=== PATIENT | male | born 1995 | race Hispanic/Latino ===

== ENCOUNTER 2019-10-26 22:47 | Emergency (ER) | payer SELFPAY ==
[2019-10-27 01:52] LABS: Barbiturates NEGATIVE (NEGATIVE); Benzodiazepines NEGATIVE (NEGATIVE); Cocaine NEGATIVE (NEGATIVE); METHAMPHETAM NEGATIVE (NEGATIVE); Methadone NEGATIVE (NEGATIVE); Opiates NEGATIVE (NEGATIVE); Phencyclidine NEGATIVE (NEGATIVE); THC Cannibis NEGATIVE (NEGATIVE)
--- NOTE | 2019-10-27 02:39 | EDPHYS ---
Physician Documentation [facility] Name: Eliseo Odonnell Age: 24 yrs Sex: Male : 1995 Arrival Date: 10/26/2019 Time: 22:58 Bed 25 Private MD: ED Physician John Arguelles HPI: 10/26 01:01 This 24 yrs old Male presents to ER via Ambulatory with complaints of SHAKEY. mh7 01:01 The patient presents to the emergency department with anxiety, over unknown mh7 circumstances. Onset: The symptoms/episode began/occurred 1 day(s) ago. Past psychiatric history: Prior diagnosis: Anxiety, Psychiatric medications include: none, Primary psychiatric physician: the patient does not have a primary psychiatric physician, the patient has not had a prior suicide gesture, the patient does not have a previous inpatient psychiatric history, the patient's last psychiatric treatment was 2 year(s) ago. Associated signs and symptoms: Pertinent positives; anxiety, tremor, Pertinent negatives: abdominal pain, chest pain, chills, delusions, depression, fever, hallucinations, headache, homicidal ideation, nausea, night sweats, palpitations, paranoia, shortness of breath, substance abuse, suicide ideation, vomiting. Severity of symptoms: At their worst the symptoms were moderate today, in the emergency department the symptoms have improved markedly. The patient has experienced similar episodes in the past, multiple times. Patient states that he was diagnosed with anxiety a few years ago but has not taken medication that he was prescribed. States that he started feeling shaky yesterday similar to past episodes. Denies any fever, cough, chest pain, SOB, nausea, vomiting, dizziness, or recent travel.. Historical: - Allergies: 10/25 23:39 No Known Allergies; ls4 - PMHx: 23:39 Anxiety; Asthma; ls4 - PSHx: 23:39 None; ls4 - Immunization history:: Adult Immunizations up to date, Flu vaccine is not up to date. It has been more than one year since last vaccine. - Social history:: Smoking status: Patient denies any tobacco usage or history of. Patient/guardian denies using alcohol, street drugs, IV drugs, caffeine, over the counter diet medications, tobacco products. ROS: 10/26 01:01 Constitutional: Negative for fever, chills, and weight loss, Eyes: Negative for injury, mh7 pain, redness, and discharge, ENT: Negative for injury, pain, and discharge, Neck: Negative for injury, pain, and swelling, Cardiovascular: Negative for chest pain, palpitations, and edema, Respiratory: Negative for shortness of breath, cough, wheezing, and pleuritic chest pain, Abdomen/GI: Negative for abdominal pain, nausea, vomiting, diarrhea, and constipation, Back: Negative for injury and pain, : Negative for injury, bleeding, discharge, and swelling, MS/Extremity: Negative for injury and deformity, Skin: Negative for injury, rash, and discoloration, Neuro: Negative for headache, weakness, numbness, tingling, and seizure, Allergy/Immunology: Negative for hives, rash, and allergies, Endocrine: Negative for neck swelling, polydipsia, polyuria, polyphagia, and marked weight changes, Hematologic/Lymphatic: Negative for swollen nodes, abnormal bleeding, and unusual bruising. Psych: Negative for depression, drug dependence, alcohol dependence, auditory hallucinations, visual hallucinations, homicidal ideation, insomnia, suicide gesture, suicidal ideation. Exam: 01:01 Constitutional: This is a well developed, well nourished patient who is awake, alert, mh7 and in no acute distress. Head/Face: Normocephalic, atraumatic. Eyes: Pupils equal round and reactive to light, extra-ocular motions intact. Lids and lashes normal. Conjunctiva and sclera are non-icteric and not injected. Cornea within normal limits. Periorbital areas with no swelling, redness, or edema. ENT: Nares patent. No nasal discharge, no septal abnormalities noted. Tympanic membranes are normal and external auditory canals are clear. Oropharynx with no redness, swelling, or masses, exudates, or evidence of obstruction, uvula midline. Mucous membranes moist. Neck: Trachea midline, no thyromegaly or masses palpated, and no cervical lymphadenopathy. Supple, full range of motion without nuchal rigidity, or vertebral point tenderness. No Meningismus. Chest/axilla: Normal chest wall appearance and motion. Nontender with no deformity. No lesions are appreciated. Cardiovascular: Regular rate and rhythm with a normal S1 and S2. No gallops, murmurs, or rubs. Normal PMI, no JVD. No pulse deficits. Respiratory: Lungs have equal breath sounds bilaterally, clear to auscultation and percussion. No rales, rhonchi or wheezes noted. No increased work of breathing, no retractions or nasal flaring. Abdomen/GI: Soft, non-tender, with normal bowel sounds. No distension or tympany. No guarding or rebound. No evidence of tenderness throughout. Back: No spinal tenderness. No costovertebral tenderness. Full range of motion. Skin: Warm, dry with normal turgor. Normal color with no rashes, no lesions, and no evidence of cellulitis. MS/ Extremity: Pulses equal, no cyanosis. Neurovascular intact. Full, normal range of motion. Neuro: Awake and alert, GCS 15, oriented to person, place, time, and situation. Cranial nerves II-XII grossly intact. Motor strength 5/5 in all extremities. Sensory grossly intact. Cerebellar exam normal. Normal gait. 01:01 Psych: Behavior/mood is anxious, Affect is calm, Oriented to person, place, time, Patient has no thoughts/intents to harm self or others. Judgement / Insight is normal. Memory is normal. Delusions/hallucinations are not present. Vital Signs: 10/25 23:35 BP 160 / 112; Pulse 77; Resp 16; Temp 98.6(O); Pulse Ox 99% on R/A; Weight 104.33 kg; ls4 Height 5 ft. 10 in. (177.80 cm); Pain 0/10; 10/26 02:20 BP 134 / 61; Pulse 68; Resp 18; Temp 98.2(TE); Pulse Ox 98% ; ea 10/25 23:35 Body Mass Index 33.00 (104.33 kg, 177.80 cm) ls4 MDM: 00:39 Patient medically screened. [facility] 02:36 Differential diagnosis: drug withdrawal. anxiety. Data reviewed: vital signs, nurses [facility] notes. 02:36 Data reviewed: lab test result(s), finger stick glucose, urine drug screen. Counseling: [facility] I had a detailed discussion with the patient and/or guardian regarding: the historical points, exam findings, and any diagnostic results supporting the discharge/admit diagnosis, lab results, the need for outpatient follow up, to return to the emergency department if symptoms worsen or persist or if there are any questions or concerns that arise at home. 10/26 00:39 Order name: UDS; Complete Time: 02:36 [facility] 10/26 01:19 Order name: Glucose, Ancillary Testing; Complete Time: 02:36 [facility] 10/26 00:39 Order name: Accucheck Blood Glucose; Complete Time: 01:28 [facility] 10/26 00:39 Order name: Urine Dipstick-Ancillary (obtain specimen); Complete Time: 01:28 [facility] 10/26 01:19 Order name: Urine Dipstick--Ancillary (enter results) mw2 Administered Medications: No medications were administered Disposition: 10/27/19 02:38 Discharged to Home. Impression: Anxiety disorder, unspecified. - Condition is Stable. - Discharge Instructions: Panic Attacks, Keav-pc-Moms. - Prescriptions for Hydroxyzine HCl 50 mg Oral Tablet - take 1 tablet by ORAL route every 8 hours As needed; 20 tablet. - Medication Reconciliation Form, Thank You Letter, Antibiotic Education, Prescription Opioid Use form. - Follow up: Private Physician; When: 1 - 2 days; Reason: Worsening of condition, Recheck today's complaints, Re-evaluation by your physician. Follow up: Joel Pennington MD; When: 1 - 2 days; Reason: Worsening of condition, Recheck today's complaints. - Problem is an acute exacerbation. - Symptoms have improved. Signatures: Dispatcher [employer] Marilynn Yeh RN RN ea Stewart, Lisa, RN RN ls4 John Arguelles MD MD mh7 Corrections: (The following items were deleted from the chart) 02:44 02:38 10/27/2019 02:38 Discharged to Home. Impression: Anxiety disorder, unspecified. ea Condition is Stable. Forms are Medication Reconciliation Form, Thank You Letter, Antibiotic Education, Prescription Opioid Use. Follow up: Private Physician; When: 1 - 2 days; Reason: Worsening of condition, Recheck today's complaints, Re-evaluation by your physician. Follow up: Joel Pennington; When: 1 - 2 days; Reason: Worsening of condition, Recheck today's complaints. Problem is an acute exacerbation. Symptoms have improved. 7
--- NOTE | 2019-10-27 02:39 | ER ---
Nurse's Notes [facility] Name: Eliseo Odonnell Age: 24 yrs Sex: Male : 1995 Arrival Date: 10/26/2019 Time: 22:58 Bed 25 Private MD: Diagnosis: Anxiety disorder, unspecified Presentation: 10/25 23:35 Chief complaint: Patient states: FLAVIO BEEN SHAKY ALL DAY. HANDS NUMB AND FEEL LIKE IM ls4 PANICKING. I FEEL BETTER NOW. I WAS ON ANXIETY MEDICINE BEFORE I WENT TO RETIREMENT BUT HAVENT HAD IT SINCE. I THINK ITS JUST ANXIETY. Coronavirus screen: Proceed with normal triage. Patient denies a cough. Patient denies shortness of breath or difficulty breathing. Patient denies measured and/or subjective temperature greater than 100.4F prior to today's visit. Patient denies travel on a cruise ship or to a country the [facility] currently lists as an affected area. Patient denies contact with known and/or suspected case of COVID-19. Ebola Screen: No symptoms or risks identified at this time. Initial Sepsis Screen: Does the patient meet any 2 criteria? No. Patient's initial sepsis screen is negative. Does the patient have a suspected source of infection? No. Patient's initial sepsis screen is negative. Risk Assessment: Do you want to hurt yourself or someone else? Patient reports no desire to harm self or others. Onset of symptoms is unknown. Care prior to arrival: None. Activity prior to arrival: None. 23:35 Method Of Arrival: Ambulatory ls4 23:35 Acuity: SHARRON 4 ls4 Triage Assessment: 23:39 General: Appears in no apparent distress. comfortable, obese, Behavior is calm, ls4 cooperative. Pain: Denies pain. Neuro: No deficits noted. Cardiovascular: No deficits noted. Respiratory: Airway is patent Respiratory effort is even, unlabored, Respiratory pattern is regular, Breath sounds are clear bilaterally. the patient reports symptoms have resolved. GI: No deficits noted. No signs and/or symptoms were reported involving the gastrointestinal system. : No deficits noted. No signs and/or symptoms were reported regarding the genitourinary system. Derm: Skin is intact, Skin is dry, Skin is normal, Skin temperature is warm. Musculoskeletal: No deficits noted. No signs and/or symptoms reported regarding the musculoskeletal system. Historical: - Allergies: 23:39 No Known Allergies; ls4 - PMHx: 23:39 Anxiety; Asthma; ls4 - PSHx: 23:39 None; ls4 - Immunization history:: Adult Immunizations up to date, Flu vaccine is not up to date. It has been more than one year since last vaccine. - Social history:: Smoking status: Patient denies any tobacco usage or history of. Patient/guardian denies using alcohol, street drugs, IV drugs, caffeine, over the counter diet medications, tobacco products. Screenin:41 Abuse screen: Denies threats or abuse. Denies injuries from another. Nutritional ls4 screening: No deficits noted. Tuberculosis screening: No symptoms or risk factors identified. Fall Risk None identified. Assessment: 10/26 00:26 Reassessment: Patient appears in no apparent distress at this time. Patient and/or ls4 family updated on plan of care and expected duration. Pain level reassessed. Patient is alert, oriented x 3, equal unlabored respirations, skin warm/dry/pink. 01:28 Reassessment: Patient appears in no apparent distress at this time. Patient and/or ls4 family updated on plan of care and expected duration. Pain level reassessed. Patient is alert, oriented x 3, equal unlabored respirations, skin warm/dry/pink. 02:20 General: Appears in no apparent distress. Behavior is calm, cooperative, appropriate ea for age. General: Reports he is feeling much better states "I think it was an anxiety attack" . Pain: Denies pain. Respiratory: Airway is patent Respiratory effort is even, unlabored, Respiratory pattern is regular, symmetrical. Derm: Skin is pink, warm \\T\\ dry. 02:43 Reassessment: Patient and/or family updated on plan of care and expected duration. Pain ea level reassessed. Patient is alert, oriented x 3, equal unlabored respirations, skin warm/dry/pink. Discharge instruction given to patient, verbalized the understanding of instruction. Pt left ED ambulatory tolerating well. Vital Signs: 10/25 23:35 BP 160 / 112; Pulse 77; Resp 16; Temp 98.6(O); Pulse Ox 99% on R/A; Weight 104.33 kg; ls4 Height 5 ft. 10 in. (177.80 cm); Pain 0/10; 10/26 02:20 BP 134 / 61; Pulse 68; Resp 18; Temp 98.2(TE); Pulse Ox 98% ; ea 10/25 23:35 Body Mass Index 33.00 (104.33 kg, 177.80 cm) ls4 ED Course: 10/25 22:58 Patient arrived in ED. ag3 23:24 Marilu Steven, RN is Primary Nurse. ls4 23:39 Triage completed. ls4 23:41 No apparent distress. ls4 23:41 Arm band placed on. ls4 23:41 Patient has correct armband on for positive identification. Bed in low position. Call 4 light in reach. Side rails up X 1. Pulse ox on. NIBP on. Verbal reassurance given. 23:41 No provider procedures requiring assistance completed. 4 10/26 00:18 John Arguelles MD is Attending Physician. 7 00:26 No apparent distress. Resting quietly. ls4 01:28 Diet: Patient given snack. Patient given water. Tolerated well. ls4 02:38 Joel Pennington MD is Referral Physician. [facility] 02:44 Patient did not have IV access during this emergency room visit. ea Administered Medications: No medications were administered Outcome: 02:38 Discharge ordered by . [facility] 02:44 Discharged to home ambulatory. ea 02:44 Condition: stable 02:44 Discharge instructions given to patient, Instructed on discharge instructions, follow up and referral plans. medication usage, Demonstrated understanding of instructions, follow-up care, medications, Prescriptions given X 1. 02:44 Patient left the ED. ea Signatures: Marilynn Sanchez RN Belinda Samaniego ea 3 Marilu Steven, JOCELYN RN [facility] John Arguelles MD MD [facility]
[2019-10-27 02:52] VITALS: BP 134/61; TEMP 98.2; O2SAT 98
[2019-10-27 03:04] LABS: Urine Blood NEGATIVE (NEG); Urine Glucose NEGATIVE (NEG); Urine Protein NEGATIVE (NEG); Urine Specific Gravity <1.005 (1.005-1.030)
== END 2019-10-27 02:44 | disposition home or self-care (01) ==
LOC: ER 22:47
DX: F41.9 Anxiety disorder, unspecified (principal)
CPT/HCPCS: 80307; 81003; 82947; 99283

== ENCOUNTER 2019-11-21 02:42 | Emergency (ER) | payer SELFPAY ==
[2019-11-21] MEDS ORDERED: ALBUTEROL 2.5 MG/3 ML NEB SOL ONE (03:43)
[2019-11-21] MEDS ORDERED: IPRATROPIUM BROM 0.5MG/2.5ML ONE (03:43)
--- NOTE | 2019-11-21 05:15 | EDPHYS ---
Physician Documentation [facility] Name: Eliseo Odonnell Age: 24 yrs Sex: Male : 1995 Arrival Date: 11/21/2019 Time: 02:47 Bed 4 Private MD: ED Physician Jeremiah Barlow HPI: 11/20 03:30 This 24 yrs old Male presents to ER via Ambulatory with complaints of pkl Breathing Difficulty. 03:30 The patient has shortness of breath at rest. Onset: The symptoms/episode began/occurred pkl just prior to arrival. Associated signs and symptoms: The patient has no apparent associated signs or symptoms. Historical: - Allergies: 03:04 No Known Allergies; wh - Home Meds: 03:04 None [Active]; wh - PMHx: 03:04 Anxiety; Asthma; - PSHx: 03:04 None; wh - Immunization history:: Adult Immunizations up to date. - Social history:: Smoking status: Patient/guardian denies using. ROS: 03:30 Eyes: Negative for injury, pain, redness, and discharge, ENT: Negative for injury, pkl pain, and discharge, Neck: Negative for injury, pain, and swelling, Cardiovascular: Negative for chest pain, palpitations, and edema. 03:30 Respiratory: Positive for shortness of breath. 03:31 Abdomen/GI: Negative for abdominal pain, nausea, vomiting, and diarrhea. pkl 03:31 Back: Negative for acute changes. 03:31 : Negative for urinary symptoms. 03:31 MS/extremity: Negative for acute changes. 03:31 Skin: Negative for rash. 03:31 Neuro: Negative for altered mental status, loss of consciousness. Exam: 03:31 Head/Face: Normocephalic, atraumatic. Eyes: Pupils equal round and reactive to light, pkl extra-ocular motions intact. Lids and lashes normal. Conjunctiva and sclera are non-icteric and not injected. Cornea within normal limits. Periorbital areas with no swelling, redness, or edema. ENT: Nares patent. No nasal discharge, no septal abnormalities noted. Tympanic membranes are normal and external auditory canals are clear. Oropharynx with no redness, swelling, or masses, exudates, or evidence of obstruction, uvula midline. Mucous membranes moist. Neck: Trachea midline, no thyromegaly or masses palpated, and no cervical lymphadenopathy. Supple, full range of motion without nuchal rigidity, or vertebral point tenderness. No Meningismus. Chest/axilla: Normal chest wall appearance and motion. Nontender with no deformity. No lesions are appreciated. Cardiovascular: Regular rate and rhythm with a normal S1 and S2. No gallops, murmurs, or rubs. Normal PMI, no JVD. No pulse deficits. 03:31 Respiratory: the patient does not display signs of respiratory distress, Respirations: normal, Breath sounds: bronchial sounds, that are mild, are scattered, rhonchi, that are mild, are scattered. 03:31 Abdomen/GI: Bowel sounds: normal, Palpation: abdomen is soft and non-tender, in all quadrants. 03:31 Back: Exam negative for acute changes. 03:31 : Exam negative for acute changes. 03:31 Musculoskeletal/extremity: Exam is negative for acute changes. 03:31 Skin: Exam negative for rash. 03:31 Neuro: Orientation: is normal, Mentation: is normal, Cranial nerves: grossly normal, Motor: is normal. Vital Signs: 03:02 BP 129 / 67; Pulse 67; Resp 18; Temp 98.2; Pulse Ox 100% ; Weight 122.47 kg; Height 5 wh ft. 10 in. (177.80 cm); 04:00 BP 109 / 64; Pulse 57; Resp 18; Pulse Ox 100% on R/A; wh 05:00 BP 122 / 64; Pulse 68; Resp 16; Pulse Ox 100% on R/A; wh 03:02 Body Mass Index 38.74 (122.47 kg, 177.80 cm) MDM: 02:51 Patient medically screened. pkl 05:11 Data reviewed: vital signs, nurses notes, lab test result(s), radiologic studies, plain pkl films. ED course: Patient feeling better. Discussed lab. and X' rays results with patient. Advised to follow up with PCP next week. Patient understood instructions. 11/20 03:31 Order name: D-Dimer; Complete Time: 05:10 pkl 11/20 03:28 Order name: XRAY CXR (1 view) pkl Administered Medications: 03:39 Drug: Albuterol - atroVENT (3:1) (2.5 mg - 0.5 mg) 3 ml Route: Nebulizer; 05:10 Follow up: Response: No adverse reaction Disposition: 11/21/19 05:14 Discharged to Home. Impression: Asthma. - Condition is Stable. - Prescriptions for Albuterol Sulfate 90 mcg/actuation - inhale 1-2 puff by INHALATION route every 4-6 hours; 1 Inhaler. - Medication Reconciliation Form, Thank You Letter, Antibiotic Education, Prescription Opioid Use form. - Follow up: Private Physician; When: 2 - 3 days; Reason: Re-evaluation by your physician. - Problem is new. - Symptoms have improved. Signatures: Dispatcher [employer] EDMS Jeremiah Barlow MD MD pkl [place], Winsy Corrections: (The following items were deleted from the chart) 05:21 05:14 11/21/2019 05:14 Discharged to Home. Impression: Asthma. Condition is Stable. Forms are Medication Reconciliation Form, Thank You Letter, Antibiotic Education, Prescription Opioid Use. Follow up: Private Physician; When: 2 - 3 days; Reason: Re-evaluation by your physician. Problem is new. Symptoms have improved. pkl
--- NOTE | 2019-11-21 05:15 | ER ---
Nurse's Notes [facility] Name: Eliseo Odonnell Age: 24 yrs Sex: Male : 1995 Arrival Date: 11/21/2019 Time: 02:47 Bed 4 Private MD: Diagnosis: Asthma Presentation: 11/20 03:02 Chief complaint: Patient states: feels like he couldn't catch his breath but denies wh shortness of breath. Pt states he it felt like he had trouble breathing. Coronavirus screen: Patient denies a cough. Patient denies shortness of breath or difficulty breathing. Patient denies measured and/or subjective temperature greater than 100.4F prior to today's visit. Patient denies travel on a cruise ship or to a country the [facility] currently lists as an affected area. Patient denies contact with known and/or suspected case of COVID-19. Proceed with normal triage. Ebola Screen: Patient negative for fever greater than or equal to 101.5 degrees Fahrenheit, and additional compatible Ebola Virus Disease symptoms Patient denies exposure to infectious person. Initial Sepsis Screen: Does the patient meet any 2 criteria? No. Patient's initial sepsis screen is negative. Does the patient have a suspected source of infection? No. Patient's initial sepsis screen is negative. Risk Assessment: Do you want to hurt yourself or someone else? Patient reports no desire to harm self or others. Onset of symptoms was November 21, 2019. 03:02 Method Of Arrival: Ambulatory 03:02 Acuity: SHARRON 4 Triage Assessment: 03:06 Respiratory: Reports shortness of breath Onset: The symptoms/episode began/occurred suddenly, the patient reports symptoms have resolved. Historical: - Allergies: 03:04 No Known Allergies; - Home Meds: 03:04 None [Active]; - PMHx: 03:04 Anxiety; Asthma; - PSHx: 03:04 None; - Immunization history:: Adult Immunizations up to date. - Social history:: Smoking status: Patient/guardian denies using. Screenin:04 Abuse screen: Denies threats or abuse. Denies injuries from another. Nutritional screening: No deficits noted. Tuberculosis screening: No symptoms or risk factors identified. Fall Risk None identified. Assessment: 03:05 General: Appears in no apparent distress. Behavior is calm, cooperative, appropriate wh for age. Pain: Denies pain. Neuro: Level of Consciousness is awake, alert, obeys commands, Oriented to person, place, time, situation, Appropriate for age. Cardiovascular: Heart tones S1 S2 Rhythm is regular. Respiratory: Airway is patent Respiratory effort is even, unlabored, Respiratory pattern is regular, symmetrical, Breath sounds are clear bilaterally. GI: Abdomen is flat, non-distended. : No signs and/or symptoms were reported regarding the genitourinary system. EENT: No signs and/or symptoms were reported regarding the EENT system. Derm: Skin is intact, is healthy with good turgor, Skin is pink, warm \T\ dry. normal. Musculoskeletal: Circulation, motion, and sensation intact. 04:10 Reassessment: Patient appears in no apparent distress at this time. No changes from previously documented assessment. Patient and/or family updated on plan of care and expected duration. Pain level reassessed. Patient is alert, oriented x 3, equal unlabored respirations, skin warm/dry/pink. 05:19 Reassessment: Patient appears in no apparent distress at this time. No changes from previously documented assessment. Patient and/or family updated on plan of care and expected duration. Pain level reassessed. Patient is alert, oriented x 3, equal unlabored respirations, skin warm/dry/pink. Reassessment: Patient states feeling better. Patient states symptoms have improved. Vital Signs: 03:02 BP 129 / 67; Pulse 67; Resp 18; Temp 98.2; Pulse Ox 100% ; Weight 122.47 kg; Height 5 wh ft. 10 in. (177.80 cm); 04:00 BP 109 / 64; Pulse 57; Resp 18; Pulse Ox 100% on R/A; wh 05:00 BP 122 / 64; Pulse 68; Resp 16; Pulse Ox 100% on R/A; 03:02 Body Mass Index 38.74 (122.47 kg, 177.80 cm) ED Course: 02:47 Patient arrived in ED. ag3 02:49 Babak Story is Primary Nurse. wh 02:51 Jeremiah Barlow MD is Attending Physician. pkl 03:04 Triage completed. 03:06 Arm band placed on right wrist. 03:06 Patient has correct armband on for positive identification. Bed in low position. Call light in reach. Side rails up X 1. Pulse ox on. NIBP on. 03:59 D-Dimer Sent. ds4 04:36 XRAY CXR (1 view) In Process Unspecified. EDMS 05:20 No provider procedures requiring assistance completed. Patient did not have IV access during this emergency room visit. Administered Medications: 03:39 Drug: Albuterol - atroVENT (3:1) (2.5 mg - 0.5 mg) 3 ml Route: Nebulizer; 05:10 Follow up: Response: No adverse reaction Outcome: 05:14 Discharge ordered by . mitul 05:20 Discharged to home ambulatory. 05:20 Condition: stable 05:20 Discharge instructions given to patient, Instructed on discharge instructions, follow up and referral plans. medication usage, POC Demonstrated understanding of instructions, follow-up care, medications, POC Prescriptions given X 1. 05:21 Patient left the ED. Signatures: Dispatcher [employer] EDIA Jeremiah Barlow MD MD pkl Rodrigo Iverson ds4 Babak Story Alice ag3
[2019-11-21 05:26] VITALS: TEMP 98.2; O2SAT 100
[2019-11-21 05:27] VITALS: BP 109/64
--- NOTE | 2019-11-21 09:59 | RAD REPORT ---
EXAM DESCRIPTION: [place] Single View11/21/2019 4:36 am CLINICAL HISTORY: sob COMPARISON: none FINDINGS: The lungs appear clear of acute infiltrate. The heart is normal size IMPRESSION: No acute abnormalities displayed
== END 2019-11-21 05:21 | disposition home or self-care (01) ==
LOC: ER 02:42
DX: J45.909 Unspecified asthma, uncomplicated (principal)
CPT/HCPCS: 36415; 71045; 85379; 99284

== ENCOUNTER 2020-03-11 07:25 | Emergency (ER) | payer SELFPAY ==
[2020-03-11] MEDS ORDERED: KETOROLAC 30 MG/ML INJ ONE (07:53)
[2020-03-11 08:05] LABS: Absolute Lymphocytes (CBC) 2.2 K/uL (0.7-4.9); Basophils % 1.3 % (0-1.3); Hematocrit 43.8 % (39.6-49.0); Lymphocytes % 22.1 % (15.3-44.8); MPV 8.5 fL (7.6-11.3); RBC Red Blood Cell Count 5.08 M/uL (4.33-5.43)
[2020-03-11 08:18] LABS: ALT/SGPT 78 U/L (12-78); AST/SGOT 35 U/L (15-37); Albumin 4.2 g/dL (3.4-5.0); Alkaline Phosphatase 78 U/L (45-117); BUN Blood Urea Nitrogen 17 mg/dL (7-18); Bicarbonate 32 mmol/L (21-32); Bilirubin Direct 0.1 mg/dL (0-0.2); Bilirubin Total 0.7 mg/dL (0.2-1.0); Glucose Level 108 mg/dL (74-106); Lipase 92 U/L (73-393); Potassium 4.6 mmol/L (3.5-5.1); Protein, Total 8.5 g/dL (6.4-8.2); Sodium Level 140 mmol/L (136-145)
--- NOTE | 2020-03-11 08:45 | RAD REPORT ---
EXAM DESCRIPTION: CTAbdomen Pelvis W Contrast - 03/11/2020 8:13 am CLINICAL HISTORY: Abdominal pain. LLQ;Abd pain COMPARISON: No comparisons TECHNIQUE: Biphasic CT imaging of the abdomen and pelvis was performed with 100 ml non-ionic IV cont rast. All CT scans are performed using dose optimization technique as appropriate and may include automated exposure control or mA/KV adjustment according to patient size. FINDINGS: The lung bases are clear.Small hiatal hernia with small lymph nodes present surrounding th e distal esophagus. The liver, spleen, pancreas, adrenal glands and kidneys are within normal limits. No bowel obstruction, free air, free fluid or abscess. No significant hernia evident. The appendix is not identified as a discrete structure, however, no secondary findings of appendicitis are identifie d. No evidence of significant lymphadenopathy. No suspicious bony findings. IMPRESSION: No acute intra-abdominal or pelvic finding.
--- NOTE | 2020-03-11 08:58 | ER ---
Nurse's Notes [facility] Name: Eliseo Odonnell Age: 24 yrs Sex: Male : 1995 Arrival Date: 03/11/2020 Time: 07:27 Bed 19 Private MD: Diagnosis: Abdominal and pelvic pain;Abdominal wall pain - LLQ Presentation: 03/11 07:35 Risk Assessment: Do you want to hurt yourself or someone else? Patient reports no sv desire to harm self or others. 07:35 Method Of Arrival: Ambulatory sv 07:36 Chief complaint: Patient states: "lump" to L side of abd that reportedly began months ss ago, but is concerned because it just started hurting today. Coronavirus screen: Client denies travel out of the [place] in the last 14 days. Ebola Screen: Patient denies exposure to infectious person. Patient denies travel to an Ebola-affected area in the 21 days before illness onset. Initial Sepsis Screen: Does the patient meet any 2 criteria? No. Patient's initial sepsis screen is negative. Does the patient have a suspected source of infection? No. Patient's initial sepsis screen is negative. Onset of symptoms is unknown. 07:36 Acuity: SHARRON 3 ss Historical: - Allergies: 07:36 No Known Allergies; sv - PMHx: 07:36 Anxiety; Asthma; sv - PSHx: 07:36 None; sv - Immunization history:: Adult Immunizations up to date. - Social history:: Smoking status: Patient denies any tobacco usage or history of. Screenin:35 Abuse screen: Denies threats or abuse. Denies injuries from another. Nutritional sv screening: No deficits noted. Tuberculosis screening: No symptoms or risk factors identified. Fall Risk None identified. Assessment: 07:40 General: Appears in no apparent distress. comfortable, well developed, Behavior is sv calm, cooperative, appropriate for age. Pain: Complains of pain in left lower quadrant Pain currently is 8 out of 10 on a pain scale. Pain began for a long time Is intermittent. Neuro: Level of Consciousness is awake, alert, obeys commands, Oriented to person, place, time, situation, Moves all extremities. Full function Gait is steady, Speech is normal. Respiratory: Respiratory effort is even, unlabored, Respiratory pattern is regular, symmetrical. GI: Abdomen is non-distended, Abdomen is tender to palpation in left lower quadrant. Derm: Skin is pink, warm \\T\\ dry. Musculoskeletal: Range of motion: intact in all extremities. 08:11 Reassessment: Pt currently in CT. sv 08:24 Reassessment: Patient appears in no apparent distress at this time. Patient and/or sv family updated on plan of care and expected duration. Pain level reassessed. Patient is alert, oriented x 3, equal unlabored respirations, skin warm/dry/pink. 09:07 Reassessment: Patient appears in no apparent distress at this time. No changes from sv previously documented assessment. Patient and/or family updated on plan of care and expected duration. Pain level reassessed. Patient is alert, oriented x 3, equal unlabored respirations, skin warm/dry/pink. Vital Signs: 07:36 BP 119 / 75; Pulse 66; Resp 16; Temp 98.5(TE); Pulse Ox 98% on R/A; Weight 122.47 kg; ss Height 5 ft. 10 in. (177.80 cm); Pain 8/10; 08:25 BP 113 / 71; Pulse 65; Resp 16; Pulse Ox 99% ; sv 07:36 Body Mass Index 38.74 (122.47 kg, 177.80 cm) ED Course: 07:27 Patient arrived in ED. mr 07:34 Silvio Morales MD is Attending Physician. kdr 07:34 Sandra Mena, JOCELYN is Primary Nurse. sv 07:35 Arm band placed on Patient placed in an exam room, on a stretcher. sv 07:35 Patient has correct armband on for positive identification. Bed in low position. Call sv light in reach. Pulse ox on. NIBP on. Door closed. Head of bed elevated. 07:37 Triage completed. ss 07:38 ED physician to see patient. sv 07:40 Inserted saline lock: 20 gauge in right antecubital area, using aseptic technique. sv Blood collected. Flushed right antecubital with 5 ml normal saline. 07:[address] Scan. sv 08:13 CT Abd/Pelvis - IV Contrast Only In Process Unspecified. EDMS 08:24 Awaiting radiology results. Awaiting re-evaluation by ER provider. sv 09:07 No provider procedures requiring assistance completed. IV discontinued, intact, sv bleeding controlled, No redness/swelling at site. Pressure dressing applied. Administered Medications: 07:50 Drug: TORadol - Ketorolac 15 mg Route: IVP; Site: right antecubital; sv 08:30 Follow up: Response: No adverse reaction; No change in condition sv 09:07 Drug: traMADol 50 mg {Note: rass0.} Route: PO; sv 09:07 Follow up: Response: No adverse reaction; Medication administered at discharge. sv Outcome: 08:58 Discharge ordered by . kdr :07 Discharged to home ambulatory. sv 09:07 Condition: stable 09:07 Discharge instructions given to patient, Instructed on discharge instructions, follow up and referral plans. medication usage, Demonstrated understanding of instructions, follow-up care, medications, Prescriptions given X 1. 09:08 Patient left the ED. sv Signatures: Dispatcher [employer] EDSandra Bermudez, RN RN sv Silvio Morales MD MD kdr Rivera, Mary mr Smirch, Shelby, RN RN ss
--- NOTE | 2020-03-11 08:58 | EDPHYS ---
Physician Documentation [facility] Name: Eliseo Odonnell Age: 24 yrs Sex: Male : 1995 Arrival Date: 03/11/2020 Time: 07:27 Bed 19 Private MD: ED Physician Silvio Morales HPI: 03/11 07:41 This 24 yrs old Male presents to ER via Ambulatory with complaints of kdr Abdominal Pain. 07:41 The patient presents with abdominal pain in the left lower quadrant. Onset: The kdr symptoms/episode began/occurred at an unknown time, Has had intermittent pain in the same area for some months or more. Became worse when he awoke this morning in the LLQ. The symptoms do not radiate. Associated signs and symptoms: none. The symptoms are described as constant, stabbing, vague. Modifying factors: The symptoms are alleviated by nothing, the symptoms are aggravated by touching the area. Severity of pain: At its worst the pain was mild moderate just prior to arrival, in the emergency department the pain is unchanged. The patient has not experienced similar symptoms in the past. The patient has not recently seen a physician. Historical: - Allergies: 07:36 No Known Allergies; sv - PMHx: 07:36 Anxiety; Asthma; sv - PSHx: 07:36 None; sv - Immunization history:: Adult Immunizations up to date. - Social history:: Smoking status: Patient denies any tobacco usage or history of. ROS: 07:41 Constitutional: Negative for fever, chills, and weight loss, Eyes: Negative for injury, kdr pain, redness, and discharge, Neck: Negative for injury, pain, and swelling, Cardiovascular: Negative for chest pain, palpitations, and edema, Respiratory: Negative for shortness of breath, cough, wheezing, and pleuritic chest pain, Back: Negative for injury and pain, : Negative for injury, bleeding, discharge, and swelling, MS/Extremity: Negative for injury and deformity, Skin: Negative for injury, rash, and discoloration, Neuro: Negative for headache, weakness, numbness, tingling, and seizure activity. Psych: Negative for depression, anxiety, suicide ideation, homicidal ideation, and hallucinations, Allergy/Immunology: Negative for hives, rash, and allergies, Endocrine: Negative for neck swelling, polydipsia, polyuria, polyphagia, and marked weight changes, Hematologic/Lymphatic: Negative for swollen nodes, abnormal bleeding, and unusual bruising. 07:41 Abdomen/GI: Positive for abdominal pain, Negative for nausea, vomiting, and diarrhea, abdominal cramps, abdominal distension, anorexia, black/tarry stool, rectal pain, rectal bleeding. Exam: 07:41 Constitutional: This is a well developed, well nourished patient who is awake, alert, kdr and in no acute distress. Head/Face: Normocephalic, atraumatic. Eyes: Pupils equal round and reactive to light, extra-ocular motions intact. Lids and lashes normal. Conjunctiva and sclera are non-icteric and not injected. Cornea within normal limits. Periorbital areas with no swelling, redness, or edema. ENT: Nares patent. No nasal discharge, no septal abnormalities noted. Tympanic membranes are normal and external auditory canals are clear. Oropharynx with no redness, swelling, or masses, exudates, or evidence of obstruction, uvula midline. Mucous membranes moist. Neck: Trachea midline, no thyromegaly or masses palpated, and no cervical lymphadenopathy. Supple, full range of motion without nuchal rigidity, or vertebral point tenderness. No Meningismus. Chest/axilla: Normal chest wall appearance and motion. Nontender with no deformity. No lesions are appreciated. Cardiovascular: Regular rate and rhythm with a normal S1 and S2. No gallops, murmurs, or rubs. Normal PMI, no JVD. No pulse deficits. Respiratory: Lungs have equal breath sounds bilaterally, clear to auscultation and percussion. No rales, rhonchi or wheezes noted. No increased work of breathing, no retractions or nasal flaring. Back: No spinal tenderness. No costovertebral tenderness. Full range of motion. Skin: Warm, dry with normal turgor. Normal color with no rashes, no lesions, and no evidence of cellulitis. MS/ Extremity: Pulses equal, no cyanosis. Neurovascular intact. Full, normal range of motion. Neuro: Awake and alert, GCS 15, oriented to person, place, time, and situation. Cranial nerves II-XII grossly intact. Motor strength 5/5 in all extremities. Sensory grossly intact. Cerebellar exam normal. Normal gait. Psych: Awake, alert, with orientation to person, place and time. Behavior, mood, and affect are within normal limits. 07:41 Abdomen/GI: Inspection: obese Bowel sounds: active, Palpation: soft, mild abdominal tenderness, in the left lower quadrant. Vital Signs: 07:36 BP 119 / 75; Pulse 66; Resp 16; Temp 98.5(TE); Pulse Ox 98% on R/A; Weight 122.47 kg; ss Height 5 ft. 10 in. (177.80 cm); Pain 8/10; 08:25 BP 113 / 71; Pulse 65; Resp 16; Pulse Ox 99% ; sv 07:36 Body Mass Index 38.74 (122.47 kg, 177.80 cm) ss MDM: 07:41 Data reviewed: vital signs, nurses notes, lab test result(s), radiologic studies. kdr Counseling: I had a detailed discussion with the patient and/or guardian regarding: the historical points, exam findings, and any diagnostic results supporting the discharge/admit diagnosis, lab results, radiology results, the need for outpatient follow up. 08:58 Patient medically screened. kdr 09:03 ED course: The patient had mild improvement with the interventions given and was happy kdr with the care provided and the plan for discharge and follow-up. 11 07:40 Order name: Basic Metabolic Panel; Complete Time: 08:36 kdr 03/11 07:40 Order name: CBC with Diff; Complete Time: 08:36 kdr 03/11 07:40 Order name: Hepatic Function; Complete Time: 08:36 kdr 03/11 07:40 Order name: Lipase; Complete Time: 08:36 kdr 03/11 07:41 Order name: CT Abd/Pelvis - IV Contrast Only; Complete Time: 08:54 kdr 03/11 08:44 Order name: Urine Dipstick--Ancillary (enter results) eb 03/11 07:40 Order name: IV Saline Lock; Complete Time: 07:50 kdr 03/11 07:40 Order name: Labs collected and sent; Complete Time: 07:50 kdr 03/11 07:41 Order name: Urine Dipstick-Ancillary (obtain specimen); Complete Time: 08:43 kdr Administered Medications: 07:50 Drug: TORadol - Ketorolac 15 mg Route: IVP; Site: right antecubital; sv 08:30 Follow up: Response: No adverse reaction; No change in condition sv 09:07 Drug: traMADol 50 mg {Note: rass0.} Route: PO; sv 09:07 Follow up: Response: No adverse reaction; Medication administered at discharge. sv Disposition: 03/11/20 08:58 Discharged to Home. Impression: Abdominal and pelvic pain, Abdominal wall pain - LLQ. - Condition is Stable. - Discharge Instructions: Abdominal Pain, Adult, [id number]. - Prescriptions for Ibuprofen 800 mg Oral Tablet - take 1 tablet by ORAL route every 12 hours As needed take with food; 20 tablet. - Medication Reconciliation Form, Thank You Letter form. - Follow up: Private Physician; When: 2 - 3 days; Reason: If symptoms return, Further diagnostic work-up, Recheck today's complaints, Continuance of care, Re-evaluation by your physician. - Problem is an acute exacerbation. - Symptoms have improved. Signatures: Dispatcher [employer] EDSandra Bermudez RN RN Silvio Morales MD MD [facility] Emily Miller RN RN ss Corrections: (The following items were deleted from the chart) 09:08 08:58 03/11/2020 08:58 Discharged to Home. Impression: Abdominal and pelvic pain; sv Abdominal wall pain - LLQ. Condition is Stable. Forms are Medication Reconciliation Form, Thank You Letter, Antibiotic Education, Prescription Opioid Use. Follow up: Private Physician; When: 2 - 3 days; Reason: If symptoms return, Further diagnostic work-up, Recheck today's complaints, Continuance of care, Re-evaluation by your physician. Problem is an acute exacerbation. Symptoms have improved. kdr
[2020-03-11] MEDS ORDERED: TRAMADOL HCL 50 MG TAB ONE (09:16)
[2020-03-11 10:08] VITALS: TEMP 98.5
[2020-03-11 10:11] VITALS: BP 113/71; O2SAT 99
[2020-03-11 10:25] LABS: Urine Blood NEGATIVE (NEG); Urine Glucose NEGATIVE (NEG); Urine Protein NEGATIVE (NEG); Urine Specific Gravity 1.015 (1.005-1.030)
== END 2020-03-11 09:08 | disposition home or self-care (01) ==
LOC: ER 07:25
DX: R10.32 Left lower quadrant pain (principal)
CPT/HCPCS: 36415; 74177; 80048; 80076; 81003; 82565; 83690; 85025; 96374; 99284; Q9967

== ENCOUNTER 2020-03-26 19:52 | Emergency (ER) | payer SELFPAY ==
[2020-03-26 21:50] LABS: Urine Blood NEGATIVE (NEG); Urine Glucose NEGATIVE (NEG); Urine Protein NEGATIVE (NEG)
[2020-03-26] MEDS ORDERED: NA CHLORIDE 0.9% 1,000 ML ONE (21:50)
[2020-03-26 21:52] LABS: Absolute Lymphocytes (CBC) 2.9 K/uL (0.7-4.9); Hematocrit 41.3 % (39.6-49.0); Lymphocytes % 27.9 % (15.3-44.8); MPV 8.3 fL (7.6-11.3); RBC Red Blood Cell Count 4.78 M/uL (4.33-5.43)
[2020-03-26 22:08] LABS: ALT/SGPT 72 U/L (12-78); AST/SGOT 33 U/L (15-37); Albumin 4.4 g/dL (3.4-5.0); Alkaline Phosphatase 80 U/L (45-117); BUN Blood Urea Nitrogen 14 mg/dL (7-18); Bicarbonate 31 mmol/L (21-32); Bilirubin Direct 0.1 mg/dL (0-0.2); Bilirubin Total 0.5 mg/dL (0.2-1.0); Glucose Level 86 mg/dL (74-106); Lipase 92 U/L (73-393); Potassium 3.9 mmol/L (3.5-5.1); Protein, Total 8.7 g/dL (6.4-8.2); Sodium Level 139 mmol/L (136-145)
--- NOTE | 2020-03-26 23:13 | EDPHYS ---
Physician Documentation [facility] Name: Eliseo Odonnell Age: 24 yrs Sex: Male : 1995 Arrival Date: 03/26/2020 Time: 19:56 Bed 23 Private MD: ED Physician John Arguelles HPI: 03/26 21:36 This 24 yrs old Male presents to ER via Ambulatory with complaints of pm1 Abdominal Pain. 21:36 The patient presents with abdominal pain in the left lower quadrant. pm1 21:36 Onset: The symptoms/episode began/occurred yesterday. The symptoms do not radiate. pm1 Associated signs and symptoms: Pertinent positives: nausea and vomiting, Pertinent negatives: chest pain, diarrhea, dysuria, fever, shortness of breath. The symptoms are described as crampy. Modifying factors: The symptoms are alleviated by hydrocodone. the symptoms are aggravated by nothing. Severity of pain: in the emergency department the pain has resolved is a 0 / 10 from hydrocodone he took a few hours prior to arrival. The patient has been recently seen by a physician: In the ER here about two weeks ago and then followed up with his PCP and surgeon for the same complaints. Historical: - Allergies: 20:27 No Known Allergies; ll1 - PMHx: 20:27 Anxiety; Asthma; ll1 - PSHx: 20:27 None; ll1 - Immunization history:: Flu vaccine is not up to date. - Social history:: Smoking status: Patient denies any tobacco usage or history of. ROS: 21:36 Constitutional: Negative for fever, chills, and weight loss, Cardiovascular: Negative pm1 for chest pain, palpitations, and edema, Respiratory: Negative for shortness of breath, cough, wheezing, and pleuritic chest pain. 21:36 Back: Negative for injury and pain, : Negative for injury, bleeding, discharge, and swelling, MS/Extremity: Negative for injury and deformity, Skin: Negative for injury, rash, and discoloration, Neuro: Negative for headache, weakness, numbness, tingling, and seizure. 21:36 Abdomen/GI: Positive for abdominal pain, nausea and vomiting, of the left upper quadrant, Negative for diarrhea. Exam: 21:36 Constitutional: This is a well developed, well nourished patient who is awake, alert, pm1 and in no acute distress. Head/Face: Normocephalic, atraumatic. 21:36 Back: No spinal tenderness. No costovertebral tenderness. Full range of motion. Skin: Warm, dry with normal turgor. Normal color with no rashes, no lesions, and no evidence of cellulitis. MS/ Extremity: Pulses equal, no cyanosis. Neurovascular intact. Full, normal range of motion. 21:36 Cardiovascular: Exam negative for acute changes, Rate: normal, Rhythm: regular, Pulses: no pulse deficits are appreciated. 21:36 Respiratory: Exam negative for acute changes, respiratory distress, shortness of breath. 21:36 Abdomen/GI: Inspection: obese Bowel sounds: normal, Palpation: abdomen is soft and non-tender, in all quadrants. 21:36 Neuro: Exam negative for acute changes, Orientation: is normal, Mentation: is normal, Motor: is normal, moves all fours. Vital Signs: 20:24 BP 147 / 96; Pulse 67; Resp 18; Temp 98.3; Pulse Ox 100% ; Weight 123.83 kg; Pain 5/10; ll1 23:04 BP 106 / 73; Pulse 60; Resp 18; Temp 97.3; Pulse Ox 98% ; dm5 MDM: 21:05 Patient medically screened. pm1 21:17 Data reviewed: vital signs. Data interpreted: Pulse oximetry: on room air is 100 %. pm1 Interpretation: normal. 21:17 ED course: Patient reports pain is 0/10 at the moment because he took 1/2 of a 7.5 pm1 hydrocodone that he bought of the street. NSAIDs weren't working so he felt that he needed something stronger. 23:07 Counseling: I had a detailed discussion with the patient and/or guardian regarding: the pm1 historical points, exam findings, and any diagnostic results supporting the discharge/admit diagnosis, lab results, radiology results, the need for outpatient follow up, to return to the emergency department if symptoms worsen or persist or if there are any questions or concerns that arise at home. 03/26 21:12 Order name: Basic Metabolic Panel; Complete Time: 22:10 pm1 03/26 21:12 Order name: CBC with Diff; Complete Time: 22:10 pm1 03/26 21:12 Order name: Hepatic Function; Complete Time: 22:10 pm1 03/26 21:12 Order name: Lipase; Complete Time: 22:10 pm1 03/26 21:12 Order name: CT Abd/Pelvis - IV Contrast Only pm1 03/26 21:39 Order name: Urine Dipstick--Ancillary (enter results); Complete Time: 21:57 mw2 03/26 21:12 Order name: IV Saline Lock; Complete Time: 21:42 pm1 03/26 21:12 Order name: Labs collected and sent; Complete Time: 21:42 pm1 03/26 21:12 Order name: Urine Dipstick-Ancillary (obtain specimen); Complete Time: 21:42 pm1 Administered Medications: 21:42 Drug: NS 0.9% 1000 ml Route: IV; Rate: 1000 ml; Site: right antecubital; dm5 22:40 Follow up: Response: No adverse reaction; Rate change ml; IV Status: Completed dm5 infusion; IV Intake: 1000ml Disposition: 03/27 06:04 Co-signature as Attending Physician, John Arguelles MD. mh7 Disposition: 03/26/20 23:13 Discharged to Home. Impression: Unspecified abdominal pain. - Condition is Stable. - Discharge Instructions: Abdominal Pain, Adult. - Prescriptions for Tramadol 50 mg Oral Tablet - take 1 tablet by ORAL route every 8 hours as needed; 12 tablet. - Medication Reconciliation Form, Thank You Letter, Antibiotic Education, Prescription Opioid Use form. - Follow up: Emergency Department; When: As needed; Reason: Worsening of condition. Follow up: Private Physician; When: 2 - 3 days; Reason: Recheck today's complaints, Continuance of care, Re-evaluation by your physician. - Problem is new. - Symptoms have improved. Signatures: Dispatcher [facility] Letty Knowles RN RN dm5 Zhen Glass NP [employer]PUTING SOFTWARE ENGINEER pm1 Shola Diaz RN RN ll1 John Arguelles MD MD mh7 Corrections: (The following items were deleted from the chart) 03/26 23:33 23:13 03/26/2020 23:13 Discharged to Home. Impression: Unspecified abdominal pain. dm5 Condition is Stable. Forms are Medication Reconciliation Form, Thank You Letter, Antibiotic Education, Prescription Opioid Use. Follow up: Emergency Department; When: As needed; Reason: Worsening of condition. Follow up: Private Physician; When: 2 - 3 days; Reason: Recheck today's complaints, Continuance of care, Re-evaluation by your physician. Problem is new. Symptoms have improved. pm1
--- NOTE | 2020-03-26 23:13 | ER ---
Nurse's Notes [facility] Name: Eliseo Odonnell Age: 24 yrs Sex: Male : 1995 Arrival Date: 03/26/2020 Time: 19:56 Bed 23 Private MD: Diagnosis: Unspecified abdominal pain Presentation: 03/26 20:24 Chief complaint: Patient states: LUQ/L flank pain since last night. Reports bloating to ll1 abdomen area. Nausea yesterday. Was seen two weeks ago, CT was negative. Saw a hernia specialist after seeing his PCP last Saturday. Coronavirus screen: Client denies travel out of the [place] in the last 14 days. At this time, the client does not indicate any symptoms associated with coronavirus-19. Ebola Screen: Patient denies travel to an Ebola-affected area in the 21 days before illness onset. Initial Sepsis Screen: Does the patient meet any 2 criteria? No. Patient's initial sepsis screen is negative. Does the patient have a suspected source of infection? Yes: Acute abdominal pain. Risk Assessment: Do you want to hurt yourself or someone else? Patient reports no desire to harm self or others. Onset of symptoms was March 25, 2020. 20:24 Method Of Arrival: Ambulatory ll1 20:24 Acuity: SHARRON 3 ll1 Triage Assessment: 21:30 General: Appears in no apparent distress. uncomfortable, Behavior is calm, cooperative. dm5 Pain: Complains of pain in abdomen Pain currently is 5 out of 10 on a pain scale. Neuro: Level of Consciousness is awake, alert, obeys commands, Oriented to person, place, time, situation. Respiratory: Airway is patent Respiratory effort is even, unlabored, Respiratory pattern is regular, symmetrical. GI: Abdomen is. Derm: Skin is pink, warm \T\ dry. Historical: - Allergies: 20:27 No Known Allergies; ll1 - PMHx: 20:27 Anxiety; Asthma; ll1 - PSHx: 20:27 None; ll1 - Immunization history:: Flu vaccine is not up to date. - Social history:: Smoking status: Patient denies any tobacco usage or history of. Screenin:30 Abuse screen: Denies threats or abuse. Denies injuries from another. Nutritional dm5 screening: No deficits noted. Tuberculosis screening: No symptoms or risk factors identified. Fall Risk None identified. Assessment: 21:30 General: Appears in no apparent distress. Behavior is calm, cooperative, asked a lot of dm5 questions about the process, what I was doing and what it was going to show us. He had questions about his urine test and what it would show us.. Pain: Complains of pain in abdomen Pain currently is 5 out of 10 on a pain scale. Neuro: Level of Consciousness is awake, alert, obeys commands, Oriented to person, place, time. Respiratory: Airway is patent Respiratory effort is even, unlabored, relaxed. Derm: Skin is pink, warm \T\ dry. 23:07 Reassessment: Patient appears in no apparent distress at this time. No changes from dm5 previously documented assessment. Patient and/or family updated on plan of care and expected duration. Pain level reassessed. Patient is alert, oriented x 3, equal unlabored respirations, skin warm/dry/pink. Awaiting CT results. 23:33 GI: dm5 Vital Signs: 20:24 BP 147 / 96; Pulse 67; Resp 18; Temp 98.3; Pulse Ox 100% ; Weight 123.83 kg; Pain 5/10; ll1 23:04 BP 106 / 73; Pulse 60; Resp 18; Temp 97.3; Pulse Ox 98% ; dm5 ED Course: 19:56 Patient arrived in ED. ag3 20:26 Triage completed. ll1 20:26 Arm band placed on. ll1 21:05 Zhen Glass NP is PHCP. pm1 21:05 John Arguelles MD is Attending Physician. pm1 21:22 Letty Perez, RN is Primary Nurse. dm5 21:30 Patient has correct armband on for positive identification. Placed in gown. dm5 21:30 Initial lab(s) drawn, by nd, sent to lab. Inserted saline lock: 20 gauge in right dm5 antecubital area, using aseptic technique. Blood collected. 22:17 CT Abd/Pelvis - IV Contrast Only In Process Unspecified. EDMS 23:33 No provider procedures requiring assistance completed. IV discontinued, intact, dm5 bleeding controlled, No redness/swelling at site. Pressure dressing applied. Administered Medications: 21:42 Drug: NS 0.9% 1000 ml Route: IV; Rate: 1000 ml; Site: right antecubital; dm5 22:40 Follow up: Response: No adverse reaction; Rate change ml; IV Status: Completed dm5 infusion; IV Intake: 1000ml Intake: 22:40 IV: 1000ml; Total: 1000ml. dm5 Outcome: 23:13 Discharge ordered by . pm1 23:33 Discharged to home ambulatory. dm5 23:33 Condition: good 23:33 Discharge instructions given to patient, Instructed on discharge instructions, follow up and referral plans. medication usage, Demonstrated understanding of instructions, follow-up care, medications, Prescriptions given X 1. 23:33 Patient left the ED. dm5 Signatures: Dispatcher [employer] Letty Knowles RN RN dm5 Zhen Glass, JOHAN MID TEACHER pm1 Belinda Farrell 3 Shola Diaz, RN RN ll1
[2020-03-27 06:26] VITALS: BP 106/73; TEMP 97.3; O2SAT 98
--- NOTE | 2020-03-27 14:05 | RAD REPORT ---
EXAM DESCRIPTION: CT Abdomen and Pelvis With Intravenous Contrast CLINICAL HISTORY: The patient is 24 years old and is Male; ABD PAIN TECHNIQUE: Axial computed tomography images of the abdomen and pelvis with intravenous contrast. S agittal and coronal reformatted images were created and reviewed. This CT exam was performed using one or more of the following dose reduction techniques: automated exposure control, adjustment of t he mA and/or kV according to patient size, and/or use of iterative reconstruction technique. COMPARISON: CT of the abdomen and pelvis March 11, 2020 FINDINGS: LUNG BASES: Unremarkable. No mass. No consolidation. MEDIASTINUM: Small hiatal hernia is present. ABDOMEN: LIVER: Unremarkable. No mass. GALLBLADDER AND BILE DUCTS: No calcified stones. No ductal dilation. PANCREAS: No ductal dilation. No mass. SPLEEN: Unremarkable. ADRENALS: Unremarkable. No mass. KIDNEYS AND URETERS: Unremarkable. The kidneys enhance symmetrically. No obstructing renal or ure teral calculus is seen. No hydronephrosis or hydroureter. No perinephric fluid or stranding. STOMACH AND BOWEL: The stomach is minimally fluid filled. The small bowel is relatively normal in caliber. Stool is present throughout colon. There is no mucosal thickening or evidence of bowel obst ruction. PELVIS: APPENDIX: The appendix is normal in caliber without surrounding inflammation. BLADDER: The bladder is moderately distended. REPRODUCTIVE: Unremarkable as visualized. ABDOMEN and PELVIS: INTRAPERITONEAL SPACE: Unremarkable. No free air. No significant fluid collection. 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 The vertebral body heights and alignment are maintained. SOFT TISSUES: The soft tissues are normal. VASCULATURE: Unremarkable. No abdominal aortic aneurysm. LYMPH NODES: Unremarkable. No enlarged lymph nodes. IMPRESSION: No acute findings on this contrasted CT of the abdomen and pelvis to explain the patient 's symptoms. Electronically signed by: Va Laughlin MD 03/26/2020 10:42 PM [employer] Due to temporary technical issues with the PACS/Fluency reporting system, reports are being signed by the in house radiologists without review as a courtesy to insure prompt reporting. The interpreting radiologist is fully responsible for the content of the report.
== END 2020-03-26 23:33 | disposition home or self-care (01) ==
LOC: ER 19:52
DX: R10.32 Left lower quadrant pain (principal)
CPT/HCPCS: 36415; 74177; 80048; 80076; 81003; 83690; 85025; 96360; 99284; J7030; Q9967

== ENCOUNTER 2020-06-15 17:12 | Emergency (ER) | payer SELFPAY ==
[2020-06-15] MEDS ORDERED: DIPHENHYDRAMINE 50 MG/ML VIAL ONE (18:43)
[2020-06-15] MEDS ORDERED: METOCLOPRAMIDE 10 MG/2mL INJ ONE (18:43)
[2020-06-15] MEDS ORDERED: NA CHLORIDE 0.9% 50 ML ONE (18:44)
[2020-06-15] MEDS ORDERED: KETOROLAC 30 MG/ML INJ ONE (18:44)
[2020-06-15] MEDS ORDERED: MECLIZINE HCL 12.5 MG TAB ONE (18:44)
[2020-06-15] MEDS ORDERED: NA CHLORIDE 0.9% 1,000 ML ONE (18:44)
--- NOTE | 2020-06-15 19:07 | RAD REPORT ---
EXAM DESCRIPTION: CT - Head Brain Wo Cont - 06/15/2020 6:36 pm CLINICAL HISTORY: Headache COMPARISON: None. TECHNIQUE: Computed axial tomography of the head was obtained. IV contrast was not requested. All CT scans are performed using dose optimization technique as appropriate and may include automated exposure control or mA/KV adjustment according to patient size. FINDINGS: An intracranial bleed is not seen . The ventricles are normal in caliber. No extra-axial fluid collection is noted. Fluid within the sinuses/ mastoids is not seen. IMPRESSION: No acute intracranial abnormality is seen. If patient's symptoms persist MRI of the bra in would be recommended.
--- NOTE | 2020-06-15 19:18 | ER ---
[facility] Name: Eliseo Odonnell Age: 25 yrs Sex: Male : 1995 Arrival Date: 06/15/2020 Time: 17:14 Bed 20 Private MD: Diagnosis: Headache;Dizziness and giddiness Presentation: 06/15 17:44 Chief complaint: Patient states: frontal, top of head pain x 4 days. 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 Coronavirus screen: Client denies travel out of the [place] in the last 14 days. At this time, the client does not indicate any symptoms associated with coronavirus-19. Ebola Screen: No symptoms or risks identified at this time. Risk Assessment: Do you want to hurt yourself or someone else? Patient reports no desire to harm self or others. Onset of symptoms was June 11, 2020. 17:44 Method Of Arrival: Ambulatory sv 17:44 Acuity: SHARRON 4 sv 17:44 Initial Sepsis Screen: Does the patient meet any 2 criteria? No. Patient's initial sv sepsis screen is negative. Does the patient have a suspected source of infection? No. Patient's initial sepsis screen is negative. Triage Assessment: 17:47 Headache History: The patient has had previous headaches and this one is similar to sv previous episodes. General: Appears in no apparent distress. comfortable, Behavior is calm, cooperative, appropriate for age. Neuro: Level of Consciousness is awake, alert, obeys commands, Oriented to person, place, time, situation, Gait is steady. Respiratory: Respiratory effort is even, unlabored. 19:40 Pain: Also complains of no other associated symptoms. zb Historical: - Allergies: 17:44 No Known Allergies; sv - PMHx: 17:44 Anxiety; Asthma; sv - PSHx: 17:44 None; sv - Immunization history:: Adult Immunizations up to date. - Social history:: Smoking status: unknown. Screenin:34 Abuse screen: Denies threats or abuse. Denies injuries from another. Nutritional zb screening: No deficits noted. Tuberculosis screening: No symptoms or risk factors identified. Fall Risk None identified. Assessment: 18:33 General: Appears in no apparent distress. comfortable, Behavior is calm, cooperative, zb appropriate for age. Pain: Complains of pain in headache Pain currently is 3 out of 10 on a pain scale. Quality of pain is described as aching, Pain began today. Neuro: Level of Consciousness is awake, alert, obeys commands, Oriented to person, place, time, situation. Cardiovascular: Capillary refill < 3 seconds Patient's skin is warm and dry. Respiratory: Airway is patent Respiratory effort is even, unlabored, Respiratory pattern is regular, symmetrical. GI: Abdomen is flat, non-distended, Bowel sounds present X 4 quads. : No signs and/or symptoms were reported regarding the genitourinary system. EENT: No signs and/or symptoms were reported regarding the EENT system. Derm: Skin is intact, is healthy with good turgor, Skin is dry, Skin is normal, Skin temperature is warm. Musculoskeletal: Circulation, motion, and sensation intact. Capillary refill < 3 seconds, Range of motion: intact in all extremities. Vital Signs: 17:44 BP 136 / 83; Pulse 78; Resp 16; Temp 97.5; Pulse Ox 99% ; Weight 127.01 kg; Height 5 sv ft. 10 in. (177.80 cm); Pain 3/10; 19:39 BP 114 / 70; Pulse 83; Resp 18; Pulse Ox 97% on R/A; zb 17:44 Body Mass Index 40.18 (127.01 kg, 177.80 cm) sv ED Course: 17:14 Patient arrived in ED. as 17:44 Triage completed. sv 17:46 Arm band placed on. sv 18:00 Ambrocio Degroot PA is PHCP. cp 18:00 Silvio Morales MD is Attending Physician. cp 18:00 Inserted saline lock: 20 gauge in right antecubital area, using aseptic technique. zb 18:24 Edwige Sharif, JOCELYN is Primary Nurse. zb 18:34 Patient has correct armband on for positive identification. Pulse ox on. NIBP on. Door zb closed. Noise minimized. Warm blanket given. 18:36 CT Head Brain wo Cont In Process Unspecified. EDMS 19:17 Blair Gary MD is Referral Physician. cp 19:40 No provider procedures requiring assistance completed. IV discontinued, intact, zb bleeding controlled, No redness/swelling at site. Pressure dressing applied. Administered Medications: 18:33 Drug: Meclizine 25 mg Route: PO; zb 19:30 Follow up: Response: No adverse reaction; Marked relief of symptoms zb 18:56 Drug: TORadol - Ketorolac 15 mg Route: IVP; Site: right antecubital; zb 19:30 Follow up: Response: No adverse reaction zb 18:56 Drug: Reglan 10 mg Route: IVP; Site: right antecubital; zb 19:30 Follow up: Response: No adverse reaction zb 18:56 Drug: Benadryl 25 mg Route: IVP; Site: right antecubital; zb 19:30 Follow up: Response: No adverse reaction; Marked relief of symptoms zb 18:56 Drug: NS 0.9% 1000 ml Route: IV; Rate: 1 bolus; Site: right antecubital; zb 19:40 Follow up: Response: No adverse reaction; IV Status: Completed infusion; IV Intake: zb 1000ml Intake: 19:40 IV: 1000ml; Total: 1000ml. zb Outcome: 19:17 Discharge ordered by MD. cp 19:40 Discharged to home ambulatory. zb 19:40 Condition: stable 19:40 Discharge instructions given to patient, Instructed on discharge instructions, follow up and referral plans. medication usage, Demonstrated understanding of instructions, follow-up care, medications, Prescriptions given X 2. 19:41 Patient left the ED. zb Signatures: Dispatcher [employer] EDSandra Bermudez RN Magalys Joseph Corey, PA PA cp Brown, Zipporah, RN RN zb Corrections: (The following items were deleted from the chart) 17:46 17:44 Chief complaint: Patient states: frontal, top of head pain x 4 days. sv sv 17:47 17:44 Pulse 78bpm; Resp 16bpm; Pulse Ox 99%; Temp 97.5F; 127.01 kg; Height 5 ft. 10 sv in.; BMI: 40.1; Pain 3/10; sv 23:22 23:20 Response: No adverse reaction zb zb
--- NOTE | 2020-06-15 19:18 | EDPHYS ---
Physician Documentation [facility] Name: Eliseo Odonnell Age: 25 yrs Sex: Male : 1995 Arrival Date: 06/15/2020 Time: 17:14 Bed 20 Private MD: ED Physician Silvio Morales HPI: 06/15 18:20 This 25 yrs old Male presents to ER via Ambulatory with complaints of cp Headache, Dizziness. 18:20 The patient complains of pain to the top of head and forehead. cp 18:20 The patient describes the headache as aching, constant. Onset: The symptoms/episode cp began/occurred 4 day(s) ago. Associated signs and symptoms: Pertinent positives: dizziness, Pertinent negatives: fever, neck stiffness, paresthesias, Photophobia sinus congestion, sinus tenderness, vomiting, weakness. Severity of symptoms: in the emergency department the pain has improved, mildly, after taking hydrocodone, a " 4" out of "10". Headache History: Other Patient reports having headaches 3-4 times per week over past several years. Patient concerned that this headache has persisted. Historical: - Allergies: 17:44 No Known Allergies; sv - PMHx: 17:44 Anxiety; Asthma; sv - PSHx: 17:44 None; sv - Immunization history:: Adult Immunizations up to date. - Social history:: Smoking status: unknown. ROS: 18:30 Constitutional: Negative for body aches, chills, fever, poor PO intake. cp 18:30 Eyes: Negative for injury, pain, redness, and discharge. cp 18:30 ENT: Negative for ear pain, sinus congestion, sinus pain, difficulty swallowing, difficulty handling secretions. 18:30 Neck: Negative for pain with movement, pain at rest, stiffness, tenderness. 18:30 Cardiovascular: Negative for chest pain, edema, palpitations. 18:30 Respiratory: Negative for cough, shortness of breath, wheezing. 18:30 Abdomen/GI: Negative for abdominal pain, nausea, vomiting, and diarrhea, constipation. 18:30 Back: Negative for pain at rest, pain with movement. 18:30 : Negative for urinary symptoms. 18:30 Neuro: Positive for dizziness, headache, Negative for altered mental status, numbness, weakness. 18:30 All other systems are negative. Exam: 18:33 Constitutional: The patient appears in no acute distress, alert, awake, cp non-diaphoretic, non-toxic, well developed, well nourished, obese. 18:33 Head/Face: Normocephalic, atraumatic. cp 18:33 Eyes: Periorbital structures: appear normal, Pupils: equal, round, and reactive to light and accomodation, Extraocular movements: intact throughout, Conjunctiva: normal, no exudate, no injection, Sclera: no appreciated abnormality, Lids and lashes: appear normal, bilaterally. 18:33 ENT: External ear(s): are unremarkable, Ear canal(s): are normal, clear, TM's: dullness, bilaterally, Nose: is normal, Mouth: Lips: moist, Oral mucosa: pink and intact, moist, Posterior pharynx: is normal, airway is patent, no erythema, no exudate. 18:33 Neck: ROM/movement: is normal, is supple, without pain, no range of motions limitations. 18:33 Chest/axilla: Inspection: normal, Palpation: is normal, no crepitus, no tenderness. 18:33 Cardiovascular: Rate: normal, Rhythm: regular. 18:33 Respiratory: the patient does not display signs of respiratory distress, Respirations: normal, no use of accessory muscles, no retractions, labored breathing, is not present, Breath sounds: are clear throughout, no decreased breath sounds, no stridor, no wheezing. 18:33 Abdomen/GI: Inspection: abdomen appears normal, Bowel sounds: active, all quadrants, Palpation: abdomen is soft and non-tender, in all quadrants. 18:33 Skin: no rash present. 18:33 Neuro: Orientation: to person, place \\T\\ time. Mentation: is normal, Cerebellar function: is grossly normal, Motor: moves all fours, strength is normal, Sensation: is normal. Vital Signs: 17:44 BP 136 / 83; Pulse 78; Resp 16; Temp 97.5; Pulse Ox 99% ; Weight 127.01 kg; Height 5 sv ft. 10 in. (177.80 cm); Pain 3/10; 19:39 BP 114 / 70; Pulse 83; Resp 18; Pulse Ox 97% on R/A; zb 17:44 Body Mass Index 40.18 (127.01 kg, 177.80 cm) sv MDM: 18:07 Patient medically screened. cp 18:35 Differential diagnosis: cluster headache, intracerebral hemorrhage, meningitis, cp meningoencephalitis, migraine, neoplasm, tension headache. 19:16 Data reviewed: vital signs, nurses notes, radiologic studies, CT scan. ED course: VSS. cp Patient reports headache resolved. Will discharge to home for continued monitoring. 19:17 Counseling: I had a detailed discussion with the patient and/or guardian regarding: the cp historical points, exam findings, and any diagnostic results supporting the discharge/admit diagnosis, lab results, radiology results, to return to the emergency department if symptoms worsen or persist or if there are any questions or concerns that arise at home. 19:17 Response to treatment: the patient's symptoms have markedly improved after treatment, cp and as a result, I will discharge patient. 06/15 18:15 Order name: CT Head Brain wo Cont; Complete Time: 19:14 cp 06/15 19:14 Interpretation: Report reviewed. 06/15 18:15 Order name: IV; Complete Time: 18:58 cp Administered Medications: 18:33 Drug: Meclizine 25 mg Route: PO; zb 19:30 Follow up: Response: No adverse reaction; Marked relief of symptoms zb 18:56 Drug: TORadol - Ketorolac 15 mg Route: IVP; Site: right antecubital; zb 19:30 Follow up: Response: No adverse reaction zb 18:56 Drug: Reglan 10 mg Route: IVP; Site: right antecubital; zb 19:30 Follow up: Response: No adverse reaction zb 18:56 Drug: Benadryl 25 mg Route: IVP; Site: right antecubital; zb 19:30 Follow up: Response: No adverse reaction; Marked relief of symptoms zb 18:56 Drug: NS 0.9% 1000 ml Route: IV; Rate: 1 bolus; Site: right antecubital; zb 19:40 Follow up: Response: No adverse reaction; IV Status: Completed infusion; IV Intake: zb 1000ml Disposition: 06/16 16:55 Co-signature as Attending Physician, Silvio Morales MD I agree with the assessment and kdr plan of care. Disposition: 06/15/20 19:17 Discharged to Home. Impression: Headache, Dizziness and giddiness. - Condition is Stable. - Discharge Instructions: Dizziness, General Headache Without Cause. - Prescriptions for Ibuprofen 800 mg Oral Tablet - take 1 tablet by ORAL route every 8 hours As needed take with food; 30 tablet. Meclizine 25 mg Oral Tablet - take 1 tablet by ORAL route every 8 hours As needed; 30 tablet. - Medication Reconciliation Form, Thank You Letter, Antibiotic Education, Prescription Opioid Use form. - Follow up: Blair Gary MD; When: 2 - 3 days; Reason: Recheck today's complaints. - Problem is new. - Symptoms have improved. Signatures: Dispatcher [employer] EDMS Sandra Mena RN RN sv Silvio Morales MD MD kdr Ambrocio Degroot PA PA Edwige Hogan RN RN zb Corrections: (The following items were deleted from the chart) 06/15 19:18 19:17 06/15/2020 19:17 Discharged to Home. Impression: Headache. Condition is Stable. cp Forms are Medication Reconciliation Form, Thank You Letter, Antibiotic Education, Prescription Opioid Use. Follow up: Blair Gary; When: 2 - 3 days; Reason: Recheck today's complaints. Problem is new. Symptoms have improved. cp 19:41 19:18 06/15/2020 19:17 Discharged to Home. Impression: Headache; Dizziness and zb giddiness. Condition is Stable. Discharge Instructions: General Headache Without Cause, Dizziness. Prescriptions for Ibuprofen 800 mg Oral Tablet - take 1 tablet by ORAL route every 8 hours As needed take with food; 30 tablet, Meclizine 25 mg Oral Tablet - take 1 tablet by ORAL route every 8 hours As needed; 30 tablet. and Forms are Medication Reconciliation Form, Thank You Letter, Antibiotic Education, Prescription Opioid Use. Follow up: Blair Gary; When: 2 - 3 days; Reason: Recheck today's complaints. Problem is new. Symptoms have improved. cp
[2020-06-15 19:55] VITALS: TEMP 97.5
[2020-06-15 19:57] VITALS: BP 114/70; O2SAT 97
== END 2020-06-15 19:41 | disposition home or self-care (01) ==
LOC: ER 17:12
DX: R51.9 Headache, unspecified (principal); R42 Dizziness and giddiness; F41.9 Anxiety disorder, unspecified; J45.909 Unspecified asthma, uncomplicated
CPT/HCPCS: 70450; 96361; 96374; 96375; 99284; J1200; J2765; J7030

== ENCOUNTER 2022-03-18 19:33 | Emergency (ER) | payer SELFPAY ==
--- OUTSIDE RECORDS SUMMARY | 2022-03-18 19:36 | XMS REPORT | Continuity of Care Document ---
:1995 Author Organization [facility] t Address [address] [place] [address] Care Team Providers Name Role Phone PCP, PATIENT DOES NOT HAVE A Primary Care Physician Unavaila Katelyn Gregory DO Attending Clinician KATELYN GAMBOA Attending Clinician Unavailable AURY AVILES Attending Clinician Unavailable Problems This patient has no known problems. Allergies, Adverse Reactions, Alerts Allergy Allergy Status Severity Reaction(s) Onset Inactive Treating Comm ents Source Name Type Date Date Clinician NO KNOWN Drug Active Univers ALLERGIE Class ity [facility] Social History Social Habit Start Date Stop Date Quantity Comments Source Sex Assigned At [birth year] [facility] 00:00:00 00:00:00 [facility] Smoking Status Start Date Stop Date Source Unknown if ever smoked [facility] Medications This patient has no known medications. Vital Signs Vital Name Observation Time Observation Value Comments Source Systolic blood 2021-10-30 18:29:00 152 mm[Hg] Univer sity [facility] Diastolic blood 2021-10-30 18:29:00 92 mm[Hg] Unive [facility] Heart rate 2021-10-30 18:29:00 102 /min [facility] Body temperature 2021-10-30 18:29:00 38.06 [facility] Respiratory rate 2021-10-30 18:29:00 18 /min [facility] Body weight 2021-10-30 18:29:00 113.399 kg Universi ty of [facility] Oxygen saturation in 2021-10-30 18:29:00 99 /min University Arterial blood by [facility] Pulse oximetry Branch Procedures Procedure Date / Time Performed Performing Clinician [facility] e NOTICE OF PRIVACY 2021-10-30 18:55:34 Doctor Unassigned, No Univ [facility] PRACTICES Name [facility] URINALYSIS 2021-10-30 18:32:00 Katelyn Gamboa [facility] COVID-19 (ID NOW RAPID 2021-10-30 18:32:00 [facility] CONSENT/REFUSAL FOR 2021-10-30 18:25:30 [facility] TREATMENT Encounters Start End Encounter Admission Attending Care Care Encounter Source Date/Time Date/Time Type Type Clinicians Facility Department ID 2021-10-30 2021-10-30 Emergency EVELYN Gamboa [id number] Univers 13:29:00 14:24:00 Katelyn TORRES [id number] [facility] [id number] [facility] [id number] [facility] 084 Branch 2021-10-30 2021-10-30 Emergency X EVELYN GAMBOA ERT [id number] Univers 13:29:00 14:24:00 KATELYN [facility] 2020-06-28 2020-06-28 Emergency E YARY AVILES [facility] [id number] 11:27:00 16:16:00 AURY Results This patient has no known results.
[2022-03-18] MEDS ORDERED: NA CHLORIDE 0.9% 1,000 ML ONE (20:26)
[2022-03-18] MEDS ORDERED: FAMOTIDINE 20 MG/2 ML VIAL IV ONE (20:26)
[2022-03-18] MEDS ORDERED: ONDANSETRON 4 MG/2 ML VIAL ONE (20:26)
[2022-03-18 20:38] LABS: Urine Blood Negative (Negative); Urine Glucose Negative (Negative); Urine Protein 1+ (Negative); Urine Specific Gravity >=1.030 (1.005-1.030); Urine pH 5.5 (5.0-7.0)
[2022-03-18 20:39] LABS: Absolute Lymphocytes (CBC) 1.3 K/uL (0.7-4.9); Hematocrit 47.4 % (39.6-49.0); Lymphocytes % 7.2 % (15.3-44.8); MCV 85.7 fL (80-100); RBC Red Blood Cell Count 5.53 M/uL (4.33-5.43)
[2022-03-18 21:37] LABS: Albumin 4.4 g/dL (3.4-5.0); Bilirubin Total 0.7 mg/dL (0.2-1.0); Potassium 3.7 mmol/L (3.5-5.1); Protein, Total 8.6 g/dL (6.4-8.2)
--- NOTE | 2022-03-18 22:36 | RAD REPORT ---
EXAM DESCRIPTION: CTAbdomen Pelvis W Contrast - 03/18/2022 10:17 pm CLINICAL HISTORY: abd pain COMPARISON: Abdomen Pelvis W Contrast dated 03/26/2020; Abdomen Pelvis W Contrast dated 0 TECHNIQUE: CT of the abdomen and pelvis was performed. All CT scans are performed using dose optimization technique as appropriate and may include automated exposure control or mA/KV adjustment according to patient size. FINDINGS: Lower chest: Small hiatal hernia. Mild circumferential thickening of distal esophagus. Liver: No acute abnormality or suspicious lesions. Biliary: No biliary ductal dilatation. Stomach: No significant focal abnormality. Duodenum: No significant focal abnormality. Pancreas: No significant abnormality. Spleen: No significant abnormality. Adrenal: No suspicious lesions. Kidney/ureter: No hydronephrosis. No renal calculi. Retroperitoneum: No retroperitoneal adenopathy. Vascular: No aneurysm. Bowel: Nonspecific fluid-filled small bowel and colon.. Peritoneum: Prominent ileocolic mesenteric lymph nodes have enlarged since 03/26/2020. Normal appendi x. Bladder: Grossly unremarkable. Reproductive: No adnexal masses. Bones: No acute fracture. Other: n/a IMPRESSION: Nonspecific fluid-filled small bowel and colon may represent a gastroenteritis. Of note, interval enlargement of multiple ileocolic mesenteric lymph nodes that are presumably reactive to an infectious or inflammatory process. Normal appendix.
--- NOTE | 2022-03-18 22:52 | EDPHYS ---
Physician Documentation [facility] Name: Eliseo Odonnell Age: 26 yrs Sex: Male : 1995 Arrival Date: 03/18/2022 Time: 19:34 Bed 7 Private MD: ED Physician Ambrocio Brandon HPI: 03/18 19:58 This 26 yrs old Male presents to ER via Ambulatory with complaints of kb Abdominal Pain, Nausea/Vomiting/Diarrhea. 19:58 The patient presents with abdominal pain in the epigastric area. Onset: The kb symptoms/episode began/occurred this morning. The symptoms do not radiate. Associated signs and symptoms: Pertinent positives: nausea, vomiting, and diarrhea, Pertinent negatives: fever. The symptoms are described as constant. Modifying factors: The symptoms are alleviated by nothing, the symptoms are aggravated by nothing. Severity of pain: At its worst the pain was moderate in the emergency department the pain is unchanged. The patient has not experienced similar symptoms in the past. The patient has not recently seen a physician. 19:58 pt reports n/v/d and upper abd pain that started this morning. States son has diarrhea kb as well. Historical: - Allergies: 19:41 No Known Allergies; kb3 - Home Meds: 19:41 Unable to obtain [Active]; kb3 - PMHx: 19:41 Anxiety; Asthma; kb3 - PSHx: 19:41 None; kb3 - Immunization history:: Adult Immunizations up to date, Client reports having NOT received the Covid vaccine. Last tetanus immunization: unknown. - Social history:: Smoking status: Patient denies any tobacco usage or history of. ROS: 19:58 Constitutional: Negative for fever, chills, and weight loss. kb 19:58 Abdomen/GI: Positive for abdominal pain, nausea, vomiting, and diarrhea. 19:58 All other systems are negative. Exam: 19:58 Constitutional: This is a well developed, well nourished patient who is awake, alert, kb and in no acute distress. Head/Face: Normocephalic, atraumatic. ENT: Moist Mucous membranes Cardiovascular: Regular rate and rhythm with a normal S1 and S2. No gallops, murmurs, or rubs. No pulse deficits. Respiratory: Respirations even and unlabored. No increased work of breathing. Talking in full sentences Abdomen/GI: Soft, non-tender. No distention Skin: Warm, dry with normal turgor. Normal color. MS/ Extremity: Pulses equal, no cyanosis. Neurovascular intact. Full, normal range of motion. Neuro: Awake and alert, GCS 15, oriented to person, place, time, and situation. Moves all extremities. Normal gait. Psych: Awake, alert, with orientation to person, place and time. Behavior, mood, and affect are within normal limits. Vital Signs: 19:37 BP 147 / 88; Pulse 86; Resp 20; Temp 98.2; Pulse Ox 100% ; Weight 113.4 kg; Height 5 kb3 ft. 10 in. (177.80 cm); Pain 8/10; 20:30 BP 123 / 51; Pulse 82; Resp 20; Pulse Ox 100% ; vc1 21:16 BP 116 / 70; Pulse 86; Resp 18; Pulse Ox 100% ; vc1 22:30 BP 126 / 81; Pulse 77; Resp 18; Pulse Ox 97% ; pf1 19:37 Body Mass Index 35.87 (113.40 kg, 177.80 cm) kb3 MDM: 19:36 Patient medically screened. kb 19:58 Data reviewed: vital signs, nurses notes. Data interpreted: Pulse oximetry: on room air kb is 100 %. Interpretation: normal. 22:51 Counseling: I had a detailed discussion with the patient and/or guardian regarding: the kb historical points, exam findings, and any diagnostic results supporting the discharge/admit diagnosis, lab results, radiology results, the need for outpatient follow up, a family practitioner, to return to the emergency department if symptoms worsen or persist or if there are any questions or concerns that arise at home. 03/18 19:40 Order name: CBC with Diff; Complete Time: 20:51 kb 03/18 19:40 Order name: CMP; Complete Time: 21:38 kb 03/18 19:40 Order name: Lipase; Complete Time: 21:38 kb 03/18 20:38 Order name: Urine Dipstick-Ancillary; Complete Time: 20:51 EDMS 03/18 20:53 Order name: CT Abd/Pelvis - IV Contrast Only; Complete Time: 22:38 kb 03/18 19:40 Order name: IV Saline Lock; Complete Time: 20:38 kb 03/18 19:40 Order name: Labs collected and sent; Complete Time: 20:38 kb 03/18 22:38 Order name: PO challenge; Complete Time: 22:53 kb Administered Medications: 20:35 Drug: NS 0.9% 1000 ml Route: IV; Rate: 1 bolus; Site: right antecubital; pf1 22:21 Follow up: IV Status: Completed infusion; IV Intake: 1000ml pf1 20:35 Drug: Pepcid (famotidine) 20 mg Route: IVP; Site: right antecubital; pf1 22:23 Follow up: Response: No adverse reaction; Pain is decreased pf1 20:35 Drug: Zofran (Ondansetron) 4 mg Route: IVP; Site: right antecubital; pf1 22:23 Follow up: Response: No adverse reaction; Nausea is decreased pf1 Disposition Summary: 03/18/22 22:51 Discharge Ordered Location: Home kb Condition: Stable kb Diagnosis - Noninfective gastroenteritis and colitis, unspecified kb Followup: kb - With: Emergency Department - When: As needed - Reason: Worsening of condition Followup: kb - With: Private Physician - When: 2 - 3 days - Reason: Recheck today's complaints, Continuance of care, Re-evaluation by your physician Discharge Instructions: - Discharge Summary Sheet kb - Food Choices to Help Relieve Diarrhea, Adult kb - Viral Gastroenteritis, Adult kb Forms: - Medication Reconciliation Form kb - Thank You Letter kb - Antibiotic Education kb - Prescription Opioid Use kb Prescriptions: - Zofran 4 mg Oral Tablet - take 1 tablet by ORAL route every 6 hours As needed; 20 tablet; Refills: 0, kb Product Selection Permitted - dicyclomine 20 mg Oral Tablet - take 1 tablet by ORAL route 4 times per day As needed; 20 tablet; Refills: 0, kb Product Selection Permitted Addendum: 03/22/2022 09:33 Co-signature as Attending Physician, Ambrocio Brandon MD I agree with the assessment and c padilla plan of care. Signatures: Dispatcher [employer] Bettina Seals FNP-C LAI-Ambrocio Sigala MD MD cha Bradberry, Kelly, RN RN kb3 Kimberly eric RN RN pf1
--- NOTE | 2022-03-18 22:52 | ER ---
Nurse's Notes [facility] Name: Eliseo Odonnell Age: 26 yrs Sex: Male : 1995 Arrival Date: 03/18/2022 Time: 19:34 Bed 7 Private MD: Diagnosis: Noninfective gastroenteritis and colitis, unspecified Presentation: 03/18 19:37 Chief complaint: Patient states: Pt reports epigastric pain, vomiting and diarrhea kb3 since this morning. Denies fever. Coronavirus screen: Vaccine status: Patient reports being unvaccinated. Client denies travel out of the [place] in the last 14 days. Ebola Screen: Patient negative for fever greater than or equal to 101.5 degrees Fahrenheit, and additional compatible Ebola Virus Disease symptoms Patient denies exposure to infectious person. Patient denies travel to an Ebola-affected area in the 21 days before illness onset. Initial Sepsis Screen: Does the patient meet any 2 criteria? No. Patient's initial sepsis screen is negative. Does the patient have a suspected source of infection? No. Patient's initial sepsis screen is negative. Risk Assessment: Do you want to hurt yourself or someone else? Patient reports no desire to harm self or others. Onset of symptoms was March 18, 2022 at 08:00. 19:37 Method Of Arrival: Ambulatory kb3 19:37 Acuity: SHARRON 3 kb3 Triage Assessment: 19:41 General: Appears in no apparent distress. uncomfortable, Behavior is calm, cooperative. kb3 Pain: Complains of pain in epigastric area Pain does not radiate. Pain currently is 7 out of 10 on a pain scale. Quality of pain is described as crampy. GI: Reports diarrhea, epigastric pain, nausea, vomiting. Historical: - Allergies: 19:41 No Known Allergies; kb3 - Home Meds: 19:41 Unable to obtain [Active]; kb3 - PMHx: 19:41 Anxiety; Asthma; kb3 - PSHx: 19:41 None; kb3 - Immunization history:: Adult Immunizations up to date, Client reports having NOT received the Covid vaccine. Last tetanus immunization: unknown. - Social history:: Smoking status: Patient denies any tobacco usage or history of. Screenin:41 Abuse screen: Denies threats or abuse. Nutritional screening: No deficits noted. pf1 19:41 Tuberculosis screening: No symptoms or risk factors identified. Fall Risk None pf1 identified. Assessment: 21:16 Reassessment: No changes from previously documented assessment. Patient and/or family vc1 updated on plan of care and expected duration. Pain level reassessed. Patient is alert, oriented x 3, equal unlabored respirations, skin warm/dry/pink. Vital Signs: 19:37 BP 147 / 88; Pulse 86; Resp 20; Temp 98.2; Pulse Ox 100% ; Weight 113.4 kg; Height 5 kb3 ft. 10 in. (177.80 cm); Pain 8/10; 20:30 BP 123 / 51; Pulse 82; Resp 20; Pulse Ox 100% ; vc1 21:16 BP 116 / 70; Pulse 86; Resp 18; Pulse Ox 100% ; vc1 22:30 BP 126 / 81; Pulse 77; Resp 18; Pulse Ox 97% ; pf1 19:37 Body Mass Index 35.87 (113.40 kg, 177.80 cm) kb3 ED Course: 19:34 Patient arrived in ED. as 19:35 Bettina Martinez FNP-C is PHCP. kb 19:35 Ambrocio Brandon MD is Attending Physician. kb 19:41 Triage completed. kb3 19:41 Arm band placed on left wrist. kb3 20:00 Patient has correct armband on for positive identification. Bed in low position. Call vc1 light in reach. 20:37 Kimberly eric, RN is Primary Nurse. pf1 20:39 CBC with Diff Sent. pf1 20:39 CMP Sent. pf1 20:39 Lipase Sent. pf1 20:43 Inserted saline lock: 20 gauge in right antecubital area, using aseptic technique. oe Blood collected. 22:18 CT Abd/Pelvis - IV Contrast Only In Process Unspecified. EDMS 23:02 No provider procedures requiring assistance completed. IV discontinued, intact, vc1 bleeding controlled, No redness/swelling at site. Pressure dressing applied. Administered Medications: 20:35 Drug: NS 0.9% 1000 ml Route: IV; Rate: 1 bolus; Site: right antecubital; pf1 22:21 Follow up: IV Status: Completed infusion; IV Intake: 1000ml pf1 20:35 Drug: Pepcid (famotidine) 20 mg Route: IVP; Site: right antecubital; pf1 22:23 Follow up: Response: No adverse reaction; Pain is decreased pf1 20:35 Drug: Zofran (Ondansetron) 4 mg Route: IVP; Site: right antecubital; pf1 22:23 Follow up: Response: No adverse reaction; Nausea is decreased pf1 Medication: 23:04 VIS not applicable for this client. vc1 Intake: 22:21 IV: 1000ml; Total: 1000ml. pf1 Outcome: 22:51 Discharge ordered by MD. leal 23:02 Discharged to home ambulatory. vc1 23:02 Condition: improved 23:03 Discharge instructions given to patient, Instructed on discharge instructions, follow vc1 up and referral plans. medication usage, Demonstrated understanding of instructions, follow-up care, medications, Prescriptions given X 2. 23:04 Patient left the ED. vc1 Signatures: Dispatcher [employer] EDMS Bettina Martinez, SHEET METAL SMITH-C SHEET METAL SMITH-Magalys Ivey Orlando oe Calcote, Vanessa RN RN vc1 Any Stevenson RN RN kb3 Kimberly eric RN RN pf1
[2022-03-18 23:13] VITALS: TEMP 98.2
[2022-03-18 23:30] VITALS: BP 126/81; O2SAT 97
== END 2022-03-18 23:04 | disposition home or self-care (01) ==
LOC: ER 19:33
DX: K52.9 Noninfective gastroenteritis and colitis, unspecified (principal)
CPT/HCPCS: 36415; 74177; 80053; 81003; 83690; 85025; 96361; 96374; 96375; 99284; J2405; J7030; Q9967

== ENCOUNTER 2022-09-03 13:46 | Emergency (ER) | payer SELFPAY ==
--- OUTSIDE RECORDS SUMMARY | 2022-09-03 13:49 | XMS REPORT | Continuity of Care Document ---
:1995 Author Organization [facility] t Address [address] [place] [address] Care Team Providers Name Role Phone PCP, PATIENT DOES NOT HAVE A Primary Care Physician UnavailKatelyn Solano DO Attending Clinician KATELYN GAMBOA Attending Clinician Unavailable AURY AVILES Attending Clinician Unavailable Problems This patient has no known problems. Allergies, Adverse Reactions, Alerts Allergy Allergy Status Severity Reaction(s) Onset Inactive Treating Comm ents Source Name Type Date Date Clinician NO KNOWN Drug Active Univers ALLERGIE Class ity of [facility] Social History Social Habit Start Date Stop Date Quantity Comments Source Sex Assigned At [birth year] [facility] 00:00:00 00:00:00 [facility] Smoking Status Start Date Stop Date Source Unknown if ever smoked [facility] Medications This patient has no known medications. Vital Signs Vital Name Observation Time Observation Value Comments Source Systolic blood 2021-10-30 18:29:00 152 mm[Hg] Univer sity pressure [facility] Diastolic blood 2021-10-30 18:29:00 92 mm[Hg] Unive rsity [facility] Heart rate 2021-10-30 18:29:00 102 /min [facility] Body temperature 2021-10-30 18:29:00 38.06 [facility]ul[facility] 2021-10-30 18:29:00 18 /min [facility] Body weight 2021-10-30 18:29:[address] [facility] Oxygen saturation in 2021-10-30 18:29:00 99 /min [facility] Arterial blood by [facility] Pulse oximetry Branch Procedures Procedure Date / Time Performed Performing Clinician [facility] e NOTICE OF PRIVACY 2021-10-30 18:55:34 Doctor Unassigned, No [facility] PRACTICES Name Medical Branch URINALYSIS 2021-10-30 18:32:[address] [facility] COVID-19 (ID NOW RAPID 2021-10-30 18:32:00 Katelyn Gamboa Un [facility] TESTING) [facility] CONSENT/REFUSAL FOR 2021-10-30 18:25:30 Doctor Unassigned, No [facility] Name [facility] TREATMENT Encounters Start End Encounter Admission Attending Care Care Encounter Source Date/Time Date/Time Type Type Clinicians Facility Department ID 2021-10-30 2021-10-30 Emergency EVELYN Gamboa [id number] [facility] 13:29:00 14:24:00 [id number] [id number] [facility] 084 Branch 2021-10-30 2021-10-30 Emergency X EVELYN GAMBOA ERT [id number] Univers 13:29:00 14:24:00 KATELYN butterfield [facility] 2020-06-28 2020-06-28 Emergency E YARY AVILES [facility] [id number] [facility] 11:27:00 16:16:00 AURY Results This patient has no known results.
[2022-09-03 14:54] LABS: Absolute Lymphocytes (CBC) 1.8 K/uL (0.7-4.9); Hematocrit 43.5 % (39.6-49.0); Lymphocytes % 20.7 % (15.3-44.8); MCV 84.4 fL (80-100); MPV 7.9 fL (7.6-11.3); RBC Red Blood Cell Count 5.15 M/uL (4.33-5.43)
[2022-09-03 15:12] LABS: Potassium 3.7 mEq/L (3.5-5.1); Troponin High Sensitivity 3.6 pg/mL (<58.9)
--- NOTE | 2022-09-03 15:21 | RAD REPORT ---
EXAM DESCRIPTION: CT - CTHCSPWOC - 09/03/2022 2:17 pm CLINICAL HISTORY: left arm tingling;Dizziness COMPARISON: No comparisons TECHNIQUE: Axial thin cut noncontrast CT images of the head were obtained. Axial thin cut noncontrast CT images of the cervical spine were obtained. Multiplanar reformatted images were generated and reviewed. All CT scans are performed using dose optimization technique as appropriate and may include automated exposure control or mA/KV adjustment according to patient size. FINDINGS: CT HEAD WITHOUT CONTRAST: No acute hemorrhage, hydrocephalus or extra-axial collection is identified.Midline structures are unr emarkable. Frost-white matter differentiation is preserved.No areas of brain edema or midline shift. The paranasal sinuses and mastoids are clear.The calvarium is intact. CT CERVICAL SPINE WITHOUT CONTRAST: No fracture or subluxation.No prevertebral soft tissues swelling is identified. No significant degen erative changes. IMPRESSION: No acute intracranial or cervical spine findings.
--- NOTE | 2022-09-03 15:34 | RAD REPORT ---
[facility] CLINICAL HISTORY: SOB COMPARISON: Chest Single View dated 02/08/2022; Chest Single View dated 11/21/2019 TECHNIQUE: Portable AP view of the chest. FINDINGS: The lungs are clear. No pneumothorax or effusion. The cardiomediastinal contours are unrem arkable. IMPRESSION: No acute cardiopulmonary process.
[2022-09-03] MEDS ORDERED: IBUPROFEN 400 MG TAB ONE (15:39)
--- NOTE | 2022-09-03 16:08 | EDPHYS ---
Physician Documentation [facility] Name: Eliseo Odonnell Age: 27 yrs Sex: Male : 1995 Arrival Date: 09/03/2022 Time: 13:46 Bed 11 Private MD: ED Physician Michael De La Garza HPI: 09/03 14:26 This 27 yrs old Male presents to ER via Ambulatory with complaints of rn dizziness, Numbness Of Hand, Breathing Difficulty. 14:26 The patient presents with dizziness, lightheadedness. Onset: The symptoms/episode rn began/occurred just prior to arrival. Modifying factors: The symptoms are alleviated by nothing, the symptoms are aggravated by nothing. Severity of symptoms: At their worst the symptoms were moderate in the emergency department the symptoms have improved. The patient has not experienced similar symptoms in the past. The patient has not recently seen a physician. Pt reports that he felt totally fine, took a shot of lemon juice/apple cider vinegar/cayenne, within minutes of taking shot felt dizzy, sob, tingling in left arm, had diarrhea. Now feeling better but wants to get checked out. + hx of anxiety. . Historical: - Allergies: 13:56 No Known Allergies; ll1 - PMHx: 13:56 Anxiety; Asthma; ll1 - Immunization history:: Adult Immunizations up to date, Client reports having NOT received the Covid vaccine. - Social history:: Smoking status: Patient denies any tobacco usage or history of. - Family history:: not pertinent. - Hospitalizations: : No recent hospitalization is reported. ROS: 14:26 Constitutional: Negative for fever, chills, and weight loss, Neck: Negative for injury, rn pain, and swelling, Cardiovascular: Negative for chest pain, palpitations, and edema, Respiratory: Negative for cough, wheezing, and pleuritic chest pain, Abdomen/GI: Negative for abdominal pain, nausea, vomiting, diarrhea, and constipation, MS/Extremity: Negative for injury and deformity, Skin: Negative for injury, rash, and discoloration, Neuro: Negative for headache, weakness, and seizure. Exam: 14:26 Constitutional: This is a well developed, well nourished patient who is awake, alert, rn and in no acute distress. Head/Face: Normocephalic, atraumatic. Cardiovascular: Regular rate and rhythm. No pulse deficits. Respiratory: No increased work of breathing, no retractions or nasal flaring. Abdomen/GI: Soft, non-tender Skin: Warm, dry MS/ Extremity: Pulses equal, no cyanosis. Neuro: Awake and alert, GCS 15, oriented to person, place, time, and situation. Cranial nerves II-XII grossly intact. Motor strength 5/5 in all extremities. Sensory grossly intact. Cerebellar exam normal. Normal gait. 14:52 ECG was reviewed by the Attending Physician. rn Vital Signs: 13:55 BP 134 / 80; Pulse 79; Resp 18; Temp 97.9; Pulse Ox 99% ; Weight 117.93 kg; Height 5 ll1 ft. 10 in. ; Pain 0/10; 14:45 BP 132 / 79; Pulse 85; Resp 18; Pulse Ox 100% ; mb9 15:36 BP 120 / 69; Pulse 71; Resp 16; Pulse Ox 98% ; Pain 2/10; db 16:20 BP 118 / 72; Pulse 70; Resp 15; Pulse Ox 98% ; jl7 13:55 Body Mass Index 37.31 (117.93 kg, 177.8 cm) ll1 13:55 Pain Scale: Adult ll1 15:36 Pain Scale: Adult db MDM: 13:52 Patient medically screened. rn 15:09 ED course: Pt feels much better without intervention, reports tingling/numbness is rn gone. Still mild headache. . 16:04 Differential diagnosis: cardiac arrhythmia, hyperventilation, hypovolemia, idiopathic rn dizziness, near-syncope, dizziness, anxiety, reaction to drink. Data reviewed: vital signs, nurses notes, lab test result(s), EKG, radiologic studies, CT scan, plain films, and as a result, I will discharge patient. Counseling: I had a detailed discussion with the patient and/or guardian regarding: the historical points, exam findings, and any diagnostic results supporting the discharge/admit diagnosis, lab results, radiology results, the need for outpatient follow up, to return to the emergency department if symptoms worsen or persist or if there are any questions or concerns that arise at home. Special discussion: I discussed with the patient/guardian in detail that at this point there is no indication for admission to the hospital. It is understood, however, that if the symptoms persist or worsen the patient needs to return immediately for re-evaluation. ED course: Pt back to baseline, neg cxr, neg ct head, neg d-dimer, neg troponin. Will dc home with return precautions. . 09/03 14:06 Order name: Basic Metabolic Panel; Complete Time: 15:16 rn 09/03 14:06 Order name: CBC with Diff; Complete Time: 15:06 rn 09/03 14:06 Order name: D-Dimer; Complete Time: 15:06 rn 09/03 14:06 Order name: Troponin HS; Complete Time: 15:16 rn 09/03 14:06 Order name: XRAY Chest (1 view); Complete Time: 16:04 rn 09/03 14:06 Order name: CT Head C Spine; Complete Time: 16:04 rn 09/03 14:06 Order name: EKG; Complete Time: 14:06 rn 09/03 14:06 Order name: Cardiac monitoring; Complete Time: 14:44 rn 09/03 14:06 Order name: EKG - Nurse/Tech; Complete Time: 14:44 rn 09/03 14:06 Order name: IV Saline Lock; Complete Time: 14:44 rn 09/03 14:06 Order name: Labs collected and sent; Complete Time: 14:44 rn 09/03 14:06 Order name: O2 Per Protocol; Complete Time: 14:44 rn 09/03 14:06 Order name: O2 Sat Monitoring; Complete Time: 14:44 rn EC:52 Rate is 70 beats/min. Rhythm is regular. QRS [place] is Normal. ND interval is normal. QRS rn interval is normal. QT interval is normal. No Q waves. T waves are Normal. No ST changes noted. Clinical impression: Normal ECG. Interpreted by me. Reviewed by me. Administered Medications: 15:36 Drug: Ibuprofen PO 800 mg Route: PO; db Disposition Summary: 09/03/22 16:07 Discharge Ordered Location: Home rn Problem: new rn Symptoms: have improved rn Condition: Stable rn Diagnosis - Adverse effect of other drugs, medicaments and biological substances rn - Paresthesia of skin rn - Hyperventilation rn Followup: rn - With: Private Physician - When: As needed - Reason: Recheck today's complaints, Re-evaluation by your physician Discharge Instructions: - Discharge Summary Sheet rn - Hyperventilation rn - Paresthesia rn Forms: - Medication Reconciliation Form rn - Thank You Letter rn - Antibiotic new grad rn - Prescription Opioid Use rn Signatures: Dispatcher [employer] Michael Ibarra MD MD rn Lewis, Lynsay, RN RN ll1 Marielle Mcgowan RN RN db
--- NOTE | 2022-09-03 16:08 | ER ---
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 States he used to have anxiety. Coronavirus screen: Vaccine status: Patient reports being unvaccinated. Client denies travel out of the [place] in the last 14 days. At this time, the client does not indicate any symptoms associated with coronavirus-19. Ebola Screen: Patient denies travel to an Ebola-affected area in the 21 days before illness onset. Initial Sepsis Screen: Does the patient meet any 2 criteria? No. Patient's initial sepsis screen is negative. Does the patient have a suspected source of infection? No. Patient's initial sepsis screen is negative. Risk Assessment: Do you want to hurt yourself or someone else? Patient reports no desire to harm self or others. Onset of symptoms was September 03, 2022. 13:55 Method Of Arrival: Ambulatory ll1 13:55 Acuity: SHARRON 3 ll1 Triage Assessment: 13:58 General: Appears in no apparent distress. Behavior is calm, cooperative, appropriate ll1 for age. Neuro: No deficits noted. Respiratory: Reports. Respiratory: Reports Onset: The symptoms/episode began/occurred suddenly, the patient has mild shortness of breath. Musculoskeletal: Reports numbness in left hand. Historical: - Allergies: 13:56 No Known Allergies; ll1 - PMHx: 13:56 Anxiety; Asthma; ll1 - Immunization history:: Adult Immunizations up to date, Client reports having NOT received the Covid vaccine. - Social history:: Smoking status: Patient denies any tobacco usage or history of. - Family history:: not pertinent. - Hospitalizations: : No recent hospitalization is reported. Screenin:47 [facility] ED Fall Risk Assessment (Adult) History of falling in the last 3 months, mb9 including since admission No falls in past 3 months (0 pts) Confusion or Disorientation No (0 pts) Intoxicated or Sedated No (0 pts) Impaired Gait No (0 pts) Mobility Assist Device Used No (0 pt) Altered Elimination No (0 pt) Score/Fall Risk Level 0 - 2 = Low Risk Oriented to surroundings, Maintained a safe environment, Educated pt \T\ family on fall prevention, incl call for assistance when getting out of bed. Abuse screen: Denies threats or abuse. Nutritional screening: No deficits noted. Tuberculosis screening: No symptoms or risk factors identified. Assessment: 14:45 General: Appears in no apparent distress. Behavior is anxious. Pain: Complains of pain mb9 in head Pain does not radiate. Pain currently is 5 out of 10 on a pain scale. Quality of pain is described as throbbing, Is intermittent. Neuro: [place] Agitation-Sedation Scale (RASS): 0 - Alert and Calm Level of Consciousness is awake, alert, obeys commands, Oriented to person, place, time, situation, Appropriate for age Reports headache numbness in left arm. Cardiovascular: Heart tones S1 S2 present Patient's skin is warm and dry. Rhythm is regular. Respiratory: Reports shortness of breath Airway is patent Respiratory effort is even, unlabored, Respiratory pattern is regular, symmetrical, Breath sounds are clear bilaterally. GI: Abdomen is obese, Bowel sounds present X 4 quads. Abd is soft and non tender X 4 quads. Patient currently denies nausea. : Urine is clear. Derm: Skin is pink, warm \T\ dry. Musculoskeletal: Range of motion: intact in all extremities. Vital Signs: 13:55 BP 134 / 80; Pulse 79; Resp 18; Temp 97.9; Pulse Ox 99% ; Weight 117.93 kg; Height 5 ll1 ft. 10 in. ; Pain 0/10; 14:45 BP 132 / 79; Pulse 85; Resp 18; Pulse Ox 100% ; mb9 15:36 BP 120 / 69; Pulse 71; Resp 16; Pulse Ox 98% ; Pain 2/10; db 16:20 BP 118 / 72; Pulse 70; Resp 15; Pulse Ox 98% ; jl7 13:55 Body Mass Index 37.31 (117.93 kg, 177.8 cm) ll1 13:55 Pain Scale: Adult ll1 15:36 Pain Scale: Adult db ED Course: 13:48 Patient arrived in ED. rg4 13:52 Michael De La Garza MD is Attending Physician. rn 13:56 Triage completed. ll1 13:57 Arm band placed on. ll1 14:16 XRAY Chest (1 view) In Process Unspecified. EDMS 14:19 CT Head C Spine In Process Unspecified. EDMS 14:35 Wendy Vásquez, RN is Primary Nurse. mb9 14:44 Basic Metabolic Panel Sent. mb9 14:44 CBC with Diff Sent. mb9 14:44 D-Dimer Sent. mb9 14:45 Troponin HS Sent. mb9 14:45 No provider procedures requiring assistance completed. Inserted saline lock: 22 gauge mb9 in right antecubital area, using aseptic technique. 14:47 Placed in gown. Bed in low position. Call light in reach. Side rails up X 1. Client mb9 placed on continuous cardiac and pulse oximetry monitoring. NIBP monitoring applied. monitoring coordinator on. 14:48 EKG done, by ED staff, reviewed by Michael De La Garza MD. mb9 16:20 IV discontinued, intact, bleeding controlled, No redness/swelling at site. Pressure jl7 dressing applied. Administered Medications: 15:36 Drug: Ibuprofen PO 800 mg Route: PO; db Medication: 14:47 VIS not applicable for this client. mb9 Outcome: 16:07 Discharge ordered by . rn 16:20 Discharged to home ambulatory. jl7 16:20 Condition: stable 16:20 Discharge instructions given to patient, significant other, Instructed on discharge instructions, follow up and referral plans. Demonstrated understanding of instructions, follow-up care. 16:22 Patient left the ED. jl7 Signatures: Dispatcher [employer] EDCA Michael De La Garza MD MD rn Garcia, Rubi rg4 Daniel Woody RN RN jl7 Shola Diaz RN RN ll1 Marielle Mcgowan RN RN Wendy Orozco RN RN mb9
[2022-09-03 17:23] VITALS: TEMP 97.9
[2022-09-03 17:28] VITALS: O2SAT 98
[2022-09-03 17:30] VITALS: BP 118/72
--- NOTE | 2022-09-04 16:07 | EKG ---
Test Date: 2022-09-03 Test Time: 14:42:18 Document Control Supervisor: MB MEASUREMENT RESULTS: Intervals: Rate: 70 CA: 148 QRSD: 90 QT: 370 QTc: 399 [place]: P: 19 CA: 148 QRS: 65 T: 64 INTERPRETIVE STATEMENTS: Normal sinus rhythm Normal ECG Compared to ECG 02/08/2022 21:36:48 No significant changes Electronically Signed On 09-04-22 16:04:49 CDT by Rogers Guerra
== END 2022-09-03 16:22 | disposition home or self-care (01) ==
LOC: ER 13:46
DX: R06.4 Hyperventilation (principal); T50.995A Adverse effect of other drugs, medicaments and biological substances, initial encounter
CPT/HCPCS: 36415; 70450; 71045; 72125; 80048; 84484; 85025; 85379; 93005; 99284

== ENCOUNTER 2023-10-14 15:36 | Emergency (ER) | payer SELFPAY ==
--- OUTSIDE RECORDS SUMMARY | 2023-10-14 15:39 | XMS REPORT | Continuity of Care Document ---
Author Name Unknown Address [address] [facility] [address] [place] [address] [facility] thconnect Address [address] [facility] [place] [address] Care Team Providers Care Master Plumber Name Role Phone Pcp, Patient Does Not Have A Primary Care Physic nick KRUPA DOLAN Attending Clinician Unavailable Krupa Dolan MD Attending Clinician [phone] Katelyn Gamboa DO Attending Clinician [phone] KATELYN GAMBOA Attending Clinician UnavailAURY Ramey Attending Clinician Unava ilable Allergies, Adverse Reactions, Alerts Allergy Name Allergy Type Status Severity Reaction(s) Onset Date Inactive Date Treating Clinician Comments Source NO KNOWN ALLERGIE S Drug Class Active [facility] Social History Social Habit Start Date Stop Date Quantity Comments Source Sexual orientation U [facility] Sex Assigned At 1995 00:00:00 1995 00:00:00 [facility] Smoking Status Start Date Stop Date Source Tobacco smoking consumption unknown [facility] Vital Signs Vital Name Observation Time Observation Value Comments Guzman berry Systolic blood pressure 2023-08-16 02:23:00 140 mm[Hg] [facility] Diastolic blood pressure 2023-08-16 02:23:00 81 mm[Hg] [facility] Heart rate 2023-08-16 02:23:00 68 /min [facility] Body temperature 2023-08-16 02:23:00 37 Lulú [facility] Respiratory rate 2023-08-16 02:23:00 18 /min [facility] Oxygen saturation in Arterial blood by Pulse oximetry 2023-08-16 02:23:00 100 /min [facility] Body height 2023-08-16 00:54:[address] [facility] [place] [place] Body weight 2023-08-16 00:54:[address] [facility] [place] [place] BMI 2023-08-16 00:54:00 37.31 kg/m2 [facility] Systolic blood pressure 2023-08-15 07:00:00 120 mm[Hg] [facility] Diastolic blood pressure 2023-08-15 07:00:00 78 mm[Hg] [facility] Heart rate 2023-08-15 07:00:00 81 /min [facility] Respiratory rate 2023-08-15 07:00:00 12 /min [facility] Oxygen saturation in Arterial blood by Pulse oximetry 2023-08-15 07:00:00 97 /min [facility] Body temperature 2023-08-15 05:11:00 36.72 Lulú [facility] Body height 2023-08-15 05:11:00 177.8 cm [facility] Body weight 2023-08-15 05:11:[address] [facility] [place] [place] BMI 2023-08-15 05:11:00 37.31 kg/m2 [facility] [place] [place] Systolic blood pressure 2021-10-30 18:29:00 152 mm[Hg] [facility] Diastolic blood pressure 2021-10-30 18:29:00 92 mm[Hg] [facility] Heart rate 2021-10-30 18:29:00 102 /min [facility] Body temperature 2021-10-30 18:29:00 38.06 Lulú [facility] Respiratory rate 2021-10-30 18:29:00 18 /min [facility] Body weight 2021-10-30 18:29:00 113.399 kg [facility] Oxygen saturation in Arterial blood by Pulse oximetry 2021-10-30 18:29:00 99 /min [facility] Procedures Procedure Date / Time Performed Performing Clinician Source EKG-12 LEAD 2023-08-16 02:21:53 Krupa Dolan [facility] THYROID STIMULATING HORMONE 2023-08-15 05:50:00 Krupa Dolan [facility] BASIC METABOLIC PANEL (NA, K, CL, CO2, GLUCOSE, BUN, CREATININE, CA) 2023-08-15 05:50:00 Krupa Dolan [facility] CBC WITH DIFF 2023-08-15 05:50:00 Krupa Dolan [facility] NOTICE OF PRIVACY PRACTICES 2021-10-30 18:55:34 Doctor Unassigned, [place] [facility] URINALYSIS 2021-10-30 18:32:[address] [facility] [place] [place] COVID-19 (ID NOW RAPID TESTING) 2021-10-30 18:32:00 Katelyn Gamboa [facility] CONSENT/REFUSAL FOR DIAGNOSIS AND TREATMENT 2021-10-30 18:25:30 Doctor Unassigned, [place] [facility] Encounters Start Date/Time End Date/Time Encounter Type Admission Type Attending Clinicians Care Facility Care Department Encounter ID Source 2023-08-15 19:56:00 2023-08-15 21:34:00 Emergency X KRUPA DOLAN [facility] ERT [id number] [facility] 2023-08-15 19:56:00 2023-08-15 21:34:00 Emergency Krupa Dolan [facility] 1.2.840.114 350.1.13.10 4.2.7.2.686 [id number] [facility] 2023-08-15 00:13:00 2023-08-15 02:21:00 Emergency Krupa Dolan [facility] 1..840.114 350.1.13.10 4.2.7.2.686 [id number] [facility] 2023-02-06 13:11:04 2023-02-06 13:11:04 Outpatient [facility] [id number] Alexx Medrano 2022-10-03 10:29:27 2022-10-03 10:29:27 Outpatient [facility] [id number] Alexx Medrano 2021-10-30 13:29:00 2021-10-30 14:24:00 Emergency BeeKatelyn Canelo [facility] 1..840.114 350.1.13.10 4.2.7.2.686 [id number] [facility] 2021-10-30 13:29:00 2021-10-30 14:24:00 Emergency X BEE KATELYN [facility] ERT [id number] [facility] 2020-06-28 11:27:00 2020-06-28 16:16:00 Emergency E [facility] [address] Notes Date/Time Note Provider Source 2023-08-15 21:24:32 0669-20-77Q58:24:32 Pt given printed and verbal discharge instructions regarding palpitations.Pt verbalized understanding of instructions, pt awake alert oriented, resp reg unlabored, skin w/d, color appropriate for race, moves all ext well,pt encouraged to follow up with pcp.Advised to seek medical attention for new/prolonged/worsening of symptoms,Symptoms increased heart rate, shortness of breathAwake, alert oriented, resp reg unlabored, skin w/d, pt leaving amb with steady gait, in no apparent distress, 34917-8Evzzlfkgl department PpaeAP0389-03-74M31:25:15Emergency department NoteTXT1.2.840.175478.1.13.104.2.7. 2.616046|[id number] for patient klbc38040-6NbqiPIJHMYCUWJHSirkevsaa C-CDA narrative text[id number] 5RFACNXUNHHWZYDACYLDARJ8613-00-40P8 1:25:151.2.840.578434.1.72.3.15|1.2 .840.838533.1.13.104.2.7.2.727879_2 [id number] [facility] 2023-08-15 19:51:28 4432-72-36C41:51:28 Pt arrived ambulatory with girlfriend (Mariah) , okay to discuss medical care in front of girlfriend. Pt states " So my heart rate has been high like 115, I have been shaky, I feel like my ears and head are clogged up. I have jerzy been having diarrhea." 10329-3Lefwxders department Triage cwhyST7174-97-44G30:53:26[facility] Triage noteTXT1.2.840.080268.1.13.104.2.7. 2.809615|[id number] for patient qdgb17782-3Fwilvlajc department NoteLNNARRATIVEFormatted C-CDA narrative [id number] CATALAN[id number] 1PUUCHQILZZPUCQYQWHNEDS2006-09-13G7 9:53:261.2.840.320497.1.72.3.15|1.2 .840.851309.1.13.104.2.7.2.727879_2 [id number] Brenda Resendiz RN [facility] 2023-08-15 19:48:00 [id number]:48:00Associated Order(s): EKG-12 Lead ROUTINE ONCEPre-Procedure Diagnose(s): PalpitationsPost-Procedure Diagnose(s): Palpitations [facility] Emergency Department NotePatient Name: Danny Mireles of : 1995 28 year old maleTreatment Room: [address] Record Number: [id number] Care Physician: PATIENT DOES NOT HAVE A PCPPatient Escorted by: Friend [6]Mode of Arrival: Personal means [1]EMS Treatment Prior to ED Arrival: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 treatment: NoneTravel and Exposure Screening:SymptomsDoes patient have any of these symptoms?: (not recorded)Exposure ScreeningHas patient had contact with someone with a communicable disease in the last month?: (not recorded)Diseases exposed to:: (not recorded)Is Patient ?: (not recorded)Exposure Date: (not recorded)Chief Complaint:Chief ComplaintPatient presents withOtherHeart rate "high"Ear PainHistory of Present Illness:Danny Odonnell is a 28 year old male with medical hx as documented below who presents tot he ED with palpations and heart rate of 115 upon awakening from sleep that has since resolved. Symptoms lasted about one to two minutes per pt. No SOB/Dyspnea. No chest pain. No dizziness. No syncope or near-syncope. No calf tenderness/pain/swelling.Pt was evaluated for same earlier today and work-up was unremarkable and referred to Dr Jin, Cardiology. Pt currently has a Holter monitor in place and has a Cardiology appointment tomorrow. Pt is asking for "Cholesterol testing"History provided by: Patient, medical records and significant otherLanguage accounts receivable bookkeeper used: NoPalpitationsPalpitations quality: RegularOnset quality: SuddenDuration: 2 minutesTiming: SporadicProgression: ResolvedContext: anxietyContext: not appetite suppressants, not blood loss, not bronchodilators, not caffeine, not dehydration, not exercise, not hyperventilation, not illicit drugs, not nicotine and not stimulant useRelieved by: None triedWorsened by: NothingIneffective treatments: None triedAssociated symptoms: no back pain, no chest pain, no chest pressure, no cough, no diaphoresis, no dizziness, no hemoptysis, no leg pain, no lower extremity edema, no malaise/fatigue, no nausea, no near-syncope, no numbness, no orthopnea, no PND, no shortness of breath, no syncope, no vomiting and no weaknessRisk factors: no diabetes mellitus, no heart disease, no hx of atrial fibrillation, no hx of DVT, no hx of PE, no hx of thyroid disease, no hypercoagulable state, no hyperthyroidism, no OTC sinus medications and no stressPast Medical History/Immunizations:Covid-19 October2AnxietyPVCsMorbid ObesityTetanus received in last 5 years: YesAllergies:No Known AllergiesPast Social History:Substance & Sexual ActivityNo substance use or sexual activity history on file.Past Surgical History:No past surgical history on file.Review of Systems:Review of SystemsConstitutional: Negative for activity change, diaphoresis and malaise/fatigue.HENT: Negative.Eyes: Negative.Respiratory: Negative. Negative for cough, hemoptysis, choking, shortness of breath, wheezing and stridor.Breasts: Negative.Cardiovascular: Positive for palpitations. Negative for chest pain, orthopnea, leg swelling, syncope, PND and near-syncope.Gastrointestinal: Negative. Negative for nausea and vomiting.Genitourinary: Negative.Musculoskeletal: Negative. Negative for back pain.Skin: Negative.Neurological: Negative. Negative for dizziness, weakness and numbness.Psychiatric/Behavioral: Negative.All other systems reviewed and are negative.Endocrine: Endocrine negativePhysical Exam:ED Triage Vitals [08/15/231953]Weight 117.9 kg (260 lb)Actual or estimated Estimated by patient/family reportHeight 1.778 m (5' 10")BP (!) 142/83Pulse 79Resp 18Temp 37.1 ?C (98.8 ?F)Temp source OralSpO2 98 %Measured on Room airPhysical ExamVitals and nursing note reviewed.Constitutional:General: He is not in acute distress.Appearance: Normal appearance. He is well-developed. He is obese. He is not ill-appearing, toxic-appearing or diaphoretic.HENT:Head: Normocephalic and atraumatic.Nose: Nose normal. No congestion or rhinorrhea.Mouth/Throat:Mouth: Mucous membranes are moist.Pharynx: No oropharyngeal exudate or posterior oropharyngeal erythema.Eyes:General: No scleral icterus.Right eye: No discharge.Left eye: No discharge.Extraocular Movements: Extraocular movements intact.Conjunctiva/sclera: Conjunctivae normal.Pupils: Pupils are equal, round, and reactive to light.Cardiovascular:Rate and Rhythm: Normal rate and regular rhythm.Pulses: Normal pulses.Heart sounds: Normal heart sounds. No murmur heard.Pulmonary:Effort: Pulmonary effort is normal. No respiratory distress.Breath sounds: Normal breath sounds. No stridor. No wheezing, rhonchi or rales.Chest:Chest wall: No tenderness.Abdominal:General: Bowel sounds are normal. There is no distension.Palpations: Abdomen is soft. There is no mass.Tenderness: There is no abdominal tenderness. There is no right CVA tenderness, left CVA tenderness, guarding or rebound.Hernia: No hernia is present.Musculoskeletal:General: No swelling, tenderness, deformity or signs of injury. Normal range of motion.Cervical back: Normal range of motion and neck supple. No rigidity or tenderness.Right lower leg: No edema.Left lower leg: No edema.Lymphadenopathy:Cervical: No cervical adenopathy.Skin:General: Skin is warm and dry.Capillary Refill: Capillary refill takes less than 2 seconds.Coloration: Skin is not jaundiced or pale.Findings: No bruising, erythema, lesion or rash.Neurological:General: No focal deficit present.Mental Status: He is alert and oriented to person, place, and time.Cranial Nerves: No cranial nerve deficit.Sensory: No sensory deficit.Motor: No weakness.Coordination: Coordination normal.Gait: Gait normal.Deep Tendon Reflexes: Reflexes normal.Psychiatric:Behavior: Behavior normal.Thought Content: Thought content normal.Judgment: Judgment normal.Comments: Anxious MoodRadiology:No orders to displayLab Results:Lab Results - No data to displayOrders and Treatments:No orders of the defined types were placed in this encounter.No orders of the defined types were placed in this encounter.First Provider Eval:ED EventsDate/Time Event User Zernvyqr27/11/242021 Medical Screening Begins KRUPA DOLAN MD --08/15/232021 First Provider Evaluation KRUPA DOLAN MD --ED COURSEDiagnosis/Impression as of 08/15/23 2121PalpitationsProcedures:EKG-12 Lead ROUTINE ONCEDate/Time: 08/15/2023 8:49 PMPerformed by: Krupa Dolan MDAuthorized by: Krupa Dolan MDECG interpreted by ED Physician in the absence of a pump rebuilder: yesPrevious ECG:Previous ECG: Compared to currentSimilarity: No changeInterpretation:Interpretation : normalRate:ECG rate: 73ECG rate assessment: normalRhythm:Rhythm: sinus rhythmEctopy:Ectopy: noneQRS:QRS axis: NormalQRS intervals: NormalQRS conduction: normalST segments:ST segments: NormalT waves:T waves: normalQ waves:Abnormal Q-waves: not presentMDM:Medical Decision MakingDanny Odonnell is a 28 year old male who presents to the ED for evaluation of palpitations he experienced upon awakening from sleep. Pt reportsthat his heart rate was 115.Problems Addressed:Palpitations: acute illness or injuryDetails: HR during exam 91EKG reveals rate of 73 BPMPt is currently wearing a Holter MonitorNo SOB/?DyspneaAmount and/or Complexity of Data ReviewedExternal Data Reviewed: labs, ECG and notes.ECG/medicine tests: ordered and independent interpretation performed. Decision-making details documented in ED Course.RiskRisk Details: Pt has a Cardiology appointment in AM for Holter Monitoring interrogationFlowsheet Documentation:Scoring Tools:No data recordedDisposition/Condition:ED DispositionED DispositionDisch - HomeConditionStableComment--Dischar ge Medications:Patient's MedicationsNo medications on fileFollow-up:Electronically signed by:Krupa Dolan MD08/15/231 67426-8Wwqsnsfey Emergency department TfdtFS5182-75-73F84:21:52Physician Emergency department NoteTXT1.2.840.567574.1.13.104.2.7. 2.354156|[id number] for patient afbz08477-0Tkhjmesyr department NoteLNNARRATIVEFormatted C-CDA narrative textUTMBUT50 [address] [id number] 4JCVTTQONMSUGHOCGWJJJHL7172-65-91K9 1:21:521.2.840.749915.1.72.3.15|1.2 .840.289582.1.13.104.2.7.2.727879_2 [id number] [facility] 2023-08-15 02:20:50 1530-65-50R69:20:50 Awake, alert oriented X4, respiratory even and unlabored,skin w/d color appropriate for race, moves all ext well, pt encouraged to follow up with pcp and or return as neededPt given printed and verbal discharge instructions regarding Anxious Mood, Palpitations , patient verbralized understanding and signature obtained, patient denies any other concerns.Advised to seek medical attention for new/prolonged/worsening of symptoms,No adverse reaction to meds given in ER noted upon dischargePt [facility]ulated [facility] 23341-4Ttgpnmfhc department AtyjNJ3151-67-50E83:21:26Emergency department NoteTXT1.2.840.963067.1.13.104.2.7. 2.636613|[id number] for patient fkxw36523-5KlqnEROYVMTYODNKxfqaveoo C-CDA narrative [id number] J Hoot RNUT[address] [id number] 3TCOOMNTERDUDVDDNGWYKHK9196-07-84M4 2:21:261.2.840.511761.1.72.3.15|1.2 .840.876654.1.13.104.2.7.2.727879_2 [id number] Queenie Ramirez RN [facility] 2023-08-15 00:10:25 1164-68-80O98:10:25 Pt stated he woke up and his heart rate was in 140's.Didn't feel well when he went to sleep. Had a headache when he went to bed, denies pain at this time. 35043-4Qemrmkwza department Triage kluwSS0056-26-30E72:11:35[facility] department Triage noteTXT1.2.840.049828.1.13.104.2.7. 2.002539|[id number] for patient jtge19743-6Dcxgcocjv department NoteLNNARRATIVEFormatted C-CDA narrative [id number] Vazquez RN[address] Xi[id number] [id number] 0:11:351.2.840.262253.1.72.3.15|1.2 .840.546183.1.13.104.2.7.2.727879_2 [id number] Pearl Vazquez RN [facility]
[2023-10-14] MEDS ORDERED: MECLIZINE HCL 12.5 MG TAB ONE (17:12)
[2023-10-14] MEDS ORDERED: predniSONE 20 MG TAB ONE (17:12)
[2023-10-14] MEDS ORDERED: KETOROLAC 30 MG/ML INJ ONE (17:12)
--- NOTE | 2023-10-14 19:15 | RAD REPORT ---
EXAM DESCRIPTION: CT - Head Brain Wo Cont - 10/14/2023 6:48 pm CLINICAL HISTORY: Dizziness COMPARISON: 2020 TECHNIQUE: Computed axial tomography of the head was obtained. IV contrast was not requested. All CT scans are performed using dose optimization technique as appropriate and may include automated exposure control or mA/KV adjustment according to patient size. FINDINGS: An intracranial bleed is not seen The ventricles are normal in caliber No significant hypodense areas within the brain visualized No extra-axial fluid collection is noted. Fluid within the sinuses/ mastoids is not seen IMPRESSION: No acute intracranial abnormality is seen If patient's symptoms persist MRI of the brain would be recommended
--- NOTE | 2023-10-14 19:23 | ER ---
Nurse's Notes [facility] Name: Eliseo Odonnell Age: 28 yrs Sex: Male : 1995 Arrival Date: 10/14/2023 Time: 15:36 Bed 12 Private MD: Diagnosis: Other peripheral vertigo Presentation: 10/13 15:54 Chief complaint: Patient states: SINUS PRESSURE AND DIZZINESS x2 DAYS. Coronavirus ll1 screen: At this time, the client does not indicate any symptoms associated with coronavirus-19. Ebola Screen: No symptoms or risks identified at this time. Initial Sepsis Screen: Does the patient meet any 2 criteria? No. Patient's initial sepsis screen is negative. Does the patient have a suspected source of infection? No. Patient's initial sepsis screen is negative. Risk Assessment: Do you want to hurt yourself or someone else? Patient reports no desire to harm self or others. Onset of symptoms is unknown. 15:54 Method Of Arrival: Ambulatory ll1 15:54 Acuity: SHARRON 3 ll1 Triage Assessment: 15:55 General: Appears in no apparent distress. Behavior is calm, cooperative, appropriate ll1 for age. Pain: Complains of pain in head. EENT: No deficits noted. Neuro: Reports dizziness, headache. Cardiovascular: No deficits noted. Historical: - Allergies: 15:55 No Known Allergies; ll1 - Home Meds: 15:55 None [Active]; ll1 - PMHx: 15:55 Anxiety; Asthma; ll1 - Immunization history:: Adult Immunizations up to date. - Infectious Disease History:: Denies. - Social history:: Smoking status: . Screenin:23 [facility] ED Fall Risk Assessment (Adult) History of falling in the last 3 months, cm10 including since admission No falls in past 3 months (0 pts) Confusion or Disorientation No (0 pts) Intoxicated or Sedated No (0 pts) Impaired Gait No (0 pts) Mobility Assist Device Used No (0 pt) Altered Elimination No (0 pt) Score/Fall Risk Level 0 - 2 = Low Risk Oriented to surroundings, Maintained a safe environment, Hourly rounding (assess needs \T\ fall precautionary measures) done. Abuse screen: Denies threats or abuse. Denies injuries from another. Nutritional screening: No deficits noted. Tuberculosis screening: No symptoms or risk factors identified. Assessment: 16:18 General: Appears in no apparent distress. comfortable, Behavior is calm, cooperative, cm10 Pt states that since Saturday he has been having pressure to his head and dizziness. Pt denies any chest pain or shortness of breath. pt placed on monitor and given call light.. Pain: Complains of pain in head Quality of pain is described as pressure. Neuro: No deficits noted. Level of Consciousness is awake, alert, obeys commands, Oriented to person, place, time, situation, Appropriate for age Moves all extremities. Neuro: Reports dizziness. Cardiovascular: Heart tones present. Respiratory: No deficits noted. Airway is patent Respiratory effort is even, unlabored, Respiratory pattern is regular, symmetrical. Derm: No deficits noted. Skin is healthy with good turgor, Skin is pink, warm \T\ dry. 17:16 Reassessment: Patient and/or family updated on plan of care and expected duration. Pain ap3 level reassessed. Patient is alert, oriented x 3, equal unlabored respirations, skin warm/dry/pink. 19:00 Reassessment: Patient appears in no apparent distress at this time. Patient and/or cm10 family updated on plan of care and expected duration. Pain level reassessed. Patient is alert, oriented x 3, equal unlabored respirations, skin warm/dry/pink. Vital Signs: 15:54 BP 134 / 83; Pulse 78; Resp 16; Temp 98; Pulse Ox 98% ; ll1 17:30 BP 117 / 73; Pulse 84; Resp 18; Pulse Ox 97% ; cm10 18:00 BP 116 / 71; Pulse 85; Resp 18; Pulse Ox 98% on R/A; cm10 18:30 BP 103 / 66; Pulse 78; Resp 18; Pulse Ox 98% ; cm10 19:00 BP 121 / 80; Pulse 92; Resp 18; Pulse Ox 97% on R/A; cm10 19:30 BP 125 / 78; Pulse 91; Resp 18; Pulse Ox 97% ; cm10 ED Course: 15:38 Patient arrived in ED. mr 15:40 Lesley Lay MD is Attending Physician. sp3 15:55 Triage completed. ll1 15:56 Arm band placed on. ll1 16:17 Gerri Doty, RN is Primary Nurse. cm10 16:23 Patient has correct armband on for positive identification. Bed in low position. Call cm10 light in reach. Provided Education on: ER process and procedures.. Pulse ox on. NIBP on. 16:24 Attending Physician role handed off by Lesley Lay MD rt 16:24 Terrance Singh MD is Attending Physician. rt 18:49 CT Head Brain wo Cont In Process Unspecified. EDMS 19:46 No provider procedures requiring assistance completed. Patient did not have IV access cm10 during this emergency room visit. Administered Medications: 17:16 Drug: Meclizine PO 50 mg PO once Route: PO; ap3 19:43 Follow up: Response: No adverse reaction cm10 17:16 Not Given (Patient Refused): cdrmbalwg51 mg IM once ap3 17:16 Not Given (Patient Refused): netxckhjjc50 mg PO once ap3 Medication: 16:23 VIS not applicable for this client. cm10 Outcome: 19:22 Discharge ordered by MD. rt 19:46 Discharged to home ambulatory, cm10 19:46 Condition: good 19:46 Discharge instructions given to patient, Instructed on discharge instructions, follow up and referral plans. medication usage, Demonstrated understanding of instructions, follow-up care, medications, Prescriptions given X 2, 19:46 Patient left the ED. cm10 Signatures: Dispatcher [employer] EDRI Wendy Stoll, Reg Reg mr NicanorashutoshJulisa, RN RN ap3 Shola Diaz RN RN ll1 Lesley Lay MD MD sp3 Terrance Singh MD MD rt Gerri Doty, RN RN cm10
--- NOTE | 2023-10-14 19:23 | EDPHYS ---
Physician Documentation [facility] Name: Eliseo Odonnell Age: 28 yrs Sex: Male : 1995 Arrival Date: 10/14/2023 Time: 15:36 Bed 12 Private MD: ED Physician Terrance Singh HPI: 10/13 18:18 This 28 yrs old Male presents to ER via Ambulatory with complaints of rt Dizziness, Head pressure. 18:18 Patient presents to the ED with reported pressure in the head as well as dizziness for rt 2 days. Patient states that he feels as if the room is moving. Denies other acute complaints at this time, symptoms are moderate in severity, no other aggravating or alleviating factors.. Historical: - Allergies: 15:55 No Known Allergies; ll1 - Home Meds: 15:55 None [Active]; ll1 - PMHx: 15:55 Anxiety; Asthma; ll1 - Immunization history:: Adult Immunizations up to date. - Infectious Disease History:: Denies. - Social history:: Smoking status: . ROS: 18:18 Constitutional: Negative for fever, chills, and weight loss, Cardiovascular: Negative rt for chest pain, palpitations, and edema, Respiratory: Negative for shortness of breath, cough, wheezing, and pleuritic chest pain, Abdomen/GI: Negative for abdominal pain, nausea, vomiting, diarrhea, and constipation, MS/Extremity: Negative for injury and deformity, Skin: Negative for injury, rash, and discoloration, 18:18 Neuro: Positive for dizziness, Negative for loss of consciousness, Exam: 18:18 Eyes: No visual field deficits, extraocular muscles are intact, 2-3 beats of left going rt nystagmus, head impulse and test of skew negative. Vital Signs: 15:54 BP 134 / 83; Pulse 78; Resp 16; Temp 98; Pulse Ox 98% ; ll1 17:30 BP 117 / 73; Pulse 84; Resp 18; Pulse Ox 97% ; cm10 18:00 BP 116 / 71; Pulse 85; Resp 18; Pulse Ox 98% on R/A; cm10 18:30 BP 103 / 66; Pulse 78; Resp 18; Pulse Ox 98% ; cm10 19:00 BP 121 / 80; Pulse 92; Resp 18; Pulse Ox 97% on R/A; cm10 19:30 BP 125 / 78; Pulse 91; Resp 18; Pulse Ox 97% ; cm10 MDM: 16:24 Patient medically screened. rt 19:26 Differential diagnosis: Vertigo, intracranial hemorrhage, sinusitis. Data reviewed: rt vital signs, nurses notes, radiologic studies. I considered the following discharge prescriptions or medication management in the emergency department Medications were administered in the Emergency Department. See MAR. Independent interpretation of the following test(s) in the Emergency Department CT Scan: My interpretation is No intracranial hemorrhage seen on my interpretation of CT scan images. Test considered but Not performed: Other Details Symptoms not consistent with cardiac etiology, labs, EKG not indicated. Counseling: I had a detailed discussion with the patient and/or guardian regarding the historical points, exam findings, and any diagnostic results supporting the discharge/admit diagnosis, radiology results, the need for outpatient follow up, to return to the emergency department if symptoms worsen or persist or if there are any questions or concerns that arise at home. Response to treatment: the patient's symptoms have markedly improved after treatment. 10/13 18:18 Order name: CT Head Brain wo Cont; Complete Time: 19:16 rt Administered Medications: 17:16 Drug: Meclizine PO 50 mg PO once Route: PO; ap3 19:43 Follow up: Response: No adverse reaction cm10 17:16 Not Given (Patient Refused): [id number] mg IM once ap3 17:16 Not Given (Patient Refused): [id number] mg PO once ap3 Disposition Summary: 10/14/23 19:22 Discharge Ordered Notes: Location: Home rt Problem: new rt Symptoms: have improved rt Condition: Stable rt Diagnosis - Other peripheral vertigo rt Followup: rt - With: Private Physician - When: 2 - 3 days - Reason: Discharge Instructions: - Discharge Summary Sheet rt - Benign Positional Vertigo rt Forms: - Medication Reconciliation Form rt - Antibiotic Education rt - Prescription Opioid Use rt - Patient Portal Instructions rt - Leadership Thank You Letter rt Prescriptions: - Meclizine 25 mg Oral Tablet - take 1 tablet ORAL route every 8 hours As needed; 30 tablet; Refills: 0, rt Product Selection Permitted - Prednisone 20 mg Oral tablet - take 2 tablets ORAL route once daily for 4 days; 8 tablet; Refills: 0, Product rt Selection Permitted Signatures: Dispatcher [facility] Julisa Harris RN RN ap3 Shola Diaz, RN RN ll1 Terrance Singh MD MD rt Gerri Doty RN cm10
[2023-10-14 20:05] VITALS: BP 125/78; TEMP 98; O2SAT 97
== END 2023-10-14 19:46 | disposition home or self-care (01) ==
LOC: ER 15:36
DX: H81.392 Other peripheral vertigo, left ear (principal)
CPT/HCPCS: 70450; 99284; J7512; J8597

== ENCOUNTER 2024-05-13 10:19 | Emergency (ER) | payer SELFPAY ==
--- OUTSIDE RECORDS SUMMARY | 2024-05-13 10:24 | XMS REPORT | Continuity of Care Document ---
Author Name Unknown Address [address] [facility] [place] [address] [facility] Address [address] [facility] [place] [address] Care Team Providers Care Scientific Advisor Name Role Phone PCP, PATIENT DOES NOT HAVE A Primary Care Physic nick Unavailable KEISHA GLEZ Attending Clinician Unavailable KEISHA GLEZ Attending Clinician Unavailable Keisha Glez MD Attending Clinician [phone] KRUPA GRANT Attending Clinician Unavailable KRUPA GRANT Attending Clinician Unavailable Krupa Grant MD Attending Clinician [phone] KATELYN GAMBOA Attending Clinician Unavailab KATELYN Bennett Attending Clinician Unavailab Katelyn Bennett DO Attending Clinician + [phone] Clinic, Gastroenterology Attending Clinician + [phone] ROSS PAPPAS Attending Clinician Unavailable ROSS PAPPAS Attending Clinician Unavailable Ross Kirkland Attending Clinician [phone] Micheal Alston NP Attending Clinician + [phone] AURY AVILES Attending Clinician UnaKEISHA Alvarado Admitting Clinician Unavailable ROSS PAPPAS Admitting Clinician Unavailable MICHEAL ALSTON Admitting Clinician Unavailab le Problems Condition Name Condition Details Condition Category Status Onset Date Resolution Date Last Treatment Date Treating Clinician Comments Source Chest pain, unspecifie d type Chest pain, unspecifie d type Disease Active 10-20 00:00: 00 [facility] Acute nonintract able headache, unspecifie d headache type Acute nonintract able headache, unspecifie d headache type Disease Active 10-20 00:00: 00 [facility] Allergies, Adverse Reactions, Alerts Allergy Name Allergy Type Status Severity Reaction(s) Onset Date Inactive Date Treating Clinician Comments Source NO KNOWN ALLERGIE S Drug Class Active [facility] Social History Social Habit Start Date Stop Date Quantity Comments Source Sexual orientation [facility] Sex assigned at 1995 00:00:00 1995 00:00:00 [facility] Smoking Status Start Date Stop Date Source Tobacco smoking consumption unknown [facility] Medications Ordered Medication Name Filled Medication Name Start Date Stop Date Current Medication? Ordering Clinician Indication Dosage Frequency Signature (SIG) Comments Components Source benzonatate 100 mg capsule 2023-05 00:00: 00 Yes [id number] 100mg Take 1 capsule by mouth 3 (three) times daily as needed for Cough. [facility] cefdinir 300 mg capsule 2023-05 00:00: 00 05-12 05:59 :00 Yes [id number] 300mg Take 1 capsule by mouth every 12 (twelve) hours for 7 days. [facility] ibuprofen (IBU) tablet 600 mg 12-24 08:15: 00 12-24 08:21 :00 No 600mg 600 mg, Oral, ONCE, 1 dose, On Sat12/25/23 at 0315, GREGORIO [facility] iopamidol (ISOVUE 370-500 mL) injection 84 mL 12-18 23:10: 00 12-18 23:30 :00 No [id number] 84mL 84 mL, Intravenou s, ONCE, 1 dose, On Danielle 12/19/23 at 1830, Routine [facility] NaCl 0.9% (NS) bolus infusion 1,000 mL 12-18 21:30: 00 12-19 00:11 :00 No 1000mL at 999 mL/hr, 1,000 mL, IV Infusion, ONCE, 1 dose, On Danielle 12/19/23 at 1630, STAT [facility] famotidine (PEPCID (PF)) injection 20 mg 12-18 21:30: 00 12-18 22:43 :00 No 20mg 20 mg, Slow IV Push, ONCE, 1 dose, On Danielle 12/19/23 at 1630, GREGORIO [facility] diphenhydrA MINE:lidoca ine 2% viscous:maa lox 1:1:1 (FIRST-MOUT HWASH BLM) oral suspension 15 mL 12-18 21:30: 00 12-18 22:45 :00 No 15mL 15 mL, Oral, ONCE, 1 dose, On Danielle 12/19/23 at 1630, Routine [facility] ondansetron (ZOFRAN (PF)) injection 4 mg 12-18 21:30: 00 12-18 22:41 :00 No 4mg 4 mg, Slow IV Push, ONCE, 1 dose, On Danielle 12/19/23 at 1630, GREGORIO [facility] sucralfate 1 gram tablet 12-18 00:00: 00 01-18 04:59 :00 No [id number] 1g Take 1 tablet by mouth before meals and at bedtime for 30 days. [facility] pantoprazol e (PROTONIX) 40 mg EC tablet 12-18 00:00: 00 01-18 04:59 :00 No [id number] 40mg Take 1 tablet by mouth in the morning for 30 days. [facility] acetaminoph en (TYLENOL) tablet 1,000 mg 11-07 07:45: 00 11-07 07:35 :00 No 1000mg 1,000 mg, Oral, ONCE, 1 dose, On Sat11/08/23 at 0245, Routine [facility] naproxen sodium 550 mg tablet 11-07 00:00: 00 Yes [id number] 550mg Take 1 tablet by mouth in the morning and 1 tablet in the evening. Take with meals. [facility] aspirin tablet 325 mg 10-20 04:00: 00 10-20 04:56 :00 No 325mg 325 mg, Oral, ONCE, 1 dose, On Sat10/20/23 at 2300, STAT [facility] NaCl 0.9% (NS) bolus infusion 1,000 mL 10-14 20:00: 00 10-14 21:32 :00 No 1000mL at 999 mL/hr, 1,000 mL, IV Infusion, ONCE, 1 dose, On Sat10/15/23 at 1500, GREGORIO [facility] Vital Signs Vital Name Observation Time Observation Value Comments S ource Systolic blood pressure 2024-05-04 18:50:00 135 mm[Hg] [facility] Diastolic blood pressure 2024-05-04 18:50:00 71 mm[Hg] [facility] Heart rate 2024-05-04 18:50:00 64 /min [facility] Body temperature 2024-05-04 18:50:00 36.78 Lulú [facility] Respiratory rate 2024-05-04 18:50:00 16 /min [facility] Oxygen saturation in Arterial blood by Pulse oximetry 2024-05-04 18:50:00 100 /min [facility] Body height 2024-05-04 16:07:00 177.8 cm [facility] Body weight 2024-05-04 16:07:00 117.482 kg [facility] BMI 2024-05-04 16:07:00 37.16 kg/m2 [facility] Systolic blood pressure 2024-01-23 03:30:00 137 mm[Hg] [facility] Diastolic blood pressure 2024-01-23 03:30:00 88 mm[Hg] [facility] Heart rate 2024-01-23 03:30:00 61 /min [facility] Respiratory rate 2024-01-23 03:30:00 16 /min [facility] Oxygen saturation in Arterial blood by Pulse oximetry 2024-01-23 03:30:00 98 /min [facility] Body temperature 2024-01-23 00:57:00 37.22 Lulú [facility] Body height 2024-01-23 00:57:00 177.8 cm [facility] Body weight 2024-01-23 00:57:00 130.772 kg [facility] BMI 2024-01-23 00:57:00 41.37 kg/m2 [facility] Systolic blood pressure 2023-12-25 08:02:00 140 mm[Hg] [facility] Diastolic blood pressure 2023-12-25 08:02:00 85 mm[Hg] [facility] Heart rate 2023-12-25 08:02:00 61 /min [facility] Body temperature 2023-12-25 08:02:00 36.72 Lulú [facility] Respiratory rate 2023-12-25 08:02:00 16 /min [facility] Body height 2023-12-25 08:02:00 177.8 cm [facility] Body weight 2023-12-25 08:02:00 117.935 kg [facility] BMI 2023-12-25 08:02:00 37.31 kg/m2 [facility] Oxygen saturation in Arterial blood by Pulse oximetry 2023-12-25 08:02:00 100 /min [facility] Systolic blood pressure 2023-12-20 00:20:00 126 mm[Hg] [facility] Diastolic blood pressure 2023-12-20 00:20:00 76 mm[Hg] [facility] Heart rate 2023-12-20 00:20:00 56 /min [facility] Respiratory rate 2023-12-20 00:20:00 16 /min [facility] Oxygen saturation in Arterial blood by Pulse oximetry 2023-12-20 00:20:00 99 /min [facility] Body temperature 2023-12-19 21:00:00 37.11 Lulú [facility] Body height 2023-12-19 21:00:00 177.8 cm [facility] Body weight 2023-12-19 21:00:00 117.935 kg [facility] BMI 2023-12-19 21:00:00 37.31 kg/m2 [facility] Systolic blood pressure 2023-11-08 08:00:00 127 mm[Hg] [facility] Diastolic blood pressure 2023-11-08 08:00:00 82 mm[Hg] [facility] Heart rate 2023-11-08 08:00:00 71 /min [facility] Body temperature 2023-11-08 08:00:00 37.11 Lulú [facility] Respiratory rate 2023-11-08 08:00:00 14 /min [facility] Oxygen saturation in Arterial blood by Pulse oximetry 2023-11-08 08:00:00 98 /min [facility] Body height 2023-11-08 06:55:00 177.8 cm [facility] Body weight 2023-11-08 06:55:00 122.471 kg [facility] BMI 2023-11-08 06:55:00 38.74 kg/m2 [facility] Systolic blood pressure 2023-10-21 06:25:00 124 mm[Hg] [facility] Diastolic blood pressure 2023-10-21 06:25:00 71 mm[Hg] [facility] Heart rate 2023-10-21 06:25:00 68 /min [facility] Body temperature 2023-10-21 06:25:00 37.06 Lulú [facility] Respiratory rate 2023-10-21 06:25:00 18 /min [facility] Oxygen saturation in Arterial blood by Pulse oximetry 2023-10-21 06:25:00 98 /min [facility] BMI 2023-10-21 03:54:00 38.61 kg/m2 [facility] Body height 2023-10-21 03:54:00 177.8 cm [facility] Body weight 2023-10-21 03:54:00 122.063 kg [facility] Systolic blood pressure 2023-10-15 21:42:00 117 mm[Hg] [facility] Diastolic blood pressure 2023-10-15 21:42:00 78 mm[Hg] [facility] Heart rate 2023-10-15 21:42:00 67 /min [facility] Body temperature 2023-10-15 21:42:00 36.94 Lulú [facility] Respiratory rate 2023-10-15 21:42:00 16 /min [facility] Oxygen saturation in Arterial blood by Pulse oximetry 2023-10-15 21:42:00 99 /min [facility] Body height 2023-10-15 18:57:00 177.8 cm [facility] Body weight 2023-10-15 18:57:00 120.203 kg [facility] BMI 2023-10-15 18:57:00 38.02 kg/m2 [facility] Systolic blood pressure 2023-08-16 02:23:00 140 mm[Hg] [facility] Diastolic blood pressure 2023-08-16 02:23:00 81 mm[Hg] [facility] Heart rate 2023-08-16 02:23:00 68 /min [facility] Body temperature 2023-08-16 02:23:00 37 Lulú [facility] Respiratory rate 2023-08-16 02:23:00 18 /min [facility] Oxygen saturation in Arterial blood by Pulse oximetry 2023-08-16 02:23:00 100 /min [facility] Body height 2023-08-16 00:54:00 177.8 cm [facility] Body weight 2023-08-16 00:54:00 117.935 kg [facility] BMI 2023-08-16 00:54:00 37.31 kg/m2 [facility] Systolic blood pressure 2023-08-15 07:00:00 120 mm[Hg] [facility] Diastolic blood pressure 2023-08-15 07:00:00 78 mm[Hg] [facility] Heart rate 2023-08-15 07:00:00 81 /min [facility] Respiratory rate 2023-08-15 07:00:00 12 /min [facility] Oxygen saturation in Arterial blood by Pulse oximetry 2023-08-15 07:00:00 97 /min [facility] Body temperature 2023-08-15 05:11:00 36.72 Lulú [facility] Body height 2023-08-15 05:11:00 177.8 cm [facility] Body weight 2023-08-15 05:11:00 117.935 kg [facility] BMI 2023-08-15 05:11:00 37.31 kg/m2 [facility] Systolic blood pressure 2021-10-30 18:29:00 152 mm[Hg] [facility] Diastolic blood pressure 2021-10-30 18:29:00 92 mm[Hg] [facility] Heart rate 2021-10-30 18:29:00 102 /min [facility] Body temperature 2021-10-30 18:29:00 38.06 Lulú [facility] Respiratory rate 2021-10-30 18:29:00 18 /min [facility] Body weight 2021-10-30 18:29:00 113.399 kg [facility] Oxygen saturation in Arterial blood by Pulse oximetry 2021-10-30 18:29:00 99 /min [facility] Procedures Procedure Date / Time Performed Performing Clinician Source EKG-12 LEAD 2023-12-25 09:03:09 [facility]AST 2023-12-19 23:15:41 Ross Pappas [facility] LIPASE 2023-12-19 22:31:00 Ross Pappas [facility] TROPONIN I 2023-12-19 22:31:00 [facility] COMP. METABOLIC PANEL ([id number]) 2023-12-19 22:31:00 Ross Pappas [facility] CBC WITH DIFF 2023-12-19 22:31:00 Ross Pappas [facility] URINALYSIS 2023-12-19 22:31:00 [facility] EKG-12 LEAD 2023-11-08 08:01:34 Micheal Alston Un [facility] URINALYSIS 2023-11-08 07:35:00 Micheal Alston [facility] TROPONIN I 2023-11-08 07:30:00 Micheal Alston [facility] COMP. METABOLIC PANEL ([id number]) 2023-11-08 07:30:00 Micheal Alston [facility] CBC WITH DIFF 2023-11-08 07:30:00 Micheal Alston [facility] N-TERMINAL PRO-BNP 2023-11-08 07:30:00 Sallie Alston [facility] EKG-12 LEAD 2023-10-21 06:36:29 Micheal Alston [facility] TROPONIN I 2023-10-21 05:03:00 Micheal Alston [facility] COMP. METABOLIC PANEL ([id number]) 2023-10-21 05:03:00 Micheal Alston [facility] CBC WITH DIFF 2023-10-21 05:03:00 Micheal Alston [facility] N-TERMINAL PRO-BNP 2023-10-21 05:03:00 Sallie Alston [facility] URINE DRUG (IMMUNOASSAY) - COMPREHENSIVE DRUG SCREEN W/O REFLEX 2023-10-21 05:03:00 Micheal Alston [facility] XR CHEST 1 VW 2023-10-21 04:10:03 Micheal Alston [facility] CBC WITH DIFF 2023-10-15 19:40:00 Katelyn Gamboa [facility] MAGNESIUM 2023-10-15 19:39:00 Katelyn Gamboa Un [facility] COMP. METABOLIC PANEL ([id number]) 2023-10-15 19:39:00 Katelyn Gamboa [facility] URINALYSIS 2023-10-15 19:39:[address] [facility] EKG-12 LEAD 2023-08-16 02:21:53 Krupa Grant [facility] THYROID STIMULATING HORMONE 2023-08-15 05:50:00 Krupa Grant [facility] BASIC METABOLIC PANEL (NA, K, CL, CO2, GLUCOSE, BUN, CREATININE, CA) 2023-08-15 05:50:00 Krupa Grant [facility] CBC WITH DIFF 2023-08-15 05:50:00 Krupa Grant [facility] NOTICE OF PRIVACY PRACTICES 2021-10-30 18:55:34 Doctor Unassigned, Elrod [facility] URINALYSIS 2021-10-30 18:32:[address] [facility] COVID-19 (ID NOW RAPID TESTING) 2021-10-30 18:32:00 Katelyn Gamboa [facility] CONSENT/REFUSAL FOR DIAGNOSIS AND TREATMENT 2021-10-30 18:25:30 Doctor Unassigned, Elrod [facility] Encounters Start Date/Time End Date/Time Encounter Type Admission Type Attending Clinicians Care Facility Care Department Encounter ID Source 2024-05-04 10:12:00 2024-05-04 12:55:00 Emergency X KEISHA GLEZ [facility] ERT [id number] [facility] 2024-05-04 10:12:00 2024-05-04 12:55:00 Emergency Keisha Glez [facility] [id number] 350.1.13.10 4.2.7.2.686 [id number] [facility] 2024-01-22 20:00:00 2024-01-22 22:41:00 Emergency X KRUPA GRANT [facility] ERT [id number] [facility] 2024-01-22 20:00:00 2024-01-22 22:41:00 Emergency Kruap Grant [facility] 1.2840.114 350.1.13.10 4.2.7.2.686 [id number] [facility] 2023-12-25 03:08:00 2023-12-25 04:02:00 Emergency X KATELYN GAMBOA [facility] ERT [id number] [facility] 2023-12-25 03:08:00 2023-12-25 04:02:00 Emergency Roman Katelyn Lemos [facility] 1.2840.114 350.1.13.10 4.2.7.2.686 [id number] [facility] 2023-12-20 00:00:00 2023-12-20 13:28:30 Letter (Out) Clinic, Gastroenter ology Clinic, Gastroenter ology [facility] 1.840.114 350.1.13.10 4.2.7.2.686 [id number] [facility] 2023-12-19 16:10:00 2023-12-19 19:22:00 Emergency X ROSS PAPPAS [facility] ERT [id number] [facility] 2023-12-19 16:10:00 2023-12-19 19:22:00 Emergency Ross Pappas [facility] 1.840.114 350.1.13.10 4.2.7.2.686 [id number] [facility] 2023-11-08 01:59:00 2023-11-08 03:29:00 Emergency Micheal Alston Wakili S [facility] 1.2840.114 350.1.13.10 4.2.7.2.686 [id number] [facility] 2023-10-20 22:56:00 2023-10-21 01:35:00 Emergency X MICHEAL ALSTON [facility] ERT [id number] [facility] 2023-10-20 22:56:00 2023-10-21 01:35:00 Emergency Micheal Alston [facility] 1.2.840.114 350.1.13.10 4.2.7.2.686 [id number] [facility] 2023-10-15 13:58:00 2023-10-15 16:46:00 Emergency X KATELYN GAMBOA [facility] ERT [id number] [facility] 2023-10-15 13:58:00 2023-10-15 16:46:00 Emergency Katelyn Gamboa [facility] 1.2.840.114 350.1.13.10 4.2.7.2.686 [id number] [facility] 2023-08-15 19:56:00 2023-08-15 21:34:00 Emergency X KRUPA [facility] ERT [id number] [facility] 2023-08-15 19:56:00 2023-08-15 21:34:00 Emergency Krupa Grant [facility] 1.2.840.114 350.1.13.10 4.2.7.2.686 [id number] [facility] 2023-08-15 00:13:00 2023-08-15 02:21:00 Emergency Krupa Grant [facility] 1.2.840.114 350.1.13.10 4.2.7.2.686 [id number] [facility] 2023-02-06 13:11:04 2023-02-06 13:11:04 Outpatient [facility] [id number] Alexx Medrano 2022-10-03 10:29:27 2022-10-03 10:29:27 Outpatient [facility] [id number] Alexx Medrano 2021-10-30 13:29:00 2021-10-30 14:24:00 Emergency Katelyn Gamboa [facility] 1.2.840.114 350.1.13.10 4.2.7.2.686 [id number] [facility] 2021-10-30 13:29:00 2021-10-30 14:24:00 Emergency X KATELYN [facility]AM[facility]A [facility] ERT [id number] [facility] 2020-06-28 11:27:00 2020-06-28 16:16:00 Emergency E PHONG AVILESN [facility] [id number] [facility] Results Test Description Test Time Test Comments Results Result Comments Source CT ABDOMEN PELVIS W CONTRAST 23:55:02 EXAM: CT ABDOMEN PELVIS W CONTRAST 12/19/2023 6:06 PM ORDERING PROVIDER: ROSS PAPPAS HISTORY: 28 years-old Male; Provided Ordering Indication: Abdominal pain,acute, nonlocalized . TECHNIQUE: Contiguous axial imaging from the level of the lung basesthrough the proximal thighs was performed with ?intravenous contrast.Coronal and sagittal reconstructions were obtained. COMPARISON: None FINDINGS: The lung bases are clear. The liver is at the upper limits of normal at 17.8 cm in the craniocaudaldimension. No focal lesion is seen. The spleen is at the upper limits of normal at 13 cm in the craniocaudaldimension. The gallbladder, biliary system, pancreas, adrenal glands, and kidneys areunremarkable. The gastrointestinal tract has no obstruction. Mild gastroesophagealjunction wall thickening and small adjacent lymph nodes are present. Anormal appendix is shown on series 2 image 99. A moderate volume of stoolis present. The urinary bladder and prostate have no suspicious masses. No free air, fluid collection, or suspicious lymphadenopathy is seen. The vessels are patent. No aggressive osseous lesion is visualized. 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 [facility][id number][facility]2023-12-19 23:10:25* Test Item Value Reference Range Interpretation Comme nts NA (test code = 3246233690) 137 mmol/L 135-145 K (test code = 4767893760) 3.9 mmol/L 3.5-5.0 CL (test code = 4988855310) 100 mmol/L 98-108 CO2 TOTAL (test code = 9072967237) 27 mmol/L 23-31 AGAP (test code = 4838415811) 10 2-16 BUN (test code = 5232113902) 13 mg/dL 7-23 GLUCOSE (test code = 7708186476) 95 mg/dL 70-110 CREATININE (test code = 2160-0) 0.75 mg/dL 0.60-1.25 TOTAL BILI (test code = 9640565267) 0.9 mg/dL 0.1-1.1 CALCIUM (test code = 6780941826) 9.0 mg/dL 8.6-10.6 T PROTEIN (test code = 4548321927) 8.3 g/dL 6.3-8.2 H ALBUMIN (test code = 2366083204) 4.7 g/dL 3.5-5.0 ALK PHOS (test code = 4994517057) 65 U/L 34-122 ALTv (test code = 1742-6) 24 U/L 5-50 AST(SGOT) (test code = 2274498172) 27 U/L 13-40 eGFR (test code = 73988-0) 125.3 mL/min/1.73m2 CKD-EPI eGFR (2020). Assuming creatinine has been stable day-to-day for at least three months, the eGFR indicates Category G1 (>= 90 mL/min/1.73 m2) Lab Interpretation (test code = 31507-8) [facility]:10:05* Test Item Value Reference Range Interpretation Comme nts LIPASE (test code = 8995045514) 67 U/L 0-220 Lab Interpretation (test cod e = 70651-0) Normal [facility]1207-01-25 22:53:21* Test Item Value Reference Range Interpretation Comme nts WBC (test code = 6690-2) 7.55 4.20-10.70 RBC (test code = 789-8) 4.89 4.26-5.52 HGB (test code = 718-7) 14.8 g/dL 12.2-16.4 HCT (test code = 4544-3) 42.2 % 38.4-49.3 MCV (test code = 787-2) 86.3 fL 81.7-95.6 MCH (test code = 785-6) 30.3 pg 26.1-32.7 MCHC (test code = 786-4) 35.1 g/dL 31.2-35.0 H RDW-SD (test code = 13357-6) 39.5 fL 38.5-51.6 RDW-CV (test code = 788-0) 12.8 % 12.1-15.4 PLT (test code = 777-3) 252 150-328 MPV (test code = 97592-1) 10.2 fL 9.8-13.0 NRBC/100 WBC (test code = 6358841270) 0.0 0.0-10.0 NRBC x10^3 (test code = 2282441433) See_Comment [Automated messa ge] The system which generated this result transmitted reference range: 10*3/?L. The reference range was not used to interpret this result as normal/abnormal. GRAN MAT (NEUT) % (test code = 770-8) 62.9 % IMM GRAN % (test code = 3466750100) 0.40 % LYMPH % (test code = 736-9) 27.5 % MONO % (test code = 5905-5) 6.6 % EOS % (test code = 713-8) 2.1 % BASO % (test code = 706-2) 0.5 % GRAN MAT x10^3(ANC) (test code = 5191274087) 4.74 10*3/uL 1.99-6.95 IMM GRAN x10^3 (test code = 8579475934) 0.03 10*3/uL 0.00-0.06 LYMPH x10^3 (test code = 731-0) 2.08 10*3/uL 1.09-3.23 MONO x10^3 (test code = 742-7) 0.50 10*3/uL 0.36-1.02 EOS x10^3 (test code = 711-2) 0.16 10*3/uL 0.06-0.53 BASO x10^3 (test code = 704-7) 0.04 10*3/uL 0.01-0.09 Lab Interpretation (test code = 69345-7) [facility] [id number] 08:11:40* Test Item Value Reference Range Interpretation Comme nts TROPONIN I (test code = 2975672284) 0.001 ng/mL <=0.034 BERTRAND (test code = BERTRAND) Reference (Normal) Range (defined by the 99th percentile reference limit): <= 0.034 ng/mL Note: Cardiac troponin begins to rise 3-4 hours after the onset of ischemia. Repeat in 4-6 hours if the sample was drawn within 3-4 hours of the onset of the symptom and found normal. Diagnosis of myocardial injury is made with acute changes in cTn concentrations with at least one serial sample above the 99th percentile upper reference limit (URL), taken together with the patient's clinical presentation. Biotin has been reported to cause a negative bias, interpret results relative to patient's use of biotin. Lab Interpretation (test code = 43468-8) [facility] [id number] 08:08:59* Test Item Value Reference Range Interpretation Comme nts NT-proBNP (test code = 13863-9) 25 pg/mL <=125 Lab Interpretation (test cod e = 91105-6) [facility]OLIC PANEL (21764)2023-11-08 08:00:01* Test Item Value Reference Range Interpretation Comme nts NA (test code = 0067159344) 138 mmol/L 135-145 K (test code = 0287814430) 3.6 mmol/L 3.5-5.0 CL (test code = 7427700887) 103 mmol/L 98-108 CO2 TOTAL (test code = 8536979904) 27 mmol/L 23-31 AGAP (test code = 6421350869) 8 2-16 BUN (test code = 7511900916) 20 mg/dL 7-23 GLUCOSE (test code = 1171068638) 107 mg/dL 70-110 CREATININE (test code = 2160-0) 0.76 mg/dL 0.60-1.25 TOTAL BILI (test code = 7772936308) 0.6 mg/dL 0.1-1.1 CALCIUM (test code = 8754201144) 9.2 mg/dL 8.6-10.6 T PROTEIN (test code = 6921259798) 8.0 g/dL 6.3-8.2 ALBUMIN (test code = 6329047259) 4.6 g/dL 3.5-5.0 ALK PHOS (test code = 0016969521) 86 U/L 34-122 ALTv (test code = 1742-6) 24 U/L 5-50 AST(SGOT) (test code = 8279931542) 25 U/L 13-40 eGFR (test code = 56354-7) 124.8 mL/min/1.73m2 CKD-EPI eGFR (20 21). Assuming creatinine has been stable day-to-day for at least three months, the eGFR indicates Category G1 (>= 90 mL/min/1.73 m2) [facility] WITH [id number] 07:47:18* Test Item Value Reference Range Interpretation Comme nts WBC (test code = 6690-2) 10.06 4.20-10.70 RBC (test code = 789-8) 4.90 4.26-5.52 HGB (test code = 718-7) 14.7 g/dL 12.2-16.4 HCT (test code = 4544-3) 42.2 % 38.4-49.3 MCV (test code = 787-2) 86.1 fL 81.7-95.6 MCH (test code = 785-6) 30.0 pg 26.1-32.7 MCHC (test code = 786-4) 34.8 g/dL 31.2-35.0 RDW-SD (test code = 81901-6) 39.2 fL 38.5-51.6 RDW-CV (test code = 788-0) 12.6 % 12.1-15.4 PLT (test code = 777-3) 256 150-328 MPV (test code = 66708-4) 9.9 fL 9.8-13.0 NRBC/100 WBC (test code = 0045637334) 0.0 0.0-10.0 NRBC x10^3 (test code = 8781183673) See_Comment [Automated messa ge] The system which generated this result transmitted reference range: 10*3/?L. The reference range was not used to interpret this result as normal/abnormal. GRAN MAT (NEUT) % (test code = 770-8) 61.6 % IMM GRAN % (test code = 2468768112) 0.70 % LYMPH % (test code = 736-9) 30.0 % MONO % (test code = 5905-5) 5.2 % EOS % (test code = 713-8) 2.1 % BASO % (test code = 706-2) 0.4 % GRAN MAT x10^3(ANC) (test code = 6710769471) 6.20 10*3/uL 1.99-6.95 IMM GRAN x10^3 (test code = 5569979129) 0.07 10*3/uL 0.00-0.06 H LYMPH x10^3 (test code = 731-0) 3.02 10*3/uL 1.09-3.23 MONO x10^3 (test code = 742-7) 0.52 10*3/uL 0.36-1.02 EOS x10^3 (test code = 711-2) 0.21 10*3/uL 0.06-0.53 BASO x10^3 (test code = 704-7) 0.04 10*3/uL 0.01-0.09 Lab Interpretation (test code = 90897-5) [facility] [id number] 05:52:17* Test Item Value Reference Range Interpretation Comme nts NT-proBNP (test code = 51268-1) <=125 Lab Interpretation (test cod e = 26064-5) [facility] [id number] 05:51:07* Test Item Value Reference Range Interpretation Comme nts TROPONIN I (test code = 2416521973) 0.003 ng/mL <=0.034 BERTRAND (test code = BERTRAND) Reference (Normal) Range (defined by the 99th percentile reference limit): <= 0.034 ng/mL Note: Cardiac troponin begins to rise 3-4 hours after the onset of ischemia. Repeat in 4-6 hours if the sample was drawn within 3-4 hours of the onset of the symptom and found normal. Diagnosis of myocardial injury is made with acute changes in cTn concentrations with at least one serial sample above the 99th percentile upper reference limit (URL), taken together with the patient's clinical presentation. Biotin has been reported to cause a negative bias, interpret results relative to patient's use of biotin. Lab Interpretation (test code = 51610-6) Normal [facility]. METABOLIC PANEL (21532)2023-10-21 05:33:27* Test Item Value Reference Range Interpretation Comme nts NA (test code = 3677783648) 141 mmol/L 135-145 K (test code = 2297044141) 3.9 mmol/L 3.5-5.0 CL (test code = 4747075879) 105 mmol/L 98-108 CO2 TOTAL (test code = 6780409988) 26 mmol/L 23-31 AGAP (test code = 5111418657) 10 2-16 BUN (test code = 3646147877) 21 mg/dL 7-23 GLUCOSE (test code = 9038748636) 98 mg/dL 70-110 CREATININE (test code = 2160-0) 0.73 mg/dL 0.60-1.25 TOTAL BILI (test code = 0436826287) 0.6 mg/dL 0.1-1.1 CALCIUM (test code = 4478883747) 8.8 mg/dL 8.6-10.6 T PROTEIN (test code = 8770622349) 7.8 g/dL 6.3-8.2 ALBUMIN (test code = 9435287181) 4.3 g/dL 3.5-5.0 ALK PHOS (test code = 7174037641) 64 U/L 34-122 ALTv (test code = 1742-6) 24 U/L 5-50 AST(SGOT) (test code = 8091968239) 27 U/L 13-40 eGFR (test code = 57471-3) 126.3 mL/min/1.73m2 CKD-EPI eGFR (20 21). Assuming creatinine has been stable day-to-day for at least three months, the eGFR indicates Category G1 (>= 90 mL/min/1.73 m2) [facility] WITH [id number] 05:16:49* Test Item Value Reference Range Interpretation Comme nts WBC (test code = 6690-2) 9.20 4.20-10.70 RBC (test code = 789-8) 4.80 4.26-5.52 HGB (test code = 718-7) 14.4 g/dL 12.2-16.4 HCT (test code = 4544-3) 41.7 % 38.4-49.3 MCV (test code = 787-2) 86.9 fL 81.7-95.6 MCH (test code = 785-6) 30.0 pg 26.1-32.7 MCHC (test code = 786-4) 34.5 g/dL 31.2-35.0 RDW-SD (test code = 84987-8) 39.6 fL 38.5-51.6 RDW-CV (test code = 788-0) 12.7 % 12.1-15.4 PLT (test code = 777-3) 258 150-328 MPV (test code = 96396-4) 10.0 fL 9.8-13.0 NRBC/100 WBC (test code = 6697928299) 0.0 0.0-10.0 NRBC x10^3 (test code = 6029869988) See_Comment [Automated me ssage] The system which generated this result transmitted reference range: 10*3/?L. The reference range was not used to interpret this result as normal/abnormal. GRAN MAT (NEUT) % (test code = 770-8) 66.6 % IMM GRAN % (test code = 9912233670) 0.40 % LYMPH % (test code = 736-9) 25.0 % MONO % (test code = 5905-5) 5.5 % EOS % (test code = 713-8) 2.2 % BASO % (test code = 706-2) 0.3 % GRAN MAT x10^3(ANC) (test code = 9174254404) 6.12 10*3/uL 1.99-6.95 IMM GRAN x10^3 (test code = 3635194495) 0.04 10*3/uL 0.00-0.06 LYMPH x10^3 (test code = 731-0) 2.30 10*3/uL 1.09-3.23 MONO x10^3 (test code = 742-7) 0.51 10*3/uL 0.36-1.02 EOS x10^3 (test code = 711-2) 0.20 10*3/uL 0.06-0.53 BASO x10^3 (test code = 704-7) 0.03 10*3/uL 0.01-0.09 [facility] 1 [id number] 04:54:16Exam: Chest (1 View), 10/20/2023 11:00 PM. Ordering Physician: MICHEAL ALSTON. History: Chest pain. Technique: AP view of the chest. Technical Quality: Adequate. Comparison: None. Findings: Normal cardiac silhouette size and pulmonary vascularity. ?No airspaceconsolidation, pleural effusion, or pneumothorax. No acute osseous abnormality.[facility]
--- NOTE | 2024-05-13 11:49 | RAD REPORT ---
EXAMINATION: TWO VIEW CHEST XR CLINICAL INDICATION: Male, 29 years old. [facility] MAIN COUGH Bed Name: DX5 TECHNIQUE: 2 view radiographs of the chest were performed. COMPARISON: 09/03/2022 FINDINGS: The lungs are well inflated and clear. No pneumothorax or sizable effusion. The heart is normal in si ze. Mediastinal contours are unremarkable. IMPRESSION: No acute or significant abnormalities.
[2024-05-13 12:20] LABS: Absolute Eosinophils 0.1 K/uL (0-0.5); Absolute Lymphocytes (CBC) 1.8 K/uL (0.7-4.9); Absolute Monocytes 0.4 K/uL (0.1-1.3); Absolute Neutrophil 5.9 K/uL (1.8-8.0); Basophils % 0.5 % (0-1.3); Eosinophils % 0.9 % (0-4.4); Hematocrit 48.2 % (39.6-49.0); Hemoglobin 16.7 g/dL (13.6-17.9); Lymphocytes % 22.1 % (15.3-44.8); MCH 29.6 pg (27.0-35.0); MCHC 34.6 g/dL (32.0-36.0); MCV 85.4 fL (80-100); MPV 7.9 fL (7.6-11.3); Monocytes % 4.7 % (3.3-12.3); Neutrophils % 71.8 % (41.7-73.7); Platelets 310 thou/uL (152-406); RBC Red Blood Cell Count 5.64 M/uL (4.33-5.43); Red Cell Distribution Width 13.7 % (12.1-15.2)
[2024-05-13 12:35] LABS: Anion Gap 7.3 mEq/L (5.0-15.0); Potassium 4.3 mEq/L (3.5-5.1)
[2024-05-13 12:42] LABS: SARS-CoV-2 Antigen CONTROL BLUE LINE VIS/BG OK; SARS-CoV-2 Antigen Rapid Res Negative (Negative)
--- NOTE | 2024-05-13 13:20 | ER ---
Nurse's Notes [facility] Name: Eliseo Odonnell Age: 29 yrs Sex: Male : 1995 Arrival Date: 05/13/2024 Time: 10:19 Bed 11 Private MD: Diagnosis: Encounter for general adult medical examination without abnormal findings Presentation: 05/13 10:45 Chief complaint: Patient states: chest pains X 4 days and low temp X 2 days. iw Coronavirus screen: At this time, the client does not indicate any symptoms associated with coronavirus-19. Ebola Screen: No symptoms or risks identified at this time. Initial Sepsis Screen: Does the patient meet any 2 criteria? No. Patient's initial sepsis screen is negative. Does the patient have a suspected source of infection? No. Patient's initial sepsis screen is negative. Risk Assessment: Do you want to hurt yourself or someone else? Patient reports no desire to harm self or others. 10:45 Method Of Arrival: Ambulatory iw 10:45 Acuity: SHARRON 3 iw Historical: - Allergies: 10:46 No Known Allergies; iw - Home Meds: 10:46 None [Active]; iw - PMHx: 10:44 Anxiety; Asthma; iw - PSHx: 10:46 None; iw - Immunization history:: Adult Immunizations not up to date. - Infectious Disease History:: Denies. - Social history:: Smoking status: Patient denies any tobacco usage or history of. - Family history:: not pertinent. - Hospitalizations: : No recent hospitalization is reported. Vital Signs: 10:44 BP 133 / 86; Pulse 65; Resp 18; Temp 98.1; Pulse Ox 100% on R/A; Weight 113.4 kg; iw Height 5 ft. 10 in. ; 10:44 Body Mass Index 35.87 (113.40 kg, 177.8 cm) iw ED Course: 10:21 Patient arrived in ED. ra3 10:22 Michael De La Garza MD is Attending Physician. rn 10:46 Triage completed. iw 11:20 Arm band placed on. iw 11:25 XRAY Chest Pa And Lat (2 Views) In Process Unspecified. EDMS 11:38 Art Caldwell, JOCELYN is Primary Nurse. bp 12:12 Inserted saline lock: 20 gauge in right antecubital area, using aseptic technique. iw Blood collected. Flushed with 10 mL NS. 12:12 Initial lab(s) drawn, by me, sent to lab. First set of blood cultures drawn. iw Administered Medications: No medications were administered Outcome: 13:19 Discharge ordered by . jocelyn 13:37 Patient left the ED. iw Signatures: Dispatcher [employer] EDMS Manju Owens RN RN iw Michael De La Garza MD MD rn Peltier, Brian, RN RN bp Alva, Ruby ra3 Corrections: (The following items were deleted from the chart) 10:45 10:44 Pulse 65bpm; Resp 18bpm; Pulse Ox 100% RA; Temp 98.1F; iw iw 10:46 10:44 BP 133 / 86; Pulse 65bpm; Resp 18bpm; Pulse Ox 100% RA; Temp 98.1F; iw iw
--- NOTE | 2024-05-13 13:20 | EDPHYS ---
Physician Documentation [facility] Name: Eliseo Odonnell Age: 29 yrs Sex: Male : 1995 Arrival Date: 05/13/2024 Time: 10:19 Bed 11 Private MD: ED Physician Michael De La Garza HPI: 05/13 13:01 This 29 yrs old Male presents to ER via Ambulatory with complaints of why his rn temp is low. 13:01 Patient reports he has noticed his temperature is 96 degrees for the last 2 days. rn Reports illness last week with cough and congestion but overall feels better. Denies shortness of breath but still has mild cough. Patient researched this and wants to make sure he does not have an infection at this time. Patient states he feels well and overall improving compared to his illness last week. No other chronic medical problems. Has anxiety.. Historical: - Allergies: 10:46 No Known Allergies; iw - Home Meds: 10:46 None [Active]; iw - PMHx: 10:44 Anxiety; Asthma; iw - PSHx: 10:46 None; iw - Immunization history:: Adult Immunizations not up to date. - Infectious Disease History:: Denies. - Social history:: Smoking status: Patient denies any tobacco usage or history of. - Family history:: not pertinent. - Hospitalizations: : No recent hospitalization is reported. ROS: 13:01 Constitutional: Negative for fever, chills, and weight loss, Cardiovascular: Negative rn for chest pain, palpitations, and edema, Respiratory: Positive for cough, negative for shortness of breath Abdomen/GI: Negative for abdominal pain, nausea, vomiting, diarrhea, and constipation, MS/Extremity: Negative for injury and deformity, Skin: Negative for injury, rash, and discoloration, Neuro: Negative for headache, weakness, numbness, tingling, and seizure, Exam: 13:01 Constitutional: This is a well developed, well nourished patient who is awake, alert, rn and in no acute distress. Cardiovascular: Regular rate and rhythm. No pulse deficits. Respiratory: Speaking full sentences, unlabored. Abdomen/GI: Soft, non-tender Skin: No rash MS/ Extremity: Pulses equal, no cyanosis. Neuro: Awake and alert, GCS 15 Vital Signs: 10:44 BP 133 / 86; Pulse 65; Resp 18; Temp 98.1; Pulse Ox 100% on R/A; Weight 113.4 kg; iw Height 5 ft. 10 in. ; 10:44 Body Mass Index 35.87 (113.40 kg, 177.8 cm) iw MDM: 10:22 Medical Screening Exam initiated rn 13:18 Differential Diagnosis flu, COVID, anemia, pneumonia. Data reviewed: vital signs, rn nurses notes, lab test result(s), radiologic studies, plain films, and as a result, I will discharge patient. Counseling: I had a detailed discussion with the patient and/or guardian regarding the historical points, exam findings, and any diagnostic results supporting the discharge/admit diagnosis, lab results, radiology results, the need for outpatient follow up, to return to the emergency department if symptoms worsen or persist or if there are any questions or concerns that arise at home. Special discussion: I discussed with the patient/guardian in detail that at this point there is no indication for admission to the hospital. It is understood, however, that if the symptoms persist or worsen the patient needs to return immediately for re-evaluation. ED course: No acute findings and workup today. Will discharge home with return precautions. Temperature here is 98.1. 05/13 10:40 Order name: Flu; Complete Time: 13:15 rn 05/13 10:40 Order name: SARS-COV-2 Antigen Rapid; Complete Time: 13:00 rn 05/13 10:40 Order name: CBC with Diff; Complete Time: 13:00 rn 05/13 10:40 Order name: Basic Metabolic Panel; Complete Time: 13:00 rn 05/13 10:40 Order name: Blood Culture Adult (2) rn 05/13 10:40 Order name: XRAY Chest Pa And Lat (2 Views); Complete Time: 11:51 rn 05/13 10:40 Order name: IV Start; Complete Time: 12:13 rn Administered Medications: No medications were administered Disposition Summary: 05/13/24 13:19 Discharge Ordered Notes: Location: Home rn Problem: new rn Symptoms: have improved rn Condition: Stable rn Diagnosis - Encounter for general adult medical examination without abnormal findings rn Followup: rn - With: Private Physician - When: As needed - Reason: Recheck today's complaints, Re-evaluation by your physician Discharge Instructions: - Discharge Summary Sheet rn - Health Maintenance, Male rn - How to Take Body Temperature, Adult rn Forms: - Medication Reconciliation Form rn - Antibiotic burn nurse - Prescription Opioid Use rn - Patient Portal Instructions rn - Leadership Thank You Letter rn Signatures: Dispatcher [employer] Manju Brito, JOCELYN RN Michael Jacobo MD MD blast furnace keeper helper: (The following items were deleted from the chart) 10:40 10:40 Influenza Screen (A \T\ B)+BA.LAB.BRZ ordered. EDMS EDMS 10:40 10:40 SARS-COV-2 Antigen Rapid+I.LAB.BRZ ordered. EDMS EDMS 10:40 10:40 Chest Pa And Lat (2 Views)+RAD.RAD.BRZ ordered. EDMS EDMS 10:40 10:40 CBC+H.LAB.BRZ ordered. EDMS EDMS 10:40 10:40 BASIC METABOLIC PANEL+C.LAB.BRZ ordered. EDMS EDMS 10:41 10:40 BLOOD CULTURE*+BA.LAB.BRZ ordered. EDMS EDMS
[2024-05-13 13:47] VITALS: BP 133/86; TEMP 98.1; O2SAT 100
== END 2024-05-13 13:37 | disposition home or self-care (01) ==
LOC: ER 10:19
DX: Z71.1 Person with feared health complaint in whom no diagnosis is made (principal)
CPT/HCPCS: 36415; 71046; 80048; 85025; 87040; 87804; 87811; 99283

== ENCOUNTER 2024-05-27 12:14 | Emergency (ER) | payer SELFPAY ==
--- OUTSIDE RECORDS SUMMARY | 2024-05-27 12:18 | XMS REPORT | Continuity of Care Document ---
Author Name Unknown Address [address] [facility]. [address] [place] [address] [facility] Address [address] [facility] [place] [address] Care Team Providers Care Billing Collections Specialist Name Role Phone Pcp, Patient Does Not Have A Primary Care Physic nick LINCOLN JAIN Attending Clinician Unavailable Lincoln Hardy Attending Clinician [phone] KEISHA GLEZ Attending Clinician Unavailable KEISHA GLEZ Attending Clinician Unavailable Keisha Glez MD Attending Clinician + [phone] KRUPA GRATN Attending Clinician Unavailable KRUPA GRANT Attending Clinician Unavailable Krupa Grant MD Attending Clinician [phone] KATELYN GAMBOA Attending Clinician Unavailab KATELYN Bennett Attending Clinician Unavailab Katelyn Bennett DO Attending Clinician [phone] Clinic, Gastroenterology Attending Clinician + [phone] ROSS PAPPAS Attending Clinician Unavailable ROSS PAPPAS Attending Clinician Unavailable Ross Kirkland Attending Clinician [phone] Micheal Alston NP Attending Clinician [phone] AURY AVILES Attending Clinician Unava ilable KEISHA GLEZ Admitting Clinician Unavailable ROSS PAPPAS Admitting Clinician Unavailable MICHEAL ALSTON Admitting Clinician Unavailab le Problems Condition Name Condition Details Condition Category Status Onset Date Resolution Date Last Treatment Date Treating Clinician Comments Source Chest pain, unspecifie d type Chest pain, unspecifie d type Disease Active 10-20 00:00: 00 [facility] Acute nonintract able headache, unspecifie d headache type Acute nonintract able headache, unspecifie d headache type Disease Active 10-20 00:00: 00 [facility] Allergies, Adverse Reactions, Alerts Allergy Name Allergy Type Status Severity Reaction(s) Onset Date Inactive Date Treating Clinician Comments Source NO KNOWN ALLERGIE S Drug Class Active [facility] Social History Social Habit Start Date Stop Date Quantity Comments Source Sexual orientation U [facility] Sex assigned at 1995 00:00:00 1995 00:00:00 [facility] Smoking Status Start Date Stop Date Source Tobacco smoking consumption unknown [facility] Medications Ordered Medication Name Filled Medication Name Start Date Stop Date Current Medication? Ordering Clinician Indication Dosage Frequency Signature (SIG) Comments Components Source ketorolac (TORADOL) injection 30 mg 05-27 04:15: 00 05-27 04:07 :00 No 30mg 30 mg, Intramuscu lar, ONCE, 1 dose, On Sat05/26/24 at 2215, [facility] benzonatate 100 mg capsule 05-26 00:00: 00 Yes [id number] 100mg Take 1 capsule by mouth 3 (three) times daily as needed for Cough. [facility] ibuprofen 800 mg tablet 05-26 00:00: 00 Yes [id number] 800mg Take 1 tablet by mouth every 6 (six) hours as needed for Pain (scale 4-6). [facility] albuterol 90 mcg/actuati on inhaler 05-26 00:00: 00 Yes [id number] 2{puff} Inhale 2 Puffs every 4 (four) hours as needed for Wheezing or Shortness of Breath. [facility] benzonatate 100 mg capsule 2023-05 00:00: 00 05-26 00:00 :00 No [id number] 100mg Take 1 capsule by mouth 3 (three) times daily as needed for Cough. [facility] cefdinir 300 mg capsule 2023-05 2 00:00: 00 05-12 05:59 :00 Yes [id number] 300mg Take 1 capsule by mouth every 12 (twelve) hours for 7 days. [facility] ibuprofen (IBU) tablet 600 mg 12-24 08:15: 12-24 08:21 :00 No 600mg 600 mg, Oral, ONCE, 1 dose, On Sat12/25/23 at 0315, [facility] iopamidol (ISOVUE 370-500 mL) injection 84 mL 12-18 23:10: 00 12-18 23:30 :00 No [id number] 84mL 84 mL, Intravenou s, ONCE, 1 dose, On Sat12/19/23 at 1830, Routine [facility] NaCl 0.9% (NS) bolus infusion 1,000 mL 12-18 21:30: 00 12-19 00:11 :00 No 1000mL at 999 mL/hr, 1,000 mL, IV Infusion, ONCE, 1 dose, On Sat12/19/23 at 1630, STAT [facility] famotidine (PEPCID (PF)) injection 20 mg 12-18 21:30: 00 12-18 22:43 :00 No 20mg 20 mg, Slow IV Push, ONCE, 1 dose, On Sat12/19/23 at 1630, [facility] diphenhydrA MINE:lidoca ine 2% viscous:maa lox 1:1:1 (FIRST-MOUT HWASH BLM) oral suspension 15 mL 12-18 21:30: 00 12-18 22:45 :00 No 15mL 15 mL, Oral, ONCE, 1 dose, On Sat12/19/23 at 1630, Routine [facility] ondansetron (ZOFRAN (PF)) injection 4 mg 12-18 21:30: 00 12-18 22:41 :00 No 4mg 4 mg, Slow IV Push, ONCE, 1 dose, On Danielle 12/19/23 at 1630, [facility] sucralfate 1 gram tablet 12-18 00:00: 00 01-18 04:59 :00 No [id number] 1g Take 1 tablet by mouth before meals and at bedtime for 30 days. [facility] pantoprazol e (PROTONIX) 40 mg EC tablet 12-18 00:00: 00 01-18 04:59 :00 No [id number] 40mg Take 1 tablet by mouth in the morning for 30 days. [facility] acetaminoph en (TYLENOL) tablet 1,000 mg 11-07 07:45: 00 11-07 07:35 :00 No 1000mg 1,000 mg, Oral, ONCE, 1 dose, On Sat11/08/23 at 0245, Routine [facility] naproxen sodium 550 mg tablet 11-07 00:00: 00 Yes [id number] 550mg Take 1 tablet by mouth in the morning and 1 tablet in the evening. Take with meals. [facility] aspirin tablet 325 mg 10-20 04:00: 00 10-20 04:56 :00 No 325mg 325 mg, Oral, ONCE, 1 dose, On Sat10/20/23 at 2300, STAT [facility] NaCl 0.9% (NS) bolus infusion 1,000 mL 10-14 20:00: 00 10-14 21:32 :00 No 1000mL at 999 mL/hr, 1,000 mL, IV Infusion, ONCE, 1 dose, On Sat10/15/23 at 1500, [facility] Vital Signs Vital Name Observation Time Observation Value Comments S jamal Systolic blood pressure 2024-05-27 05:35:00 120 mm[Hg] [facility] Diastolic blood pressure 2024-05-27 05:35:00 77 mm[Hg] [facility] Heart rate 2024-05-27 05:35:00 83 /min Un[facility] Body temperature 2024-05-27 05:35:00 37.06 Lulú [facility] Respiratory rate 2024-05-27 05:35:00 18 /min [facility] Oxygen saturation in Arterial blood by Pulse oximetry 2024-05-27 05:35:00 96 /min [facility] Body height 2024-05-27 03:58:00 177.8 cm [facility] Body weight 2024-05-27 03:58:00 111.585 kg [facility] BMI 2024-05-27 03:58:00 35.30 kg/m2 [facility] Systolic blood pressure 2024-05-04 18:50:00 135 mm[Hg] [facility] Diastolic blood pressure 2024-05-04 18:50:00 71 mm[Hg] [facility] Heart rate 2024-05-04 18:50:00 64 /min [facility] Body temperature 2024-05-04 18:50:00 36.78 [facility] Respiratory rate 2024-05-04 18:50:00 16 /min [facility] Oxygen saturation in Arterial blood by Pulse oximetry 2024-05-04 18:50:00 100 /min [facility] Body height 2024-05-04 16:07:00 177.8 cm [facility] Body weight 2024-05-04 16:07:00 117.482 kg [facility] BMI 2024-05-04 16:07:00 37.16 kg/m2 [facility] Systolic blood pressure 2024-01-23 03:30:00 137 mm[Hg] [facility] Diastolic blood pressure 2024-01-23 03:30:00 88 mm[Hg] [facility] Heart rate 2024-01-23 03:30:00 61 /min [facility] Respiratory rate 2024-01-23 03:30:00 16 /min [facility] Oxygen saturation in Arterial blood by Pulse oximetry 2024-01-23 03:30:00 98 /min [facility] Body temperature 2024-01-23 00:57:00 37.22 [facility] Body height 2024-01-23 00:57:00 177.8 cm [facility] Body weight 2024-01-23 00:57:00 130.772 kg [facility] BMI 2024-01-23 00:57:00 41.37 kg/m2 [facility] Systolic blood pressure 2023-12-25 08:02:00 140 mm[Hg] [facility] Diastolic blood pressure 2023-12-25 08:02:00 85 mm[Hg] [facility] Heart rate 2023-12-25 08:02:00 61 /[facility] 2023-12-25 08:02:00 36.72 [facility] Respiratory rate 2023-12-25 08:02:00 16 /min [facility] Body height 2023-12-25 08:02:00 177.8 cm [facility] Body weight 2023-12-25 08:02:00 117.935 kg [facility] BMI 2023-12-25 08:02:00 37.31 kg/m2 [facility] Oxygen saturation in Arterial blood by Pulse oximetry 2023-12-25 08:02:00 100 /min [facility] Systolic blood pressure 2023-12-20 00:20:00 126 mm[Hg] [facility] Diastolic blood pressure 2023-12-20 00:20:00 76 mm[Hg] [facility] Heart rate 2023-12-20 00:20:00 56 /min [facility] 2023-12-20 00:20:00 16 /min [facility] Oxygen saturation in Arterial blood by Pulse oximetry 2023-12-20 00:20:00 99 /min [facility] Body temperature 2023-12-19 21:00:00 37.11 [facility] Body height 2023-12-19 21:00:00 177.8 cm [facility] Body weight 2023-12-19 21:00:00 117.935 kg [facility] BMI 2023-12-19 21:00:00 37.31 kg/m2 [facility] Systolic blood pressure 2023-11-08 08:00:00 127 mm[Hg] [facility] Diastolic blood pressure 2023-11-08 08:00:00 82 mm[Hg] [facility] Heart rate 2023-11-08 08:00:00 71 /min [facility] Body temperature 2023-11-08 08:00:00 37.11 [facility] Respiratory rate 2023-11-08 08:00:00 14 /min [facility] Oxygen saturation in Arterial blood by Pulse oximetry 2023-11-08 08:00:00 98 /min [facility] Body height 2023-11-08 06:55:00 177.8 cm [facility] Body weight 2023-11-08 06:55:00 122.471 kg [facility] BMI 2023-11-08 06:55:00 38.74 kg/m2 [facility] Systolic blood pressure 2023-10-21 06:25:00 124 mm[Hg] [facility] Diastolic blood pressure 2023-10-21 06:25:00 71 mm[Hg] [facility] Heart rate 2023-10-21 06:25:00 68 /min [facility] Body temperature 2023-10-21 06:25:00 37.06 [facility] Respiratory rate 2023-10-21 06:25:00 18 /min [facility] Oxygen saturation in Arterial blood by Pulse oximetry 2023-10-21 06:25:00 98 /min [facility] BMI 2023-10-21 03:54:00 38.61 kg/m2 [facility] Body height 2023-10-21 03:54:00 177.8 cm [facility] Body weight 2023-10-21 03:54:00 122.063 kg [facility] Systolic blood pressure 2023-10-15 21:42:00 117 mm[Hg] [facility] Diastolic blood pressure 2023-10-15 21:42:00 78 mm[Hg] [facility] Heart rate 2023-10-15 21:42:00 67 /min [facility] Body temperature 2023-10-15 21:42:00 36.94 [facility] Respiratory rate 2023-10-15 21:42:00 16 /min [facility] Oxygen saturation in Arterial blood by Pulse oximetry 2023-10-15 21:42:00 99 /min [facility] Body height 2023-10-15 18:57:00 177.8 cm [facility] Body weight 2023-10-15 18:57:00 120.203 kg [facility] BMI 2023-10-15 18:57:00 38.02 kg/m2 [facility] Systolic blood pressure 2023-08-16 02:23:00 140 mm[Hg] [facility] Diastolic blood pressure 2023-08-16 02:23:00 81 mm[Hg] [facility] Heart rate 2023-08-16 02:23:00 68 /min Un[facility] Body temperature 2023-08-16 02:23:00 37 [facility]ul[facility] Respiratory rate 2023-08-16 02:23:00 18 /min [facility] Oxygen saturation in Arterial blood by Pulse oximetry 2023-08-16 02:23:00 100 /min [facility] Body height 2023-08-16 00:54:00 177.8 cm [facility] Body weight 2023-08-16 00:54:00 117.935 kg [facility] BMI 2023-08-16 00:54:00 37.31 kg/m2 [facility] Systolic blood pressure 2023-08-15 07:00:00 120 mm[Hg] [facility] Diastolic blood pressure 2023-08-15 07:00:00 78 mm[Hg] [facility] Heart rate 2023-08-15 07:00:00 81 /min [facility] Respiratory rate 2023-08-15 07:00:00 12 /min [facility] Oxygen saturation in Arterial blood by Pulse oximetry 2023-08-15 07:00:00 97 /min [facility] Body temperature 2023-08-15 05:11:00 36.72 Lulú [facility] Body height 2023-08-15 05:11:00 177.8 cm [facility] Body weight 2023-08-15 05:11:00 117.935 kg [facility] BMI 2023-08-15 05:11:00 37.31 kg/m2 [facility] Systolic blood pressure 2021-10-30 18:29:00 152 mm[Hg] [facility] Diastolic blood pressure 2021-10-30 18:29:00 92 mm[Hg] [facility] Heart rate 2021-10-30 18:29:00 102 /min [facility] Body temperature 2021-10-30 18:29:00 38.06 Lulú [facility] Respiratory rate 2021-10-30 18:29:00 18 /min [facility] Body weight 2021-10-30 18:29:00 113.399 kg [facility] Oxygen saturation in Arterial blood by Pulse oximetry 2021-10-30 18:29:00 99 /min [facility] Procedures Procedure Date / Time Performed Performing Clinician Source URINALYSIS 2024-05-27 04:08:00 [facility] RAPID STREP SCREEN FOR GROUP A 2024-05-27 04:08:00 Lincoln Jain [facility] INFLUENZA A/B RSV COVID NAAT 2024-05-27 04:08:00 Lincoln Jain [facility] EKG-12 LEAD 2023-12-25 09:03:09 [facility] PELVIS W CONTRAST 2023-12-19 23:15:41 Ross Pappas [facility] LIPASE 2023-12-19 22:31:00 Ross Pappas [facility] TROPONIN I 2023-12-19 22:31:00 Ross [facility]appas [facility] COMP. METABOLIC PANEL ([id number]) 2023-12-19 22:31:00 Mian [facility] CBC WITH DIFF 2023-12-19 22:31:00 Mian Ross [facility] URINALYSIS 2023-12-19 22:31:00 Mian Ross [facility] EKG-12 LEAD 2023-11-08 08:01:34 AdeMicheal fuentes [facility] 2023-11-08 07:35:00 AdeMicheal fuentes [facility] TROPONIN I 2023-11-08 07:30:00 AdeMicheal fuentes Un [facility] COMP. METABOLIC PANEL ([id number]) 2023-11-08 07:30:00 Micheal Alston [facility] CBC WITH DIFF 2023-11-08 07:30:00 Micheal Alston U [facility] N-TERMINAL PRO-BNP 2023-11-08 07:30:00 Sallie Alston [facility] EKG-12 LEAD 2023-10-21 06:36:29 Micheal Alston Un [facility] TROPONIN I 2023-10-21 05:03:00 Micheal Alston Un [facility] COMP. METABOLIC PANEL ([id number]) 2023-10-21 05:03:00 Micheal Alston [facility] CBC WITH DIFF 2023-10-21 05:03:00 Micheal Alston U [facility] N-TERMINAL PRO-BNP 2023-10-21 05:03:00 Sallie Alston [facility] URINE DRUG (IMMUNOASSAY) - COMPREHENSIVE DRUG SCREEN W/O REFLEX 2023-10-21 05:03:00 Micheal Alston [facility] XR CHEST 1 VW 2023-10-21 04:10:03 Micheal Alston U [facility] CBC WITH DIFF 2023-10-15 19:40:00 [facility]n [facility] 2023-10-15 19:39:00 Katelyn Gamboa [facility] COMP. METABOLIC PANEL ([id number]) 2023-10-15 19:39:00 Katelyn Gamboa [facility] URINALYSIS 2023-10-15 19:39:00 Katelyn Gamboa [facility] EKG-12 LEAD 2023-08-16 02:21:53 Krupa Grant [facility] THYROID STIMULATING HORMONE 2023-08-15 05:50:00 Krupa Grant [facility] BASIC METABOLIC PANEL (NA, K, CL, CO2, GLUCOSE, BUN, CREATININE, CA) 2023-08-15 05:50:00 Krupa Grant [facility] CBC WITH DIFF 2023-08-15 05:50:00 Krupa Grant [facility] NOTICE OF PRIVACY PRACTICES 2021-10-30 18:55:34 Doctor Unassigned, [place] [facility] URINALYSIS 2021-10-30 18:32:00 Katelyn Gamboa [facility] COVID-19 (ID NOW RAPID TESTING) 2021-10-30 18:32:00 Katelyn Gamboa [facility] CONSENT/REFUSAL FOR DIAGNOSIS AND TREATMENT 2021-10-30 18:25:30 Doctor Unassigned, [place] [facility] Encounters Start Date/Time End Date/Time Encounter Type Admission Type Attending Critical [facility] Care Facility Care Department Encounter ID Source 2024-05-26 22:02:00 2024-05-26 23:39:00 Emergency X LINCOLN JAIN [facility] ERT [id number] [facility] 2024-05-26 22:02:00 2024-05-26 23:39:00 Emergency Lincoln Jain [facility] 1.2.840.114 350.1.13.10 4.2.7.2.686 [id number] [facility] 2024-05-04 10:12:00 2024-05-04 12:55:00 Emergency KEISHA SHOOK WHITNEY [facility] ERT [id number] [facility] 2024-05-04 10:12:00 2024-05-04 12:55:00 Emergency Keisha Glez [facility] 1.2840.114 350.1.13.10 4.2.7.2.686 [id number] [facility] 2024-01-22 20:00:00 2024-01-22 22:41:00 Emergency X RENERADHADAYANNA ALMARAZDINH DELEONSUNGKRUPA [facility] ERT [id number] [facility] 2024-01-22 20:00:00 2024-01-22 22:41:00 Emergency Krupa Grant Guzman [facility] 1.840.114 350.1.13.10 4.2.7.2.686 [id number] [facility] 2023-12-25 03:08:00 2023-12-25 04:02:00 Emergency KATELYN RIVAS SANDRA [facility] ERT [id number] [facility] 2023-12-25 03:08:00 2023-12-25 04:02:00 Emergency Katelyn Gamboa [facility] 1..840.114 350.1.13.10 4.2.7.2.686 [id number] [facility] 2023-12-20 00:00:00 2023-12-20 13:28:30 Letter (Out) Clinic, Gastroenter ology Clinic, Gastroenter ology [facility] 1..840.114 350.1.13.10 4.2.7.2.686 [id number] [facility] 2023-12-19 16:10:00 2023-12-19 19:22:00 Emergency X ROSS PAPPAS MARYANN [facility] ERT [id number] [facility] 2023-12-19 16:10:00 2023-12-19 19:22:00 Emergency Mian Ross [facility] 1.2.840.114 350.1.13.10 4.2.7.2.686 [id number] [facility] 2023-11-08 01:59:00 2023-11-08 03:29:00 Emergency Micheal Alston Wakili S [facility] 1.2.840.114 350.1.13.10 4.2.7.2.686 [id number] [facility] 2023-10-20 22:56:00 2023-10-21 01:35:00 Emergency X CARYN ALSTONKAMILA [facility] ERT [id number] [facility] 2023-10-20 22:56:00 2023-10-21 01:35:00 Emergency Micheal Alston [facility] 1.2.840.114 350.1.13.10 4.2.7.2.686 [id number] [facility] 2023-10-15 13:58:00 2023-10-15 16:46:00 Emergency X KATELYN GAMBOA [facility] ERT [id number] [facility] 2023-10-15 13:58:00 2023-10-15 16:46:00 Emergency Katelyn Gamboa Canelo [facility] 1.2.840.114 350.1.13.10 4.2.7.2.686 [id number] [facility] 2023-08-15 19:56:00 2023-08-15 21:34:00 Emergency X DAYANNA GRANTDINH [facility] ERT [id number] [facility] 2023-08-15 19:56:00 2023-08-15 21:34:00 Emergency Juanita Trueterry [facility] 1.2.840.114 350.1.13.10 4.2.7.2.686 [id number] [facility] 2023-08-15 00:13:00 2023-08-15 02:21:00 Emergency Krupa Grant [facility] 1.2.840.114 350.1.13.10 4.2.7.2.686 [id number] [facility] 2023-02-06 13:11:04 2023-02-06 13:11:04 Outpatient [facility] [id number] Alexx Medrano 2022-10-03 10:29:27 2022-10-03 10:29:27 Outpatient [facility] [id number] Alexx Medrano 2021-10-30 13:29:00 2021-10-30 14:24:00 Emergency Katelyn Gamboa [facility] 1.2.840.114 350.1.13.10 4.2.7.2.686 [id number] [facility] 2021-10-30 13:29:00 2021-10-30 14:24:00 Emergency X BEE KATELYN [facility] ERT [id number] [facility] 2020-06-28 11:27:00 2020-06-28 16:16:00 Emergency AURY LINARES [facility] [address] [facility] Results Test Description Test Time Test Comments [...] visualized. 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 [facility]OLIC PAN[facility] ([id number])2023-12-19 23:10:25* Test Item Value Reference Range Interpretation Comme nts NA (test code = 3196724050) 137 mmol/L 135-145 K (test code = 5371307789) 3.9 mmol/L 3.5-5.0 CL (test code = 2830198328) 100 mmol/L 98-108 CO2 TOTAL (test code = 4260804189) 27 mmol/L 23-31 AGAP (test code = 6428218223) 10 2-16 BUN (test code = 1919106717) 13 mg/dL 7-23 GLUCOSE (test code = 1069468087) 95 mg/dL 70-110 CREATININE (test code = 2160-0) 0.75 mg/dL 0.60-1.25 TOTAL BILI (test code = 1222963582) 0.9 mg/dL 0.1-1.1 CALCIUM (test code = 5541772078) 9.0 mg/dL 8.6-10.6 T PROTEIN (test code = 4027641681) 8.3 g/dL 6.3-8.2 H ALBUMIN (test code = 4729605432) 4.7 g/dL 3.5-5.0 ALK PHOS (test code = 9660073442) 65 U/L 34-122 ALTv (test code = 1742-6) 24 U/L 5-50 AST(SGOT) (test code = 8724091336) 27 U/L 13-40 eGFR (test code = 36691-4) 125.3 mL/min/1.73m2 CKD-EPI eGFR (2020). Assuming creatinine has been stable day-to-day for at least three months, the eGFR indicates Category G1 (>= 90 mL/min/1.73 m2) Lab Interpretation (test code = 84545-6) [facility]05* Test Item Value Reference Range Interpretation Comme nts LIPASE (test code = 3940059925) 67 U/L 0-220 Lab Interpretation (test cod e = 30023-9) Normal [id number] 22:53:21* Test Item Value Reference Range Interpretation [...] g/dL 31.2-35.0 H RDW-SD (test code = 96223-4) 39.5 fL 38.5-51.6 RDW-CV (test code = 788-0) 12.8 % 12.1-15.4 PLT (test code = 777-3) 252 150-328 MPV (test code = 22375-8) 10.2 fL 9.8-13.0 NRBC/100 WBC (test code = 2544134167) 0.0 0.0-10.0 NRBC x10^3 (test code = 8627678909) See_Comment [Automated [employer]] The system which generated this result transmitted reference range: 10*3/?L. The reference range was not used to interpret this result as normal/abnormal. GRAN MAT (NEUT) % (test code = 770-8) 62.9 % IMM GRAN % (test code = 2752265436) 0.40 % LYMPH % (test code = 736-9) 27.5 % MONO % (test code = 5905-5) 6.6 % EOS % (test code = 713-8) 2.1 % BASO % (test code = 706-2) 0.5 % GRAN MAT x10^3(ANC) (test code = 3857547136) 4.74 10*3/uL 1.99-6.95 IMM GRAN x10^3 (test code = 6492440089) 0.03 10*3/uL 0.00-0.06 LYMPH x10^3 (test code = 731-0) 2.08 10*3/uL 1.09-3.23 MONO x10^3 (test code = 742-7) 0.50 10*3/uL 0.36-1.02 EOS x10^3 (test code = 711-2) 0.16 10*3/uL 0.06-0.53 BASO x10^3 (test code = 704-7) 0.04 10*3/uL 0.01-0.09 Lab Interpretation (test code = 20130-2) [facility]normal [facility] [id number] 08:11:40* Test Item Value Reference Range Interpretation Comme nts TROPONIN I (test code = 1546526393) 0.001 ng/mL <=0.034 BERTRAND (test code = [...] of biotin. Lab Interpretation (test code = 31033-6) Normal [facility] [id number] 08:08:59* Test Item Value Reference Range Interpretation Comme nts NT-proBNP (test code = 33040-4) 25 pg/mL <=125 Lab Interpretation (test cod e = 12923-2) [facility] ([id number])2023-11-08 08:00:01* Test Item Value Reference Range Interpretation Comme nts NA (test code = 4627860226) 138 mmol/L 135-145 K (test code = 9240163144) 3.6 mmol/L 3.5-5.0 CL (test code = 6712396377) 103 mmol/L 98-108 CO2 TOTAL (test code = 5703354763) 27 mmol/L 23-31 AGAP (test code = 8055932854) 8 2-16 BUN (test code = 6699355815) 20 mg/dL 7-23 GLUCOSE (test code = 1770211221) 107 mg/dL 70-110 CREATININE (test code = 2160-0) 0.76 mg/dL 0.60-1.25 TOTAL BILI (test code = 4324273754) 0.6 mg/dL 0.1-1.1 CALCIUM (test code = 3273468718) 9.2 mg/dL 8.6-10.6 T PROTEIN (test code = 5545998317) 8.0 g/dL 6.3-8.2 ALBUMIN (test code = 2795829440) 4.6 g/dL 3.5-5.0 ALK PHOS (test code = 4962326557) 86 U/L 34-122 ALTv (test code = 1742-6) 24 U/L 5-50 AST(SGOT) (test code = 8606864867) 25 U/L 13-40 eGFR (test code = 43743-3) 124.8 mL/min/1.73m2 CKD-EPI eGFR (20 21). Assuming creatinine has been stable day-to-day for at least three months, the eGFR indicates Category G1 (>= 90 mL/min/1.73 m2) [facility] WITH [id number] 07:47:18* Test Item Value Reference Range Interpretation [...] 34.8 g/dL 31.2-35.0 RDW-SD (test code = 50801-3) 39.2 fL 38.5-51.6 RDW-CV (test code = 788-0) 12.6 % 12.1-15.4 PLT (test code = 777-3) 256 150-328 MPV (test code = 33945-8) 9.9 fL 9.8-13.0 NRBC/100 WBC (test code = 6840936991) 0.0 0.0-10.0 NRBC x10^3 (test code = 5533262385) See_Comment [Automated messa ge] The system which generated this result transmitted reference range: 10*3/?L. The reference range was not used to interpret this result as normal/abnormal. GRAN MAT (NEUT) % (test code = 770-8) 61.6 % IMM GRAN % (test code = 9628703509) 0.70 % LYMPH % (test code = 736-9) 30.0 % MONO % (test code = 5905-5) 5.2 % EOS % (test code = 713-8) 2.1 % BASO % (test code = 706-2) 0.4 % GRAN MAT x10^3(ANC) (test code = 5882073681) 6.20 10*3/uL 1.99-6.95 IMM GRAN x10^3 (test code = 9799195962) 0.07 10*3/uL 0.00-0.06 H LYMPH x10^3 (test code = 731-0) 3.02 10*3/uL 1.09-3.23 MONO x10^3 (test code = 742-7) 0.52 10*3/uL 0.36-1.02 EOS x10^3 (test code = 711-2) 0.21 10*3/uL 0.06-0.53 BASO x10^3 (test code = 704-7) 0.04 10*3/uL 0.01-0.09 Lab Interpretation (test code = 04789-5) [id number] 05:52:17* Test Item Value Reference Range Interpretation Comme nts NT-proBNP (test code = 22852-8) <=125 Lab Interpretation (test cod e = 54987-7) [facility] [id number] 05:51:07* Test Item Value Reference Range Interpretation Comme nts TROPONIN I (test code = 6541891043) 0.003 ng/mL <=0.034 BERTRAND (test code = [...] of biotin. Lab Interpretation (test code = 13684-0) Normal [facility]. METABOLIC PANEL (17973)2023-10-21 05:33:27* Test Item Value Reference Range Interpretation Comme nts NA (test code = 4143542978) 141 mmol/L 135-145 K (test code = 1577722110) 3.9 mmol/L 3.5-5.0 CL (test code = 5187540494) 105 mmol/L 98-108 CO2 TOTAL (test code = 4932608489) 26 mmol/L 23-31 AGAP (test code = 1354388869) 10 2-16 BUN (test code = 3981857318) 21 mg/dL 7-23 GLUCOSE (test code = 1079010493) 98 mg/dL 70-110 CREATININE (test code = 2160-0) 0.73 mg/dL 0.60-1.25 TOTAL BILI (test code = 9883550727) 0.6 mg/dL 0.1-1.1 CALCIUM (test code = 8204961284) 8.8 mg/dL 8.6-10.6 T PROTEIN (test code = 0730537971) 7.8 g/dL 6.3-8.2 ALBUMIN (test code = 2049213383) 4.3 g/dL 3.5-5.0 ALK PHOS (test code = 3722422725) 64 U/L 34-122 ALTv (test code = 1742-6) 24 U/L 5-50 AST(SGOT) (test code = 1060020844) 27 U/L 13-40 eGFR (test code = 87831-8) 126.3 mL/min/1.73m2 CKD-EPI eGFR (20 21). Assuming creatinine has been stable day-to-day for at least three months, the eGFR indicates Category G1 (>= 90 mL/min/1.73 m2) [facility] WITH [id number] 05:16:49* Test Item Value Reference Range Interpretation [...] 34.5 g/dL 31.2-35.0 RDW-SD (test code = 18642-2) 39.6 fL 38.5-51.6 RDW-CV (test code = 788-0) 12.7 % 12.1-15.4 PLT (test code = 777-3) 258 150-328 MPV (test code = 83352-6) 10.0 fL 9.8-13.0 NRBC/100 WBC (test code = 5095070627) 0.0 0.0-10.0 NRBC x10^3 (test code = 0315736820) See_Comment [Automated me ssage] The system which generated this result transmitted reference range: 10*3/?L. The reference range was not used to interpret this result as normal/abnormal. GRAN MAT (NEUT) % (test code = 770-8) 66.6 % IMM GRAN % (test code = 0075677242) 0.40 % LYMPH % (test code = 736-9) 25.0 % MONO % (test code = 5905-5) 5.5 % EOS % (test code = 713-8) 2.2 % BASO % (test code = 706-2) 0.3 % GRAN MAT x10^3(ANC) (test code = 6688808943) 6.12 10*3/uL 1.99-6.95 IMM GRAN x10^3 (test code = 3707157462) 0.04 10*3/uL 0.00-0.06 LYMPH x10^3 (test code = 731-0) 2.30 10*3/uL 1.09-3.23 MONO x10^3 (test code = 742-7) 0.51 10*3/uL 0.36-1.02 EOS x10^3 (test code = 711-2) 0.20 10*3/uL 0.06-0.53 BASO x10^3 (test code = 704-7) 0.03 10*3/uL 0.01-0.09 [facility] [id number] 04:54:16Exam: Chest (1 View), 10/20/2023 11:00 PM. Ordering Physician: MICHEAL ALSTON. History: Chest pain. Technique: AP view of the chest. Technical Quality: Adequate. Comparison: None. Findings: Normal cardiac silhouette size and pulmonary vascularity. ?No airspaceconsolidation, pleural effusion, or pneumothorax. No acute osseous abnormality.[facility]
[2024-05-27] MEDS ORDERED: FAMOTIDINE 20 MG/2 ML VIAL IV ONE (12:28)
[2024-05-27] MEDS ORDERED: ONDANSETRON 4 MG/2 ML VIAL ONE (12:28)
[2024-05-27] MEDS ORDERED: NA CHLORIDE 0.9% 1,000 ML ONE (12:28)
--- NOTE | 2024-05-27 12:50 | RAD REPORT ---
EXAMINATION: CT ABDOMEN AND PELVIS WITH CONTRAST CLINICAL INDICATION: ABD PAIN TECHNIQUE: CT abdomen and pelvis was performed, after the administration of IV contrast, as per [facility] protocol. Axial, sagittal and coronal reconstructions were obtained. One or more of the following dose reduction techniques were used: Automated exposure control, adjustment of the mA and k V according to patient size, and iterative reconstruction. Unless otherwise specified, incidental findings do not require dedicated imaging follow-up. COMPARISON: 03/18/2022. FINDINGS: LOWER CHEST: Mild linear opacities in both medial lung bases may represent infection or aspiration. S mall hiatal hernia. LIVER: Mild fatty liver is present. No focal lesion or biliary dilatation is seen. Grossly unremark able gallbladder. SPLEEN: Normal size. No focal lesion. PANCREAS: No mass, ductal dilation, or sarah-pancreatic fluid. ADRENALS: Normal; no mass. KIDNEYS: Normal size and contour. No hydronephrosis. GASTROINTESTINAL TRACT: No evidence of free air, significant intra-abdominal free fluid, bowel obstru ction or abscess. APPENDIX: Normal appendix. LYMPH NODES: No lymphadenopathy. MUSCULOSKELETAL: Congenital L5 horizontal cleft vertebra. ADDITIONAL FINDINGS: None. IMPRESSION: Mild opacities in both lung bases may represent infection/pneumonia. Mild fatty liver.
[2024-05-27 13:14] LABS: Absolute Eosinophils 0.1 K/uL (0-0.5); Absolute Lymphocytes (CBC) 1.1 K/uL (0.7-4.9); Absolute Monocytes 0.7 K/uL (0.1-1.3); Absolute Neutrophil 8.3 K/uL (1.8-8.0); Basophils % 0.5 % (0-1.3); Eosinophils % 0.6 % (0-4.4); Hematocrit 47.2 % (39.6-49.0); Hemoglobin 16.7 g/dL (13.6-17.9); Lymphocytes % 10.7 % (15.3-44.8); MCHC 35.4 g/dL (32.0-36.0); MCV 84.7 fL (80-100); Monocytes % 6.8 % (3.3-12.3); Neutrophils % 81.4 % (41.7-73.7); Nucleated Red Blood Cells % 0.1 % (0-0); Platelets 252 thou/uL (152-406); RBC Red Blood Cell Count 5.57 M/uL (4.33-5.43); Red Cell Distribution Width 13.8 % (12.1-15.2)
[2024-05-27 13:28] LABS: Albumin 4.4 g/dL (3.4-5.0); Anion Gap 8.5 mEq/L (5.0-15.0); Bilirubin Total 1.2 mg/dL (0.2-1.0); Globulin 4.4 g/dL (2.3-3.5); Potassium 3.5 mEq/L (3.5-5.1); Protein, Total 8.8 g/dL (6.4-8.2)
--- NOTE | 2024-05-27 13:45 | EDPHYS ---
Physician Documentation [facility] Name: Eliseo Odonnell Age: 29 yrs Sex: Male : 1995 Arrival Date: 05/27/2024 Time: 12:14 Bed 12 Private MD: ED Physician Cesar Eller HPI: 05/27 17:35 This 29 yrs old Male presents to ER via Ambulatory with complaints of stomach ms3 pain x3days. 17:35 Eliseo Odonnell is a 29-year-old male who presents to the emergency department with ms3 stomach pain that has persisted for three days. He describes the pain as constant and located in the central abdomen. He states that the pain does not have any specific triggering factors. He has noticed mild nausea but reports not having any vomiting, diarrhea, or changes in bowel habits. Eliseo has no history of similar episodes in the past.. Historical: - Allergies: 12:24 No Known Allergies; ld1 - PMHx: 12:24 Anxiety; Asthma; ld1 - PSHx: 12:24 None; ld1 - Immunization history:: Adult Immunizations up to date. - Infectious Disease History:: Denies. - Social history:: Smoking status: Patient denies any tobacco usage or history of. ROS: 17:35 Constitutional: Negative for fever, and chills. Cardiovascular: Negative for chest ms3 pain, and palpitations. Respiratory: Negative for shortness of breath, cough, wheezing, and pleuritic chest pain, 17:35 MS/Extremity: Negative for injury and deformity, Skin: Negative for injury, rash, and discoloration, 17:35 Abdomen/GI: Positive for abdominal pain, nausea, Exam: 17:35 Constitutional: This is a well developed, well nourished patient who is awake, alert, ms3 and in no acute distress. Cardiovascular: Regular rate and rhythm with a normal S1 and S2. No gallops, murmurs, or rubs. Normal PMI, no JVD. No pulse deficits. Respiratory: Lungs have equal breath sounds bilaterally, clear to auscultation and percussion. No rales, rhonchi or wheezes noted. No increased work of breathing, no retractions or nasal flaring. 17:35 Abdomen/GI: Inspection: abdomen appears normal, Bowel sounds: normal, Palpation: mild abdominal tenderness, in the epigastric area, Vital Signs: 12:20 BP 140 / 86; Pulse 101; Resp 17; Temp 98.8; Pulse Ox 99% ; Weight 111.58 kg; Height 5 ld1 ft. 10 in. ; Pain 4/10; 14:42 BP 134 / 73; Pulse 93; Resp 16; Temp 98.4; Pulse Ox 99% ; me1 12:20 Body Mass Index 35.30 (111.58 kg, 177.8 cm) ld1 12:20 Pain Scale: Adult ld1 MDM: 12:23 Medical Screening Exam initiated ms3 17:35 Differential diagnosis: non-specific abd pain, pancreatitis, Peptic Ulcer Disease. Data ms3 reviewed: vital signs, nurses notes, lab test result(s), radiologic studies, and as a result, I will discharge patient. I considered the following discharge prescriptions or medication management in the emergency department Medications were administered in the Emergency Department. See MAR. Counseling: I had a detailed discussion with the patient and/or guardian regarding the historical points, exam findings, and any diagnostic results supporting the discharge/admit diagnosis, lab results, radiology results, the need for outpatient follow up, to return to the emergency department if symptoms worsen or persist or if there are any questions or concerns that arise at home. Response to treatment: the patient's symptoms have markedly improved after treatment. Special discussion: Based on the patient's Hx, exam, and Dx evaluation, there is no indication for emergent surgery or inpatient Tx. It is understood by the patient/guardian that if the Sx's persist or worsen they need to return immediately for re-evaluation. ED course: Discussed CT findings showing lower lobe pneumonia with patient. Lipase negative. Labs reassuring. Patient responded well to saline bolus, Pepcid, Zofran. Patient to follow-up with primary care physician 2 to 3 days. Patient given prescription for Levaquin for pneumonia. Patient understands agrees with plan. All questions were answered. Return precautions discussed include worsening symptoms, or any other concerns.. 05/27 12:23 Order name: CBC with Diff; Complete Time: 13:34 ms3 05/27 12:23 Order name: CMP; Complete Time: 13:34 ms3 05/27 12:23 Order name: Lipase; Complete Time: 13:34 ms3 05/27 12:23 Order name: CT Abd/Pelvis - IV Contrast Only; Complete Time: 13:34 ms3 05/27 12:23 Order name: IV Saline Lock; Complete Time: 12:36 ms3 05/27 12:23 Order name: Labs collected and sent; Complete Time: 12:36 ms3 Administered Medications: 12:31 Drug: NS 0.9% IV 1000 ml IV at 1 bolus Per protocol; to be given as a bolus over 60 ll1 minutes Route: IV; Rate: 1 bolus; Site: right antecubital; 14:37 Follow up: Response: No adverse reaction; IV Status: Completed infusion; IV Intake: me1 1000ml 12:56 Drug: Famotidine IVP 20 mg IVP once; dilute with 10 mL 0.9% NaCl; give over 2 minutes ll1 Route: IVP; Site: right antecubital; 13:56 Follow up: Response: No adverse reaction ll1 13:55 Not Given (Patient Refused): ondansetron 4 mg IVP once; over 2 minutes ll1 13:55 Drug: LevOfloxacin PO 750 mg PO once Route: PO; ll1 14:37 Follow up: Response: No adverse reaction me1 Disposition Summary: 05/27/24 13:44 Discharge Ordered Notes: Location: Home ms3 Condition: Stable ms3 Diagnosis - Other pneumonia, unspecified organism ms3 Followup: ms3 - With: Ulisses Lay DO - When: 2 - 3 days - Reason: Recheck today's complaints Discharge Instructions: - Discharge Summary Sheet ms3 - Community-Acquired Pneumonia, Adult ms3 Forms: - Medication Reconciliation Form ms3 - Antibiotic Education ms3 - Prescription Opioid Use ms3 - Patient Portal Instructions ms3 - Leadership Thank You Letter ms3 Prescriptions: - levofloxacin 750 mg Oral tablet - take 1 tablet ORAL route once daily; 4 tablet; Refills: 0, Product Selection ms3 Permitted Signatures: Dispatcher [employer] EDShola Cuellar RN RN ll1 Cesar Eller DO DO ms3 Eli Eller RN RN ld1 Kelsey Carpio RN me1 Corrections: (The following items were deleted from the chart) 12:24 12:24 CBC+H.LAB.BRZ ordered. EDMS EDMS 12:24 12:24 COMPREHENSIVE METABOLIC PANEL+C.LAB.BRZ ordered. EDMS EDMS 12:24 12:24 LIPASE+C.LAB.BRZ ordered. EDMS EDMS 12:24 12:24 Abdomen Pelvis W Con+CT.RAD.BRZ ordered. EDMS EDMS
--- NOTE | 2024-05-27 13:45 | ER ---
Nurse's Notes [facility] Name: Eliseo Odonnell Age: 29 yrs Sex: Male : 1995 Arrival Date: 05/27/2024 Time: 12:14 Bed 12 Private MD: Diagnosis: Other pneumonia, unspecified organism Presentation: 05/27 12:20 Chief complaint: Patient states: c/o epigastric pain that radiates to RUQ and to back, ld1 4/10. fever, chills, nausea, no appetite, constipated. Coronavirus screen: At this time, the client does not indicate any symptoms associated with coronavirus-19. Ebola Screen: No symptoms or risks identified at this time. Initial Sepsis Screen: Does the patient meet any 2 criteria? HR > 90 bpm. Risk Assessment: Do you want to hurt yourself or someone else? Patient reports no desire to harm self or others. Onset of symptoms was May 24, 2024. 12:20 Method Of Arrival: Ambulatory ld1 12:20 Acuity: SHARRON 3 ld1 14:44 Initial Sepsis Screen: Does the patient have a suspected source of infection?. me1 Triage Assessment: 12:27 General: Appears uncomfortable, obese, well groomed, well developed, Behavior is calm, me1 cooperative, appropriate for age, Reports. Pain: Complains of pain in epigastric area and right upper quadrant Pain radiates to right subscapular area Pain currently is 4 out of 10 on a pain scale. Quality of pain is described as crampy, Pain began 2-3 days ago. Is continuous. EENT: No signs and/or symptoms were reported regarding the EENT system. Neuro: Level of Consciousness is awake, alert, obeys commands, Oriented to person, place, time, situation, Appropriate for age. Cardiovascular: Patient's skin is warm and dry. Respiratory: Airway is patent Respiratory effort is even, unlabored, Respiratory pattern is regular, symmetrical. GI: No signs and/or symptoms were reported involving the gastrointestinal system. : No signs and/or symptoms were reported regarding the genitourinary system. Derm: Skin is intact, is healthy with good turgor, Skin is pink, warm \T\ dry. Musculoskeletal: No signs and/or symptoms reported regarding the musculoskeletal system. Historical: - Allergies: 12:24 No Known Allergies; ld1 - PMHx: 12:24 Anxiety; Asthma; ld1 - PSHx: 12:24 None; ld1 - Immunization history:: Adult Immunizations up to date. - Infectious Disease History:: Denies. - Social history:: Smoking status: Patient denies any tobacco usage or history of. Screenin:55 [facility] ED Fall Risk Assessment (Adult) History of falling in the last 3 months, me1 including since admission No falls in past 3 months (0 pts) Confusion or Disorientation No (0 pts) Intoxicated or Sedated No (0 pts) Impaired Gait No (0 pts) Mobility Assist Device Used No (0 pt) Altered Elimination No (0 pt) Score/Fall Risk Level 0 - 2 = Low Risk Maintained a safe environment, Provided non-skid footwear, Hourly rounding (assess needs \T\ fall precautionary measures) done. Abuse screen: Denies threats or abuse. Nutritional screening: No deficits noted. Tuberculosis screening: No symptoms or risk factors identified. Assessment: 12:55 General: Appears uncomfortable, Behavior is calm, cooperative, appropriate for age. ll1 Pain: Complains of pain in abdomen Quality of pain is described as aching. Neuro: No deficits noted. GI: Reports upper abdominal pain, nausea. 12:57 Reassessment: No changes from previously documented assessment. Patient and/or family ll1 updated on plan of care and expected duration. Pain level reassessed. Patient is alert, oriented x 3, equal unlabored respirations, skin warm/dry/pink. only wanted Pepcid, did not want zofran. 14:36 Reassessment: Discharge delayed for IV fluids to finish. me1 Vital Signs: 12:20 BP 140 / 86; Pulse 101; Resp 17; Temp 98.8; Pulse Ox 99% ; Weight 111.58 kg; Height 5 ld1 ft. 10 in. ; Pain 4/10; 14:42 BP 134 / 73; Pulse 93; Resp 16; Temp 98.4; Pulse Ox 99% ; me1 12:20 Body Mass Index 35.30 (111.58 kg, 177.8 cm) ld1 12:20 Pain Scale: Adult ld1 ED Course: 12:16 Patient arrived in ED. ra3 12:19 Cesar Eller DO is Attending Physician. ms3 12:23 Triage completed. ld1 12:24 Arm band placed on Patient placed in an exam room. ld1 12:27 Kelsey Carpio, RN is Primary Nurse. me1 12:36 Initial lab(s) drawn, by me, sent to lab. Inserted saline lock: 20 gauge in left kb4 antecubital area, using aseptic technique. Blood collected. Flushed with 10 mL NS. 12:42 CT Abd/Pelvis - IV Contrast Only In Process Unspecified. EDMS 12:55 Patient has correct armband on for positive identification. Bed in low position. Call me1 light in reach. Side rails up X2. Provided Education on: POC. Verbalized understanding.. Client placed on continuous cardiac and pulse oximetry monitoring. NIBP monitoring applied. Pulse ox on. NIBP on. 12:55 No provider procedures requiring assistance completed. me1 13:43 Ulisses Lay DO is Referral Physician. ms3 14:08 Kelsey Carpio, RN is Primary Nurse. me1 14:44 IV discontinued, intact, bleeding controlled, No redness/swelling at site. Pressure me1 dressing applied. Administered Medications: 12:31 Drug: NS 0.9% IV 1000 ml IV at 1 bolus Per protocol; to be given as a bolus over 60 ll1 minutes Route: IV; Rate: 1 bolus; Site: right antecubital; 14:37 Follow up: Response: No adverse reaction; IV Status: Completed infusion; IV Intake: me1 1000ml 12:56 Drug: Famotidine IVP 20 mg IVP once; dilute with 10 mL 0.9% NaCl; give over 2 minutes ll1 Route: IVP; Site: right antecubital; 13:56 Follow up: Response: No adverse reaction ll1 13:55 Not Given (Patient Refused): ondansetron 4 mg IVP once; over 2 minutes ll1 13:55 Drug: LevOfloxacin PO 750 mg PO once Route: PO; ll1 14:37 Follow up: Response: No adverse reaction me1 Medication: 14:44 VIS not applicable for this client. me1 Intake: 14:37 IV: 1000ml; Total: 1000ml. me1 Outcome: 13:44 Discharge ordered by MD. ms3 14:44 Discharged to home ambulatory, me1 14:44 Condition: stable 14:44 Discharge instructions given to patient, Instructed on discharge instructions, follow up and referral plans. medication usage, Demonstrated understanding of instructions, follow-up care, medications, Prescriptions given X 1, 14:44 Patient left the ED. me1 Signatures: Dispatcher [employer] EDShola Cuellar RN RN ll1 Cesar Eller, DO ms3 Eli Eller RN RN ld1 Kelsey Carpio RN RN me1 Bailey Bo 3 Christina Santiago kb4 Corrections: (The following items were deleted from the chart) 12:56 12:32 Famotidine IVP 20 mg IVP in right antecubital ll1 ll1 12:56 12:32 Ondansetron IVP 4 mg IVP in right antecubital ll1 ll1
[2024-05-27] MEDS ORDERED: levoFLOXacin 750 MG TAB ONE (13:50)
[2024-05-27 15:01] VITALS: O2SAT 99
[2024-05-27 15:07] VITALS: BP 134/73; TEMP 98.4
== END 2024-05-27 14:44 | disposition home or self-care (01) ==
LOC: ER 12:14
DX: J18.8 Other pneumonia, unspecified organism (principal)
CPT/HCPCS: 36415; 74177; 80053; 83690; 85025; 96361; 96374; 99284; J2405; J7030; Q9967

== ENCOUNTER 2024-05-27 17:27 | Emergency (ER) | payer SELFPAY ==
--- OUTSIDE RECORDS SUMMARY | 2024-05-27 17:30 | XMS REPORT | Continuity of Care Document ---
Author Name Unknown Address [address] [facility] [place] [address] [facility] Address [address] [facility] [place] [address] Care Team Providers Care Captain [employer] Name Role Phone Pcp, Patient Does Not Have A Primary Care Physic nick LINCOLN JAIN Attending Clinician Unavailable Lincoln Hardy Attending Clinician [phone] KEISHA GLEZ Attending Clinician Unavailable KEISHA GLEZ Attending Clinician Unavailable Keisha Glez MD Attending Clinician + [phone] KRUPA GRANT Attending Clinician Unavailable KRUPA GRANT Attending Clinician Unavailable Krupa Grant MD Attending Clinician [phone] KATELYN GAMBOA Attending Clinician Unavailab KATELYN Bennett Attending Clinician Unavailab Katelyn Bennett DO Attending Clinician [phone] Clinic, Gastroenterology Attending Clinician + [phone] ROSS PAPPAS Attending Clinician Unavailable ROSS PAPPAS Attending Clinician Unavailable Ross Kirkland Attending Clinician [phone] Micheal Alston NP Attending Clinician [phone] AURY AVILES Attending Clinician Unava ilable KEISHA GLEZ Admitting Clinician Unavailable ROSS PAPPAS Admitting Clinician Unavailable MICHEAL ALSTON Admitting Clinician Unavailab le Problems Condition Name Condition Details Condition Category Status Onset Date Resolution Date Last Treatment Date Treating Clinician Comments Source Chest pain, unspecifie d type Chest pain, unspecifie d type Disease Active 10-20 00:00: 00 [facility] Acute nonintract able headache, unspecifie d headache type Acute nonintract able headache, unspecifie d headache type Disease Active 10-20 00:00: 00 [facility] Allergies, Adverse Reactions, Alerts Allergy Name Allergy Type Status Severity Reaction(s) Onset Date Inactive Date Treating Clinician Comments Source NO KNOWN ALLERGIE S Drug Class Active [facility] Social History Social Habit Start Date Stop Date Quantity Comments Source Sexual orientation [facility] Sex assigned at 1995 00:00:00 1995 00:00:00 [facility] Smoking Status Start Date Stop Date Source Tobacco smoking consumption unknown [facility] Medications Ordered Medication Name Filled Medication Name Start Date Stop Date Current Medication? Ordering Clinician Indication Dosage Frequency Signature (SIG) Comments Components Source ketorolac (TORADOL) injection 30 mg 05-27 04:15: 00 05-27 04:07 :00 No 30mg 30 mg, Intramuscu lar, ONCE, 1 dose, On Sat05/26/24 at 2215, GREGORIO [facility] benzonatate 100 mg capsule 05-26 00:00: 00 Yes [id number] 100mg Take 1 capsule by mouth 3 (three) times daily as needed for Cough. [facility] ibuprofen 800 mg tablet 05-26 00:00: 00 Yes [id number] 800mg Take 1 tablet by mouth every 6 (six) hours as needed for Pain (scale 4-6). [facility] albuterol 90 mcg/actuati on inhaler 05-26 00:00: 00 Yes [id number] 2{puff} Inhale 2 Puffs every 4 (four) hours as needed for Wheezing or Shortness of Breath. [facility] benzonatate 100 mg capsule 2023-05 00:00: 00 05-26 00:00 :00 No [id number] 100mg Take 1 capsule by mouth 3 (three) times daily as needed for Cough. [facility] cefdinir 300 mg capsule 2023-05 2 00:00: 00 05-12 05:59 :00 Yes [id number] 300mg Take 1 capsule by mouth every 12 (twelve) hours for 7 days. [facility] ibuprofen (IBU) tablet 600 mg 12-24 08:15: 12-24 08:21 :00 No 600mg 600 mg, Oral, ONCE, 1 dose, On Sat12/25/23 at 0315, GREGORIO [facility] iopamidol (ISOVUE 370-500 mL) injection 84 mL 12-18 23:10: 00 12-18 23:30 :00 No [id number] 84mL 84 mL, Intravenou s, ONCE, 1 dose, On Sat12/19/23 at 1830, Routine [facility] NaCl 0.9% (NS) bolus infusion 1,000 mL 12-18 21:30: 00 12-19 00:11 :00 No 1000mL at 999 mL/hr, 1,000 mL, IV Infusion, ONCE, 1 dose, On Sat12/19/23 at 1630, STAT [facility] famotidine (PEPCID (PF)) injection 20 mg 12-18 21:30: 00 12-18 22:43 :00 No 20mg 20 mg, Slow IV Push, ONCE, 1 dose, On Sat12/19/23 at 1630, GREGORIO [facility] diphenhydrA MINE:lidoca ine 2% viscous:maa lox 1:1:1 (FIRST-MOUT HWASH BLM) oral suspension 15 mL 12-18 21:30: 00 12-18 22:45 :00 No 15mL 15 mL, Oral, ONCE, 1 dose, On Sat12/19/23 at 1630, Routine [facility] ondansetron (ZOFRAN (PF)) injection 4 mg 12-18 21:30: 00 12-18 22:41 :00 No 4mg 4 mg, Slow IV Push, ONCE, 1 dose, On Danielle 12/19/23 at 1630, GREGORIO [facility] sucralfate 1 gram tablet 12-18 00:00: 00 01-18 04:59 :00 No [id number] 1g Take 1 tablet by mouth before meals and at bedtime for 30 days. [facility] pantoprazol e (PROTONIX) 40 mg EC tablet 12-18 00:00: 00 01-18 04:59 :00 No [id number] 40mg Take 1 tablet by mouth in the morning for 30 days. [facility] acetaminoph en (TYLENOL) tablet 1,000 mg 11-07 07:45: 00 11-07 07:35 :00 No 1000mg 1,000 mg, Oral, ONCE, 1 dose, On Sat11/08/23 at 0245, Routine [facility] naproxen sodium 550 mg tablet 11-07 00:00: 00 Yes [id number] 550mg Take 1 tablet by mouth in the morning and 1 tablet in the evening. Take with meals. [facility] aspirin tablet 325 mg 10-20 04:00: 00 10-20 04:56 :00 No 325mg 325 mg, Oral, ONCE, 1 dose, On Sat10/20/23 at 2300, STAT [facility] NaCl 0.9% (NS) bolus infusion 1,000 mL 10-14 20:00: 00 10-14 21:32 :00 No 1000mL at 999 mL/hr, 1,000 mL, IV Infusion, ONCE, 1 dose, On Sat10/15/23 at 1500, GREGORIO [facility] Vital Signs Vital Name Observation Time Observation Value Comments S jamal Systolic blood pressure 2024-05-27 05:35:00 120 mm[Hg] [facility] Diastolic blood pressure 2024-05-27 05:35:00 77 mm[Hg] [facility] Heart rate 2024-05-27 05:35:00 83 /min Un[facility] Body temperature 2024-05-27 05:35:00 37.06 Lulú [facility] Respiratory rate 2024-05-27 05:35:00 18 /min [facility] Oxygen saturation in Arterial blood by Pulse oximetry 2024-05-27 05:35:00 96 /min [facility] Body height 2024-05-27 03:58:00 177.8 cm [facility] Body weight 2024-05-27 03:58:00 111.585 kg [facility] BMI 2024-05-27 03:58:00 35.30 kg/m2 [facility] Systolic blood pressure 2024-05-04 18:50:00 135 mm[Hg] [facility] Diastolic blood pressure 2024-05-04 18:50:00 71 mm[Hg] [facility] Heart rate 2024-05-04 18:50:00 64 /min [facility] Body temperature 2024-05-04 18:50:00 36.78 Lulú [facility] Respiratory rate 2024-05-04 18:50:00 16 /min [facility] Oxygen saturation in Arterial blood by Pulse oximetry 2024-05-04 18:50:00 100 /min [facility] Body height 2024-05-04 16:07:00 177.8 cm [facility] Body weight 2024-05-04 16:07:00 117.482 kg [facility] BMI 2024-05-04 16:07:00 37.16 kg/m2 [facility] Systolic blood pressure 2024-01-23 03:30:00 137 mm[Hg] [facility] Diastolic blood pressure 2024-01-23 03:30:00 88 mm[Hg] [facility] Heart rate 2024-01-23 03:30:00 61 /min [facility] Respiratory rate 2024-01-23 03:30:00 16 /min [facility] Oxygen saturation in Arterial blood by Pulse oximetry 2024-01-23 03:30:00 98 /min [facility] Body temperature 2024-01-23 00:57:00 37.22 Lulú [facility] Body height 2024-01-23 00:57:00 177.8 cm [facility] Body weight 2024-01-23 00:57:00 130.772 kg [facility] BMI 2024-01-23 00:57:00 41.37 kg/m2 [facility] Systolic blood pressure 2023-12-25 08:02:00 140 mm[Hg] [facility] Diastolic blood pressure 2023-12-25 08:02:00 85 mm[Hg] [facility] Heart rate 2023-12-25 08:02:00 61 /[facility] 2023-12-25 08:02:00 36.72 Lulú [facility] Respiratory rate 2023-12-25 08:02:00 16 /min [facility] Body height 2023-12-25 08:02:00 177.8 cm [facility] Body weight 2023-12-25 08:02:00 117.935 kg [facility] BMI 2023-12-25 08:02:00 37.31 kg/m2 [facility] Oxygen saturation in Arterial blood by Pulse oximetry 2023-12-25 08:02:00 100 /min [facility] Systolic blood pressure 2023-12-20 00:20:00 126 mm[Hg] [facility] Diastolic blood pressure 2023-12-20 00:20:00 76 mm[Hg] [facility] Heart rate 2023-12-20 00:20:00 56 /min [facility] 2023-12-20 00:20:00 16 /min [facility] Oxygen saturation in Arterial blood by Pulse oximetry 2023-12-20 00:20:00 99 /min [facility] Body temperature 2023-12-19 21:00:00 37.11 Lulú [facility] Body height 2023-12-19 21:00:00 177.8 cm [facility] Body weight 2023-12-19 21:00:00 117.935 kg [facility] BMI 2023-12-19 21:00:00 37.31 kg/m2 [facility] Systolic blood pressure 2023-11-08 08:00:00 127 mm[Hg] [facility] Diastolic blood pressure 2023-11-08 08:00:00 82 mm[Hg] [facility] Heart rate 2023-11-08 08:00:00 71 /min [facility] Body temperature 2023-11-08 08:00:00 37.11 Lulú [facility] Respiratory rate 2023-11-08 08:00:00 14 /min [facility] Oxygen saturation in Arterial blood by Pulse oximetry 2023-11-08 08:00:00 98 /min [facility] Body height 2023-11-08 06:55:00 177.8 cm [facility] Body weight 2023-11-08 06:55:00 122.471 kg [facility] BMI 2023-11-08 06:55:00 38.74 kg/m2 [facility] Systolic blood pressure 2023-10-21 06:25:00 124 mm[Hg] [facility] Diastolic blood pressure 2023-10-21 06:25:00 71 mm[Hg] [facility] Heart rate 2023-10-21 06:25:00 68 /min [facility] Body temperature 2023-10-21 06:25:00 37.06 Lulú [facility] Respiratory rate 2023-10-21 06:25:00 18 /min [facility] Oxygen saturation in Arterial blood by Pulse oximetry 2023-10-21 06:25:00 98 /min [facility] BMI 2023-10-21 03:54:00 38.61 kg/m2 [facility] Body height 2023-10-21 03:54:00 177.8 cm [facility] Body weight 2023-10-21 03:54:00 122.063 kg [facility] Systolic blood pressure 2023-10-15 21:42:00 117 mm[Hg] [facility] Diastolic blood pressure 2023-10-15 21:42:00 78 mm[Hg] [facility] Heart rate 2023-10-15 21:42:00 67 /min [facility] Body temperature 2023-10-15 21:42:00 36.94 Lulú [facility] Respiratory rate 2023-10-15 21:42:00 16 /min [facility] Oxygen saturation in Arterial blood by Pulse oximetry 2023-10-15 21:42:00 99 /min [facility] Body height 2023-10-15 18:57:00 177.8 cm [facility] Body weight 2023-10-15 18:57:00 120.203 kg [facility] BMI 2023-10-15 18:57:00 38.02 kg/m2 [facility] Systolic blood pressure 2023-08-16 02:23:00 140 mm[Hg] [facility] Diastolic blood pressure 2023-08-16 02:23:00 81 mm[Hg] [facility] Heart rate 2023-08-16 02:23:00 68 /min [facility] Body temperature 2023-08-16 02:23:00 37 Lulú [facility] Respiratory rate 2023-08-16 02:23:00 18 /min [facility] Oxygen saturation in Arterial blood by Pulse oximetry 2023-08-16 02:23:00 100 /min [facility] Body height 2023-08-16 00:54:00 177.8 cm [facility] Body weight 2023-08-16 00:54:00 117.935 kg [facility] BMI 2023-08-16 00:54:00 37.31 kg/m2 [facility] Systolic blood pressure 2023-08-15 07:00:00 120 mm[Hg] [facility] Diastolic blood pressure 2023-08-15 07:00:00 78 mm[Hg] [facility] Heart rate 2023-08-15 07:00:00 81 /min [facility] Respiratory rate 2023-08-15 07:00:00 12 /min [facility] Oxygen saturation in Arterial blood by Pulse oximetry 2023-08-15 07:00:00 97 /min [facility] Body temperature 2023-08-15 05:11:00 36.72 Lulú [facility] Body height 2023-08-15 05:11:00 177.8 cm [facility] Body weight 2023-08-15 05:11:00 117.935 kg [facility] BMI 2023-08-15 05:11:00 37.31 kg/m2 [facility] Systolic blood pressure 2021-10-30 18:29:00 152 mm[Hg] [facility] Diastolic blood pressure 2021-10-30 18:29:00 92 mm[Hg] [facility] Heart rate 2021-10-30 18:29:00 102 /min [facility] Body temperature 2021-10-30 18:29:00 38.06 Lulú [facility] Respiratory rate 2021-10-30 18:29:00 18 /min [facility] Body weight 2021-10-30 18:29:00 113.399 kg [facility] Oxygen saturation in Arterial blood by Pulse oximetry 2021-10-30 18:29:00 99 /min [facility] Procedures Procedure Date / Time Performed Performing Clinician Source URINALYSIS 2024-05-27 04:08:00 [facility] RAPID STREP SCREEN FOR GROUP A 2024-05-27 04:08:00 Lincoln Jain [facility] INFLUENZA A/B RSV COVID NAAT 2024-05-27 04:08:00 Lincoln Jain [facility] EKG-12 LEAD 2023-12-25 09:03:09 [facility] PELVIS W CONTRAST 2023-12-19 23:15:41 Ross Pappas [facility] LIPASE 2023-12-19 22:31:00 Ross Pappas [facility] TROPONIN I 2023-12-19 22:31:00 [facility]as [facility] COMP. METABOLIC PANEL ([id number]) 2023-12-19 22:31:00 Mian [facility] CBC WITH DIFF 2023-12-19 22:31:00 Mian Ross [facility] URINALYSIS 2023-12-19 22:31:00 Mian Ross [facility] EKG-12 LEAD 2023-11-08 08:01:34 AdeMicheal fuentes [facility] 2023-11-08 07:35:00 AdeMicheal fuentes [facility] TROPONIN I 2023-11-08 07:30:00 AdeMicheal fuentes Un [facility] COMP. METABOLIC PANEL ([id number]) 2023-11-08 07:30:00 Micheal Alston [facility] CBC WITH DIFF 2023-11-08 07:30:00 Micheal Alston [facility] N-TERMINAL PRO-BNP 2023-11-08 07:30:00 Sallie Alston [facility] EKG-12 LEAD 2023-10-21 06:36:29 Micheal Alston Un [facility] TROPONIN I 2023-10-21 05:03:00 Micheal Alston Un [facility] COMP. METABOLIC PANEL ([id number]) 2023-10-21 05:03:00 Micheal Alston [facility] CBC WITH DIFF 2023-10-21 05:03:00 Micheal Alston [facility] N-TERMINAL PRO-BNP 2023-10-21 05:03:00 Sallie Alston [facility] URINE DRUG (IMMUNOASSAY) - COMPREHENSIVE DRUG SCREEN W/O REFLEX 2023-10-21 05:03:00 Micheal Alston [facility] XR CHEST 1 VW 2023-10-21 04:10:03 Micheal Alston [facility] CBC WITH DIFF 2023-10-15 19:40:00 [facility]n [facility] MAGNESIUM 2023-10-15 19:39:00 Katelyn Gamboa [facility] COMP. METABOLIC PANEL ([id number]) 2023-10-15 19:39:00 Katelyn Gamboa [facility] URINALYSIS 2023-10-15 19:39:00 Katelyn Gamboa [facility] EKG-12 LEAD 2023-08-16 02:21:53 Krupa Grant [facility] THYROID STIMULATING HORMONE 2023-08-15 05:50:00 Krpua Grant [facility] BASIC METABOLIC PANEL (NA, K, CL, CO2, GLUCOSE, BUN, CREATININE, CA) 2023-08-15 05:50:00 Krupa Grant [facility] CBC WITH DIFF 2023-08-15 05:50:00 Krupa Grant [facility] NOTICE OF PRIVACY PRACTICES 2021-10-30 18:55:34 Doctor Unassigned, [place] [facility] URINALYSIS 2021-10-30 18:32:00 Katelyn Gamboa [facility] COVID-19 (ID NOW RAPID TESTING) 2021-10-30 18:32:00 Katelyn Gamboa [facility] CONSENT/REFUSAL FOR DIAGNOSIS AND TREATMENT 2021-10-30 18:25:30 Doctor Unassigned, [place] [facility] Encounters Start Date/Time End Date/Time Encounter Type Admission Type Attending [facility] Care Department Encounter ID Source 2024-05-26 22:02:00 2024-05-26 23:39:00 Emergency X LINCOLN JAIN [facility] ERT [id number] [facility] 2024-05-26 22:02:00 2024-05-26 23:39:00 Emergency Lincoln Jain [facility] [id number] 350.1.13.10 4.2.7.2.686 [id number] [facility] 2024-05-04 10:12:00 2024-05-04 12:55:00 Emergency KEISHA SHOOK WHITNEY [facility] ERT [id number] [facility] 2024-05-04 10:12:00 2024-05-04 12:55:00 Emergency Keisha Glez [facility] 1.2840.114 350.1.13.10 4.2.7.2.686 [id number] [facility] 2024-01-22 20:00:00 2024-01-22 22:41:00 Emergency X RENERADHADAYANNA ALMARAZDINH DELEONSUNGKRUPA [facility] ERT [id number] [facility] 2024-01-22 20:00:00 2024-01-22 22:41:00 Emergency Krupa Grant Guzman [facility] 1.840.114 350.1.13.10 4.2.7.2.686 [id number] [facility] 2023-12-25 03:08:00 2023-12-25 04:02:00 Emergency KATELYN RIVAS SANDRA [facility] ERT [id number] [facility] 2023-12-25 03:08:00 2023-12-25 04:02:00 Emergency Katelyn Gamboa [facility] 1..840.114 350.1.13.10 4.2.7.2.686 [id number] [facility] 2023-12-20 00:00:00 2023-12-20 13:28:30 Letter (Out) Clinic, Gastroenter ology Clinic, Gastroenter ology [facility] 1..840.114 350.1.13.10 4.2.7.2.686 [id number] [facility] 2023-12-19 16:10:00 2023-12-19 19:22:00 Emergency X ROSS PAPPAS MARYANN [facility] ERT [id number] [facility] 2023-12-19 16:10:00 2023-12-19 19:22:00 Emergency Mian Ross [facility] 1.2.840.114 350.1.13.10 4.2.7.2.686 [id number] [facility] 2023-11-08 01:59:00 2023-11-08 03:29:00 Emergency Micheal Alston Wakili S [facility] 1.2.840.114 350.1.13.10 4.2.7.2.686 [id number] [facility] 2023-10-20 22:56:00 2023-10-21 01:35:00 Emergency X CARYN ALSTONKAMILA [facility] ERT [id number] [facility] 2023-10-20 22:56:00 2023-10-21 01:35:00 Emergency Micheal Alston [facility] 1.2.840.114 350.1.13.10 4.2.7.2.686 [id number] [facility] 2023-10-15 13:58:00 2023-10-15 16:46:00 Emergency X KATELYN GAMBOA [facility] ERT [id number] [facility] 2023-10-15 13:58:00 2023-10-15 16:46:00 Emergency Katelyn Gamboa Canelo [facility] 1.2.840.114 350.1.13.10 4.2.7.2.686 [id number] [facility] 2023-08-15 19:56:00 2023-08-15 21:34:00 Emergency X DAYANNA GRANTDINH [facility] ERT [id number] [facility] 2023-08-15 19:56:00 2023-08-15 21:34:00 Emergency Juanita Trueterry [facility] 1.2.840.114 350.1.13.10 4.2.7.2.686 [id number] [facility] 2023-08-15 00:13:00 2023-08-15 02:21:00 Emergency Krupa Grant [facility] 1.2.840.114 350.1.13.10 4.2.7.2.686 [id number] [facility] 2023-02-06 13:11:04 2023-02-06 13:11:04 Outpatient [facility] [id number] Alexx Medrano 2022-10-03 10:29:27 2022-10-03 10:29:27 Outpatient [facility] [id number] Alexx Medrano 2021-10-30 13:29:00 2021-10-30 14:24:00 Emergency Katelyn Gamboa [facility] 1.2.840.114 350.1.13.10 4.2.7.2.686 [id number] [facility] 2021-10-30 13:29:00 2021-10-30 14:24:00 Emergency X BEE KATELYN [facility] ERT [id number] [facility] 2020-06-28 11:27:00 2020-06-28 16:16:00 Emergency AURY LINARES [address] [facility] Results Test Description Test Time Test Comments [...] visualized. 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 [facility]OL[facility] ([id number])2023-12-19 23:10:25* Test Item Value Reference Range Interpretation Comme nts NA (test code = 8193174628) 137 mmol/L 135-145 K (test code = 7822308940) 3.9 mmol/L 3.5-5.0 CL (test code = 0139359606) 100 mmol/L 98-108 CO2 TOTAL (test code = 7595589577) 27 mmol/L 23-31 AGAP (test code = 0340559565) 10 2-16 BUN (test code = 8226302544) 13 mg/dL 7-23 GLUCOSE (test code = 7340665297) 95 mg/dL 70-110 CREATININE (test code = 2160-0) 0.75 mg/dL 0.60-1.25 TOTAL BILI (test code = 8460959147) 0.9 mg/dL 0.1-1.1 CALCIUM (test code = 8941208914) 9.0 mg/dL 8.6-10.6 T PROTEIN (test code = 5175465572) 8.3 g/dL 6.3-8.2 H ALBUMIN (test code = 9562297717) 4.7 g/dL 3.5-5.0 ALK PHOS (test code = 9506942352) 65 U/L 34-122 ALTv (test code = 1742-6) 24 U/L 5-50 AST(SGOT) (test code = 3236079661) 27 U/L 13-40 eGFR (test code = 45039-5) 125.3 mL/min/1.73m2 CKD-EPI eGFR (2020). Assuming creatinine has been stable day-to-day for at least three months, the eGFR indicates Category G1 (>= 90 mL/min/1.73 m2) Lab Interpretation (test code = 93068-8) [facility]normal [facility]:10[facility]05* Test Item Value Reference Range Interpretation Comme nts LIPASE (test code = 3823971973) 67 U/L 0-220 Lab Interpretation (test cod e = 40413-2) Normal [facility] [id number] 22:53:21* Test Item Value Reference Range Interpretation [...] g/dL 31.2-35.0 H RDW-SD (test code = 56909-7) 39.5 fL 38.5-51.6 RDW-CV (test code = 788-0) 12.8 % 12.1-15.4 PLT (test code = 777-3) 252 150-328 MPV (test code = 07945-8) 10.2 fL 9.8-13.0 NRBC/100 WBC (test code = 1065933241) 0.0 0.0-10.0 NRBC x10^3 (test code = 9723119128) See_Comment [Automated [employer] ge] The system which generated this result transmitted reference range: 10*3/?L. The reference range was not used to interpret this result as normal/abnormal. GRAN MAT (NEUT) % (test code = 770-8) 62.9 % IMM GRAN % (test code = 1949147360) 0.40 % LYMPH % (test code = 736-9) 27.5 % MONO % (test code = 5905-5) 6.6 % EOS % (test code = 713-8) 2.1 % BASO % (test code = 706-2) 0.5 % GRAN MAT x10^3(ANC) (test code = 5414384234) 4.74 10*3/uL 1.99-6.95 IMM GRAN x10^3 (test code = 0845224737) 0.03 10*3/uL 0.00-0.06 LYMPH x10^3 (test code = 731-0) 2.08 10*3/uL 1.09-3.23 MONO x10^3 (test code = 742-7) 0.50 10*3/uL 0.36-1.02 EOS x10^3 (test code = 711-2) 0.16 10*3/uL 0.06-0.53 BASO x10^3 (test code = 704-7) 0.04 10*3/uL 0.01-0.09 Lab Interpretation (test code = 07592-7) Abnormal [facility] [id number] 08:11:40* Test Item Value Reference Range Interpretation Comme nts TROPONIN I (test code = 9932942137) 0.001 ng/mL <=0.034 BERTRAND (test code = [...] of biotin. Lab Interpretation (test code = 94985-8) Normal [facility] [id number] 08:08:59* Test Item Value Reference Range Interpretation Comme nts NT-proBNP (test code = 86438-7) 25 pg/mL <=125 Lab Interpretation (test cod e = 59636-3) [facility]OL[facility] (19846)2023-11-08 08:00:01* Test Item Value Reference Range Interpretation Comme nts NA (test code = 9626471681) 138 mmol/L 135-145 K (test code = 6291385306) 3.6 mmol/L 3.5-5.0 CL (test code = 4358877627) 103 mmol/L 98-108 CO2 TOTAL (test code = 8356661821) 27 mmol/L 23-31 AGAP (test code = 8023246847) 8 2-16 BUN (test code = 3603433095) 20 mg/dL 7-23 GLUCOSE (test code = 1138074862) 107 mg/dL 70-110 CREATININE (test code = 2160-0) 0.76 mg/dL 0.60-1.25 TOTAL BILI (test code = 8569172173) 0.6 mg/dL 0.1-1.1 CALCIUM (test code = 3964011040) 9.2 mg/dL 8.6-10.6 T PROTEIN (test code = 5187645008) 8.0 g/dL 6.3-8.2 ALBUMIN (test code = 7566516633) 4.6 g/dL 3.5-5.0 ALK PHOS (test code = 5336441517) 86 U/L 34-122 ALTv (test code = 1742-6) 24 U/L 5-50 AST(SGOT) (test code = 2534200476) 25 U/L 13-40 eGFR (test code = 20597-4) 124.8 mL/min/1.73m2 CKD-EPI eGFR (20 21). Assuming creatinine has been stable day-to-day for at least three months, the eGFR indicates Category G1 (>= 90 mL/min/1.73 m2) [facility] WITH [id number] 07:47:18* Test Item Value Reference Range Interpretation [...] 34.8 g/dL 31.2-35.0 RDW-SD (test code = 95154-2) 39.2 fL 38.5-51.6 RDW-CV (test code = 788-0) 12.6 % 12.1-15.4 PLT (test code = 777-3) 256 150-328 MPV (test code = 36317-2) 9.9 fL 9.8-13.0 NRBC/100 WBC (test code = 9245782809) 0.0 0.0-10.0 NRBC x10^3 (test code = 4170231200) See_Comment [Automated messa ge] The system which generated this result transmitted reference range: 10*3/?L. The reference range was not used to interpret this result as normal/abnormal. GRAN MAT (NEUT) % (test code = 770-8) 61.6 % IMM GRAN % (test code = 9349926823) 0.70 % LYMPH % (test code = 736-9) 30.0 % MONO % (test code = 5905-5) 5.2 % EOS % (test code = 713-8) 2.1 % BASO % (test code = 706-2) 0.4 % GRAN MAT x10^3(ANC) (test code = 0936216410) 6.20 10*3/uL 1.99-6.95 IMM GRAN x10^3 (test code = 1021933346) 0.07 10*3/uL 0.00-0.06 H LYMPH x10^3 (test code = 731-0) 3.02 10*3/uL 1.09-3.23 MONO x10^3 (test code = 742-7) 0.52 10*3/uL 0.36-1.02 EOS x10^3 (test code = 711-2) 0.21 10*3/uL 0.06-0.53 BASO x10^3 (test code = 704-7) 0.04 10*3/uL 0.01-0.09 Lab Interpretation (test code = 03683-2) [facility]normal [facility] [id number] 05:52:17* Test Item Value Reference Range Interpretation Comme nts NT-proBNP (test code = 25258-5) <=125 Lab Interpretation (test cod e = 49377-1) Normal [facility] Lake[facility] [id number] 05:51:07* Test Item Value Reference Range Interpretation Comme nts TROPONIN I (test code = 5293243790) 0.003 ng/mL <=0.034 BERTRAND (test code = [...] of biotin. Lab Interpretation (test code = 79685-6) Normal [facility]. METABOLIC PANEL (21295)2023-10-21 05:33:27* Test Item Value Reference Range Interpretation Comme nts NA (test code = 8589180284) 141 mmol/L 135-145 K (test code = 2550434816) 3.9 mmol/L 3.5-5.0 CL (test code = 2370334975) 105 mmol/L 98-108 CO2 TOTAL (test code = 0033649378) 26 mmol/L 23-31 AGAP (test code = 8461873097) 10 2-16 BUN (test code = 6084330033) 21 mg/dL 7-23 GLUCOSE (test code = 4698572706) 98 mg/dL 70-110 CREATININE (test code = 2160-0) 0.73 mg/dL 0.60-1.25 TOTAL BILI (test code = 5083747086) 0.6 mg/dL 0.1-1.1 CALCIUM (test code = 0229037062) 8.8 mg/dL 8.6-10.6 T PROTEIN (test code = 8275969032) 7.8 g/dL 6.3-8.2 ALBUMIN (test code = 8423934668) 4.3 g/dL 3.5-5.0 ALK PHOS (test code = 1362515671) 64 U/L 34-122 ALTv (test code = 1742-6) 24 U/L 5-50 AST(SGOT) (test code = 2781303059) 27 U/L 13-40 eGFR (test code = 91049-6) 126.3 mL/min/1.73m2 CKD-EPI eGFR (20 21). Assuming creatinine has been stable day-to-day for at least three months, the eGFR indicates Category G1 (>= 90 mL/min/1.73 m2) [facility] WITH [id number] 05:16:49* Test Item Value Reference Range Interpretation [...] 34.5 g/dL 31.2-35.0 RDW-SD (test code = 08424-7) 39.6 fL 38.5-51.6 RDW-CV (test code = 788-0) 12.7 % 12.1-15.4 PLT (test code = 777-3) 258 150-328 MPV (test code = 12827-1) 10.0 fL 9.8-13.0 NRBC/100 WBC (test code = 0019486682) 0.0 0.0-10.0 NRBC x10^3 (test code = 6376566514) See_Comment [Automated me ssage] The system which generated this result transmitted reference range: 10*3/?L. The reference range was not used to interpret this result as normal/abnormal. GRAN MAT (NEUT) % (test code = 770-8) 66.6 % IMM GRAN % (test code = 0973638480) 0.40 % LYMPH % (test code = 736-9) 25.0 % MONO % (test code = 5905-5) 5.5 % EOS % (test code = 713-8) 2.2 % BASO % (test code = 706-2) 0.3 % GRAN MAT x10^3(ANC) (test code = 9245715100) 6.12 10*3/uL 1.99-6.95 IMM GRAN x10^3 (test code = 0070120543) 0.04 10*3/uL 0.00-0.06 LYMPH x10^3 (test code = 731-0) 2.30 10*3/uL 1.09-3.23 MONO x10^3 (test code = 742-7) 0.51 10*3/uL 0.36-1.02 EOS x10^3 (test code = 711-2) 0.20 10*3/uL 0.06-0.53 BASO x10^3 (test code = 704-7) 0.03 10*3/uL 0.01-0.09 [facility] [id number] 04:54:16Exam: Chest (1 View), 10/20/2023 11:00 PM. Ordering Physician: MICHEAL ALSTON. History: Chest pain. Technique: AP view of the chest. Technical Quality: Adequate. Comparison: None. Findings: Normal cardiac silhouette size and pulmonary vascularity. ?No airspaceconsolidation, pleural effusion, or pneumothorax. No acute osseous abnormality.[facility]
[2024-05-27] MEDS ORDERED: ACETAMINOPHEN 500 MG TAB ONE (17:43)
--- NOTE | 2024-05-27 18:58 | RAD REPORT ---
EXAM: Right upper quadrant ultrasound. CLINICAL HISTORY: ABD PAIN COMPARISON: None. FINDINGS: Gallbladder: Normal. Bile ducts: No intrahepatic or extrahepatic biliary dilatation. Common bile duct measures 2 mm. Limited imaging of the liver shows no concerning finding. IMPRESSION: Unremarkable exam.
[2024-05-27] MEDS ORDERED: FAMOTIDINE 20 MG/2 ML VIAL IV ONE (19:56)
[2024-05-27] MEDS ORDERED: IBUPROFEN 400 MG TAB ONE (19:56)
[2024-05-27] MEDS ORDERED: NA CHLORIDE 0.9% 500 ML ONE (19:57)
--- NOTE | 2024-05-27 20:52 | EDPHYS ---
Physician Documentation [facility] Name: Eliseo Odonnell Age: 29 yrs Sex: Male : 1995 Arrival Date: 05/27/2024 Time: 17:27 Bed 2 Private MD: ED Physician Cesar Eller HPI: 05/27 23:11 This 29 yrs old Male presents to ER via Ambulatory with complaints of Back kb Pain. 23:11 Pt is a 29 year old male who presents for RUQ pain that radiates to back that began 3 kb days ago. denies n/v/d. Pt was seen here today, had labs and CT completed which I reviewed. States he was back here for his girlfriend to get seen and started feeling bad so he checked back in. . Historical: - Allergies: 17:45 No Known Allergies; ld1 - PMHx: 17:45 Anxiety; Asthma; ld1 - Immunization history:: Adult Immunizations up to date. - Infectious Disease History:: Denies. - Social history:: Smoking status: Patient denies any tobacco usage or history of. ROS: 23:10 Constitutional: As per HPI kb Exam: 23:10 Constitutional: This is a well developed, well nourished patient who is awake, alert, kb and in no acute distress. Head/Face: Normocephalic, atraumatic. ENT: Moist Mucous membranes Cardiovascular: Regular rate Respiratory: Respirations even and unlabored. No increased work of breathing. Talking in full sentences Skin: Warm, dry with normal turgor. Normal color. MS/ Extremity: Pulses equal, no cyanosis. Neurovascular intact. Full, normal range of motion. Neuro: Awake and alert, GCS 15, oriented to person, place, time, and situation. 23:10 Abdomen/GI: Inspection: abdomen appears normal, Bowel sounds: normal, Palpation: soft, in all quadrants, mild abdominal tenderness, in the right upper quadrant, Vital Signs: 17:43 BP 127 / 88; Pulse 108; Resp 18; Temp 102.7(O); Pulse Ox 95% on R/A; Weight 90.72 kg; ld1 Height 5 ft. 8 in. ; Pain 8/10; 19:25 BP 103 / 67; Pulse 106; Resp 21; Temp 100.5; Pulse Ox 97% on R/A; ay 20:13 BP 105 / 67; Pulse 93; Resp 18; Pulse Ox 97% on R/A; ay 21:05 BP 115 / 66; Pulse 89; Resp 21; Temp 98.4; Pulse Ox 97% ; Pain 2/10; bm8 17:43 Body Mass Index 30.41 (90.72 kg, 172.72 cm) ld1 17:43 Pain Scale: Adult ld1 21:05 Pain Scale: Adult bm8 [place] Coma Score: 19:25 Eye Response: spontaneous(4). Motor Response: obeys commands(6). Verbal Response: ay oriented(5). Total: 15. 21:05 Eye Response: spontaneous(4). Motor Response: obeys commands(6). Verbal Response: bm8 oriented(5). Total: 15. MDM: 17:32 Medical Screening Exam initiated kb 23:10 Differential diagnosis: Cholelithiasis Ureterolithiasis. Data reviewed: vital signs, kb nurses notes. Counseling: I had a detailed discussion with the patient and/or guardian regarding the historical points, exam findings, and any diagnostic results supporting the discharge/admit diagnosis, radiology results, the need for outpatient follow up, a family practitioner, to return to the emergency department if symptoms worsen or persist or if there are any questions or concerns that arise at home. 05/27 17:52 Order name: US Abdomen Limited; Complete Time: 19:02 kb 05/27 19:03 Order name: Vital Signs; Complete Time: 19:38 kb Administered Medications: 17:49 Drug: Acetaminophen PO 1000 mg PO once Route: PO; ld1 20:16 Follow up: Response: No adverse reaction ay 20:01 Drug: NS 0.9% IV 500 ml 500 ml IV at 1 bolus once; to be given as a bolus over 30 ay minutes Volume: 500 ml; Route: IV; Rate: 1 bolus; Site: left forearm; 21:06 Follow up: Response: No adverse reaction; IV Status: Completed infusion; IV Intake: bm8 500ml 20:01 Drug: Ibuprofen PO 800 mg PO once Route: PO; ay 20:16 Follow up: Response: No adverse reaction ay 20:02 Drug: Famotidine IVP 20 mg IVP once; dilute with 10 mL 0.9% NaCl; give over 2 minutes ay Route: IVP; Site: left forearm; 20:15 Follow up: Response: No adverse reaction ay Disposition Summary: 05/27/24 20:52 Discharge Ordered Notes: Location: Home kb Condition: Stable kb Diagnosis - Pneumonia, unspecified organism kb - Upper abdominal pain, unspecified kb Followup: kb - With: Emergency Department - When: As needed - Reason: Worsening of condition Followup: kb - With: Private Physician - When: 2 - 3 days - Reason: Recheck today's complaints, Continuance of care, Re-evaluation by your physician Discharge Instructions: - Discharge Summary Sheet kb - Abdominal Pain, Adult, [id number] kb - Community-Acquired Pneumonia, Adult, [id number] kb Forms: - Medication Reconciliation Form kb - Antibiotic Education kb - Prescription Opioid Use kb - Patient Portal Instructions kb - Leadership Thank You Letter kb Prescriptions: - Protonix 40 mg Oral Tablet - take 1 tablet ORAL route once daily; 30 tablet; Refills: 0, Product Selection kb Permitted Addendum: 05/31/2024 22:24 I was immediately available on-site in the Emergency Department for consultation in the m s3 care of the patient. Signatures: Dispatcher [employer] Bettina Seals, POWER GENERATION TECHNICIAN-C POWER GENERATION TECHNICIAN-Ckb Cesar Eller, DO ms3 Eli Eller, RN RN ld1 Annamarie Ca, RN Tonio Woodson RN bm8
--- NOTE | 2024-05-27 20:52 | ER ---
Nurse's Notes [facility] Name: Eliseo Odonnell Age: 29 yrs Sex: Male : 1995 Arrival Date: 05/27/2024 Time: 17:27 Bed 2 Private MD: Diagnosis: Pneumonia, unspecified organism;Upper abdominal pain, unspecified Presentation: 05/27 17:43 Chief complaint: Patient states: Chills, fever, feeling like im "gonna pass out.". ld1 Coronavirus screen: At this time, the client does not indicate any symptoms associated with coronavirus-19. Ebola Screen: No symptoms or risks identified at this time. 17:43 Method Of Arrival: Ambulatory ld1 17:43 Initial Sepsis Screen: Does the patient meet any 2 criteria? No. Patient's initial ld1 sepsis screen is negative. Does the patient have a suspected source of infection? No. Patient's initial sepsis screen is negative. Risk Assessment: Do you want to hurt yourself or someone else? Patient reports no desire to harm self or others. Onset of symptoms was May 27, 2024 at 17:45. 17:43 Acuity: SHARRON 3 ld1 Triage Assessment: 17:45 General: Appears in no apparent distress. comfortable, Behavior is calm, cooperative, ld1 appropriate for age. Pain: Complains of pain in back and abdomen Pain does not radiate. Pain currently is 10 out of 10 on a pain scale. Quality of pain is described as throbbing. EENT: No signs and/or symptoms were reported regarding the EENT system. Neuro: Level of Consciousness is awake, alert, obeys commands, Oriented to person, place, time, situation. Cardiovascular: Capillary refill < 3 seconds Patient's skin is warm and dry. Respiratory: Airway is patent Respiratory effort is even, unlabored. GI: Abdomen is round non-distended. : No signs and/or symptoms were reported regarding the genitourinary system. Derm: No signs and/or symptoms reported regarding the dermatologic system. Musculoskeletal: Range of motion: intact in all extremities. Historical: - Allergies: 17:45 No Known Allergies; ld1 - PMHx: 17:45 Anxiety; Asthma; ld1 - Immunization history:: Adult Immunizations up to date. - Infectious Disease History:: Denies. - Social history:: Smoking status: Patient denies any tobacco usage or history of. Screenin:25 [facility] ED Fall Risk Assessment (Adult) History of falling in the last 3 months, ay including since admission No falls in past 3 months (0 pts) Confusion or Disorientation No (0 pts) Intoxicated or Sedated No (0 pts) Impaired Gait No (0 pts) Mobility Assist Device Used Yes (1 pt) Altered Elimination No (0 pt) Score/Fall Risk Level 0 - 2 = Low Risk Oriented to surroundings, Maintained a safe environment, Educated pt \\T\\ family on fall prevention, incl call for assistance when getting out of bed. Abuse screen: Denies threats or abuse. Nutritional screening: No deficits noted. Tuberculosis screening: No symptoms or risk factors identified. Assessment: 19:25 General: Appears in no apparent distress. comfortable, Behavior is calm, cooperative. ay Pain: Complains of pain in abdomen and back Pain currently is 6 out of 10 on a pain scale. Neuro: Level of Consciousness is awake, alert, obeys commands, Oriented to person, place, time, situation, Speech is normal. Cardiovascular: Capillary refill < 3 seconds Rhythm is regular. Respiratory: Airway is patent Respiratory effort is even, unlabored, Respiratory pattern is regular, symmetrical. GI: Bowel sounds present X 4 quads. Patient currently denies nausea, vomiting. : No signs and/or symptoms were reported regarding the genitourinary system. EENT: No signs and/or symptoms were reported regarding the EENT system. Derm: No signs and/or symptoms reported regarding the dermatologic system. Musculoskeletal: No signs and/or symptoms reported regarding the musculoskeletal system. 20:15 Reassessment: Patient appears in no apparent distress at this time. Patient is alert, ay oriented x 3, equal unlabored respirations, skin warm/dry/pink. 21:05 Reassessment: Patient appears in no apparent distress at this time. Patient and/or bm8 family updated on plan of care and expected duration. Pain level reassessed. Patient is alert, oriented x 3, equal unlabored respirations, skin warm/dry/pink. Patient states feeling better. Patient states symptoms have improved. Vital Signs: 17:43 BP 127 / 88; Pulse 108; Resp 18; Temp 102.7(O); Pulse Ox 95% on R/A; Weight 90.72 kg; ld1 Height 5 ft. 8 in. ; Pain 8/10; 19:25 BP 103 / 67; Pulse 106; Resp 21; Temp 100.5; Pulse Ox 97% on R/A; ay 20:13 BP 105 / 67; Pulse 93; Resp 18; Pulse Ox 97% on R/A; ay 21:05 BP 115 / 66; Pulse 89; Resp 21; Temp 98.4; Pulse Ox 97% ; Pain 2/10; bm8 17:43 Body Mass Index 30.41 (90.72 kg, 172.72 cm) ld1 17:43 Pain Scale: Adult ld1 21:05 Pain Scale: Adult bm8 [place] Coma Score: 19:25 Eye Response: spontaneous(4). Motor Response: obeys commands(6). Verbal Response: ay oriented(5). Total: 15. 21:05 Eye Response: spontaneous(4). Motor Response: obeys commands(6). Verbal Response: bm8 oriented(5). Total: 15. ED Course: 17:28 Patient arrived in ED. ra3 17:32 Bettina Martinez FNP-C is PHCP. kb 17:32 Cesar Eller DO is Attending Physician. kb 17:45 Triage completed. ld1 17:45 Arm band placed on right wrist. ld1 18:42 US Abdomen Limited In Process Unspecified. EDMS 19:24 Annamarie Ca, RN is Primary Nurse. ay 19:25 Patient has correct armband on for positive identification. Bed in low position. Call ay light in reach. Side rails up X2. Provided Education on: plan of care. 19:25 Inserted saline lock: 22 gauge in left forearm, using aseptic technique. ay 21:05 Provided Education on: post er care. bm8 21:05 No provider procedures requiring assistance completed. IV discontinued, intact, bm8 bleeding controlled, No redness/swelling at site. Pressure dressing applied. Administered Medications: 17:49 Drug: Acetaminophen PO 1000 mg PO once Route: PO; ld1 20:16 Follow up: Response: No adverse reaction ay 20:01 Drug: NS 0.9% IV 500 ml 500 ml IV at 1 bolus once; to be given as a bolus over 30 ay minutes Volume: 500 ml; Route: IV; Rate: 1 bolus; Site: left forearm; 21:06 Follow up: Response: No adverse reaction; IV Status: Completed infusion; IV Intake: bm8 500ml 20:01 Drug: Ibuprofen PO 800 mg PO once Route: PO; ay 20:16 Follow up: Response: No adverse reaction ay 20:02 Drug: Famotidine IVP 20 mg IVP once; dilute with 10 mL 0.9% NaCl; give over 2 minutes ay Route: IVP; Site: left forearm; 20:15 Follow up: Response: No adverse reaction ay Medication: 19:25 VIS not applicable for this client. ay Intake: 21:06 IV: 500ml; Total: 500ml. bm8 Outcome: 20:52 Discharge ordered by . elvis 21:05 Discharged to home ambulatory, with family, bm8 21:05 Condition: stable 21:05 Discharge instructions given to patient, family, Instructed on discharge instructions, follow up and referral plans. medication usage, safety practices, Demonstrated understanding of instructions, follow-up care, medications, Prescriptions given X 1, 21:07 Patient left the ED. bm8 Signatures: Dispatcher [employer] EDMS Bettina Martinez, LAI-Raphael BENZP-Eli Connolly, RN RN ld1 Bailey Bo ra3 Tonio Lakhani, RN RN bm8 Annamarie Ca, RN RN ay Corrections: (The following items were deleted from the chart) 17:45 17:43 BP 127 / 88; Pulse 108bpm; ld1 ld1 21:06 20:15 Response: No adverse reaction ay bm8
[2024-05-28 01:36] VITALS: O2SAT 97
[2024-05-28 01:38] VITALS: BP 115/66; TEMP 98.4
== END 2024-05-27 21:07 | disposition home or self-care (01) ==
LOC: ER 17:27
DX: J18.9 Pneumonia, unspecified organism (principal)
CPT/HCPCS: 76705; 96361; 96374; 99284; J7040

== ENCOUNTER 2024-08-01 11:04 | Emergency (ER) | payer SELFPAY ==
--- OUTSIDE RECORDS SUMMARY | 2024-08-01 11:10 | XMS REPORT | Continuity of Care Document ---
Author Name Unknown Address [address] [facility] [place] [address] [facility] [place] Address [address] [facility] [place] [address] Care Team Providers Care Lead Solutions Architect Name Role Phone PCP, PATIENT DOES NOT HAVE A Primary Care Physic nick Unavailable OPHELIA MCGILL Attending Clinician Unavailable OPHELIA MCGILL Attending Clinician Unavailable Ophelia Mcgill DO Attending Clinician [phone] LINCOLN JAIN Attending Clinician Unavailable Lincoln Hardy Attending Clinician +[phone] KEISHA GLEZ Attending Clinician Unavailable KEISHA GLEZ Attending Clinician Unavailable Keisha Glez MD Attending Clinician + [phone] KRUPA GRANT Attending Clinician Unavailable KRUPA GRANT Attending Clinician Unavailable Krupa Grant MD Attending Clinician + [phone] KATELYN GAMBOA Attending Clinician Unavailab KATELYN Bennett Attending Clinician Unavailab Katelyn Bennett DO Attending Clinician [phone] Clinic, Gastroenterology Attending Clinician + [phone] ROSS PAPPAS Attending Clinician Unavailable ROSS PAPPAS Attending Clinician Unavailable Ross Kirkland Attending Clinician [phone] Micheal Alston NP Attending Clinician [phone] AURY AVILES Attending Clinician Unava illloyd BALLESTEROSER, OPHELIA Admitting Clinician Unavailable LINCOLN JAIN Admitting Clinician Unavailable KEISHA GLEZ Admitting Clinician Unavailable ROSS PAPPAS Admitting Clinician Unavailable MICHEAL ALSTON Admitting Clinician Unavailab le Problems Condition Name Condition Details Condition Category Status Onset Date Resolution Date Last Treatment Date Treating Clinician Comments Source Chest pain, unspecifie d type Chest pain, unspecifie d type Disease Active 10-20 00:00: 00 [facility] Acute nonintract able headache, unspecifie d headache type Acute nonintract able headache, unspecifie d headache type Disease Active 10-20 00:00: 00 [facility] Allergies, Adverse Reactions, Alerts Allergy Name Allergy Type Status Severity Reaction(s) Onset Date Inactive Date Treating Clinician Comments Source NO KNOWN ALLERGIE S Drug Class Active [facility] Social History Social Habit Start Date Stop Date Quantity Comments Source Sexual orientation U [facility] Sex assigned at 1995 00:00:00 1995 00:00:00 [facility] Smoking Status Start Date Stop Date Source Tobacco smoking consumption unknown [facility] Medications Ordered Medication Name Filled Medication Name Start Date Stop Date Current Medication? Ordering Clinician Indication Dosage Frequency Signature (SIG) Comments Components Source NaCl 0.9% (NS) bolus infusion 1,000 mL 07-02 04:00: 00 07-02 05:59 :00 No 1000mL at 999 mL/hr, 1,000 mL, IV Infusion, ONCE, 1 dose, On Sat07/01/24 at 2200, STAT [facility] ondansetron (ZOFRAN (PF)) injection 8 mg 07-02 04:00: 00 07-02 04:38 :00 No 8mg 8 mg, Slow IV Push, ONCE, 1 dose, On Sat07/01/24 at 2200, Administer over 2-5 Minutes, 4 mL [facility] meclizine (TRAVEL-EAS E (MECLIZINE) ) tablet 25 mg 07-02 04:00: 00 07-02 04:36 :00 No 25mg 25 mg, Oral, ONCE, 1 dose, On Sat07/01/24 at 2200, GREGORIO [facility] ketorolac (TORADOL) injection 30 mg 05-27 04:15: 00 05-27 04:07 :00 No 30mg 30 mg, Intramuscu lar, ONCE, 1 dose, On Sat05/26/24 at 2215, GREGORIO [facility] benzonatate 100 mg capsule 05-26 00:00: 00 Yes [id number] 100mg Take 1 capsule by mouth 3 (three) times daily as needed for Cough. [facility] ibuprofen 800 mg tablet 05-26 00:00: 00 Yes [id number] 800mg Take 1 tablet by mouth every 6 (six) hours as needed for Pain (scale 4-6). [facility] albuterol 90 mcg/actuati on inhaler 05-26 00:00: 00 Yes [id number] 2{puff} Inhale 2 Puffs every 4 (four) hours as needed for Wheezing or Shortness of Breath. [facility] benzonatate 100 mg capsule 2023-05 00:00: 00 05-26 00:00 :00 No [id number] 100mg Take 1 capsule by mouth 3 (three) times daily as needed for Cough. [facility] cefdinir 300 mg capsule 2023-05 00:00: 00 05-12 05:59 :00 Yes [id number] 300mg Take 1 capsule by mouth every 12 (twelve) hours for 7 days. [facility] ibuprofen (IBU) tablet 600 mg 12-24 08:15: 00 12-24 08:21 :00 No 600mg 600 mg, Oral, ONCE, 1 dose, On Sat12/25/23 at 0315, GREGORIO [facility] iopamidol (ISOVUE 370-500 mL) injection 84 mL 12-18 23:10: 00 12-18 23:30 :00 No [id number] 84mL 84 mL, Intravenou s, ONCE, 1 dose, On Sat12/19/23 at 1830, Routine [facility] NaCl 0.9% (NS) bolus infusion 1,000 mL 12-18 21:30: 00 12-19 00:11 :00 No 1000mL at 999 mL/hr, 1,000 mL, IV Infusion, ONCE, 1 dose, On Danielle 12/19/23 at 1630, STAT [facility] famotidine (PEPCID (PF)) injection 20 mg 12-18 21:30: 00 12-18 22:43 :00 No 20mg 20 mg, Slow IV Push, ONCE, 1 dose, On Danielle 12/19/23 at 1630, GREGORIO [facility] diphenhydrA MINE:lidoca ine 2% viscous:maa lox 1:1:1 (FIRST-MOUT HWASH BLM) oral suspension 15 mL 12-18 21:30: 00 12-18 22:45 :00 No 15mL 15 mL, Oral, ONCE, 1 dose, On Danielle 12/19/23 at 1630, Routine [facility] ondansetron (ZOFRAN (PF)) injection 4 mg 12-18 21:30: 00 12-18 22:41 :00 No 4mg 4 mg, Slow IV Push, ONCE, 1 dose, On Danielle 12/19/23 at 1630, GREGORIO [facility] sucralfate 1 gram tablet 12-18 00:00: 00 01-18 04:59 :00 No [id number] 1g Take 1 tablet by mouth before meals and at bedtime for 30 days. [facility] pantoprazol e (PROTONIX) 40 mg EC tablet 12-18 00:00: 00 01-18 04:59 :00 No [id number] 40mg Take 1 tablet by mouth in the morning for 30 days. [facility] acetaminoph en (TYLENOL) tablet 1,000 mg 11-07 07:45: 00 11-07 07:35 :00 No 1000mg 1,000 mg, Oral, ONCE, 1 dose, On Sat11/08/23 at 0245, Routine [facility] naproxen sodium 550 mg tablet 11-07 00:00: 00 Yes [id number] 550mg Take 1 tablet by mouth in the morning and 1 tablet in the evening. Take with meals. [facility] aspirin tablet 325 mg 10-20 04:00: 00 10-20 04:56 :00 No 325mg 325 mg, Oral, ONCE, 1 dose, On Sat10/20/23 at 2300, STAT [facility] NaCl 0.9% (NS) bolus infusion 1,000 mL 10-14 20:00: 00 10-14 21:32 :00 No 1000mL at 999 mL/hr, 1,000 mL, IV Infusion, ONCE, 1 dose, On Sat10/15/23 at 1500, GREGORIO [facility] Vital Signs Vital Name Observation Time Observation Value Comments S ource Systolic blood pressure 2024-07-02 06:00:00 138 mm[Hg] [facility] Diastolic blood pressure 2024-07-02 06:00:00 78 mm[Hg] [facility] Heart rate 2024-07-02 06:00:00 66 /min [facility] Respiratory rate 2024-07-02 06:00:00 16 /min [facility] Oxygen saturation in Arterial blood by Pulse oximetry 2024-07-02 06:00:00 99 /min [facility] Body temperature 2024-07-02 03:29:00 36.78 Lulú [facility] Body height 2024-07-02 03:29:00 177.8 cm [facility] Body weight 2024-07-02 03:29:00 114.306 kg [facility] BMI 2024-07-02 03:29:00 36.16 kg/m2 [facility] Systolic blood pressure 2024-05-27 05:35:00 120 mm[Hg] [facility] Diastolic blood pressure 2024-05-27 05:35:00 77 mm[Hg] [facility] Heart rate 2024-05-27 05:35:00 83 /min [facility] Body temperature 2024-05-27 05:35:00 37.06 Lulú [facility] Respiratory rate 2024-05-27 05:35:00 18 /min [facility] Oxygen saturation in Arterial blood by Pulse oximetry 2024-05-27 05:35:00 96 /min [facility] Body height 2024-05-27 03:58:00 177.8 cm [facility] Body weight 2024-05-27 03:58:00 111.585 kg [facility] BMI 2024-05-27 03:58:00 35.30 kg/m2 [facility] Systolic blood pressure 2024-05-04 18:50:00 135 mm[Hg] [facility] Diastolic blood pressure 2024-05-04 18:50:00 71 mm[Hg] [facility] Heart rate 2024-05-04 18:50:00 64 /min [facility] Body temperature 2024-05-04 18:50:00 36.78 Lulú [facility] Respiratory rate 2024-05-04 18:50:00 16 /min [facility] Oxygen saturation in Arterial blood by Pulse oximetry 2024-05-04 18:50:00 100 /min [facility] Body height 2024-05-04 16:07:00 177.8 cm [facility] Body weight 2024-05-04 16:07:00 117.482 kg [facility] BMI 2024-05-04 16:07:00 37.16 kg/m2 [facility] Systolic blood pressure 2024-01-23 03:30:00 137 mm[Hg] [facility] Diastolic blood pressure 2024-01-23 03:30:00 88 mm[Hg] [facility] Heart rate 2024-01-23 03:30:00 61 /min [facility] Respiratory rate 2024-01-23 03:30:00 16 /min [facility] Oxygen saturation in Arterial blood by Pulse oximetry 2024-01-23 03:30:00 98 /min [facility] Body temperature 2024-01-23 00:57:00 37.22 Lulú [facility] Body height 2024-01-23 00:57:00 177.8 cm [facility] Body weight 2024-01-23 00:57:00 130.772 kg [facility] BMI 2024-01-23 00:57:00 41.37 kg/m2 [facility] Systolic blood pressure 2023-12-25 08:02:00 140 mm[Hg] [facility] Diastolic blood pressure 2023-12-25 08:02:00 85 mm[Hg] [facility] Heart rate 2023-12-25 08:02:00 61 /min [facility] Body temperature 2023-12-25 08:02:00 36.72 Lulú [facility] Respiratory rate 2023-12-25 08:02:00 16 /min [facility] Body height 2023-12-25 08:02:00 177.8 cm [facility] Body weight 2023-12-25 08:02:00 117.935 kg [facility] BMI 2023-12-25 08:02:00 37.31 kg/m2 [facility] Oxygen saturation in Arterial blood by Pulse oximetry 2023-12-25 08:02:00 100 /min [facility] Systolic blood pressure 2023-12-20 00:20:00 126 mm[Hg] [facility] Diastolic blood pressure 2023-12-20 00:20:00 76 mm[Hg] [facility] Heart rate 2023-12-20 00:20:00 56 /min [facility] Respiratory rate 2023-12-20 00:20:00 16 /min [facility] Oxygen saturation in Arterial blood by Pulse oximetry 2023-12-20 00:20:00 99 /min [facility] Body temperature 2023-12-19 21:00:00 37.11 Lulú [facility] Body height 2023-12-19 21:00:00 177.8 cm [facility] weight 2023-12-19 21:00:00 117.935 kg [facility] BMI 2023-12-19 21:00:00 37.31 kg/m2 [facility] Systolic blood pressure 2023-11-08 08:00:00 127 mm[Hg] [facility] Diastolic blood pressure 2023-11-08 08:00:00 82 mm[Hg] [facility] Heart rate 2023-11-08 08:00:00 71 /min [facility] Body temperature 2023-11-08 08:00:00 37.11 Lulú [facility] Respiratory rate 2023-11-08 08:00:00 14 /min [facility] Oxygen saturation in Arterial blood by Pulse oximetry 2023-11-08 08:00:00 98 /min [facility] Body height 2023-11-08 06:55:00 177.8 cm [facility] Body weight 2023-11-08 06:55:00 122.471 kg [facility] BMI 2023-11-08 06:55:00 38.74 kg/m2 [facility] Systolic blood pressure 2023-10-21 06:25:00 124 mm[Hg] [facility] Diastolic blood pressure 2023-10-21 06:25:00 71 mm[Hg] [facility] Heart rate 2023-10-21 06:25:00 68 /[facility] Body temperature 2023-10-21 06:25:00 37.06 Lulú [facility] Respiratory rate 2023-10-21 06:25:00 18 /min [facility] Oxygen saturation in Arterial blood by Pulse oximetry 2023-10-21 06:25:00 98 /min [facility] BMI 2023-10-21 03:54:00 38.61 kg/m2 [facility] Body height 2023-10-21 03:54:00 177.8 cm [facility] Body weight 2023-10-21 03:54:00 122.063 kg [facility] Systolic blood pressure 2023-10-15 21:42:00 117 mm[Hg] [facility] Diastolic blood pressure 2023-10-15 21:42:00 78 mm[Hg] [facility] Heart rate 2023-10-15 21:42:00 67 /min [facility] Body temperature 2023-10-15 21:42:00 36.94 Lulú [facility] Respiratory rate 2023-10-15 21:42:00 16 /min [facility] Oxygen saturation in Arterial blood by Pulse oximetry 2023-10-15 21:42:00 99 /min [facility] Body height 2023-10-15 18:57:00 177.8 cm [facility] Body weight 2023-10-15 18:57:00 120.203 kg [facility] BMI 2023-10-15 18:57:00 38.02 kg/m2 [facility] Systolic blood pressure 2023-08-16 02:23:00 140 mm[Hg] [facility] Diastolic blood pressure 2023-08-16 02:23:00 81 mm[Hg] [facility] Heart rate 2023-08-16 02:23:00 68 /min [facility] Body temperature 2023-08-16 02:23:00 37 Lulú [facility] Respiratory rate 2023-08-16 02:23:00 18 /min [facility] Oxygen saturation in Arterial blood by Pulse oximetry 2023-08-16 02:23:00 100 /min [facility] Body height 2023-08-16 00:54:00 177.8 cm [facility] Body weight 2023-08-16 00:54:00 117.935 kg [facility] BMI 2023-08-16 00:54:00 37.31 kg/m2 [facility] Systolic blood pressure 2023-08-15 07:00:00 120 mm[Hg] [facility] Diastolic blood pressure 2023-08-15 07:00:00 78 mm[Hg] [facility] Heart rate 2023-08-15 07:00:00 81 /min [facility] Respiratory rate 2023-08-15 07:00:00 12 /min [facility] Oxygen saturation in Arterial blood by Pulse oximetry 2023-08-15 07:00:00 97 /min [facility] Body temperature 2023-08-15 05:11:00 36.72 Lulú [facility] Body height 2023-08-15 05:11:00 177.8 cm [facility] Body weight 2023-08-15 05:11:00 117.935 kg [facility] BMI 2023-08-15 05:11:00 37.31 kg/m2 [facility] Systolic blood pressure 2021-10-30 18:29:00 152 mm[Hg] [facility] Diastolic blood pressure 2021-10-30 18:29:00 92 mm[Hg] [facility] Heart rate 2021-10-30 18:29:00 102 /min [facility] Body temperature 2021-10-30 18:29:00 38.06 Lulú [facility] Respiratory rate 2021-10-30 18:29:00 18 /min [facility] Body weight 2021-10-30 18:29:00 113.399 kg [facility] Oxygen saturation in Arterial blood by Pulse oximetry 2021-10-30 18:29:00 99 /min [facility] Procedures Procedure Date / Time Performed Performing Clinician Source TROPONIN I 2024-07-02 04:03:00 Ophelia Mcgill [facility] COMP. METABOLIC PANEL ([id number]) 2024-07-02 04:03:00 Ophelia Mcgill [facility] CBC WITH DIFF 2024-07-02 04:03:00 Ophelia Mcgill [facility] URINALYSIS 2024-05-27 04:08:00 [facility] RAPID STREP SCREEN FOR GROUP A 2024-05-27 04:08:00 [facility] INFLUENZA A/B RSV COVID NAAT 2024-05-27 04:08:00 [facility] EKG-12 LEAD 2023-12-25 09:03:09 Katelyn Gamboa [facility] CT ABDOMEN PELVIS W CONTRAST 2023-12-19 23:15:41 Ross Pappas [facility] LIPASE 2023-12-19 22:31:00 Ross Pappas [facility] TROPONIN I 2023-12-19 22:31:00 Ross Pappas [facility] COMP. METABOLIC PANEL ([id number]) 2023-12-19 22:31:00 Ross Pappas [facility] CBC WITH DIFF 2023-12-19 22:31:00 Ross Papaps [facility] URINALYSIS 2023-12-19 22:31:00 Ross Pappas [facility] EKG-12 LEAD 2023-11-08 08:01:34 [facility] 2023-11-08 07:35:00 [facility] TROPONIN I 2023-11-08 07:30:00 Micheal Alston Un [facility] COMP. METABOLIC PANEL ([id number]) 2023-11-08 07:30:00 Micheal Alston [facility] CBC WITH DIFF 2023-11-08 07:30:00 Micheal Alston [facility] N-TERMINAL PRO-BNP 2023-11-08 07:30:00 Sallie Alston [facility] EKG-12 LEAD 2023-10-21 06:36:29 [facility]OP[facility] I 2023-10-21 05:03:00 [facility] COMP. METABOLIC PANEL ([id number]) 2023-10-21 05:03:00 Micheal Alston [facility] CBC WITH DIFF 2023-10-21 05:03:00 Micheal Alston [facility] N-TERMINAL PRO-BNP 2023-10-21 05:03:00 Sallie Alston [facility] URINE DRUG (IMMUNOASSAY) - COMPREHENSIVE DRUG SCREEN W/O REFLEX 2023-10-21 05:03:00 Micheal Alston [facility] XR CHEST 1 VW 2023-10-21 04:10:03 Micheal Alston Tonya [facility] CBC WITH DIFF 2023-10-15 19:40:00 Katelyn Gamboa [facility] MAGNESIUM 2023-10-15 19:39:00 Katelyn Gamboa [facility] COMP. METABOLIC PANEL ([id number]) 2023-10-15 19:39:00 Katelyn Gamboa [facility] URINALYSIS 2023-10-15 19:39:00 Katelyn Gamboa [facility] EKG-12 LEAD 2023-08-16 02:21:53 Krupa Grant [facility] THYROID STIMULATING HORMONE 2023-08-15 05:50:00 Krupa Grant [facility] BASIC METABOLIC PANEL (NA, K, CL, CO2, GLUCOSE, BUN, CREATININE, CA) 2023-08-15 05:50:00 Krupa Grant [facility] CBC WITH DIFF 2023-08-15 05:50:00 Krupa Grant [facility] NOTICE OF PRIVACY PRACTICES 2021-10-30 18:55:34 Doctor Unassigned, [facility] URINALYSIS 2021-10-30 18:32:00 Katelyn Gamboa [facility] COVID-19 (ID NOW RAPID TESTING) 2021-10-30 18:32:00 Katelyn Gamboa [facility] CONSENT/REFUSAL FOR DIAGNOSIS AND TREATMENT 2021-10-30 18:25:30 Doctor Unassigned, [facility] Encounters Start Date/Time End Date/Time Encounter Type Admission Type Attending [facility] Care Department Encounter ID Source 2024-07-08 16:41:00 Outpatient No PCP, for now [facility] [id number] [place] 2024-06-30 09:38:01 Outpatient No PCP, for now CLS [facility] [id number] Juan Alberto [facility] 2024-07-01 21:32:00 2024-07-02 00:01:00 Emergency [facility] [id number] [facility] 2024-07-01 21:32:00 2024-07-02 00:01:00 Emergency Ophelia [facility] 1.840.114 350.1.13.10 4.2.7.2.686 [id number] [facility] 2024-05-26 22:02:00 2024-05-26 23:39:00 Emergency X [facility] [id number] [facility] 2024-05-26 22:02:00 2024-05-26 23:39:00 Emergency GuadalupeMicaelakaren [facility] 1.840.114 350.1.13.10 4.2.7.2.686 [id number] [facility] 2024-05-04 10:12:00 2024-05-04 12:55:00 Emergency KEISHA SHOOK [facility] ERT [id number] [facility] 2024-05-04 10:12:00 2024-05-04 12:55:00 Emergency Keisha Glez [facility] 1.840.114 350.1.13.10 4.2.7.2.686 [id number] [facility] 2024-01-22 20:00:00 2024-01-22 22:41:00 Emergency X KRUPA GRANT [facility] ERT [id number] [facility] 2024-01-22 20:00:00 2024-01-22 22:41:00 Emergency Krupa Grant [facility] .840.114 350.1.13.10 4.2.7.2.686 [id number] [facility] 2023-12-25 03:08:00 2023-12-25 04:02:00 Emergency X KATELYN GAMBOA [facility] ERT [id number] [facility] 2023-12-25 03:08:00 2023-12-25 04:02:00 Emergency Katelyn Gamboa [facility] 1.2840.114 350.1.13.10 4.2.7.2.686 [id number] [facility] 2023-12-20 00:00:00 2023-12-20 13:28:30 Letter (Out) Clinic, Gastroenter ology Clinic, Gastroenter ology [facility] 1.2840.114 350.1.13.10 4.2.7.2.686 [id number] [facility] 2023-12-19 16:10:00 2023-12-19 19:22:00 Emergency X ROSS PAPPAS [facility] ERT [id number] [facility] 2023-12-19 16:10:00 2023-12-19 19:22:00 Emergency Ross Pappas [facility] 1.2840.114 350.1.13.10 4.2.7.2.686 [id number] [facility] 2023-11-08 01:59:00 2023-11-08 03:29:00 Emergency Micheal Alston [place] S [facility] 1.0.114 350.1.13.10 4.2.7.2.686 [id number] [facility] 2023-10-20 22:56:00 2023-10-21 01:35:00 Emergency X MICHEAL ALSTON [facility] ERT [id number] [facility] 2023-10-20 22:56:00 2023-10-21 01:35:00 Emergency Micheal Alston [facility] [id number] 350.1.13.10 4.2.7.2.686 [id number] [facility] 2023-10-15 13:58:00 2023-10-15 16:46:00 Emergency X KATELYN GAMBOA [facility] ERT [id number] [facility] 2023-10-15 13:58:00 2023-10-15 16:46:00 Emergency Katelyn Gamboa [facility] 1.2.840.114 350.1.13.10 4.2.7.2.686 [id number] [facility] 2023-08-15 19:56:00 2023-08-15 21:34:00 Emergency X KRUPA [facility] ERT [id number] [facility] 2023-08-15 19:56:00 2023-08-15 21:34:00 Emergency Krupa Grant [facility] [id number] 350.1.13.10 4.2.7.2.686 [id number] [facility] 2023-08-15 00:13:00 2023-08-15 02:21:00 Emergency Krupa Grant [facility] 1.2.840.114 350.1.13.10 4.2.7.2.686 [id number] [facility] 2023-02-06 13:11:04 2023-02-06 13:11:04 Outpatient [facility] [id number] Alexx Medrano 2022-10-03 10:29:27 2022-10-03 10:29:27 Outpatient [facility] [id number] Alexx Amin Mitchell 2021-10-30 13:29:00 2021-10-30 14:24:00 Emergency Roman Katelyn Lemos [facility] 1.2.840.114 350.1.13.10 4.2.7.2.686 [id number] [facility] 2021-10-30 13:29:00 2021-10-30 14:24:00 Emergency X [facility] ERT [id number] [facility] 2020-06-28 11:27:00 2020-06-28 16:16:00 Emergency E AURY [facility]ILES MHBL MHBL 7500 BL Results Test Description Test Time Test Comments Results Result Co mments Source [facility] (04026)2024-07-02 04:28:01* Test Item Value Reference Range Interpretation Comme nts NA (test code = 6625756263) 137 mmol/L 135-145 K (test code = 4152046853) 4.1 mmol/L 3.5-5.0 CL (test code = 1413683454) 102 mmol/L 98-108 CO2 TOTAL (test code = 9843511739) 26 mmol/L 23-31 AGAP (test code = 4005176048) 9 2-16 BUN (test code = 5722240045) 23 mg/dL 7-23 GLUCOSE (test code = 0280595822) 110 mg/dL 70-110 CREATININE (test code = 2160-0) 0.88 mg/dL 0.60-1.25 TOTAL BILI (test code = 5793720524) 0.7 mg/dL 0.1-1.1 CALCIUM (test code = 8099755053) 9.1 mg/dL 8.6-10.6 T PROTEIN (test code = 8908227507) 7.8 g/dL 6.3-8.2 ALBUMIN (test code = 0817788607) 4.8 g/dL 3.5-5.0 ALK PHOS (test code = 6583953204) 63 U/L 34-122 ALTv (test code = 1742-6) 18 U/L 5-50 AST(SGOT) (test code = 6288055206) 24 U/L 13-40 eGFR (test code = 00536-2) 118.6 mL/min/1.73m2 CKD-EPI eGFR (20 21). Assuming creatinine has been stable day-to-day for at least three months, the eGFR indicates Category G1 (>= 90 mL/min/1.73 m2) [facility] with [id number] 04:17:37* Test Item Value Reference Range Interpretation Comme nts WBC (test code = 6690-2) 8.33 4.20-10.70 RBC (test code = 789-8) 4.78 4.26-5.52 HGB (test code = 718-7) 14.4 g/dL 12.2-16.4 HCT (test code = 4544-3) 41.1 % 38.4-49.3 MCV (test code = 787-2) 86.0 fL 81.7-95.6 MCH (test code = 785-6) 30.1 pg 26.1-32.7 MCHC (test code = 786-4) 35.0 g/dL 31.2-35.0 RDW-SD (test code = 76021-4) 40.0 fL 38.5-51.6 RDW-CV (test code = 788-0) 12.9 % 12.1-15.4 PLT (test code = 777-3) 259 150-328 MPV (test code = 91515-4) 10.2 fL 9.8-13.0 NRBC/100 WBC (test code = 1792892622) 0.0 0.0-10.0 NRBC x10^3 (test code = 3926893050) See_Comment [Automated me ssage] The system which generated this result transmitted reference range: 10*3/?L. The reference range was not used to interpret this result as normal/abnormal. GRAN MAT (NEUT) % (test code = 770-8) 56.7 % IMM GRAN % (test code = 9253958223) 0.20 % LYMPH % (test code = 736-9) 35.2 % MONO % (test code = 5905-5) 5.6 % EOS % (test code = 713-8) 1.7 % BASO % (test code = 706-2) 0.6 % GRAN MAT x10^3(ANC) (test code = 0190775689) 4.72 10*3/uL 1.99-6.95 IMM GRAN x10^3 (test code = 1021696080) 0.00-0.06 LYMPH x10^3 (test code = 731-0) 2.93 10*3/uL 1.09-3.23 MONO x10^3 (test code = 742-7) 0.47 10*3/uL 0.36-1.02 EOS x10^3 (test code = 711-2) 0.14 10*3/uL 0.06-0.53 BASO x10^3 (test code = 704-7) 0.05 10*3/uL 0.01-0.09 [facility] [id number] 23:55:02EXAM: CT ABDOMEN PELVIS W CONTRAST 12/19/2023 6:06 PM ORDERING PROVIDER: ROSS PAPPAS HISTORY: 28 years-old Male; Provided Ordering Indication: Abdominal pain,acute, nonlocalized . TECHNIQUE: Contiguous axial imaging from the level of the lung basesthrough the proximal thighs was performed with ?in travenous contrast.Coronal and sagittal reconstructions were obtained. COMPARISON: None FINDINGS: The lung bases are clear. The liver is at the upper limits of normal at 17.8 cm in the craniocaudaldimension. No focal lesion is seen. The spleen is at the upper limits of normal at 13 cm in the cranioc audaldimension. The gallbladder, biliary system, pancreas, adrenal glands, and kidneys areunremarkable. The gastrointestinal tract has no obstruction. Mild gastroesophagealjunction wall thickening and small adjacent lymph nodes are present. Anormal appendix is shown on series 2 image 99. A moderatevolume of stoolis present. The urinary bladder and prostate have no suspicious masses. No free air,fluid collection, or suspicious lymphadenopathy is seen. The vessels are patent. No aggressive osseous lesion is visualized. 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 Lab Interpretation (test code = 38790-3) Normal [facility]. METABOLIC PANEL (31051)2023-12-19 23:10:25* Test Item Value Reference Range Interpretation Comme nts NA (test code = 4552513967) 137 mmol/L 135-145 K (test code = 2245728774) 3.9 mmol/L 3.5-5.0 CL (test code = 8331509794) 100 mmol/L 98-108 CO2 TOTAL (test code = 5066817946) 27 mmol/L 23-31 AGAP (test code = 9312237396) 10 2-16 BUN (test code = 2558384119) 13 mg/dL 7-23 GLUCOSE (test code = 6510804946) 95 mg/dL 70-110 CREATININE (test code = 2160-0) 0.75 mg/dL 0.60-1.25 TOTAL BILI (test code = 6561162452) 0.9 mg/dL 0.1-1.1 CALCIUM (test code = 8065790209) 9.0 mg/dL 8.6-10.6 T PROTEIN (test code = 6379554071) 8.3 g/dL 6.3-8.2 H ALBUMIN (test code = 8388875740) 4.7 g/dL 3.5-5.0 ALK PHOS (test code = 2969145501) 65 U/L 34-122 ALTv (test code = 1742-6) 24 U/L 5-50 AST(SGOT) (test code = 2961396943) 27 U/L 13-40 eGFR (test code = 05234-3) 125.3 mL/min/1.73m2 CKD-EPI eGFR (2020). Assuming creatinine has been stable day-to-day for at least three months, the eGFR indicates Category G1 (>= 90 mL/min/1.73 m2) Lab Interpretation (test code = 41639-1) Abnormal [facility]2024-[facility]-15 23:10:05* Test Item Value Reference Range Interpretation Comme nts LIPASE (test code = 4771606262) 67 U/L 0-220 Lab Interpretation (test cod e = 62498-8) Normal [facility] WITH [id number] 22:53:21* Test Item Value Reference Range Interpretation [...] g/dL 31.2-35.0 H RDW-SD (test code = 26830-7) 39.5 fL 38.5-51.6 RDW-CV (test code = 788-0) 12.8 % 12.1-15.4 PLT (test code = 777-3) 252 150-328 MPV (test code = 61473-3) 10.2 fL 9.8-13.0 NRBC/100 WBC (test code = 5811962135) 0.0 0.0-10.0 NRBC x10^3 (test code = 7102776300) See_Comment [Automated messa ge] The system which generated this result transmitted reference range: 10*3/?L. The reference range was not used to interpret this result as normal/abnormal. GRAN MAT (NEUT) % (test code = 770-8) 62.9 % IMM GRAN % (test code = 3581350594) 0.40 % LYMPH % (test code = 736-9) 27.5 % MONO % (test code = 5905-5) 6.6 % EOS % (test code = 713-8) 2.1 % BASO % (test code = 706-2) 0.5 % GRAN MAT x10^3(ANC) (test code = 0534019739) 4.74 10*3/uL 1.99-6.95 IMM GRAN x10^3 (test code = 0294106347) 0.03 10*3/uL 0.00-0.06 LYMPH x10^3 (test code = 731-0) 2.08 10*3/uL 1.09-3.23 MONO x10^3 (test code = 742-7) 0.50 10*3/uL 0.36-1.02 EOS x10^3 (test code = 711-2) 0.16 10*3/uL 0.06-0.53 BASO x10^3 (test code = 704-7) 0.04 10*3/uL 0.01-0.09 Lab Interpretation (test code = 42034-1) Abnormal [facility] [id number] 08:11:40* Test Item Value Reference Range Interpretation Comme nts TROPONIN I (test code = 8452061281) 0.001 ng/mL <=0.034 BERTRAND (test code = [...] of biotin. Lab Interpretation (test code = 58891-9) Normal [facility] [id number] 08:08:59* Test Item Value Reference Range Interpretation Comme nts NT-proBNP (test code = 43789-9) 25 pg/mL <=125 Lab Interpretation (test cod e = 66282-0) [facility] METABOLIC PANEL (84585)2023-11-08 08:00:01* Test Item Value Reference Range Interpretation Comme nts NA (test code = 9379564676) 138 mmol/L 135-145 K (test code = 3799896435) 3.6 mmol/L 3.5-5.0 CL (test code = 4389383527) 103 mmol/L 98-108 CO2 TOTAL (test code = 0987531703) 27 mmol/L 23-31 AGAP (test code = 2206563487) 8 2-16 BUN (test code = 7196023709) 20 mg/dL 7-23 GLUCOSE (test code = 5272952599) 107 mg/dL 70-110 CREATININE (test code = 2160-0) 0.76 mg/dL 0.60-1.25 TOTAL BILI (test code = 5737302477) 0.6 mg/dL 0.1-1.1 CALCIUM (test code = 7557311252) 9.2 mg/dL 8.6-10.6 T PROTEIN (test code = 9460741009) 8.0 g/dL 6.3-8.2 ALBUMIN (test code = 3871812291) 4.6 g/dL 3.5-5.0 ALK PHOS (test code = 0359180971) 86 U/L 34-122 ALTv (test code = 1742-6) 24 U/L 5-50 AST(SGOT) (test code = 5853661874) 25 U/L 13-40 eGFR (test code = 08283-0) 124.8 mL/min/1.73m2 CKD-EPI eGFR (20 21). Assuming creatinine has been stable day-to-day for at least three months, the eGFR indicates Category G1 (>= 90 mL/min/1.73 m2) [facility] WITH [id number] 07:47:18* Test Item Value Reference Range Interpretation [...] 34.8 g/dL 31.2-35.0 RDW-SD (test code = 27973-3) 39.2 fL 38.5-51.6 RDW-CV (test code = 788-0) 12.6 % 12.1-15.4 PLT (test code = 777-3) 256 150-328 MPV (test code = 79305-5) 9.9 fL 9.8-13.0 NRBC/100 WBC (test code = 7861099405) 0.0 0.0-10.0 NRBC x10^3 (test code = 1793605664) See_Comment [Automated messa ge] The system which generated this result transmitted reference range: 10*3/?L. The reference range was not used to interpret this result as normal/abnormal. GRAN MAT (NEUT) % (test code = 770-8) 61.6 % IMM GRAN % (test code = 9307723198) 0.70 % LYMPH % (test code = 736-9) 30.0 % MONO % (test code = 5905-5) 5.2 % EOS % (test code = 713-8) 2.1 % BASO % (test code = 706-2) 0.4 % GRAN MAT x10^3(ANC) (test code = 2800363834) 6.20 10*3/uL 1.99-6.95 IMM GRAN x10^3 (test code = 2339532256) 0.07 10*3/uL 0.00-0.06 H LYMPH x10^3 (test code = 731-0) 3.02 10*3/uL 1.09-3.23 MONO x10^3 (test code = 742-7) 0.52 10*3/uL 0.36-1.02 EOS x10^3 (test code = 711-2) 0.21 10*3/uL 0.06-0.53 BASO x10^3 (test code = 704-7) 0.04 10*3/uL 0.01-0.09 Lab Interpretation (test code = 50394-2) Abnormal [facility] [id number] 05:52:17* Test Item Value Reference Range Interpretation Comme nts NT-proBNP (test code = 83831-9) <=125 Lab Interpretation (test cod e = 55020-6) Normal [facility] [id number] 05:51:07* Test Item Value Reference Range Interpretation Comme nts TROPONIN I (test code = 3634880953) 0.003 ng/mL <=0.034 BERTRAND (test code = [...] of biotin. Lab Interpretation (test code = 67639-7) [facility] METABOLIC PANEL (12513)2023-10-21 05:33:27* Test Item Value Reference Range Interpretation Comme nts NA (test code = 2635840891) 141 mmol/L 135-145 K (test code = 3471995426) 3.9 mmol/L 3.5-5.0 CL (test code = 1177158732) 105 mmol/L 98-108 CO2 TOTAL (test code = 6555035445) 26 mmol/L 23-31 AGAP (test code = 7372905451) 10 2-16 BUN (test code = 3240232439) 21 mg/dL 7-23 GLUCOSE (test code = 1172990866) 98 mg/dL 70-110 CREATININE (test code = 2160-0) 0.73 mg/dL 0.60-1.25 TOTAL BILI (test code = 3177761007) 0.6 mg/dL 0.1-1.1 CALCIUM (test code = 3490588522) 8.8 mg/dL 8.6-10.6 T PROTEIN (test code = 7431733159) 7.8 g/dL 6.3-8.2 ALBUMIN (test code = 5112809801) 4.3 g/dL 3.5-5.0 ALK PHOS (test code = 8219875747) 64 U/L 34-122 ALTv (test code = 1742-6) 24 U/L 5-50 AST(SGOT) (test code = 4319683467) 27 U/L 13-40 eGFR (test code = 00388-9) 126.3 mL/min/1.73m2 CKD-EPI eGFR (20 21). Assuming creatinine has been stable day-to-day for at least three months, the eGFR indicates Category G1 (>= 90 mL/min/1.73 m2) [facility] WITH [id number] 05:16:49* Test Item Value Reference Range Interpretation [...] 34.5 g/dL 31.2-35.0 RDW-SD (test code = 37331-5) 39.6 fL 38.5-51.6 RDW-CV (test code = 788-0) 12.7 % 12.1-15.4 PLT (test code = 777-3) 258 150-328 MPV (test code = 94984-7) 10.0 fL 9.8-13.0 NRBC/100 WBC (test code = 4981344704) 0.0 0.0-10.0 NRBC x10^3 (test code = 3040915303) See_Comment [Automated me ssage] The system which generated this result transmitted reference range: 10*3/?L. The reference range was not used to interpret this result as normal/abnormal. GRAN MAT (NEUT) % (test code = 770-8) 66.6 % IMM GRAN % (test code = 2621490425) 0.40 % LYMPH % (test code = 736-9) 25.0 % MONO % (test code = 5905-5) 5.5 % EOS % (test code = 713-8) 2.2 % BASO % (test code = 706-2) 0.3 % GRAN MAT x10^3(ANC) (test code = 5939546000) 6.12 10*3/uL 1.99-6.95 IMM GRAN x10^3 (test code = 8266475578) 0.04 10*3/uL 0.00-0.06 LYMPH x10^3 (test code = 731-0) 2.30 10*3/uL 1.09-3.23 MONO x10^3 (test code = 742-7) 0.51 10*3/uL 0.36-1.02 EOS x10^3 (test code = 711-2) 0.20 10*3/uL 0.06-0.53 BASO x10^3 (test code = 704-7) 0.03 10*3/uL 0.01-0.09 [facility] 1 [id number] 04:54:16Exam: Chest (1 View), 10/20/2023 11:00 PM. Ordering Physician: MICHEAL ALSTON. History: Chest pain. Technique: AP view of the chest. Technical Quality: Adequate. Comparison: None. Findings: Normal cardiac silhouette size and pulmonary vascularity. ?No airspaceconsolidation, pleural effusion, or pneumothorax. No acute osseous abnormality.[facility] Notes Date/Time Note Provider Source 2024-07-02 00:00:36 Pt given printed and verbal discharge instructions regarding near syncope, encouraged hydration, Pt verbalized understanding of instructions, pt awake alert oriented, resp reg unlabored, skin w/d, color appropriate for race, moves all ext well,pt encouraged to follow up with pcp Advised to seek medical attention for new/prolonged/worsening of symptoms No adverse reaction to meds given in ER noted upon discharge PIV d'cd, dressing to site, catheter in tact. Awake, alert oriented, resp reg unlabored, skin w/d, pt leaving ambulatory without assist, in no apparent distress, POURER Elmer Barahona RN [facility] 2024-07-01 21:26:43 Pt in wheelchair to triage for CC of dizziness and weakness. Pt states he was sitting on the couch 10-15 min [employer] and began to feel very dizzy, weak and had blurred vision. Pt states his heart rate jumped up to 135 bpm. Pt reports hx of panic attacks and anxiety. Pt denies any vision changes currently. E Melo RN [facility] 2024-05-26 23:37:26 Pt given printed and verbal discharge instructions regarding bronchitis, encouraged hydration, Prescription x3 printed and given to patient Discussed ibuprofen and to take with food to avoid GI distress. Pt verbalized understanding of instructions, pt awake alert oriented, resp reg unlabored, skin w/d, color appropriate for race, moves all ext well,pt encouraged to follow up with pcp. Advised to seek medical attention for new/prolonged/worsening of symptoms, Symptoms increased shortness of breath No adverse reaction to meds given in ER noted upon discharge Awake, alert oriented, resp reg unlabored, skin w/d, pt leaving ambulatory without assist, in no apparent distress, E Resendiz RN [facility] 2024-05-26 21:53:45 Pt arrives ambulatory to ED c/o epigastric and back pain, coughing, nausea, decreased appetite, pain with inspiration, and low grade fever, x2 days. E Gamboa RN [facility] 2024-05-04 12:53:30 Patient is awake and alert, oriented x4. Speech is clear and appropriate. Respirations even and unlabored, no distress. Ambulatory with a steady gait. Reviewed discharge instructions, follow-up care, and RX with patient, verbalizes understanding. [facility] Branden Guo RN [facility] 2024-05-04 10:06:54 Patient states that he woke up this morning and had a cough. Experience pain afterwards in the left side of the chest. Patient states that he had a cough recently. [facility] 2024-01-22 22:39:53 Pt given printed and verbal discharge instructions regarding palpitations, arrhythmias, encouraged hydration. 0 Prescriptions provided. Discussed ibuprofen and to take with food to avoid GI distress. Pt verbalized understanding of instructions, pt awake alert oriented, resp reg unlabored, skin w/d, color appropriate for race, moves all ext well,pt encouraged to follow up with pcp and or cardiology. Advised to seek medical attention for new/prolonged/worsening of symptoms, Symptoms improved. Awake, alert oriented, resp reg unlabored, skin w/d, pt leaving amb with steady gait, in no apparent distress. Keyana Virk RN [facility] 2024-01-22 22:38:23 . T Franky Akbar RN [facility] 2024-01-22 19:56:11 Pt states this after around 1400 he felt like he was having palpations and than this afternoon he felt like his heart was skipping a beat T [facility] 2023-12-25 04:02:00 Pt given printed and verbal discharge instructions regarding chest pain. Pt verbalized understanding of instructions, pt awake alert oriented, resp reg unlabored, skin w/d, color appropriate for race, moves all ext well, pt encouraged to follow up with pcp. Advised to seek medical attention for new/prolonged/worsening of symptoms. No adverse reaction to meds given in ER noted upon discharge. Awake, alert oriented, resp reg unlabored, skin w/d, pt leaving amb with steady gait, in no apparent distress. [facility] 2023-12-25 03:00:31 CC: Chest wall pain since last night. Pt states the pain went away, then a sharp pain began again and woke him up from his sleep. Pt reports recent cough. Pharmacy - [facility] in [place] Awake, alert, oriented, resp reg unlabored, skin intact, color appropriate for race, moves all ext without difficulty, amb without assistance Yazmin Manriquez RN [facility] 2023-12-25 02:56:00 Associated Order(s): EKG-12 Lead ROUTINE ONCE Pre-Procedure Diagnose(s): Chest pain, unspecified type Post-Procedure Diagnose(s): Chest pain, unspecified type [facility] Emergency Department Note Patient Name: Danny Ferreira Date of : 1995 28 year old male Treatment Room: Room/bed info not found Primary Care Physician: PATIENT DOES NOT HAVE A PCP Patient Escorted by: Self [9] Mode of Arrival: Personal means [1] EMS Treatment Prior to ED Arrival: [employer] treatment: None Travel and Exposure Screening: Symptoms Does patient have any of these symptoms?: (not recorded) Exposure Screening Has patient had contact with someone with a communicable disease in the last month?: (not recorded) Diseases exposed to:: (not recorded) Is Patient ?: (not recorded) Exposure Date: (not recorded) Chief Complaint: Chief Complaint Patient presents with Chest wall pain History of Present Illness: The patient presents from home for evaluation for several episodes of discomfort below his left breast area since yesterday evening. The episodes are not associated with exertion or deep breathing. He does complain of a slight cough that just started. No nausea or vomiting. No fevers or chills. No medication taken for symptoms. He was seen here several days ago for similar symptoms. He does not smoke. No history of high blood pressure or diabetes in himself. He reports he had several uncles who have had heart attacks but they are still alive. He is working on getting healthy. Here for evaluation. Past Medical History/Immunizations: History reviewed. No pertinent past medical history. Tetanus received in last 5 years: No Allergies: No Known Allergies Past Social History: Substance & Sexual Activity No substance use or sexual activity history on file. Past Surgical History: History reviewed. No pertinent surgical history. Review of Systems: Review of Systems Constitutional: Negative for chills and fever. Respiratory: Negative for cough and shortness of breath. Cardiovascular: Positive for chest pain. Gastrointestinal: Negative for abdominal pain and vomiting. Genitourinary: Negative for dysuria. Musculoskeletal: Negative for arthralgias, neck pain and neck stiffness. Skin: Negative for wound. Neurological: Negative for dizziness. Psychiatric/Behavioral: Negative for agitation. Endocrine: Negative for goiter. Physical Exam: ED Triage Vitals [12/25/23 0302] Weight 117.9 kg (260 lb) Actual or estimated Estimated by patient/family report Height 1.778 m (5' 10") BP (!) 140/85 Pulse 61 Resp 16 Temp 36.7 ?C (98.1 ?F) Temp source Oral SpO2 100 % Measured on Room air Physical Exam Vitals and nursing note reviewed. Constitutional: Appearance: Normal appearance. He is obese. HENT: Head: Normocephalic and atraumatic. Cardiovascular: Rate and Rhythm: Normal rate and regular rhythm. Pulses: Normal pulses. Pulmonary: Effort: Pulmonary effort is normal. No respiratory distress. Breath sounds: No stridor. No wheezing or rhonchi. Abdominal: General: There is no distension. Palpations: Abdomen is soft. There is no mass. Tenderness: There is no abdominal tenderness. There is no guarding. Hernia: No hernia is present. Musculoskeletal: General: Normal range of motion. Cervical back: Normal range of motion and neck supple. Skin: General: Skin is warm and dry. Neurological: General: No focal deficit present. Mental Status: He is alert and oriented to person, place, and time. Radiology: No orders to display Lab Results: Lab Results - No data to display EKG: If EKG completed, see Procedure Note. Orders and Treatments: No orders of the defined types were placed in this encounter. Orders Placed This Encounter Medications ibuprofen (IBU) tablet 600 mg diphenhydrAMINE:lidocaine 2% viscous:maalox 1:1:1 (FIRST-MOUTHWASH BLM) oral suspension 15 mL First Provider Eval: ED Events Date/Time Event User Comments 12/25/23257 Medical Screening Begins KATELYN GAMBOA DO -- 12/25/23257 First Provider Evaluation KATELYN GAMBOA DO -- ED COURSE Diagnosis/Impression as of 12/25/23 0403 Chest pain, unspecified type Procedures: EKG-12 Lead ROUTINE ONCE Date/Time: 12/25/2023 3:09 AM Performed by: Katelyn Gamboa DO Authorized by: Katelyn Gamboa DO ECG interpreted by ED Physician in the absence of a environmental engineering manager: yes Interpretation: Interpretation: normal Rate: ECG rate: 58 ECG rate assessment: normal Rhythm: Rhythm: sinus rhythm Ectopy: Ectopy: none QRS: QRS axis: Normal QRS intervals: Normal QRS conduction: normal ST segments: ST segments: Normal T waves: T waves: normal Q waves: Abnormal Q-waves: not present MDM: Medical Decision Making The patient presents from home for evaluation for several episodes of discomfort below his left breast area since yesterday evening. The episodes are not associated with exertion or deep breathing. He does complain of a slight cough that just started. No nausea or vomiting. No fevers or chills. No medication taken for symptoms. He was seen here several days ago for similar symptoms. He does not smoke. No history of high blood pressure or diabetes in himself. He reports he had several uncles who have had heart attacks but they are still alive. He is working on getting healthy. VSS here in the EC. The patient is obese. Lungs are clear. Heart is RR. EKG shows nsr, no stemi. His presentation is atypical for ACS and he is without risk factors. Will give pain meds. Anticipate dc home later. 0402 -the patient is doing well from the ER. His pain has resolved after the medications given here in the ER. Spoke with the patient at length as he does have a lot of anxiety about significant health issues. He is working with a dietitian to lose weight as well as a mental health counselor. Also spoke with the patient about increasing his amount of walking to help him lose weight. He remained stable here in the ER and is okay for discharge home with PCP follow-up. Problems Addressed: Chest pain, unspecified type: acute illness or injury Amount and/or Complexity of Data Reviewed ECG/medicine tests: ordered and independent interpretation performed. Decision-making details documented in ED Course. Risk OTC drugs. Prescription drug management. Flowsheet Documentation: Scoring Tools: No data recorded Disposition/Condition: ED Disposition ED Disposition Disch - Home Condition Stable Comment -- Discharge Medications: Patient's Medications START taking these medications No medications on file CONTINUE taking these medications which have NOT CHANGED NAPROXEN SODIUM 550 MG TABLET Take 1 tablet by mouth in the morning and 1 tablet in the evening. Take with meals. PANTOPRAZOLE (PROTONIX) 40 MG EC TABLET Take 1 tablet by mouth in the morning for 30 days. SUCRALFATE 1 GRAM TABLET Take 1 tablet by mouth before meals and at bedtime for 30 days. START taking Modified Medications as Prescribed No medications on file STOP taking these medications No medications on file Follow-up: Electronically signed by: Katelyn Gamboa DO 12/25/23402 [facility] 2023-12-19 19:21:14 Pt given printed and verbal discharge instructions regarding gastroesophagitis, encouraged hydration. 2 Prescriptions provided. Pt verbalized understanding of instructions, pt awake alert oriented, resp reg unlabored, skin w/d, color appropriate for race, moves all ext well,pt encouraged to follow up with pcp and GI. Advised to seek medical attention for new/prolonged/worsening of symptoms, Symptoms improved. No adverse reaction to meds given in ER noted upon discharge. PIV d'cd, dressing to site, catheter in tact. Awake, alert oriented, resp reg unlabored, skin w/d, pt leaving amb with steady gait, in no apparent distress. Keyana Virk RN [facility] 2023-12-19 16:00:00 Patient states: "I've been having burning sensation in my gut since 2-3 days now. I vomited yesterday but not today." NRS 4/10, no pain meds taken today. Selina Herrera RN [facility] 2023-11-08 03:28:26 Pt given printed and verbal discharge instructions regarding chest pain, acute non-intractable headache, and encouraged hydration. 1 Prescription printed and given to patient Discussed ibuprofen and to take with food to avoid GI distress. Pt verbalized understanding of instructions, pt awake alert oriented, resp reg unlabored, skin w/d, color appropriate for race, moves all ext well,pt encouraged to follow up with pcp. Advised to seek medical attention for new/prolonged/worsening of symptoms. No adverse reaction to meds given in ER noted upon discharge PIV d'cd, dressing to site, catheter in tact. Awake, alert oriented, resp reg unlabored, skin w/d, pt leaving amb with steady gait, in no apparent distress, Brenda Resendiz RN [facility] 2023-11-08 03:18:24 [facility] ED Transfer of Care Note. Off-going Physician:JOHAN Alston Time of Transfer of Care: 3:18 AM Summary: Danny Ferreira is a 28 year old male presenting with chief complaint of chest pain, headache. Pending prior to disposition: Labs Current interventions: Medications acetaminophen (TYLENOL) tablet 1,000 mg (1,000 mg Oral Given 11/08/23 0235) Results: Labs Reviewed CBC WITH DIFF - Abnormal; Notable for the following components: Result Value IMM GRAN x10 3 0.07 (*) All other components within normal limits URINALYSIS - Abnormal; Notable for the following components: MUCOUS Slight (*) All other components within normal limits TROPONIN I - Normal Narrative: Reference (Normal) Range (defined by the 99th [...] results relative to patient's use of biotin. N-TERMINAL PRO-BNP - Normal COMP. METABOLIC PANEL (11464) XR CHEST 2 VW Preliminary Result No radiographic evidence of acute cardiopulmonary process. Preliminary Report Dictated by Resident: Divina Rodriguez CT HEAD WO CONTRAST Preliminary Result No acute intracranial abnormality. Preliminary Report Dictated by Resident: Divina Rodriguez Procedures: Procedures Additional Notes: ED Course as of 11/08/23318Nov 08, 2023 0[address] Patient hand off to Dr Grant for disposition [JA] ED Course User Index [JA] Micheal Alston NP Diagnosis/Impression as of 11/08/23318 Chest pain, unspecified type Acute nonintractable headache, unspecified headache type Medical Decision Making Danny Ferreira is a 28 year old male presenting with headache and chest pain Problems Addressed: Acute nonintractable headache, unspecified headache type: acute illness or injury Chest pain, unspecified type: acute illness or injury Amount and/or Complexity of Data Reviewed Labs: ordered. Decision-making details documented in ED Course. Radiology: ordered. Decision-making details documented in ED Course. ECG/medicine tests: ordered and independent interpretation performed. Decision-making details documented in ED Course. Risk OTC drugs. Prescription drug management. Disposition: Discharged Home Social Determinants of Health: None ED Disposition ED Disposition Disch - Home Condition Stable Comment -- [facility] 2023-11-08 01:53:28 Pt arrived with c/o chest pain, neck pain, and headache for 1 week. Pt states he was asleep, and the headache woke him up. Yazmin Manriquez RN [facility] 2023-10-21 01:29:00 Awake, alert oriented X4, respiratory even and unlabored,skin w/d color appropriate for race, moves all ext well, pt encouraged to follow up with pcp and or return as needed Pt given printed and verbal discharge instructions regarding Chest pain, Acute nonintractable headache , patient verbralized understanding and signature obtained, patient denies any other concerns. Advised to seek medical attention for new/prolonged/worsening of symptoms, No adverse reaction to meds given in ER noted upon discharge Pt ambulated to the lobby with steady gait AT Queenie Ramirez RN [facility] 2023-10-20 22:52:29 Pt arrived with c/o chest pain, palpitations and headache that began 10 ago. Denies SOB, drugs/alcohol use today Cardiac hx: PVC Yazmin Manriquez RN [facility] 2023-10-20 22:42:00 Associated Order(s): EKG-12 Lead ROUTINE ONCE Pre-Procedure Diagnose(s): Chest pain, unspecified type Post-Procedure Diagnose(s): Chest pain, unspecified type [facility] Emergency Department Note Patient Name: Danny Ferreira Date of : 1995 28 year old male [address] Primary Care Physician: PATIENT DOES NOT HAVE A PCP Patient Escorted by: Self [9] Mode of Arrival: Personal means [1] EMS Treatment Prior to ED Arrival: Travel and Exposure Screening: Symptoms Does patient have any of these symptoms?: (not recorded) Exposure Screening Has patient had contact with someone with a communicable disease in the last month?: (not recorded) Diseases exposed to:: (not recorded) Is Patient ?: (not recorded) Exposure Date: (not recorded) Chief Complaint: Chief Complaint Patient presents with Chest Pain History of Present Illness: Danny Ferreira is a 28 year old male who present to the ED with chest pain with palpitations and headache that started 10 minutes [employer]. He rated his pain a 2 on a scale of 0 to 10 and described it as sharp / aching. He was found sitting in the ED triage area. He appears well, not toxic and does not seem to be in any apparent distress at this time. Patient denies any abdomen, back or neck pains, SOB, dizziness, fever, chills, cough, sore throat, dysphagia, dysuria, hematuria, hemoptysis, nausea, vomiting or diarrhea. History provided by: Patient hot box checker used: No Past Medical History/Immunizations: History reviewed. No pertinent past medical history. Allergies: No Known Allergies Past Social History: Substance & Sexual Activity No substance use or sexual activity history on file. Past Surgical History: History reviewed. No pertinent surgical history. Review of Systems: Review of Systems Constitutional: Negative. HENT: Negative. Eyes: Negative. Respiratory: Negative. Cardiovascular: Positive for chest pain and palpitations. Negative for leg swelling. Gastrointestinal: Negative. Genitourinary: Negative. Musculoskeletal: Negative. Skin: Negative. Neurological: Positive for headaches. Endocrine: Endocrine negative Physical Exam: ED Triage Vitals [10/20/23 2254] Weight 122.1 kg (269 lb 1.6 oz) Actual or estimated Actual Height 1.778 m (5' 10") BP (!) 147/98 Pulse 78 Resp 16 Temp 37.1 ?C (98.8 ?F) Temp source Oral SpO2 100 % Measured on Room air Physical Exam Vitals and nursing note reviewed. Constitutional: General: He is not in acute distress. Appearance: Normal appearance. He is obese. He is not ill-appearing, toxic-appearing or diaphoretic. HENT: Head: Normocephalic. Right Ear: External ear normal. Left Ear: External ear normal. Nose: Nose normal. Mouth/Throat: Mouth: Mucous membranes are moist. Eyes: General: No scleral icterus. Right eye: No discharge. Left eye: No discharge. Conjunctiva/sclera: Conjunctivae normal. Cardiovascular: Rate and Rhythm: Normal rate. Pulses: Normal pulses. Heart sounds: Normal heart sounds. No murmur heard. No friction rub. No gallop. Pulmonary: Effort: Pulmonary effort is normal. No respiratory distress. Breath sounds: Normal breath sounds. No stridor. No wheezing, rhonchi or rales. Chest: Chest wall: No tenderness. Musculoskeletal: General: No swelling, tenderness, deformity or signs of injury. Normal range of motion. Right lower leg: No edema. Left lower leg: No edema. Skin: General: Skin is warm and dry. Capillary Refill: Capillary refill takes less than 2 seconds. Coloration: Skin is not jaundiced or pale. Findings: No bruising, erythema, lesion or rash. Neurological: General: No focal deficit present. Mental Status: He is alert and oriented to person, place, and time. Cranial Nerves: No cranial nerve deficit. Sensory: No sensory deficit. Motor: No weakness. Coordination: Coordination normal. Radiology: No orders to display Lab Results: Lab Results - No data to display EKG: If EKG completed, see Procedure Note. Orders and Treatments: Orders Placed This Encounter Procedures XR CHEST 1 VW CBC WITH DIFF URINE DRUG (IMMUNOASSAY) - COMPREHENSIVE DRUG SCREEN W/O REFLEX COMP. METABOLIC PANEL (97544) TROPONIN I N-TERMINAL PRO-BNP Orders Placed This Encounter Medications aspirin tablet 325 mg First Provider Eval: ED Events Date/Time Event User Comments 10/20/232246 Medical Screening Begins MICHEAL ALSTON NP O -- 10/20/232246 First Provider Evaluation MICHEAL ALSTON NP O -- ED COURSE Labs, chest x-ray, ECG, Aspirin ED Course as of 10/21/23 0102 SatOct 21, 2023 0006 Impression: No acute intrathoracic disease. [JA] ED Course User Index [JA] Micheal Alston NP Diagnosis/Impression as of 10/21/23 0102 Chest pain, unspecified type Acute nonintractable headache, unspecified headache type Procedures: EKG-12 Lead ROUTINE ONCE Date/Time: 10/21/2023 12:12 AM Performed by: Micheal Alston NP Authorized by: Micheal Alston NP ECG interpreted by ED Physician in the absence of a environmental engineering manager: yes Previous ECG: Previous ECG: Unavailable Interpretation: Interpretation: normal Rate: ECG rate: 69 ECG rate assessment: normal Rhythm: Rhythm: sinus rhythm Ectopy: Ectopy: none QRS: QRS axis: Normal QRS intervals: Normal QRS conduction: normal ST segments: ST segments: Normal T waves: T waves: normal Q waves: Abnormal Q-waves: not present MDM: Danny Ferreira is a 28 year old male who present to the ED with chest pain with palpitations and headache that started 10 minutes [employer]. He rated his pain a 2 on a scale of 0 to 10 and described it as sharp / aching. DDX: ACS CARDIAC ARRHYTHMIA ELECTROLYTE ABNORMALITY DEHYDRATION PNEUMONIA PE PULMONARY EDEMA PLEURISY COSTOCHONDRITIS MIGRAINE / TENSION / CLUSTER HEADACHES INTRACRANIAL ABNORMALITY Medical Decision Making Danny Ferreira is a 28 year old male who present to the ED with chest pain with palpitations and headache that started 10 minutes [employer]. He rated his pain a 2 on a scale of 0 to 10 and described it as sharp / aching. Problems Addressed: Acute nonintractable headache, unspecified headache type: acute illness or injury Chest pain, unspecified type: acute illness or injury Amount and/or Complexity of Data Reviewed Labs: ordered. Decision-making details documented in ED Course. Radiology: ordered. Decision-making details documented in ED Course. ECG/medicine tests: ordered. Decision-making details documented in ED Course. Risk OTC drugs. Risk Details: Patient is feeling better, stable and ready to go home. Re-evaluation prior to discharge was unremarkable. No focal neuro deficit or meningeal signs to suggest any intracranial abnormality or infections that warrants further diagnostic testing. No BNP or troponin to warrants further diagnostic testing for CHF or ACS. No chest tightness, tearing chest or back pain to suggest dissection. Unremarkable chest x-ray for any cardiorespiratory abnormality. Patient is not febrile, tachycardic or tachypneic in the ED and he is not toxic appearing. Strict ED return precautions given for the development of new or worsening concerning symptoms. Flowsheet Documentation: Scoring Tools: No data recorded Disposition/Condition: ED Disposition None Discharge Medications: Patient's Medications No medications on file Follow-up: Electronically signed by: Micheal Alston NP 10/21/23 0136 Associated attestation - Zohaib Jane MD - 10/21/2023 1:38 AM CDT " I was personally available for consultation in the Emergency Department during this Patient evaluation/encounter by JULES Alston " [facility] 2023-10-15 16:46:00 Pt given printed and verbal discharge instructions regarding dehydration, heat exhaustion, encouraged hydration, NO Prescriptions provided Discussed ibuprofen and to take with food to avoid GI distress. Pt verbalized understanding of instructions, pt awake alert oriented, resp reg unlabored, skin w/d, color appropriate for race, moves all ext well,pt encouraged to follow up with pcp Advised to seek medical attention for new/prolonged/worsening of symptoms, No adverse reaction to meds given in ER noted upon discharge PIV d'cd, dressing to site, catheter in tact. Awake, alert oriented, resp reg unlabored, skin w/d, pt leaving amb with steady gait, in no apparent distress, Marci Ortiz RN [facility] 2023-10-15 13:56:41 Patient arrived ambulatory with steady gait via private care c/o of dizziness, weakness, loss of appetite, nausea, and diarrhea starting Saturday. Melissa Scott RN [facility] 2023-10-15 13:39:00 [facility] Emergency Department Note Patient Name: Danny Ferreira Date of : 1995 28 year old male Treatment Room: [facility] Primary Care Physician: PATIENT DOES NOT HAVE A PCP Patient Escorted by: Self [9] Mode of Arrival: Personal means [1] EMS Treatment Prior to ED Arrival: [employer] treatment: None Travel and Exposure Screening: Symptoms Does patient have any of these symptoms?: (not recorded) Exposure Screening Has patient had contact with someone with a communicable disease in the last month?: (not recorded) Diseases exposed to:: (not recorded) Is Patient ?: (not recorded) Exposure Date: (not recorded) Chief Complaint: Chief Complaint Patient presents with Dizziness History of Present Illness: The patient presents from home for evaluation for nausea, vomiting, diarrhea, weakness and not feeling well since Saturday. Today is Saturday. He denies any sick contacts. No recent trips or travel or antibiotics. 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 He felt like he had been drinking enough fluids until he started getting sick. No chest pain or pressure. No shortness of breath. No abdominal pain. No history of high blood pressure or diabetes. No dysuria or hematuria. Here for evaluation. Past Medical History/Immunizations: No past medical history on file. Tetanus received in last 5 years: Unknown Allergies: No Known Allergies Past Social History: Substance & Sexual Activity No substance use or sexual activity history on file. Past Surgical History: No past surgical history on file. Review of Systems: Review of Systems Constitutional: Negative for chills and fever. Respiratory: Negative for cough and shortness of breath. Cardiovascular: Negative for chest pain. Gastrointestinal: Positive for diarrhea, nausea and vomiting. Negative for abdominal pain. Genitourinary: Negative for dysuria. Musculoskeletal: Negative for arthralgias, neck pain and neck stiffness. Skin: Negative for wound. Neurological: Positive for dizziness and weakness. Psychiatric/Behavioral: Negative for agitation. Endocrine: Negative for goiter. Physical Exam: ED Triage Vitals [10/15/23 1357] Weight 120.2 kg (265 lb) Actual or estimated Estimated by patient/family report Height 1.778 m (5' 10") BP (!) 142/90 Pulse 84 Resp 18 Temp 37.5 ?C (99.5 ?F) Temp source Oral SpO2 100 % Measured on Room air Physical Exam Vitals and nursing note reviewed. Constitutional: Appearance: Normal appearance. He is obese. HENT: Head: Normocephalic and atraumatic. Cardiovascular: Rate and Rhythm: Normal rate and regular rhythm. Pulmonary: Effort: Pulmonary effort is normal. No respiratory distress. Breath sounds: No stridor. No wheezing or rhonchi. Abdominal: General: There is no distension. Palpations: There is no mass. Tenderness: There is no abdominal tenderness. There is no guarding. Hernia: No hernia is present. Musculoskeletal: General: Normal range of motion. Cervical back: Normal range of motion and neck supple. Skin: General: Skin is warm and dry. Neurological: General: No focal deficit present. Mental Status: He is alert and oriented to person, place, and time. Radiology: No orders to display Lab Results: Lab Results CBC WITH DIFF - Abnormal Result Value Ref Range WBC 9.38 4.20 - 10.70 10*3/?L RBC 5.32 4.26 - 5.52 10*6/?L HGB 15.9 12.2 - 16.4 g/dL HCT 46.5 38.4 - 49.3 % MCV 87.4 81.7 - 95.6 fL MCH 29.9 26.1 - 32.7 pg MCHC 34.2 31.2 - 35.0 g/dL RDW-SD 39.5 38.5 - 51.6 fL RDW-CV 12.5 12.1 - 15.4 % PLT 274 150 - 328 10*3/?L MPV 9.5 (*) 9.8 - 13.0 fL NRBC/100 WBC 0.0 0.0 - 10.0 /100 WBCs NRBC x10 3 <0.01 10*3/?L GRAN MAT (NEUT) % 69.2 % IMM GRAN % 0.50 % LYMPH % 23.5 % MONO % 5.1 % EOS % 1.0 % BASO % 0.7 % GRAN MAT x10 3 (ANC) 6.49 1.99 - 6.95 10*3/uL IMM GRAN x10 3 0.05 0.00 - 0.06 10*3/uL LYMPH x10 3 2.20 1.09 - 3.23 10*3/uL MONO x10 3 0.48 0.36 - 1.02 10*3/uL EOS x10 3 0.09 0.06 - 0.53 10*3/uL BASO x10 3 0.07 0.01 - 0.09 10*3/uL COMP. METABOLIC PANEL (72520) - Abnormal NA 144 135 - 145 mmol/L K 3.9 3.5 - 5.0 mmol/L CL 104 98 - 108 mmol/L CO2 TOTAL 28 23 - 31 mmol/L AGAP 12 2 - 16 BUN 22 7 - 23 mg/dL GLUCOSE 105 70 - 110 mg/dL CREATININE 0.81 0.60 - 1.25 mg/dL TOTAL BILI 0.8 0.1 - 1.1 mg/dL CALCIUM 9.6 8.6 - 10.6 mg/dL T PROTEIN 9.0 (*) 6.3 - 8.2 g/dL ALBUMIN 4.9 3.5 - 5.0 g/dL ALK PHOS 69 34 - 122 U/L ALTv 30 5 - 50 U/L AST(SGOT) 26 13 - 40 U/L eGFR 122.4 mL/min/1.73m2 URINALYSIS - Abnormal APPEARANCE Clear Clear COLOR Yellow Yellow PH 5.0 4.8 - 8.0 SP GRAVITY 1.027 1.003 - 1.030 GLU U QUAL Normal Normal BLOOD Negative Negative KETONES Negative Negative PROTEIN Negative Negative UROBILIN Normal Normal BILIRUBIN Negative Negative NITRITE Negative Negative LEUK RINA Negative Negative RBC/HPF 1 0 - 3 HPF WBC/HPF 1 0 - 5 HPF BACTERIA Negative Negative MUCOUS Slight (*) Negative LPF SQ EPITH <1 HPF MAGNESIUM - Normal MAGNESIUM 2.1 1.7 - 2.4 mg/dL EKG: If EKG completed, see Procedure Note. Orders and Treatments: Orders Placed This Encounter Procedures CBC WITH DIFF COMP. METABOLIC PANEL (81177) Magnesium URINALYSIS Orders Placed This Encounter Medications NaCl 0.9% (NS) bolus infusion 1,000 mL First Provider Eval: ED Events Date/Time Event User Comments 10/15/23 1345 Medical Screening Begins KATELYN GAMBOA DO -- 10/15/23 1345 First Provider Evaluation KATELYN GAMBOA DO -- ED COURSE Diagnosis/Impression as of 10/15/23 1641 Weakness Procedures: Procedures MDM: Medical Decision Making The patient presents from home for evaluation for nausea, vomiting, diarrhea as well as weakness and not feeling well since Saturday. Today is Saturday. Nursing contacts. No bad food exposure. No recent trips or travel or antibiotics. He does not work outside. No cough, congestion or fevers. He does not smoke. No history of high blood pressure or diabetes. Vital signs are stable in the ER. His lungs are clear bilaterally. His abdomen is soft and nontender. No concern for COVID, influenza or RSV based his presentation. Will check laboratory studies and give the patient IV fluids here in the ER. Anticipate discharge home later when he is able to tolerate by mouth. 1640 - the patient is doing well here in the EC. Labs are unremarkable. UA shows no infection. He is feeling better after the IV fluids. He remains stable here in the EC and is ok for dc home with pcp f/u. Problems Addressed: Weakness: acute illness or injury Amount and/or Complexity of Data Reviewed Labs: ordered. Decision-making details documented in ED Course. Risk Prescription drug management. Flowsheet Documentation: Scoring Tools: No data recorded Disposition/Condition: ED Disposition ED Disposition Disch - Home Condition Stable Comment -- Discharge Medications: Patient's Medications No medications on file Follow-up: Electronically signed by: Katelyn Gamboa DO 10/15/23 1641 [facility] 2023-08-15 21:24:32 Pt given printed and verbal discharge instructions regarding palpitations. Pt verbalized understanding of instructions, pt awake alert oriented, resp reg unlabored, skin w/d, color appropriate for race, moves all ext well,pt encouraged to follow up with pcp. Advised to seek medical attention for new/prolonged/worsening of symptoms, Symptoms increased heart rate, shortness of breath Awake, alert oriented, resp reg unlabored, skin w/d, pt leaving amb with steady gait, in no apparent distress, [facility] 2023-08-15 19:51:28 Pt arrived ambulatory with girlfriend (Ju) , okay to discuss medical care in front of girlfriend. Pt states " So my heart rate has been high like 115, I have been shaky, I feel like my ears and head are clogged up. I have jerzy been having diarrhea." Brenda Resendiz RN [facility] 2023-08-15 19:48:00 Associated Order(s): EKG-12 Lead ROUTINE ONCE Pre-Procedure Diagnose(s): Palpitations Post-Procedure Diagnose(s): Palpitations [facility] Emergency Department Note Patient Name: Danny Ferreira Date of : 1995 28 year old male Treatment Room: [place] [address] [address] Primary Care Physician: PATIENT DOES NOT HAVE A PCP Patient Escorted by: Friend [6] Mode of Arrival: Personal means [1] EMS Treatment Prior to ED Arrival: [employer] treatment: None Travel and Exposure Screening: Symptoms Does patient have any of these symptoms?: (not recorded) Exposure Screening Has patient had contact with someone with a communicable disease in the last month?: (not recorded) Diseases exposed to:: (not recorded) Is Patient ?: (not recorded) Exposure Date: (not recorded) Chief Complaint: Chief Complaint Patient presents with Other Heart rate "high" Ear Pain History of Present Illness: Danny Ferreira is a 28 year old male with medical hx as documented below who presents tot he ED with palpations and heart rate of 115 upon awakening from sleep that has since resolved. Symptoms lasted about one to two minutes per pt. No SOB/Dyspnea. No chest pain. No dizziness. No syncope or near-syncope. No calf tenderness/pain/swelling. Pt was evaluated for same earlier today and work-up was unremarkable and referred to Dr Jin, Cardiology. Pt currently has a Holter monitor in place and has a Cardiology appointment tomorrow. Pt is asking for "Cholesterol testing" History provided by: Patient, medical records and significant other hot box checker used: No Palpitations Palpitations quality: Regular Onset quality: Sudden Duration: 2 minutes Timing: Sporadic Progression: Resolved Context: anxiety Context: not appetite suppressants, not blood loss, not bronchodilators, not caffeine, not dehydration, not exercise, not hyperventilation, not illicit drugs, not nicotine and not stimulant use Relieved by: None tried Worsened by: Nothing Ineffective treatments: None tried Associated symptoms: no back pain, no chest pain, no chest pressure, no cough, no diaphoresis, no dizziness, no hemoptysis, no leg pain, no lower extremity edema, no malaise/fatigue, no nausea, no near-syncope, no numbness, no orthopnea, no PND, no shortness of breath, no syncope, no vomiting and no weakness Risk factors: no diabetes mellitus, no heart disease, no hx of atrial fibrillation, no hx of DVT, no hx of PE, no hx of thyroid disease, no hypercoagulable state, no hyperthyroidism, no OTC sinus medications and no stress Past Medical History/Immunizations: Covid-22 October 2021 Anxiety PVCs Morbid Obesity Tetanus received in last 5 years: Yes Allergies: No Known Allergies Past Social History: Substance & Sexual Activity No substance use or sexual activity history on file. Past Surgical History: No past surgical history on file. Review of Systems: Review of Systems Constitutional: Negative for activity change, diaphoresis and malaise/fatigue. HENT: Negative. Eyes: Negative. Respiratory: Negative. Negative for cough, hemoptysis, choking, shortness of breath, wheezing and stridor. Breasts: Negative. Cardiovascular: Positive for palpitations. Negative for chest pain, orthopnea, leg swelling, syncope, PND and near-syncope. Gastrointestinal: Negative. Negative for nausea and vomiting. Genitourinary: Negative. Musculoskeletal: Negative. Negative for back pain. Skin: Negative. Neurological: Negative. Negative for dizziness, weakness and numbness. Psychiatric/Behavioral: Negative. All other systems reviewed and are negative. Endocrine: Endocrine negative Physical Exam: ED Triage Vitals [08/15/231953] Weight 117.9 kg (260 lb) Actual or estimated Estimated by patient/family report Height 1.778 m (5' 10") BP (!) 142/83 Pulse 79 Resp 18 Temp 37.1 ?C (98.8 ?F) Temp source Oral SpO2 98 % Measured on Room air Physical Exam Vitals and nursing note reviewed. Constitutional: General: He is not in acute distress. Appearance: Normal appearance. He is well-developed. He is obese. He is not ill-appearing, toxic-appearing or diaphoretic. HENT: Head: Normocephalic and atraumatic. Nose: Nose normal. No congestion or rhinorrhea. Mouth/Throat: Mouth: Mucous membranes are moist. Pharynx: No oropharyngeal exudate or posterior oropharyngeal erythema. Eyes: General: No scleral icterus. Right eye: No discharge. Left eye: No discharge. Extraocular Movements: Extraocular movements intact. Conjunctiva/sclera: Conjunctivae normal. Pupils: Pupils are equal, round, and reactive to light. Cardiovascular: Rate and Rhythm: Normal rate and regular rhythm. Pulses: Normal pulses. Heart sounds: Normal heart sounds. No murmur heard. Pulmonary: Effort: Pulmonary effort is normal. No respiratory distress. Breath sounds: Normal breath sounds. No stridor. No wheezing, rhonchi or rales. Chest: Chest wall: No tenderness. Abdominal: General: Bowel sounds are normal. There is no distension. Palpations: Abdomen is soft. There is no mass. Tenderness: There is no abdominal tenderness. There is no right CVA tenderness, left CVA tenderness, guarding or rebound. Hernia: No hernia is present. Musculoskeletal: General: No swelling, tenderness, deformity or signs of injury. Normal range of motion. Cervical back: Normal range of motion and neck supple. No rigidity or tenderness. Right lower leg: No edema. Left lower leg: No edema. Lymphadenopathy: Cervical: No cervical adenopathy. Skin: General: Skin is warm and dry. Capillary Refill: Capillary refill takes less than 2 seconds. Coloration: Skin is not jaundiced or pale. Findings: No bruising, erythema, lesion or rash. Neurological: General: No focal deficit present. Mental Status: He is alert and oriented to person, place, and time. Cranial Nerves: No cranial nerve deficit. Sensory: No sensory deficit. Motor: No weakness. Coordination: Coordination normal. Gait: Gait normal. Deep Tendon Reflexes: Reflexes normal. Psychiatric: Behavior: Behavior normal. Thought Content: Thought content normal. Judgment: Judgment normal. Comments: Anxious Mood Radiology: No orders to display Lab Results: Lab Results - No data to display Orders and Treatments: No orders of the defined types were placed in this encounter. No orders of the defined types were placed in this encounter. First Provider Eval: ED Events Date/Time Event User Comments 08/15/232021 Medical Screening Begins KRUPA GRANT MD -- 08/15/232021 First Provider Evaluation KRUPA GRANT MD -- ED COURSE Diagnosis/Impression as of 08/15/232120 Palpitations Procedures: EKG-12 Lead ROUTINE ONCE Date/Time: 08/15/2023 8:49 PM Performed by: Krupa Garnt MD Authorized by: Krupa Grant MD ECG interpreted by ED Physician in the absence of a environmental engineering manager: yes Previous ECG: Previous ECG: Compared to current Similarity: No change Interpretation: Interpretation: normal Rate: ECG rate: 73 ECG rate assessment: normal Rhythm: Rhythm: sinus rhythm Ectopy: Ectopy: none QRS: QRS axis: Normal QRS intervals: Normal QRS conduction: normal ST segments: ST segments: Normal T waves: T waves: normal Q waves: Abnormal Q-waves: not present MDM: Medical Decision Making Danny Ferreira is a 28 year old male who presents to the ED for evaluation of palpitations he experienced upon awakening from sleep. Pt reportsthat his heart rate was 115. Problems Addressed: Palpitations: acute illness or injury Details: HR during exam 91 EKG reveals rate of 73 BPM Pt is currently wearing a Holter Monitor No SOB/?Dyspnea Amount and/or Complexity of Data Reviewed External Data Reviewed: labs, ECG and notes. ECG/medicine tests: ordered and independent interpretation performed. Decision-making details documented in ED Course. Risk Risk Details: Pt has a Cardiology appointment in AM for Holter Monitoring interrogation Flowsheet Documentation: Scoring Tools: No data recorded Disposition/Condition: ED Disposition ED Disposition Disch - Home Condition Stable Comment -- Discharge Medications: Patient's Medications No medications on file Follow-up: Electronically signed by: Krupa Grant MD 08/15/232120 [facility] [employer] 2023-08-15 02:20:50 Awake, alert oriented X4, respiratory even and unlabored,skin w/d color appropriate for race, moves all ext well, pt encouraged to follow up with pcp and or return as needed Pt given printed and verbal discharge instructions regarding Anxious Mood, Palpitations , patient verbralized understanding and signature obtained, patient denies any other concerns. Advised to seek medical attention for new/prolonged/worsening of symptoms, No adverse reaction to meds given in ER noted upon discharge Pt ambulated to the lobby with steady gait Queenie Ramirez RN [facility] [employer] 2023-08-15 00:10:25 Pt stated he woke up and his heart rate was in 140's. Didn't feel well when he went to sleep. Had a headache when he went to bed, denies pain at this time. Pearl Vazquez RN [facility]
--- NOTE | 2024-08-01 11:29 | EDPHYS ---
Physician Documentation [facility] Name: Eliseo Odonnell Age: 29 yrs Sex: Male : 1995 Arrival Date: 08/01/2024 Time: 11:04 Bed IW1 Private MD: ED Physician Lesley Lay HPI: 08/01 11:45 This 29 yrs old Male presents to ER via Ambulatory with complaints of Ear dr5 ringing, head pain. 11:45 Onset: The symptoms/episode began/occurred acutely. Patient is a 29-year-old male with dr5 history of anxiety and asthma coming in with 1 to 2 months of intermittent dizziness and ear pain. Patient reports that his right is worse than the left. Patient reported going to urgent care and given meclizine which helps. Patient reports he has not seen a primary care doctor or ENT since symptoms started. Historical: - Allergies: 11:25 No Known Allergies; cm10 - PMHx: 11:25 Anxiety; Asthma; cm10 - Immunization history:: Adult Immunizations up to date. - Infectious Disease History:: Denies. - Social history:: Smoking status: Patient denies any tobacco usage or history of. ROS: 11:45 Constitutional: as per hpi dr5 Exam: 11:45 Constitutional: This is a well developed, well nourished patient who is awake, alert, dr5 and in no acute distress. Head/Face: Normocephalic, atraumatic. Eyes: Pupils equal round and reactive to light, extra-ocular motions intact. Lids and lashes normal. Conjunctiva and sclera are non-icteric and not injected. Cornea within normal limits. Periorbital areas with no swelling, redness, or edema. Neck: Trachea midline, no thyromegaly or masses palpated, and no cervical lymphadenopathy. Supple, full range of motion without nuchal rigidity, or vertebral point tenderness. No Meningismus. Chest/axilla: Normal chest wall appearance and motion. Nontender with no deformity. No lesions are appreciated. Cardiovascular: Regular rate and rhythm with a normal S1 and S2. Normal PMI, no JVD. No pulse deficits. Respiratory: Lungs have equal breath sounds bilaterally, clear to auscultation. No rales, rhonchi or wheezes noted. No increased work of breathing, no retractions or nasal flaring. Back: No spinal tenderness. No costovertebral tenderness. Full range of motion. Skin: Warm, dry with normal turgor. Normal color with no rashes, no lesions, and no evidence of cellulitis. Neuro: Awake and alert, GCS 15, oriented to person, place, time, and situation. Cranial nerves II-XII grossly intact. Motor strength 5/5 in all extremities. Sensory grossly intact. Cerebellar exam normal. Normal gait. 11:45 ENT: TM's: bulging, on the right, decreased mobility, on the right, dullness, on the right, Examination of the other ear shows no obvious abnormality, Vital Signs: 11:25 BP 131 / 78; Pulse 67; Resp 15; Temp 98.7(O); Pulse Ox 99% on R/A; Weight 109.32 kg; cm10 Height 5 ft. 10 in. ; Pain 5/10; 11:25 Body Mass Index 34.58 (109.32 kg, 177.8 cm) cm10 11:25 Pain Scale: Adult cm10 MDM: 11:15 Medical Screening Exam initiated dr5 11:45 Differential diagnosis: viral Infection, bacterial infection, Otitis Media, Otitis dr5 Externa. Data reviewed: vital signs, nurses notes. Care significantly affected by the following chronic conditions: Asthma, Anxiety. Care significantly affected by the following Social Determinants of Health: Poor access to healthcare and/or lack of insurance, Poor access to transportation, Problems related to employment. Counseling: I had a detailed discussion with the patient and/or guardian regarding the historical points, exam findings, and any diagnostic results supporting the discharge/admit diagnosis, the presence of at least one elevated blood pressure reading (>120/80) during this emergency department visit, the need for outpatient follow up, for definitive care, an ENT specialist, a family practitioner, to return to the emergency department if symptoms worsen or persist or if there are any questions or concerns that arise at home. ED course: Patient found to have otitis media on right side. Will give patient antibiotics. Recommended patient follow-up with ENT this next week for further management. Patient was requesting CT scan. Discussed risk and benefits versus CT scan and joint decision made to hold off on CT scan as risk outweigh benefits at this time given patient's normal neurological exam. All questions answered and strict ER precautions given.. Administered Medications: No medications were administered Disposition Summary: 08/01/24 11:29 Discharge Ordered Notes: Location: Home dr5 Condition: Stable dr5 Diagnosis - Acute serous otitis media, right ear dr5 Followup: dr5 - With: Emergency Department - When: As needed - Reason: Worsening of condition Followup: dr5 - With: Sandra Virk MD - When: 1 - 2 days - Reason: Recheck today's complaints, Continuance of care, Re-evaluation by your physician Discharge Instructions: - Discharge Summary Sheet dr5 - Otitis Media, Adult dr5 Forms: - Medication Reconciliation Form dr5 - Antibiotic Education dr5 - Patient Portal Instructions dr5 - Leadership Thank You Letter dr5 Prescriptions: - Augmentin 875-125 mg Oral Tablet - take 1 tablet ORAL route every 12 hours for 10 days; 20 tablet; Refills: 0, dr5 Product Selection Permitted Signatures: Gerri Doty RN RN cm10 Luis Banda, GROUND EQUIPMENT MECHANIC-C GROUND EQUIPMENT MECHANIC-Cdr5
--- NOTE | 2024-08-01 11:29 | ER ---
Nurse's Notes [facility] Name: Eliseo Odonnell Age: 29 yrs Sex: Male : 1995 Arrival Date: 08/01/2024 Time: 11:04 Bed IW1 Private MD: Diagnosis: Acute serous otitis media, right ear Presentation: 08/01 11:24 Chief complaint: Patient states: BILATERAL EAR PAIN ONSET 1-2 MONTHS AGO. PT ALSO cm10 REPORTS HEAD PAIN. Coronavirus screen: Client denies travel out of the [place] in the last 14 days. Ebola Screen: Patient denies travel to an Ebola-affected area in the 21 days before illness onset. Initial Sepsis Screen: Does the patient meet any 2 criteria? No. Patient's initial sepsis screen is negative. Does the patient have a suspected source of infection? No. Patient's initial sepsis screen is negative. Risk Assessment: Do you want to hurt yourself or someone else? Patient reports no desire to harm self or others. Onset of symptoms is unknown. 11:24 Method Of Arrival: Ambulatory cm10 11:24 Acuity: SHARRON 4 cm10 Triage Assessment: 11:26 General: Appears in no apparent distress. uncomfortable, Behavior is calm, cooperative. cm10 Pain: Complains of pain in head, right ear and left ear Pain currently is 5 out of 10 on a pain scale. Quality of pain is described as sharp. EENT: Reports pain in right ear and left ear. Neuro: No deficits noted. Level of Consciousness is awake, alert, obeys commands, Oriented to person, place, time, situation, Appropriate for age. Respiratory: No deficits noted. Airway is patent Respiratory effort is even, unlabored, Respiratory pattern is regular, symmetrical. Musculoskeletal: No deficits noted. Range of motion: intact in all extremities. Historical: - Allergies: 11:25 No Known Allergies; cm10 - PMHx: 11:25 Anxiety; Asthma; cm10 - Immunization history:: Adult Immunizations up to date. - Infectious Disease History:: Denies. - Social history:: Smoking status: Patient denies any tobacco usage or history of. Screenin:26 [facility] ED Fall Risk Assessment (Adult) History of falling in the last 3 months, cm10 including since admission No falls in past 3 months (0 pts) Confusion or Disorientation No (0 pts) Intoxicated or Sedated No (0 pts) Impaired Gait No (0 pts) Mobility Assist Device Used No (0 pt) Altered Elimination No (0 pt) Score/Fall Risk Level 0 - 2 = Low Risk Oriented to surroundings, Maintained a safe environment, Hourly rounding (assess needs \T\ fall precautionary measures) done. Abuse screen: Denies threats or abuse. Denies injuries from another. Nutritional screening: No deficits noted. Tuberculosis screening: No symptoms or risk factors identified. Assessment: 11:27 General: SEE TRIAGE ASSESSMENT. cm10 Vital Signs: 11:25 BP 131 / 78; Pulse 67; Resp 15; Temp 98.7(O); Pulse Ox 99% on R/A; Weight 109.32 kg; cm10 Height 5 ft. 10 in. ; Pain 5/10; 11:25 Body Mass Index 34.58 (109.32 kg, 177.8 cm) cm10 11:25 Pain Scale: Adult cm10 ED Course: 11:06 Patient arrived in ED. mr 11:07 [facility] 11:07 Lesley Lay MD is Attending Physician. dr5 11:25 Triage completed. cm10 11:26 Arm band placed on right wrist. Patient placed in waiting room. cm10 11:27 Patient has correct armband on for positive identification. Provided Education on: ER cm10 PROCESS AND PROCEDURES. 11:27 No provider procedures requiring assistance completed. Patient did not have IV access cm10 during this emergency room visit. 11:29 Sandra Virk MD is Referral Physician. dr5 11:35 Gerri Doty, RN is Primary Nurse. cm10 Administered Medications: No medications were administered Medication: 11:26 VIS not applicable for this client. cm10 Outcome: 11:29 Discharge ordered by . dr5 11:35 Discharged to home ambulatory, cm10 11:35 Condition: good 11:35 Discharge instructions given to patient, Instructed on discharge instructions, follow up and referral plans. medication usage, Demonstrated understanding of instructions, follow-up care, medications, Prescriptions given X 1, 11:35 Patient left the ED. cm10 Signatures: Wendy Stoll, Reg Reg mr Gerri Doty, RN RN cm10 Luis Banda FNP-C PSYCHIATRY TEACHER-Cdr5
[2024-08-01 11:44] VITALS: BP 131/78; TEMP 98.7; O2SAT 99
== END 2024-08-01 11:35 | disposition home or self-care (01) ==
LOC: ER 11:04
DX: H65.01 Acute serous otitis media, right ear (principal)
CPT/HCPCS: 99283

== ENCOUNTER 2024-08-11 19:37 | Emergency (ER) | payer SELFPAY ==
--- OUTSIDE RECORDS SUMMARY | 2024-08-11 19:40 | XMS REPORT | Continuity of Care Document ---
Author Name Unknown Address [address] [facility] [place] [address] Organization [facility] [place] Address [address] [facility] [place] [address] Care Team Providers Care Commissions Specialist Name Role Phone PCP, PATIENT DOES NOT HAVE A Primary Care Physic nick Unavailable OPHELIA MCGILL Attending Clinician Unavailable OPHELIA MCGILL Attending Clinician Unavailable Ophelia Mcgill DO Attending Clinician +[phone] LINCOLN JAIN Attending Clinician Unavailable Lincoln Hardy Attending Clinician +[phone] KEISHA GLEZ Attending Clinician Unavailable KEISHA GLEZ Attending Clinician Unavailable Keisha Glez MD Attending Clinician + [phone] KRUPA GRANT Attending Clinician Unavailable KRUPA GRANT Attending Clinician Unavailable Krupa Grant MD Attending Clinician + [phone] KATELYN GAMBOA Attending Clinician Unavailab KATELYN Bennett Attending Clinician Unavailab Katelyn Bennett DO Attending Clinician [phone] Clinic, Gastroenterology Attending Clinician + [phone] ROSS PAPPAS Attending Clinician Unavailable ROSS PAPPAS Attending Clinician Unavailable Ross Kirkland Attending Clinician [phone] Micheal Alston NP Attending Clinician [phone] AURY AVILES Attending Clinician Unava illloyd BALLESTEROSER, [...] d type Disease Active 10-20 00:00: 00 [facility] Acute nonintract able headache, unspecifie d headache type Acute nonintract able headache, unspecifie d headache type Disease Active 10-20 00:00: 00 [facility] Allergies, Adverse Reactions, Alerts Allergy Name Allergy Type Status Severity Reaction(s) Onset Date Inactive Date Treating Clinician Comments Source NO KNOWN ALLERGIE S Drug Class Active [facility] Social History Social Habit Start Date Stop Date Quantity Comments Source Sexual orientation [facility] Sex assigned at 1995 00:00:00 1995 00:00:00 [facility] Smoking Status Start Date Stop Date Source Tobacco smoking consumption unknown [facility] Medications Ordered Medication Name Filled Medication Name Start Date Stop Date Current Medication? Ordering Clinician Indication Dosage Frequency Signature (SIG) Comments Components Source NaCl 0.9% (NS) bolus infusion 1,000 mL 07-02 04:00: 00 07-02 05:59 :00 No 1000mL at 999 mL/hr, 1,000 mL, IV Infusion, ONCE, 1 dose, On Sat07/01/24 at 2200, STAT [facility] ondansetron (ZOFRAN (PF)) injection 8 mg 07-02 04:00: 00 07-02 04:38 :00 No 8mg 8 mg, Slow IV Push, ONCE, 1 dose, On Sat07/01/24 at 2200, Administer over 2-5 Minutes, 4 mL [facility] meclizine (TRAVEL-EAS E (MECLIZINE) ) tablet 25 mg 07-02 04:00: 00 07-02 04:36 :00 No 25mg 25 mg, Oral, ONCE, 1 dose, On Sat07/01/24 at 2200, GREGORIO [facility] ketorolac (TORADOL) injection 30 mg 05-27 04:15: 00 05-27 04:07 :00 No 30mg 30 mg, Intramuscu lar, ONCE, 1 dose, On Sat05/26/24 at 2215, GREGORIO [facility] benzonatate 100 mg capsule 05-26 00:00: 00 Yes [id number] 100mg Take 1 capsule by mouth 3 (three) times daily as needed for Cough. [facility] ibuprofen 800 mg tablet 05-26 00:00: 00 Yes [id number] 800mg Take 1 tablet by mouth every 6 (six) hours as needed for Pain (scale 4-6). [facility] albuterol 90 mcg/actuati on inhaler 05-26 00:00: 00 Yes [id number] 2{puff} Inhale 2 Puffs every 4 (four) hours as needed for Wheezing or Shortness of Breath. [facility] benzonatate 100 mg capsule 2023-05 00:00: 00 05-26 00:00 :00 No [id number] 100mg Take 1 capsule by mouth 3 (three) times daily as needed for Cough. [facility] cefdinir 300 mg capsule 2023-05 00:00: 00 05-12 05:59 :00 No [id number] 300mg Take 1 capsule by mouth every 12 (twelve) hours for 7 days. [facility] ibuprofen (IBU) tablet 600 mg 12-24 08:15: 00 12-24 08:21 :00 No 600mg 600 mg, Oral, ONCE, 1 dose, On Sat12/25/23 at 0315, GREGORIO [facility] iopamidol (ISOVUE 370-500 mL) injection 84 mL 12-18 23:10: 00 12-18 23:30 :00 No [id number] 84mL 84 mL, Intravenou s, ONCE, 1 dose, On Sat12/19/23 at 1830, Routine [facility] NaCl 0.9% (NS) bolus infusion 1,000 mL 12-18 21:30: 00 12-19 00:11 :00 No 1000mL at 999 mL/hr, 1,000 mL, IV Infusion, ONCE, 1 dose, On Danielle 12/19/23 at 1630, STAT [facility] famotidine (PEPCID (PF)) injection 20 mg 12-18 21:30: 00 12-18 22:43 :00 No 20mg 20 mg, Slow IV Push, ONCE, 1 dose, On Danielle 12/19/23 at 1630, GREGORIO [facility] diphenhydrA MINE:lidoca ine 2% viscous:maa lox 1:1:1 (FIRST-MOUT HWASH BLM) oral suspension 15 mL 12-18 21:30: 00 12-18 22:45 :00 No 15mL 15 mL, Oral, ONCE, 1 dose, On Danielle 12/19/23 at 1630, Routine [facility] ondansetron (ZOFRAN (PF)) injection 4 mg 12-18 21:30: 00 12-18 22:41 :00 No 4mg 4 mg, Slow IV Push, ONCE, 1 dose, On Danielle 12/19/23 at 1630, GREGORIO [facility] sucralfate 1 gram tablet 12-18 00:00: 00 01-18 04:59 :00 No [id number] 1g Take 1 tablet by mouth before meals and at bedtime for 30 days. [facility] pantoprazol e (PROTONIX) 40 mg EC tablet 12-18 00:00: 00 01-18 04:59 :00 No [id number] 40mg Take 1 tablet by mouth in the morning for 30 days. [facility] acetaminoph en (TYLENOL) tablet 1,000 mg 11-07 07:45: 00 11-07 07:35 :00 No 1000mg 1,000 mg, Oral, ONCE, 1 dose, On Sat11/08/23 at 0245, Routine [facility] naproxen sodium 550 mg tablet 11-07 00:00: 00 Yes [id number] 550mg Take 1 tablet by mouth in the morning and 1 tablet in the evening. Take with meals. [facility] aspirin tablet 325 mg 10-20 04:00: 00 10-20 04:56 :00 No 325mg 325 mg, Oral, ONCE, 1 dose, On Sat10/20/23 at 2300, STAT [facility] NaCl 0.9% (NS) bolus infusion 1,000 mL 10-14 20:00: 00 10-14 21:32 :00 No 1000mL at 999 mL/hr, 1,000 mL, IV Infusion, ONCE, 1 dose, On Sat10/15/23 at 1500, GREGORIO [facility] Vital Signs Vital Name Observation Time Observation Value Comments S ource Systolic blood pressure 2024-07-02 06:00:00 138 mm[Hg] [facility] Diastolic blood pressure 2024-07-02 06:00:00 78 mm[Hg] [facility] Heart rate 2024-07-02 06:00:00 66 /min [facility] Respiratory rate 2024-07-02 06:00:00 16 /min [facility] Oxygen saturation in Arterial blood by Pulse oximetry 2024-07-02 06:00:00 99 /min [facility] Body temperature 2024-07-02 03:29:00 36.78 Lulú [facility] Body height 2024-07-02 03:29:[address] [facility] Body weight 2024-07-02 03:29:[address] [facility] BMI 2024-07-02 03:29:00 36.16 kg/m2 [facility] Systolic blood pressure 2024-05-27 05:35:00 120 mm[Hg] [facility] Diastolic blood pressure 2024-05-27 05:35:00 77 mm[Hg] [facility] Heart rate 2024-05-27 05:35:00 83 /min [facility] Body temperature 2024-05-27 05:35:00 37.06 Lulú [facility] Respiratory rate 2024-05-27 05:35:00 18 /min [facility] Oxygen saturation in Arterial blood by Pulse oximetry 2024-05-27 05:35:00 96 /min [facility] Body height 2024-05-27 03:58:[address] [facility] Body weight 2024-05-27 03:58:[address] [facility] BMI 2024-05-27 03:58:00 35.30 kg/m2 [facility] Systolic blood pressure 2024-05-04 18:50:00 135 mm[Hg] [facility] Diastolic blood pressure 2024-05-04 18:50:00 71 mm[Hg] [facility] Heart rate 2024-05-04 18:50:00 64 /min [facility] Body temperature 2024-05-04 18:50:00 36.78 Lulú [facility] Respiratory rate 2024-05-04 18:50:00 16 /min [facility] Oxygen saturation in Arterial blood by Pulse oximetry 2024-05-04 18:50:00 100 /min [facility] Body height 2024-05-04 16:07:[address] [facility] Body weight 2024-05-04 16:07:[address] [facility] BMI 2024-05-04 16:07:00 37.16 kg/m2 [facility] Systolic blood pressure 2024-01-23 03:30:00 137 mm[Hg] [facility] Diastolic blood pressure 2024-01-23 03:30:00 88 mm[Hg] [facility] Heart rate 2024-01-23 03:30:00 61 /min [facility] Respiratory rate 2024-01-23 03:30:00 16 /min [facility] Oxygen saturation in Arterial blood by Pulse oximetry 2024-01-23 03:30:00 98 /min [facility] Body temperature 2024-01-23 00:57:00 37.22 Lulú [facility] Body height 2024-01-23 00:57:[address] [facility] Body weight 2024-01-23 00:57:[address] [facility] BMI 2024-01-23 00:57:00 41.37 kg/m2 [facility] Systolic blood pressure 2023-12-25 08:02:00 140 mm[Hg] [facility] Diastolic blood pressure 2023-12-25 08:02:00 85 mm[Hg] [facility] Heart rate 2023-12-25 08:02:00 61 /min [facility] Body temperature 2023-12-25 08:02:00 36.72 Lulú [facility] Respiratory rate 2023-12-25 08:02:00 16 /min [facility] Body height 2023-12-25 08:02:[address] [facility] Body weight 2023-12-25 08:02:[address] [facility] BMI 2023-12-25 08:02:00 37.31 kg/m2 [facility] Oxygen saturation in Arterial blood by Pulse oximetry 2023-12-25 08:02:00 100 /min [facility] Systolic blood pressure 2023-12-20 00:20:00 126 mm[Hg] [facility] Diastolic blood pressure 2023-12-20 00:20:00 76 mm[Hg] [facility] Heart rate 2023-12-20 00:20:00 56 /min [facility] Respiratory rate 2023-12-20 00:20:00 16 /min [facility] Oxygen saturation in Arterial blood by Pulse oximetry 2023-12-20 00:20:00 99 /min [facility] Body temperature 2023-12-19 21:00:00 37.11 Lulú [facility] Body height 2023-12-19 21:00:00 177.8 [facility] 2023-12-19 21:00:[address] [facility] BMI 2023-12-19 21:00:00 37.31 kg/m2 [facility] Systolic blood pressure 2023-11-08 08:00:00 127 mm[Hg] [facility] Diastolic blood pressure 2023-11-08 08:00:00 82 mm[Hg] [facility] Heart rate 2023-11-08 08:00:00 71 /min [facility] Body temperature 2023-11-08 08:00:00 37.11 Lulú [facility] Respiratory rate 2023-11-08 08:00:00 14 /min [facility] Oxygen saturation in Arterial blood by Pulse oximetry 2023-11-08 08:00:00 98 /min [facility] Body height 2023-11-08 06:55:[address] [facility] Body weight 2023-11-08 06:55:[address] [facility] BMI 2023-11-08 06:55:00 38.74 kg/m2 [facility] Systolic blood pressure 2023-10-21 06:25:00 124 mm[Hg] [facility] Diastolic blood pressure 2023-10-21 06:25:00 71 mm[Hg] [facility] Heart rate 2023-10-21 06:25:00 68 /min [facility] Body temperature 2023-10-21 06:25:00 37.06 Lulú [facility] Respiratory rate 2023-10-21 06:25:00 18 /min [facility] Oxygen saturation in Arterial blood by Pulse oximetry 2023-10-21 06:25:00 98 /min [facility] BMI 2023-10-21 03:54:00 38.61 kg/m2 [facility] Body height 2023-10-21 03:54:[address] [facility] Body weight 2023-10-21 03:54:[address] [facility] Systolic blood pressure 2023-10-15 21:42:00 117 mm[Hg] [facility] Diastolic blood pressure 2023-10-15 21:42:00 78 mm[Hg] [facility] Heart rate 2023-10-15 21:42:00 67 /min [facility] Body temperature 2023-10-15 21:42:00 36.94 Lulú [facility] Respiratory rate 2023-10-15 21:42:00 16 /min [facility] Oxygen saturation in Arterial blood by Pulse oximetry 2023-10-15 21:42:00 99 /min [facility] Body height 2023-10-15 18:57:[address] [facility] Body weight 2023-10-15 18:57:[address] [facility] BMI 2023-10-15 18:57:00 38.02 kg/m2 [facility] Systolic blood pressure 2023-08-16 02:23:00 140 mm[Hg] [facility] Diastolic blood pressure 2023-08-16 02:23:00 81 mm[Hg] [facility] Heart rate 2023-08-16 02:23:00 68 /min [facility] Body temperature 2023-08-16 02:23:00 37 Lulú [facility] Respiratory rate 2023-08-16 02:23:00 18 /min [facility] Oxygen saturation in Arterial blood by Pulse oximetry 2023-08-16 02:23:00 100 /min [facility] Body height 2023-08-16 00:54:[address] [facility] Body weight 2023-08-16 00:54:[address] [facility] BMI 2023-08-16 00:54:00 37.31 kg/m2 [facility] Systolic blood pressure 2023-08-15 07:00:00 120 mm[Hg] [facility] Diastolic blood pressure 2023-08-15 07:00:00 78 mm[Hg] [facility] Heart rate 2023-08-15 07:00:00 81 /min [facility] Respiratory rate 2023-08-15 07:00:00 12 /min [facility] Oxygen saturation in Arterial blood by Pulse oximetry 2023-08-15 07:00:00 97 /min [facility] Body temperature 2023-08-15 05:11:00 36.72 Lulú [facility] Body height 2023-08-15 05:11:[address] [facility] Body weight 2023-08-15 05:11:[address] [facility] BMI 2023-08-15 05:11:00 37.31 kg/m2 [facility] Systolic blood pressure 2021-10-30 18:29:00 152 mm[Hg] [facility] Diastolic blood pressure 2021-10-30 18:29:00 92 mm[Hg] [facility] Heart rate 2021-10-30 18:29:00 102 /min [facility] Body temperature 2021-10-30 18:29:00 38.06 Lulú [facility] Respiratory rate 2021-10-30 18:29:00 18 /min [facility] Body weight 2021-10-30 18:29:[address] [facility] Oxygen saturation in Arterial blood by Pulse oximetry 2021-10-30 18:29:00 99 /min [facility] Procedures Procedure Date / Time Performed Performing Clinician Source TROPONIN I 2024-07-02 04:03:00 Ophelia Mcgill [facility] COMP. METABOLIC PANEL ([id number]) 2024-07-02 04:03:00 Ophelia Mcgill [facility] CBC WITH DIFF 2024-07-02 04:03:[address] [facility] URINALYSIS 2024-05-27 04:08:00 Lincoln [facility]ain [facility] RAPID STREP SCREEN FOR GROUP A 2024-05-27 04:08:00 [facility] INFLUENZA A/B RSV COVID NAAT 2024-05-27 04:08:00 [facility] EKG-12 LEAD 2023-12-25 09:03:09 Katelyn Gamboa [facility] CT ABDOMEN PELVIS W CONTRAST 2023-12-19 23:15:41 Ross Pappas [facility] LIPASE 2023-12-19 22:31:00 Ross Pappas [facility] TROPONIN I 2023-12-19 22:31:00 Ross Pappas [facility] COMP. METABOLIC PANEL ([id number]) 2023-12-19 22:31:00 Ross Pappas [facility] CBC WITH DIFF 2023-12-19 22:31:[address] [facility] URINALYSIS 2023-12-19 22:31:00 Ross Pappas [facility] EKG-12 LEAD 2023-11-08 08:01:34 [facility] 2023-11-08 07:35:00 [facility] TROPONIN I 2023-11-08 07:30:00 Micheal Alston Un [facility] COMP. METABOLIC PANEL ([id number]) 2023-11-08 07:30:00 Micheal Alston [facility] CBC WITH DIFF 2023-11-08 07:30:00 Micheal Alston [facility] N-TERMINAL PRO-BNP 2023-11-08 07:30:00 Sallie Alston [facility] EKG-12 LEAD 2023-10-21 06:36:29 [facility] TROPONIN I 2023-10-21 05:03:00 [facility] COMP. METABOLIC PANEL ([id number]) 2023-10-21 05:03:00 Micheal Alston [facility] CBC WITH DIFF 2023-10-21 05:03:00 Micheal Alston [facility] N-TERMINAL PRO-BNP 2023-10-21 05:03:00 Sallie Alston [facility] URINE DRUG (IMMUNOASSAY) - COMPREHENSIVE DRUG SCREEN W/O REFLEX 2023-10-21 05:03:00 Micheal Alston [facility] XR CHEST 1 VW 2023-10-21 04:10:03 Micheal Alston Tonya [facility] CBC WITH DIFF 2023-10-15 19:40:00 Katelyn Gamboa [facility] MAGNESIUM 2023-10-15 19:39:00 Katelyn Gamboa [facility] COMP. METABOLIC PANEL ([id number]) 2023-10-15 19:39:00 Katelyn Gamboa [facility] URINALYSIS 2023-10-15 19:39:00 Katelyn Gamboa [facility] EKG-12 LEAD 2023-08-16 02:21:[address] [facility] THYROID STIMULATING HORMONE 2023-08-15 05:50:00 Krupa Grant [facility] BASIC METABOLIC PANEL (NA, K, CL, CO2, GLUCOSE, BUN, CREATININE, CA) 2023-08-15 05:50:00 Krupa Grant [facility] CBC WITH DIFF 2023-08-15 05:50:00 Krupa Grant [facility] NOTICE OF PRIVACY PRACTICES 2021-10-30 18:55:34 Doctor Unassigned, [place] [facility] URINALYSIS 2021-10-30 18:32:00 Katelyn Gamboa [facility] COVID-19 (ID NOW RAPID TESTING) 2021-10-30 18:32:00 Katelyn Gamboa [facility] CONSENT/REFUSAL FOR DIAGNOSIS AND TREATMENT 2021-10-30 18:25:30 Doctor Unassigned, [place] [facility] Encounters Start Date/Time End Date/Time Encounter Type Admission Type Attending [facility] Care Department Encounter ID Source 2024-07-08 16:41:00 Outpatient No PCP, for now [facility]LS [facility] [id number] [place] [facility] 2024-06-30 09:38:01 Outpatient No PCP, for now [facility]LS [facility] [id number] Juan Alberto nugent 2024-08-11 14:29:24 2024-08-11 16:23:30 Outpatient Elective MHEOUT MHEOUT [id number] M[facility]OUT 2024-07-01 21:32:00 2024-07-02 00:01:00 Emergency OPHELIA GUERRERO PHILLIP [facility] ERT [id number] [facility] 2024-07-01 21:32:00 2024-07-02 00:01:00 Emergency Ophelia Mcgill [facility] 1.2.840.114 350.1.13.10 4.2.7.2.686 [id number] [facility] 2024-05-26 22:02:00 2024-05-26 23:39:00 Emergency X GUADALUPE, MANNYPINA [facility] ERT [id number] [facility] 2024-05-26 22:02:00 2024-05-26 23:39:00 Emergency Lincoln Jain [facility] 1..840.114 350.1.13.10 4.2.7.2.686 [id number] [facility] 2024-05-04 10:12:00 2024-05-04 12:55:00 Emergency KEISHA SHOOK WHITNEY [facility] ERT [id number] [facility] 2024-05-04 10:12:00 2024-05-04 12:55:00 Emergency Keisha Glez [facility] ..840.114 350.1.13.10 4.2.7.2.686 [id number] [facility] 2024-01-22 20:00:00 2024-01-22 22:41:00 Emergency X KRUPA GRANT WAKILI [facility] ERT [id number] [facility] 2024-01-22 20:00:00 2024-01-22 22:41:00 Emergency Krupa Grant [facility] 1.2.840.114 350.1.13.10 4.2.7.2.686 [id number] [facility] 2023-12-25 03:08:00 2023-12-25 04:02:00 Emergency X KATELYN GAMBOA SANDRA [facility] ERT [id number] [facility] 2023-12-25 03:08:00 2023-12-25 04:02:00 Emergency Bee Katelyn J [facility] 1.2.840.114 350.1.13.10 4.2.7.2.686 [id number] [facility] 2023-12-20 00:00:00 2023-12-20 13:28:30 Letter (Out) Clinic, Gastroenter ology Clinic, Gastroenter ology [facility] 1.2.840.114 350.1.13.10 4.2.7.2.686 [id number] [facility] 2023-12-19 16:10:00 2023-12-19 19:22:00 Emergency X ROSS PAPPAS MARYANN [facility] ERT [id number] [facility] 2023-12-19 16:10:00 2023-12-19 19:22:00 Emergency Ross Pappas [facility] 1.2.840.114 350.1.13.10 4.2.7.2.686 [id number] [facility] 2023-11-08 01:59:00 2023-11-08 03:29:00 Emergency Micheal Alston Wakili S [facility] 1.2.840.114 350.1.13.10 4.2.7.2.686 [id number] [facility] 2023-10-20 22:56:00 2023-10-21 01:35:00 Emergency X CARYN ALSTONKAMILA [facility] ERT [id number] [facility] 2023-10-20 22:56:00 2023-10-21 01:35:00 Emergency Micheal Alston [facility] 1.2.840.114 350.1.13.10 4.2.7.2.686 [id number] [facility] 2023-10-15 13:58:00 2023-10-15 16:46:00 Emergency X KATELYN GAMBOA [facility] ERT [id number] [facility] 2023-10-15 13:58:00 2023-10-15 16:46:00 Emergency Katelyn Gamboa [facility] 1.2.840.114 350.1.13.10 4.2.7.2.686 [id number] [facility] 2023-08-15 19:56:00 2023-08-15 21:34:00 Emergency X KRUPA GRANT [facility] ERT [id number] [facility] 2023-08-15 19:56:00 2023-08-15 21:34:00 Emergency Krupa Grant [facility] 1.2.840.114 350.1.13.10 4.2.7.2.686 [id number] [facility] 2023-08-15 00:13:00 2023-08-15 02:21:00 Emergency Krupa Grant [facility] 1.2.840.114 350.1.13.10 4.2.7.2.686 [id number] [facility] 2023-02-06 13:11:04 2023-02-06 13:11:04 Outpatient [facility] [id number] Alexx Medrano 2022-10-03 10:29:27 2022-10-03 10:29:27 Outpatient [facility] [id number] Alexx Medrano 2021-10-30 13:29:00 2021-10-30 14:24:00 Emergency Katelyn Gamboa [facility] 1.2.840.114 350.1.13.10 4.2.7.2.686 [id number] [facility] 2021-10-30 13:29:00 2021-10-30 14:24:00 Emergency X BEE KATELYN [facility] ERT [id number] [facility] 2020-06-28 11:27:00 2020-06-28 16:16:00 Emergency E [place] [facility] 7500 [facility] Results Test Description Test Time Test Comments Results Result Co [facility]ments [facility] ([id number])2024-07-02 04:28:01* Test Item Value Reference Range Interpretation Comme nts NA (test code = 5963574648) 137 mmol/L 135-145 K (test code = 4512358875) 4.1 mmol/L 3.5-5.0 CL (test code = 1997987484) 102 mmol/L 98-108 CO2 TOTAL (test code = 3817730771) 26 mmol/L 23-31 AGAP (test code = 6414403320) 9 2-16 BUN (test code = 2847157267) 23 mg/dL 7-23 GLUCOSE (test code = 7577067404) 110 mg/dL 70-110 CREATININE (test code = 2160-0) 0.88 mg/dL 0.60-1.25 TOTAL BILI (test code = 1461519061) 0.7 mg/dL 0.1-1.1 CALCIUM (test code = 9171060127) 9.1 mg/dL 8.6-10.6 T PROTEIN (test code = 4153609806) 7.8 g/dL 6.3-8.2 ALBUMIN (test code = 5783851877) 4.8 g/dL 3.5-5.0 ALK PHOS (test code = 4411307240) 63 U/L 34-122 ALTv (test code = 1742-6) 18 U/L 5-50 AST(SGOT) (test code = 5411900128) 24 U/L 13-40 eGFR (test code = 96954-4) 118.6 mL/min/1.73m2 CKD-EPI eGFR (20 21). Assuming creatinine has been stable day-to-day for at least three months, the eGFR indicates Category G1 (>= 90 mL/min/1.73 m2) [facility] with [id number] 04:17:37* Test Item Value Reference Range Interpretation [...] 35.0 g/dL 31.2-35.0 RDW-SD (test code = 57780-1) 40.0 fL 38.5-51.6 RDW-CV (test code = 788-0) 12.9 % 12.1-15.4 PLT (test code = 777-3) 259 150-328 MPV (test code = 33032-4) 10.2 fL 9.8-13.0 NRBC/100 WBC (test code = 0618362268) 0.0 0.0-10.0 NRBC x10^3 (test code = 2159178548) See_Comment [Automated me ssage] The system which generated this result transmitted reference range: 10*3/?L. The reference range was not used to interpret this result as normal/abnormal. GRAN MAT (NEUT) % (test code = 770-8) 56.7 % IMM GRAN % (test code = 8261254377) 0.20 % LYMPH % (test code = 736-9) 35.2 % MONO % (test code = 5905-5) 5.6 % EOS % (test code = 713-8) 1.7 % BASO % (test code = 706-2) 0.6 % GRAN MAT x10^3(ANC) (test code = 8439777793) 4.72 10*3/uL 1.99-6.95 IMM GRAN x10^3 (test code = 3725842886) 0.00-0.06 LYMPH x10^3 (test code = 731-0) 2.93 10*3/uL 1.09-3.23 MONO x10^3 (test code = 742-7) 0.47 10*3/uL 0.36-1.02 EOS x10^3 (test code = 711-2) 0.14 10*3/uL 0.06-0.53 BASO x10^3 (test code = 704-7) 0.05 10*3/uL 0.01-0.09 [facility] [id number] 23:55:02EXAM: CT ABDOMEN PELVIS W CONTRAST 12/19/2023 [...] is visualized. 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 Lab Interpretation (test code = 36014-1) Normal [facility]. METABOLIC PANEL (69852)2023-12-19 23:10:25* Test Item Value Reference Range Interpretation Comme nts NA (test code = 2299681494) 137 mmol/L 135-145 K (test code = 3728441239) 3.9 mmol/L 3.5-5.0 CL (test code = 7401491833) 100 mmol/L 98-108 CO2 TOTAL (test code = 1119278371) 27 mmol/L 23-31 AGAP (test code = 0343708064) 10 2-16 BUN (test code = 6991620656) 13 mg/dL 7-23 GLUCOSE (test code = 1217090741) 95 mg/dL 70-110 CREATININE (test code = 2160-0) 0.75 mg/dL 0.60-1.25 TOTAL BILI (test code = 4354541935) 0.9 mg/dL 0.1-1.1 CALCIUM (test code = 4562780335) 9.0 mg/dL 8.6-10.6 T PROTEIN (test code = 9235154003) 8.3 g/dL 6.3-8.2 H ALBUMIN (test code = 3316447900) 4.7 g/dL 3.5-5.0 ALK PHOS (test code = 9495534396) 65 U/L 34-122 ALTv (test code = 1742-6) 24 U/L 5-50 AST(SGOT) (test code = 4140740477) 27 U/L 13-40 eGFR (test code = 63515-6) 125.3 mL/min/1.73m2 CKD-EPI eGFR (2020). Assuming creatinine has been stable day-to-day for at least three months, the eGFR indicates Category G1 (>= 90 mL/min/1.73 m2) Lab Interpretation (test code = 17894-4) [facility] 23:10:05* Test Item Value Reference Range Interpretation Comme nts LIPASE (test code = 0513527704) 67 U/L 0-220 Lab Interpretation (test cod e = 33760-6) [facility] [id number] 22:53:21* Test Item Value Reference Range Interpretation [...] g/dL 31.2-35.0 H RDW-SD (test code = 99846-4) 39.5 fL 38.5-51.6 RDW-CV (test code = 788-0) 12.8 % 12.1-15.4 PLT (test code = 777-3) 252 150-328 MPV (test code = 98460-7) 10.2 fL 9.8-13.0 NRBC/100 WBC (test code = 8535669275) 0.0 0.0-10.0 NRBC x10^3 (test code = 2703370009) See_Comment [Automated Waca[place] ge] The system which generated this result transmitted reference range: 10*3/?L. The reference range was not used to interpret this result as normal/abnormal. GRAN MAT (NEUT) % (test code = 770-8) 62.9 % IMM GRAN % (test code = 2058675412) 0.40 % LYMPH % (test code = 736-9) 27.5 % MONO % (test code = 5905-5) 6.6 % EOS % (test code = 713-8) 2.1 % BASO % (test code = 706-2) 0.5 % GRAN MAT x10^3(ANC) (test code = 1543083020) 4.74 10*3/uL 1.99-6.95 IMM GRAN x10^3 (test code = 5490994464) 0.03 10*3/uL 0.00-0.06 LYMPH x10^3 (test code = 731-0) 2.08 10*3/uL 1.09-3.23 MONO x10^3 (test code = 742-7) 0.50 10*3/uL 0.36-1.02 EOS x10^3 (test code = 711-2) 0.16 10*3/uL 0.06-0.53 BASO x10^3 (test code = 704-7) 0.04 10*3/uL 0.01-0.09 Lab Interpretation (test code = 23272-9) [facility]normal [facility] [id number] 08:11:40* Test Item Value Reference Range Interpretation Comme nts TROPONIN I (test code = 8581866832) 0.001 ng/mL <=0.034 BERTRAND (test code = [...] of biotin. Lab Interpretation (test code = 01842-3) Normal [facility] [id number] 08:08:59* Test Item Value Reference Range Interpretation Comme nts NT-proBNP (test code = 79026-7) 25 pg/mL <=125 Lab Interpretation (test cod e = 57210-5) [facility] MET[facility]OLIC PANEL (62151)2023-11-08 08:00:01* Test Item Value Reference Range Interpretation Comme nts NA (test code = 2776852895) 138 mmol/L 135-145 K (test code = 4592250908) 3.6 mmol/L 3.5-5.0 CL (test code = 3716836406) 103 mmol/L 98-108 CO2 TOTAL (test code = 7180770166) 27 mmol/L 23-31 AGAP (test code = 5616839610) 8 2-16 BUN (test code = 1352235518) 20 mg/dL 7-23 GLUCOSE (test code = 7629070466) 107 mg/dL 70-110 CREATININE (test code = 2160-0) 0.76 mg/dL 0.60-1.25 TOTAL BILI (test code = 0560676101) 0.6 mg/dL 0.1-1.1 CALCIUM (test code = 4844441171) 9.2 mg/dL 8.6-10.6 T PROTEIN (test code = 4218354839) 8.0 g/dL 6.3-8.2 ALBUMIN (test code = 9092133694) 4.6 g/dL 3.5-5.0 ALK PHOS (test code = 3920577745) 86 U/L 34-122 ALTv (test code = 1742-6) 24 U/L 5-50 AST(SGOT) (test code = 3756681091) 25 U/L 13-40 eGFR (test code = 45734-9) 124.8 mL/min/1.73m2 CKD-EPI eGFR (20 21). Assuming creatinine has been stable day-to-day for at least three months, the eGFR indicates Category G1 (>= 90 mL/min/1.73 m2) [facility] WITH [id number] 07:47:18* Test Item Value Reference Range Interpretation [...] 34.8 g/dL 31.2-35.0 RDW-SD (test code = 78604-2) 39.2 fL 38.5-51.6 RDW-CV (test code = 788-0) 12.6 % 12.1-15.4 PLT (test code = 777-3) 256 150-328 MPV (test code = 13040-1) 9.9 fL 9.8-13.0 NRBC/100 WBC (test code = 3678541707) 0.0 0.0-10.0 NRBC x10^3 (test code = 5616949416) See_Comment [Automated messa ge] The system which generated this result transmitted reference range: 10*3/?L. The reference range was not used to interpret this result as normal/abnormal. GRAN MAT (NEUT) % (test code = 770-8) 61.6 % IMM GRAN % (test code = 8679052035) 0.70 % LYMPH % (test code = 736-9) 30.0 % MONO % (test code = 5905-5) 5.2 % EOS % (test code = 713-8) 2.1 % BASO % (test code = 706-2) 0.4 % GRAN MAT x10^3(ANC) (test code = 6495048893) 6.20 10*3/uL 1.99-6.95 IMM GRAN x10^3 (test code = 8984857936) 0.07 10*3/uL 0.00-0.06 H LYMPH x10^3 (test code = 731-0) 3.02 10*3/uL 1.09-3.23 MONO x10^3 (test code = 742-7) 0.52 10*3/uL 0.36-1.02 EOS x10^3 (test code = 711-2) 0.21 10*3/uL 0.06-0.53 BASO x10^3 (test code = 704-7) 0.04 10*3/uL 0.01-0.09 Lab Interpretation (test code = 03577-3) Abnormal [facility] [id number] 05:52:17* Test Item Value Reference Range Interpretation Comme nts NT-proBNP (test code = 69061-9) <=125 Lab Interpretation (test cod e = 24560-7) Normal [facility] [id number] 05:51:07* Test Item Value Reference Range Interpretation Comme nts TROPONIN I (test code = 8948245036) 0.003 ng/mL <=0.034 BERTRAND (test code = [...] of biotin. Lab Interpretation (test code = 80504-8) Normal [facility]. MET[facility]OLIC PANEL (76188)2023-10-21 05:33:27* Test Item Value Reference Range Interpretation Comme nts NA (test code = 3253565964) 141 mmol/L 135-145 K (test code = 1961264173) 3.9 mmol/L 3.5-5.0 CL (test code = 2772022606) 105 mmol/L 98-108 CO2 TOTAL (test code = 7716483393) 26 mmol/L 23-31 AGAP (test code = 4444146984) 10 2-16 BUN (test code = 9212716140) 21 mg/dL 7-23 GLUCOSE (test code = 8652781360) 98 mg/dL 70-110 CREATININE (test code = 2160-0) 0.73 mg/dL 0.60-1.25 TOTAL BILI (test code = 9736402150) 0.6 mg/dL 0.1-1.1 CALCIUM (test code = 6046420330) 8.8 mg/dL 8.6-10.6 T PROTEIN (test code = 9462198269) 7.8 g/dL 6.3-8.2 ALBUMIN (test code = 0034366962) 4.3 g/dL 3.5-5.0 ALK PHOS (test code = 4881413299) 64 U/L 34-122 ALTv (test code = 1742-6) 24 U/L 5-50 AST(SGOT) (test code = 8714939465) 27 U/L 13-40 eGFR (test code = 80094-4) 126.3 mL/min/1.73m2 CKD-EPI eGFR (20 21). Assuming creatinine has been stable day-to-day for at least three months, the eGFR indicates Category G1 (>= 90 mL/min/1.73 m2) [facility] WITH [id number] 05:16:49* Test Item Value Reference Range Interpretation [...] 34.5 g/dL 31.2-35.0 RDW-SD (test code = 52682-7) 39.6 fL 38.5-51.6 RDW-CV (test code = 788-0) 12.7 % 12.1-15.4 PLT (test code = 777-3) 258 150-328 MPV (test code = 91669-0) 10.0 fL 9.8-13.0 NRBC/100 WBC (test code = 8619387097) 0.0 0.0-10.0 NRBC x10^3 (test code = 3705308498) See_Comment [Automated me ssage] The system which generated this result transmitted reference range: 10*3/?L. The reference range was not used to interpret this result as normal/abnormal. GRAN MAT (NEUT) % (test code = 770-8) 66.6 % IMM GRAN % (test code = 9658322206) 0.40 % LYMPH % (test code = 736-9) 25.0 % MONO % (test code = 5905-5) 5.5 % EOS % (test code = 713-8) 2.2 % BASO % (test code = 706-2) 0.3 % GRAN MAT x10^3(ANC) (test code = 4405864814) 6.12 10*3/uL 1.99-6.95 IMM GRAN x10^3 (test code = 5529238547) 0.04 10*3/uL 0.00-0.06 LYMPH x10^3 (test code = 731-0) 2.30 10*3/uL 1.09-3.23 MONO x10^3 (test code = 742-7) 0.51 10*3/uL 0.36-1.02 EOS x10^3 (test code = 711-2) 0.20 10*3/uL 0.06-0.53 BASO x10^3 (test code = 704-7) 0.03 10*3/uL 0.01-0.09 [facility] 1 [id number] 04:54:16Exam: Chest (1 View), 10/20/2023 11:00 PM. Ordering Physician: MICHEAL ALSTON. History: Chest pain. Technique: AP view of the chest. Technical Quality: Adequate. Comparison: None. Findings: Normal cardiac silhouette size and pulmonary vascularity. ?No airspaceconsolidation, pleural effusion, or pneumothorax. No acute osseous abnormality.[facility] Notes Date/Time Note Provider Source 2024-07-02 00:00:36 [...] without assist, in no apparent distress, E Barahona RN [facility] 2024-07-01 21:26:43 Pt in wheelchair to triage for CC of dizziness and weakness. Pt states he was sitting on the couch 10-15 min CHUCK BONER and began to feel very dizzy, weak and had blurred vision. Pt states his heart rate jumped up to 135 bpm. Pt reports hx of panic attacks and anxiety. Pt denies any vision changes currently. E Melo RN [facility] 2024-05-26 23:37:26 Pt given printed and [...] in no apparent distress, E Resendiz RN [facility] 2024-05-26 21:53:45 Pt arrives ambulatory to ED c/o epigastric and back pain, coughing, nausea, decreased appetite, pain with inspiration, and low grade fever, x2 days. E Gamboa RN [facility] 2024-05-04 12:53:30 Patient is awake and alert, oriented x4. Speech is clear and appropriate. Respirations even and unlabored, no distress. Ambulatory with a steady gait. Reviewed discharge instructions, follow-up care, and RX with patient, verbalizes understanding. E Guo RN [facility] 2024-05-04 10:06:54 Patient states that he woke up this morning and had a cough. Experience pain afterwards in the left side of the chest. Patient states that he had a cough recently. [facility] 2024-01-22 22:39:53 Pt given printed and [...] in no apparent distress. Keyana Virk RN [facility] 2024-01-22 22:38:23 . Franky Akbar RN [facility] 2024-01-22 19:56:11 Pt states this after around 1400 he felt like he was having palpations and than this afternoon he felt like his heart was skipping a beat [facility] 2023-12-25 04:02:00 Pt given printed and [...] with steady gait, in no apparent distress. [facility] 2023-12-25 03:00:31 CC: Chest wall pain since last night. Pt states the pain went away, then a sharp pain began again and woke him up from his sleep. Pt reports recent cough. Pharmacy - [facility] in [place] Awake, alert, oriented, resp reg unlabored, skin intact, color appropriate for race, moves all ext without difficulty, amb without assistance Yazmin Manriquez RN [facility] 2023-12-25 02:56:00 Associated Order(s): EKG-12 Lead ROUTINE ONCE Pre-Procedure Diagnose(s): Chest pain, unspecified type Post-Procedure Diagnose(s): Chest pain, unspecified type [facility] Emergency Department Note Patient Name: Danny Ferreira Date of : 1995 28 year old male Treatment Room: Room/bed info not found Primary Care Physician: PATIENT DOES NOT HAVE A PCP Patient Escorted by: Self [9] Mode of Arrival: Personal means [1] EMS Treatment Prior to ED Arrival: CHUCK BONER treatment: None Travel and Exposure Screening: Symptoms [...] ED Physician in the absence of a leaf stripper: yes Interpretation: Interpretation: normal Rate: ECG rate: [...] Electronically signed by: Katelyn Gamboa DO 12/25/23402 [facility] 2023-12-19 19:21:14 Pt given printed and verbal [...] in no apparent distress. Keyana Virk RN [facility] 2023-12-19 16:00:00 Patient states: "I've been having burning sensation in my gut since 2-3 days now. I vomited yesterday but not today." NRS 4/10, no pain meds taken today. Selina Herrera RN [facility] 2023-11-08 03:28:26 Pt given printed and [...] in no apparent distress, Brenda Resendiz RN [facility] 2023-11-08 03:18:24 [facility] ED Transfer of Care Note. [...] N-TERMINAL PRO-BNP - Normal COMP. METABOLIC PANEL (20126) XR CHEST 2 VW Preliminary Result No [...] Disch - Home Condition Stable Comment -- [facility] 2023-11-08 01:53:28 Pt arrived with c/o chest pain, neck pain, and headache for 1 week. Pt states he was asleep, and the headache woke him up. Yazmin Manriquez RN [facility] 2023-10-21 01:29:00 Awake, alert oriented X4, [...] noted upon discharge [facility] Queenie Ramirez RN [facility] 2023-10-20 22:52:29 Pt arrived with c/o chest pain, palpitations and headache that began 10 ago. Denies SOB, drugs/alcohol use today Cardiac hx: PVC Yazmin Manriquez RN [facility] 2023-10-20 22:42:00 Associated Order(s): EKG-12 Lead ROUTINE ONCE Pre-Procedure Diagnose(s): Chest pain, unspecified type Post-Procedure Diagnose(s): Chest pain, unspecified type [facility] Emergency Department Note Patient Name: Danny Ferreira Date of : 1995 28 year old male Treatment Room: [facility] [id number] Primary Care Physician: PATIENT DOES NOT HAVE [...] palpitations and headache that started 10 minutes CHUCK BONER. He rated his pain a 2 on [...] vomiting or diarrhea. History provided by: Patient yarn spooler used: No Past Medical History/Immunizations: History reviewed. [...] DRUG SCREEN W/O REFLEX COMP. METABOLIC PANEL (61606) TROPONIN I N-TERMINAL PRO-BNP Orders Placed This [...] ED Physician in the absence of a leaf stripper: yes Previous ECG: Previous ECG: Unavailable Interpretation: [...] palpitations and headache that started 10 minutes CHUCK BONER. He rated his pain a 2 on [...] palpitations and headache that started 10 minutes CHUCK BONER. He rated his pain a 2 on [...] Department during this Patient evaluation/encounter by JULES Gamaliel " [facility] 2023-10-15 16:46:00 Pt given printed and [...] in no apparent distress, Marci Ortiz RN [facility] 2023-10-15 13:56:41 Patient arrived ambulatory with steady gait via private care c/o of dizziness, weakness, loss of appetite, nausea, and diarrhea starting Saturday. Melissa Scott RN [facility] 2023-10-15 13:39:00 [facility] Emergency Department Note Patient Name: Danyn Ferreira Date of : 1995 28 year old male Treatment Room: [facility] ED LAISHA MOSQUERA/KRYSTLE Primary Care Physician: PATIENT DOES NOT HAVE A PCP Patient Escorted by: Self [9] Mode of Arrival: Personal means [1] EMS Treatment Prior to ED Arrival: CHUCK BONER treatment: None Travel and Exposure Screening: Symptoms [...] 0.01 - 0.09 10*3/uL COMP. METABOLIC PANEL (50430) - Abnormal NA 144 135 - 145 [...] Procedures CBC WITH DIFF COMP. METABOLIC PANEL (69199) Magnesium URINALYSIS Orders Placed This Encounter Medications [...] signed by: Katelyn Gamboa DO 10/15/23 1641 [facility] 2023-08-15 21:24:32 Pt given printed and [...] with steady gait, in no apparent distress, T [facility] 2023-08-15 19:51:28 Pt arrived ambulatory with girlfriend (Ju) , okay to discuss medical care in front of girlfriend. Pt states " So my heart rate has been high like 115, I have been shaky, I feel like my ears and head are clogged up. I have jerzy been having diarrhea." T Brenda Resendiz RN [facility] 2023-08-15 19:48:00 Associated Order(s): EKG-12 Lead ROUTINE ONCE Pre-Procedure Diagnose(s): Palpitations Post-Procedure Diagnose(s): Palpitations [facility] Emergency Department Note Patient Name: Danny Ferreira Date of : 1995 28 year old male Treatment Room: [place] [address] Primary Care Physician: PATIENT DOES NOT HAVE A PCP Patient Escorted by: Friend [6] Mode of Arrival: Personal means [1] EMS Treatment Prior to ED Arrival: CHUCK BONER treatment: None Travel and Exposure Screening: Symptoms [...] by: Patient, medical records and significant other yarn spooler used: No Palpitations Palpitations quality: Regular Onset [...] Date/Time: 08/15/2023 8:49 PM Performed by: Krupa Grant MD Authorized by: Krupa Grant MD ECG interpreted by ED Physician in the absence of a leaf stripper: yes Previous ECG: Previous ECG: Compared to [...] Electronically signed by: Krupa Grant MD 08/15/232120 T [facility] 2023-08-15 02:20:50 Awake, alert oriented X4, respiratory [...] noted upon discharge [facility] Queenie Ramirez RN [facility] 2023-08-15 00:10:25 Pt stated he woke up and his heart rate was in 140's. Didn't feel well when he went to sleep. Had a headache when he went to bed, denies pain at this time. Pearl Vazquez RN [facility]
[2024-08-11 20:33] LABS: Absolute Eosinophils 0.1 K/uL (0-0.5); Absolute Lymphocytes (CBC) 1.2 K/uL (0.7-4.9); Absolute Monocytes 0.6 K/uL (0.1-1.3); Absolute Neutrophil 5.5 K/uL (1.8-8.0); Basophils % 0.7 % (0-1.3); Eosinophils % 0.9 % (0-4.4); Hemoglobin 15.9 g/dL (13.6-17.9); Lymphocytes % 15.7 % (15.3-44.8); MCHC 35.3 g/dL (32.0-36.0); MPV 8.1 fL (7.6-11.3); Monocytes % 8.7 % (3.3-12.3); Nucleated Red Blood Cells % 0.2 % (0-0); Platelets 236 thou/uL (152-406); Red Cell Distribution Width 13.9 % (12.1-15.2)
[2024-08-11 20:58] LABS: Magnesium 2.3 mg/dL (1.6-2.4); Thyroid Stimulating Hormone 0.87 uIU/mL (0.358-3.740); Troponin High Sensitivity 4.4 pg/mL (<58.9)
--- NOTE | 2024-08-11 21:08 | RAD REPORT ---
Procedure: Chest Single View HISTORY: Chest pain COMPARISON: May 2024 FINDINGS: The lungs appear clear of acute infiltrate. No significant pleural effusion noted. The heart is normal size. IMPRESSION: No acute abnormality is displayed.
--- NOTE | 2024-08-11 21:22 | ER ---
Nurse's Notes [facility] Name: Eliseo Odonnell Age: 29 yrs Sex: Male : 1995 Arrival Date: 08/11/2024 Time: 19:37 Bed 7 Private MD: Diagnosis: Palpitations Presentation: 08/11 19:46 Chief complaint: Patient states: MRI brain today with and without contrast and since me1 his HR has been fast, between 125 and 145. Denies CP. Reports some nausea. Coronavirus screen: Vaccine status: Patient reports being unvaccinated. Ebola Screen: No symptoms or risks identified at this time. Initial Sepsis Screen: Does the patient meet any 2 criteria? HR > 90 bpm. Does the patient have a suspected source of infection? No. Patient's initial sepsis screen is negative. Risk Assessment: Do you want to hurt yourself or someone else? Patient reports no desire to harm self or others. Onset of symptoms was August 11, 2024 at 19:00. 19:46 Method Of Arrival: Wheelchair oh1 19:46 Acuity: SHARRON 3 me1 Historical: - Allergies: 19:48 No Known Allergies; me1 - PMHx: 19:48 Anxiety; Asthma; me1 - PSHx: 19:48 None; me1 - Immunization history:: Adult Immunizations up to date. - Infectious Disease History:: Denies. - Social history:: Smoking status: Patient denies any tobacco usage or history of. Screenin:24 [facility] ED Fall Risk Assessment (Adult) History of falling in the last 3 months, vc1 including since admission No falls in past 3 months (0 pts) Confusion or Disorientation No (0 pts) Intoxicated or Sedated No (0 pts) Impaired Gait No (0 pts) Mobility Assist Device Used No (0 pt) Altered Elimination No (0 pt) Score/Fall Risk Level 0 - 2 = Low Risk Oriented to surroundings, Maintained a safe environment, Educated pt \T\ family on fall prevention, incl call for assistance when getting out of bed, Hourly rounding (assess needs \T\ fall precautionary measures) done. Abuse screen: Denies threats or abuse. Nutritional screening: No deficits noted. Tuberculosis screening: No symptoms or risk factors identified. Assessment: 20:00 General: Appears in no apparent distress. uncomfortable, obese, well groomed, Behavior vc1 is cooperative, anxious. Pain: Denies pain. Neuro: Level of Consciousness is awake, alert, obeys commands, Oriented to person, place, time, situation, Appropriate for age. Cardiovascular: Reports racing heart rate after receiving contrast IV Denies chest pain, Heart tones S1 S2 Capillary refill < 3 seconds. Respiratory: Airway is patent Respiratory effort is even, unlabored, Respiratory pattern is regular, symmetrical, Breath sounds are clear bilaterally. GI: No deficits noted. No signs and/or symptoms were reported involving the gastrointestinal system. : No deficits noted. No signs and/or symptoms were reported regarding the genitourinary system. EENT: No deficits noted. No signs and/or symptoms were reported regarding the EENT system. Derm: Skin is intact, is healthy with good turgor, Skin is dry, Skin is normal, Skin temperature is warm. 20:25 Reassessment: Patient and/or family updated on plan of care and expected duration. Pain vc1 level reassessed. Patient is alert, oriented x 3, equal unlabored respirations, skin warm/dry/pink. Patient states symptoms have improved. 22:02 Reassessment: Patient appears in no apparent distress at this time. Patient and/or vc1 family updated on plan of care and expected duration. Pain level reassessed. Patient is alert, oriented x 3, equal unlabored respirations, skin warm/dry/pink. Patient denies pain at this time. Patient states feeling better. Vital Signs: 19:46 BP 147 / 89; Pulse 101; Resp 19; Temp 98.4; Pulse Ox 100% ; Weight 109.32 kg; Height 5 me1 ft. 10 in. ; Pain 0/10; 20:25 BP 131 / 87; Pulse 91; Resp 12; Temp 99.8; Pulse Ox 98% ; vc1 22:02 BP 130 / 80; Pulse 91; Resp 17; Temp 98.2; Pulse Ox 97% ; vc1 19:46 Body Mass Index 34.58 (109.32 kg, 177.8 cm) me1 19:46 Pain Scale: [place] [facility] [place] Course: 19:38 Patient arrived in ED. mr 19:39 Bettina Martinez [facility]C [facility] kb 19:39 Ambrocio Brandon MD is Attending Physician. kb 19:48 Triage completed. me1 19:48 Arm band placed on Patient placed in waiting room. me1 20:24 Larissa Meneses, RN is Primary Nurse. vc1 20:25 Patient has correct armband on for positive identification. Bed in low position. Call vc1 light in reach. Provided Education on: call light, labs. warp hand on. Pulse ox on. NIBP on. 20:26 Initial lab(s) drawn, by ED staff, sent to lab. Inserted saline lock: 20 gauge in right vc1 antecubital area, using aseptic technique. Blood collected. Flushed with 10 mL NS. 20:26 Basic Metabolic Panel Sent. vc1 20:26 CBC with Diff Sent. vc1 20:26 Magnesium Sent. vc1 20:26 Troponin HS Sent. vc1 20:40 XRAY Chest (1 view) In Process Unspecified. EDMS 22:04 No provider procedures requiring assistance completed. IV discontinued, intact, vc1 bleeding controlled, No redness/swelling at site. Pressure dressing applied. Administered Medications: No medications were administered Medication: 20:25 VIS not applicable for this client. vc1 Outcome: 21:21 Discharge ordered by . kb 22:04 Discharged to home ambulatory, vc1 22:04 Condition: stable 22:04 Discharge instructions given to patient, Instructed on discharge instructions, follow up and referral plans. Demonstrated understanding of instructions, follow-up care, 22:05 Patient left the ED. vc1 Signatures: Dispatcher [employer] EDUT Bettina Martinez, OSTOMY RN-C OSTOMY RN-Ckb Stoll, Wendy, Reg Reg mr Larissa Meneses, RN RN vc1 Kelsey Carpio RN RN oh1
--- NOTE | 2024-08-11 21:22 | EDPHYS ---
Physician Documentation [facility] Name: Eliseo Odonnell Age: 29 yrs Sex: Male : 1995 Arrival Date: 08/11/2024 Time: 19:37 Bed 7 Private MD: ED Physician Ambrocio Brandon HPI: 08/11 21:49 This 29 yrs old Male presents to ER via Wheelchair with complaints of Fast kb heart rate. 21:49 Pt is a 29 year old male who presents for palpitations that started after having an MRI kb with contrast earlier today. States his heart started beating fast while he was driving home and has been fluctuating between 100-125 since then. . Historical: - Allergies: 19:48 No Known Allergies; me1 - PMHx: 19:48 Anxiety; Asthma; me1 - PSHx: 19:48 None; me1 - Immunization history:: Adult Immunizations up to date. - Infectious Disease History:: Denies. - Social history:: Smoking status: Patient denies any tobacco usage or history of. ROS: 20:36 Constitutional: As per HPI kb Exam: 20:36 Constitutional: This is a well developed, well nourished patient who is awake, alert, kb and in no acute distress. Head/Face: Normocephalic, atraumatic. ENT: Moist Mucous membranes Cardiovascular: Regular rate Respiratory: Respirations even and unlabored. No increased work of breathing. Talking in full sentences Abdomen/GI: Soft, non-tender. No distention Skin: Warm, dry with normal turgor. Normal color. MS/ Extremity: Pulses equal, no cyanosis. Neurovascular intact. Full, normal range of motion. Neuro: Awake and alert, GCS 15, oriented to person, place, time, and situation. 20:36 ECG was reviewed by the Attending Physician. Vital Signs: 19:46 BP 147 / 89; Pulse 101; Resp 19; Temp 98.4; Pulse Ox 100% ; Weight 109.32 kg; Height 5 me1 ft. 10 in. ; Pain 0/10; 20:25 BP 131 / 87; Pulse 91; Resp 12; Temp 99.8; Pulse Ox 98% ; vc1 22:02 BP 130 / 80; Pulse 91; Resp 17; Temp 98.2; Pulse Ox 97% ; vc1 19:46 Body Mass Index 34.58 (109.32 kg, 177.8 cm) me1 19:46 Pain Scale: Adult me1 MDM: 19:39 Medical Screening Exam initiated kb 21:48 Differential diagnosis: arrhythmia, dehydration, abnormal electrolytes, acute mi. Data kb reviewed: vital signs, nurses notes. Counseling: I had a detailed discussion with the patient and/or guardian regarding the historical points, exam findings, and any diagnostic results supporting the discharge/admit diagnosis, lab results, radiology results, the need for outpatient follow up, a family practitioner, to return to the emergency department if symptoms worsen or persist or if there are any questions or concerns that arise at home. 08/11 19:47 Order name: Basic Metabolic Panel; Complete Time: 20:58 kb 08/11 19:47 Order name: CBC with Diff; Complete Time: 20:36 kb 08/11 19:47 Order name: Magnesium; Complete Time: 20:58 kb 08/11 19:47 Order name: Troponin HS; Complete Time: 20:58 kb 08/11 19:47 Order name: TSH; Complete Time: 20:58 kb 08/11 19:47 Order name: XRAY Chest (1 view); Complete Time: 21:12 kb 08/11 19:47 Order name: EKG; Complete Time: 19:47 kb 08/11 19:47 Order name: Cardiac monitoring; Complete Time: 20:26 kb 08/11 19:47 Order name: EKG - Nurse/Tech; Complete Time: 20:26 kb 08/11 19:47 Order name: IV Saline Lock; Complete Time: 20:26 kb 08/11 19:47 Order name: Labs collected and sent; Complete Time: 20:26 kb 08/11 19:47 Order name: O2 Per Protocol; Complete Time: 20:26 kb 08/11 19:47 Order name: O2 Sat Monitoring; Complete Time: 20:26 kb EC:36 Rate is 88 beats/min. Rhythm is regular. QRS [place] is Normal. [place] interval is normal at kb 154 msec. QRS interval is normal at 82 msec. QT interval is normal at 408 msec. Administered Medications: No medications were administered Disposition: 08/12 14:39 Co-signature as Attending Physician, Ambrocio Brandon MD I agree with the assessment and luan plan of care. Disposition Summary: 08/11/24 21:21 Discharge Ordered Notes: Location: Home kb Condition: Stable kb Diagnosis - Palpitations kb Followup: kb - With: Emergency Department - When: As needed - Reason: Worsening of condition Followup: kb - With: Private Physician - When: 2 - 3 days - Reason: Recheck today's complaints, Continuance of care, Re-evaluation by your physician Discharge Instructions: - Discharge Summary Sheet kb - Palpitations, [id number] kb Forms: - Medication Reconciliation Form kb - Antibiotic Education kb - Prescription Opioid Use kb - Patient Portal Instructions kb - Leadership Thank You Letter kb Signatures: Dispatcher [employer] EDBettina Cornelius, ALCOHOL STILL OPERATOR-C ALCOHOL STILL OPERATOR-Ambrocio Sigala MD MD cha Eddleman, Michelle, RN RN me1
[2024-08-11 22:53] VITALS: BP 130/80; TEMP 98.2; O2SAT 97
--- NOTE | 2024-08-12 11:58 | EKG ---
Test Date: 2024-08-11 Test Time: 20:16:26 News Reel Cameraman: MB MEASUREMENT RESULTS: Intervals: Rate: 88 VT: 154 QRSD: 82 QT: 338 QTc: 408 [place]: P: 47 VT: 154 QRS: 21 T: 53 INTERPRETIVE STATEMENTS: Normal sinus rhythm Possible Left atrial enlargement Borderline ECG Compared to ECG 11/14/2023 19:02:54 No significant changes Electronically Signed On 08-12-24 11:56:38 CDT by Vikas Julien
== END 2024-08-11 22:05 | disposition home or self-care (01) ==
LOC: ER 19:37
DX: R00.2 Palpitations (principal); F41.9 Anxiety disorder, unspecified
CPT/HCPCS: 36415; 71045; 80048; 83735; 84443; 84484; 85025; 93005; 99284

== ENCOUNTER 2024-08-14 01:34 | Emergency (ER) | payer SELFPAY ==
--- OUTSIDE RECORDS SUMMARY | 2024-08-14 01:40 | XMS REPORT | Continuity of Care Document ---
Author Name Unknown Address [address] [place] [address] [facility] [place] Address [address] [place] [address] Care Team Providers Care Meter Reader Chief Name Role Phone PCP, PATIENT DOES NOT HAVE A Primary Care Physic nick Unavailable EZ MEIER Attending Clinician UnavailEz Hood Attending Clinician + [phone] OPHELIA MCGILL Attending Clinician Unavailable OPHELIA MCGILL Attending Clinician Unavailable Ophelia Mcgill DO Attending Clinician +[phone] LINCOLN JAIN Attending Clinician Unavailable Lincoln Hardy Attending Clinician +[phone] KEISHA GLEZ Attending Clinician Unavailable KEISHA GLEZ Attending Clinician Unavailable Keisha Glez MD Attending Clinician + [phone] KRUPA GRANT Attending Clinician Unavailable KRUPA GRANT Attending Clinician Unavailable Krupa Grant MD Attending Clinician + [phone] KATELYN GAMBOA Attending Clinician Unavailab KATELYN Bennett Attending Clinician Unavailab Katelyn Bennett DO Attending Clinician + [phone] Clinic, Gastroenterology Attending Clinician + [phone] ROSS PAPPAS Attending Clinician Unavailable ROSS PAPPAS Attending Clinician Unavailable Ross Kirkland Attending Clinician [phone] Micheal Alston NP Attending Clinician [phone] AURY AVILES Attending Clinician OPHELIA Duncan Admitting Clinician Unavailable LINCOLN JAIN Admitting Clinician Unavailable KEISHA GLEZ Admitting Clinician Unavailable ROSS PAPPAS Admitting Clinician Unavailable MICHEAL ALSTON Admitting Clinician Unavailab le Problems Condition Name Condition Details Condition Category Status Onset Date Resolution Date Last Treatment Date Treating Clinician Comments Source Chest pain, unspecifie d type Chest pain, unspecifie d type Disease Active 10-20 00:00: 00 [facility] Acute nonintract able headache, unspecifie d headache type Acute nonintract able headache, unspecifie d headache type Disease Active 10-20 00:00: 00 [facility] Allergies, Adverse Reactions, Alerts Allergy Name Allergy Type Status Severity Reaction(s) Onset Date Inactive Date Treating Clinician Comments Source NO KNOWN ALLERGIE S Drug Class Active [facility] Social History Social Habit Start Date Stop Date Quantity Comments Source Sexual orientation [facility] Sex assigned at 1995 00:00:00 1995 00:00:00 [facility] Smoking Status Start Date Stop Date Source Tobacco smoking consumption unknown [facility] Medications Ordered Medication Name Filled Medication Name Start Date Stop Date Current Medication? Ordering Clinician Indication Dosage Frequency Signature (SIG) Comments Components Source NaCl 0.9% (NS) bolus infusion 1,000 mL 07-02 04:00: 00 07-02 05:59 :00 No 1000mL at 999 mL/hr, 1,000 mL, IV Infusion, ONCE, 1 dose, On Sat07/01/24 at 2200, STAT [facility] ondansetron (ZOFRAN (PF)) injection 8 mg 07-02 04:00: 00 07-02 04:38 :00 No 8mg 8 mg, Slow IV Push, ONCE, 1 dose, On Sat07/01/24 at 2200, Administer over 2-5 Minutes, 4 mL [facility] meclizine (TRAVEL-EAS E (MECLIZINE) ) tablet 25 mg 07-02 04:00: 00 07-02 04:36 :00 No 25mg 25 mg, Oral, ONCE, 1 dose, On Sat07/01/24 at 2200, GREGORIO [facility] ketorolac (TORADOL) injection 30 mg 05-27 04:15: 00 05-27 04:07 :00 No 30mg 30 mg, Intramuscu lar, ONCE, 1 dose, On Sat05/26/24 at 2215, GREGORIO [facility] benzonatate 100 mg capsule 05-26 00:00: 00 Yes [id number] 100mg Take 1 capsule by mouth 3 (three) times daily as needed for Cough. [facility] ibuprofen 800 mg tablet 05-26 00:00: 00 Yes [id number] 800mg Take 1 tablet by mouth every 6 (six) hours as needed for Pain (scale 4-6). [facility] albuterol 90 mcg/actuati on inhaler 05-26 00:00: 00 Yes [id number] 2{puff} Inhale 2 Puffs every 4 (four) hours as needed for Wheezing or Shortness of Breath. [facility] benzonatate 100 mg capsule 2023-05 00:00: 00 05-26 00:00 :00 No [id number] 100mg Take 1 capsule by mouth 3 (three) times daily as needed for Cough. [facility] cefdinir 300 mg capsule 2023-05 00:00: 00 05-12 05:59 :00 No [id number] 300mg Take 1 capsule by mouth every 12 (twelve) hours for 7 days. [facility] ibuprofen (IBU) tablet 600 mg 12-24 08:15: 00 12-24 08:21 :00 No 600mg 600 mg, Oral, ONCE, 1 dose, On Sat12/25/23 at 0315, GREGORIO [facility] iopamidol (ISOVUE 370-500 mL) injection 84 mL 12-18 23:10: 00 12-18 23:30 :00 No [id number] 84mL 84 mL, Intravenou s, ONCE, 1 dose, On Danielle 12/19/23 at 1830, Routine [facility] NaCl 0.9% (NS) bolus infusion 1,000 mL 12-18 21:30: 00 12-19 00:11 :00 No 1000mL at 999 mL/hr, 1,000 mL, IV Infusion, ONCE, 1 dose, On Danielle 12/19/23 at 1630, STAT [facility] famotidine (PEPCID (PF)) injection 20 mg 12-18 21:30: 00 12-18 22:43 :00 No 20mg 20 mg, Slow IV Push, ONCE, 1 dose, On Danielle 12/19/23 at 1630, GREGORIO [facility] diphenhydrA MINE:lidoca ine 2% viscous:maa lox 1:1:1 ([facility] oral suspension 15 mL 12-18 21:30: 00 12-18 22:45 :00 No 15mL 15 mL, Oral, ONCE, 1 dose, On Danielle 12/19/23 at 1630, Routine [facility] ondansetron (ZOFRAN (PF)) injection 4 mg 12-18 21:30: 00 12-18 22:41 :00 No 4mg 4 mg, Slow IV Push, ONCE, 1 dose, On Danielle 12/19/23 at 1630, GREGORIO [facility] sucralfate 1 gram tablet 12-18 00:00: 00 01-18 04:59 :00 No [id number] 1g Take 1 tablet by mouth before meals and at bedtime for 30 days. [facility] pantoprazol e (PROTONIX) 40 mg EC tablet 12-18 00:00: 00 01-18 04:59 :00 No [id number] 40mg Take 1 tablet by mouth in the morning for 30 days. [facility] acetaminoph en (TYLENOL) tablet 1,000 mg 11-07 07:45: 00 11-07 07:35 :00 No 1000mg 1,000 mg, Oral, ONCE, 1 dose, On Sat11/08/23 at 0245, Routine [facility] naproxen sodium 550 mg tablet 11-07 00:00: 00 Yes [id number] 550mg Take 1 tablet by mouth in the morning and 1 tablet in the evening. Take with meals. [facility] aspirin tablet 325 mg 10-20 04:00: 00 10-20 04:56 :00 No 325mg 325 mg, Oral, ONCE, 1 dose, On Sat10/20/23 at 2300, STAT [facility] NaCl 0.9% (NS) bolus infusion 1,000 mL 10-14 20:00: 00 10-14 21:32 :00 No 1000mL at 999 mL/hr, 1,000 mL, IV Infusion, ONCE, 1 dose, On Sat10/15/23 at 1500, GREGORIO [facility] Vital Signs Vital Name Observation Time Observation Value Comments S ource Systolic blood pressure 2024-08-14 01:54:00 107 mm[Hg] [facility] Diastolic blood pressure 2024-08-14 01:54:00 84 mm[Hg] [facility] Heart rate 2024-08-14 01:54:00 90 /min [facility] Body temperature 2024-08-14 01:54:00 37.72 Lulú [facility] Respiratory rate 2024-08-14 01:54:00 16 /min [facility] Oxygen saturation in Arterial blood by Pulse oximetry 2024-08-14 01:54:00 100 /min [facility] Body height 2024-08-13 23:36:00 177.8 cm [facility] Body weight 2024-08-13 23:36:00 109.77 kg [facility] BMI 2024-08-13 23:36:00 34.72 kg/m2 [facility] Systolic blood pressure 2024-07-02 06:00:00 138 mm[Hg] [facility] Diastolic blood pressure 2024-07-02 06:00:00 78 mm[Hg] [facility] Heart rate 2024-07-02 06:00:00 66 /min [facility] Respiratory rate 2024-07-02 06:00:00 16 /min [facility] Oxygen saturation in Arterial blood by Pulse oximetry 2024-07-02 06:00:00 99 /min [facility] Body temperature 2024-07-02 03:29:00 36.78 Lulú [facility] Body height 2024-07-02 03:29:00 177.8 cm [facility] Body weight 2024-07-02 03:29:00 114.306 kg [facility] BMI 2024-07-02 03:29:00 36.16 kg/m2 [facility] Systolic blood pressure 2024-05-27 05:35:00 120 mm[Hg] [facility] Diastolic blood pressure 2024-05-27 05:35:00 77 mm[Hg] [facility] Heart rate 2024-05-27 05:35:00 83 /min [facility] Body temperature 2024-05-27 05:35:00 37.06 Lulú [facility] Respiratory rate 2024-05-27 05:35:00 18 /min [facility] Oxygen saturation in Arterial blood by Pulse oximetry 2024-05-27 05:35:00 96 /min [facility] Body height 2024-05-27 03:58:00 177.8 cm [facility] Body weight 2024-05-27 03:58:00 111.585 kg [facility] BMI 2024-05-27 03:58:00 35.30 kg/m2 [facility] Systolic blood pressure 2024-05-04 18:50:00 135 mm[Hg] [facility] Diastolic blood pressure 2024-05-04 18:50:00 71 mm[Hg] [facility] Heart rate 2024-05-04 18:50:00 64 /min [facility] Body temperature 2024-05-04 18:50:00 36.78 Lulú [facility] Respiratory rate 2024-05-04 18:50:00 16 /min [facility] Oxygen saturation in Arterial blood by Pulse oximetry 2024-05-04 18:50:00 100 /min [facility] Body height 2024-05-04 16:07:00 177.8 cm [facility] Body weight 2024-05-04 16:07:00 117.482 kg [facility] BMI 2024-05-04 16:07:00 37.16 kg/m2 [facility] Systolic blood pressure 2024-01-23 03:30:00 137 mm[Hg] [facility] Diastolic blood pressure 2024-01-23 03:30:00 88 mm[Hg] [facility] Heart rate 2024-01-23 03:30:00 61 /min [facility] Respiratory rate 2024-01-23 03:30:00 16 /min [facility] Oxygen saturation in Arterial blood by Pulse oximetry 2024-01-23 03:30:00 98 /min [facility] Body temperature 2024-01-23 00:57:00 37.22 Lulú [facility] Body height 2024-01-23 00:57:00 177.8 cm [facility] Body weight 2024-01-23 00:57:00 130.772 kg [facility] BMI 2024-01-23 00:57:00 41.37 kg/m2 [facility] Systolic blood pressure 2023-12-25 08:02:00 140 mm[Hg] [facility] Diastolic blood pressure 2023-12-25 08:02:00 85 mm[Hg] [facility] Heart rate 2023-12-25 08:02:00 61 /min [facility] Body temperature 2023-12-25 08:02:00 36.72 Lulú [facility] Respiratory rate 2023-12-25 08:02:00 16 /min [facility] Body height 2023-12-25 08:02:00 177.8 cm [facility] Body weight 2023-12-25 08:02:00 117.935 kg [facility] BMI 2023-12-25 08:02:00 37.31 kg/m2 [facility] Oxygen saturation in Arterial blood by Pulse oximetry 2023-12-25 08:02:00 100 /min [facility] Systolic blood pressure 2023-12-20 00:20:00 126 mm[Hg] [facility] Diastolic blood pressure 2023-12-20 00:20:00 76 mm[Hg] [facility] Heart rate 2023-12-20 00:20:00 56 /min [facility] Respiratory rate 2023-12-20 00:20:00 16 /min [facility] Oxygen saturation in Arterial blood by Pulse oximetry 2023-12-20 00:20:00 99 /min [facility] Body temperature 2023-12-19 21:00:00 37.11 [facility] Body height 2023-12-19 21:00:00 177.8 cm [facility] Body weight 2023-12-19 21:00:00 117.935 kg [facility] BMI 2023-12-19 21:00:00 37.31 kg/m2 [facility] Systolic blood pressure 2023-11-08 08:00:00 127 mm[Hg] [facility] Diastolic blood pressure 2023-11-08 08:00:00 82 mm[Hg] [facility] Heart rate 2023-11-08 08:00:00 71 /min [facility] Body temperature 2023-11-08 08:00:00 37.11 [facility] Respiratory rate 2023-11-08 08:00:00 14 /min [facility] Oxygen saturation in Arterial blood by Pulse oximetry 2023-11-08 08:00:00 98 /min [facility] Body height 2023-11-08 06:55:00 177.8 cm [facility] Body weight 2023-11-08 06:55:00 122.471 kg [facility] BMI 2023-11-08 06:55:00 38.74 kg/m2 [facility] Systolic blood pressure 2023-10-21 06:25:00 124 mm[Hg] [facility] Diastolic blood pressure 2023-10-21 06:25:00 71 mm[Hg] [facility] Heart rate 2023-10-21 06:25:00 68 /min [facility] Body temperature 2023-10-21 06:25:00 37.06 Lulú [facility] Respiratory rate 2023-10-21 06:25:00 18 /min [facility] Oxygen saturation in Arterial blood by Pulse oximetry 2023-10-21 06:25:00 98 /min [facility] BMI 2023-10-21 03:54:00 38.61 kg/m2 [facility] Body height 2023-10-21 03:54:00 177.8 cm [facility] Body weight 2023-10-21 03:54:00 122.063 kg [facility] Systolic blood pressure 2023-10-15 21:42:00 117 mm[Hg] [facility] Diastolic blood pressure 2023-10-15 21:42:00 78 mm[Hg] [facility] Heart rate 2023-10-15 21:42:00 67 /min [facility] Body temperature 2023-10-15 21:42:00 36.94 Lulú [facility] Respiratory rate 2023-10-15 21:42:00 16 /min [facility] Oxygen saturation in Arterial blood by Pulse oximetry 2023-10-15 21:42:00 99 /min [facility] Body height 2023-10-15 18:57:00 177.8 cm [facility] Body weight 2023-10-15 18:57:00 120.203 kg [facility] BMI 2023-10-15 18:57:00 38.02 kg/m2 [facility] Systolic blood pressure 2023-08-16 02:23:00 140 mm[Hg] [facility] Diastolic blood pressure 2023-08-16 02:23:00 81 mm[Hg] [facility] Heart rate 2023-08-16 02:23:00 68 /min [facility] Body temperature 2023-08-16 02:23:00 37 Lulú [facility] Respiratory rate 2023-08-16 02:23:00 18 /min [facility] Oxygen saturation in Arterial blood by Pulse oximetry 2023-08-16 02:23:00 100 /min [facility] Body height 2023-08-16 00:54:00 177.8 cm [facility] Body weight 2023-08-16 00:54:00 117.935 kg [facility] BMI 2023-08-16 00:54:00 37.31 kg/m2 [facility] Systolic blood pressure 2023-08-15 07:00:00 120 mm[Hg] [facility] Diastolic blood pressure 2023-08-15 07:00:00 78 mm[Hg] [facility] Heart rate 2023-08-15 07:00:00 81 /min [facility] Respiratory rate 2023-08-15 07:00:00 12 /min [facility] Oxygen saturation in Arterial blood by Pulse oximetry 2023-08-15 07:00:00 97 /min [facility] Body temperature 2023-08-15 05:11:00 36.72 Lulú [facility] Body height 2023-08-15 05:11:00 177.8 cm [facility] Body weight 2023-08-15 05:11:00 117.935 kg [facility] BMI 2023-08-15 05:11:00 37.31 kg/m2 [facility] Systolic blood pressure 2021-10-30 18:29:00 152 mm[Hg] [facility] Diastolic blood pressure 2021-10-30 18:29:00 92 mm[Hg] [facility] Heart rate 2021-10-30 18:29:00 102 /min [facility] Body temperature 2021-10-30 18:29:00 38.06 Lulú [facility] Respiratory rate 2021-10-30 18:29:00 18 /min [facility] Body weight 2021-10-30 18:29:00 113.399 kg [facility] Oxygen saturation in Arterial blood by Pulse oximetry 2021-10-30 18:29:00 99 /min [facility] Procedures Procedure Date / Time Performed Performing Clinician Source RAPID STREP SCREEN FOR GROUP A 2024-08-13 23:49:00 Trevor [facility] INFLUENZA A/B RSV COVID NAAT 2024-08-13 23:49:00 Trevor [facility] TROPONIN I 2024-07-02 04:03:00 Singer [facility] COMP. METABOLIC PANEL ([id number]) 2024-07-02 04:03:00 Mcgill [facility] CBC WITH DIFF 2024-07-02 04:03:00 [facility] URINALYSIS 2024-05-27 04:08:00 Lincoln Jain [facility] RAPID STREP SCREEN FOR GROUP A 2024-05-27 04:08:00 Lincoln Jain [facility] INFLUENZA A/B RSV COVID NAAT 2024-05-27 04:08:00 [facility] EKG-12 LEAD 2023-12-25 09:03:09 Katelyn Gamboa [facility] CT ABDOMEN PELVIS W CONTRAST 2023-12-19 23:15:41 Mian Ross [facility] LIPASE 2023-12-19 22:31:00 [facility]as [facility] TROPONIN I 2023-12-19 22:31:00 Ross Pappas [facility] COMP. METABOLIC PANEL ([id number]) 2023-12-19 22:31:00 Mian Ross [facility] CBC WITH DIFF 2023-12-19 22:31:00 Ross Pappas [facility] URINALYSIS 2023-12-19 22:31:00 Ross [facility]appas [facility] EKG-12 LEAD 2023-11-08 08:01:34 [facility] 2023-11-08 07:35:00 [facility] TROPONIN I 2023-11-08 07:30:[address] [facility] COMP. METABOLIC PANEL ([id number]) 2023-11-08 07:30:00 Micheal Alston [facility] CBC WITH DIFF 2023-11-08 07:30:00 Micheal Alston [facility] N-TERMINAL PRO-BNP 2023-11-08 07:30:00 Sallie Alston [facility] EKG-12 LEAD 2023-10-21 06:36:[address] [facility] TROPONIN I 2023-10-21 05:03:[address] [facility] COMP. METABOLIC PANEL ([id number]) 2023-10-21 05:03:00 Micheal Alston [facility] CBC WITH DIFF 2023-10-21 05:03:00 Micheal Alston [facility] N-TERMINAL PRO-BNP 2023-10-21 05:03:00 Sallie Alston [facility] URINE DRUG (IMMUNOASSAY) - COMPREHENSIVE DRUG SCREEN W/O REFLEX 2023-10-21 05:03:00 Micheal Alston [facility] XR CHEST 1 VW 2023-10-21 04:10:03 Micheal Alston [facility] CBC WITH DIFF 2023-10-15 19:40:00 Katelyn Gamboa [facility] MAGNESIUM 2023-10-15 19:39:[address] [facility] COMP. METABOLIC PANEL ([id number]) 2023-10-15 19:39:00 Katelyn Gamboa [facility] URINALYSIS 2023-10-15 19:39:00 [facility] 2023-08-16 02:21:53 Krupa Grant [facility] THYROID STIMULATING HORMONE 2023-08-15 05:50:00 Krupa Grant [facility] BASIC METABOLIC PANEL (NA, K, CL, CO2, GLUCOSE, BUN, CREATININE, CA) 2023-08-15 05:50:00 Krupa Grant [facility] CBC WITH DIFF 2023-08-15 05:50:00 Krupa Grant [facility] NOTICE OF PRIVACY PRACTICES 2021-10-30 18:55:34 Doctor Unassigned, [place] [facility] URINALYSIS 2021-10-30 18:32:00 Katelyn Gamboa [facility] COVID-19 (ID NOW RAPID TESTING) 2021-10-30 18:32:00 Katelyn Gamboa [facility] CONSENT/REFUSAL FOR DIAGNOSIS AND TREATMENT 2021-10-30 18:25:30 Doctor Unassigned, [place] [facility] Encounters Start Date/Time End Date/Time Encounter Type Admission Type Attending [facility] Facility Care Department Encounter ID Source 2024-07-08 16:41:00 Outpatient No PCP, for now [facility] [id number] [place] [facility] 2024-06-30 09:38:01 Outpatient No PCP, for now [facility] [id number] [facility] 2024-08-13 18:37:00 2024-08-13 21:04:00 Emergency X EZ MEIER [facility] ERT [id number] [facility] 2024-08-13 18:37:00 2024-08-13 21:04:00 Emergency Ez Meier [facility] [id number] 350.1.13.10 [id number] [id number] [facility] 2024-08-11 14:29:24 2024-08-11 16:23:30 Outpatient Elective MHEOUT MHEOUT [id number] [facility]OUT 2024-07-01 21:32:00 2024-07-02 00:01:00 Emergency OPHELIA GUERRERO PHILLIP [facility] ERT [id number] [facility] 2024-07-01 21:32:00 2024-07-02 00:01:00 Emergency Ophelia Mcgill [facility] [id number] 350.1.13.10 4.2.7.2.686 [id number] [facility] 2024-05-26 22:02:00 2024-05-26 23:39:00 Emergency X LINCOLN JAIN [facility] ERT [id number] [facility] 2024-05-26 22:02:00 2024-05-26 23:39:00 Emergency Lincoln Jain [facility] [id number] 350.1.13.10 4.2.7.2.686 [id number] [facility] 2024-05-04 10:12:00 2024-05-04 12:55:00 Emergency KEISHA SHOOK WHITNEY [facility] ERT [id number] [facility] 2024-05-04 10:12:00 2024-05-04 12:55:00 Emergency Keisha Glez [facility] [id number] 350.1.13.10 4.2.7.2.686 [id number] [facility] 2024-01-22 20:00:00 2024-01-22 22:41:00 Emergency X KRUPA GRANT WAKILI [facility] ERT [id number] [facility] 2024-01-22 20:00:00 2024-01-22 22:41:00 Emergency Krupa Grant [facility] 1.84.114 350.1.13.10 4.2.7.2.686 [id number] [facility] 2023-12-25 03:08:00 2023-12-25 04:02:00 Emergency X BEELELANDKATELYN MARTINI [facility] ERT [id number] [facility] 2023-12-25 03:08:00 2023-12-25 04:02:00 Emergency Katelyn Gamboa [facility] [id number] 350.1.13.10 4.2.7.2.686 [id number] [facility] 2023-12-20 00:00:00 2023-12-20 13:28:30 Letter (Out) Clinic, Gastroenter ology Clinic, Gastroenter ology [facility] [id number] 350.1.13.10 4.2.7.2.686 [id number] [facility] 2023-12-19 16:10:00 2023-12-19 19:22:00 Emergency X ROSS PAPPAS MARYANN [facility] ERT [id number] [facility] 2023-12-19 16:10:00 2023-12-19 19:22:00 Emergency Mian Ross [facility] [id number] 350.1.13.10 4.2.7.2.686 [id number] [facility] 2023-11-08 01:59:00 2023-11-08 03:29:00 Emergency Micheal Alston Wakili S [facility] [id number] 350.1.13.10 4.2.7.2.686 [id number] [facility] 2023-10-20 22:56:00 2023-10-21 01:35:00 Emergency X MICHEAL ALSTON [facility] ERT [id number] [facility] 2023-10-20 22:56:00 2023-10-21 01:35:00 Emergency Micheal Alston [facility] [id number] 350.1.13.10 4.2.7.2.686 [id number] [facility] 2023-10-15 13:58:00 2023-10-15 16:46:00 Emergency X KATELYN GAMBOA [facility] ERT [id number] [facility] 2023-10-15 13:58:00 2023-10-15 16:46:00 Emergency Katelyn Gamboa [facility] [id number] 350.1.13.10 4.2.7.2.686 [id number] [facility] 2023-08-15 19:56:00 2023-08-15 21:34:00 Emergency X KRUPA GRANT [facility] [facility] E[facility] [id number] [facility] 2023-08-15 19:56:00 2023-08-15 21:34:00 Emergency Krupa Garnt [facility] 1.2.840.114 350.1.13.10 [id number] [id number] [facility] 2023-08-15 00:13:00 2023-08-15 02:21:00 Emergency Krupa Grant [facility] 1.2.840.114 350.1.13.10 4.2.7.2.686 [id number] [facility] 2023-02-06 13:11:04 2023-02-06 13:11:04 Outpatient SFA [facility] [id number] Alexx Medrano 2022-10-03 10:29:27 2022-10-03 10:29:27 Outpatient SFA [facility] [id number] Alexx Medrano 2021-10-30 13:29:00 2021-10-30 14:24:00 Emergency Katelyn Gamboa [facility] 1.2.840.114 350.1.13.10 4.2.7.2.686 [id number] [facility] 2021-10-30 13:29:00 2021-10-30 14:24:00 Emergency X KATELYN GAMBOA [facility] ERT [id number] [facility] 2020-06-28 11:27:00 2020-06-28 16:16:00 Emergency E TRACIAURY ROSENBAUM [facility] MHBL 7500 MHBL Results Test Description Test Time Test Comments Results Result Co mments Source [facility] (42164)2024-07-02 04:28:01* Test Item Value Reference Range Interpretation Comme nts NA (test code = 7708452308) 137 mmol/L 135-145 K (test code = 1645176295) 4.1 mmol/L 3.5-5.0 CL (test code = 8417666618) 102 mmol/L 98-108 CO2 TOTAL (test code = 5739286094) 26 mmol/L 23-31 AGAP (test code = 7708282120) 9 2-16 BUN (test code = 2883617195) 23 mg/dL 7-23 GLUCOSE (test code = 7319986290) 110 mg/dL 70-110 CREATININE (test code = 2160-0) 0.88 mg/dL 0.60-1.25 TOTAL BILI (test code = 6422788762) 0.7 mg/dL 0.1-1.1 CALCIUM (test code = 5736156261) 9.1 mg/dL 8.6-10.6 T PROTEIN (test code = 5201489878) 7.8 g/dL 6.3-8.2 ALBUMIN (test code = 2436810070) 4.8 g/dL 3.5-5.0 ALK PHOS (test code = 1543309677) 63 U/L 34-122 ALTv (test code = 1742-6) 18 U/L 5-50 AST(SGOT) (test code = 2159664683) 24 U/L 13-40 eGFR (test code = 56736-7) 118.6 mL/min/1.73m2 CKD-EPI eGFR (20 21). Assuming creatinine has been stable day-to-day for at least three months, the eGFR indicates Category G1 (>= 90 mL/min/1.73 m2) [facility] with [id number] 04:17:37* Test Item Value Reference Range Interpretation [...] 35.0 g/dL 31.2-35.0 RDW-SD (test code = 09410-4) 40.0 fL 38.5-51.6 RDW-CV (test code = 788-0) 12.9 % 12.1-15.4 PLT (test code = 777-3) 259 150-328 MPV (test code = 11540-1) 10.2 fL 9.8-13.0 NRBC/100 WBC (test code = 8224270579) 0.0 0.0-10.0 NRBC x10^3 (test code = 0594092447) See_Comment [Automated me ssage] The system which generated this result transmitted reference range: 10*3/?L. The reference range was not used to interpret this result as normal/abnormal. GRAN MAT (NEUT) % (test code = 770-8) 56.7 % IMM GRAN % (test code = 5306183705) 0.20 % LYMPH % (test code = 736-9) 35.2 % MONO % (test code = 5905-5) 5.6 % EOS % (test code = 713-8) 1.7 % BASO % (test code = 706-2) 0.6 % GRAN MAT x10^3(ANC) (test code = 9285621928) 4.72 10*3/uL 1.99-6.95 IMM GRAN x10^3 (test code = 4013011507) 0.00-0.06 LYMPH x10^3 (test code = 731-0) 2.93 10*3/uL 1.09-3.23 MONO x10^3 (test code = 742-7) 0.47 10*3/uL 0.36-1.02 EOS x10^3 (test code = 711-2) 0.14 10*3/uL 0.06-0.53 BASO x10^3 (test code = 704-7) 0.05 10*3/uL 0.01-0.09 [facility] [id number] 23:55:02EXAM: CT ABDOMEN PELVIS W CONTRAST 12/19/2023 [...] is visualized. 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 Lab Interpretation (test code = 61595-5) Normal [facility] (23086)2023-12-19 23:10:25* Test Item Value Reference Range Interpretation Comme nts NA (test code = 3651224339) 137 mmol/L 135-145 K (test code = 6249319128) 3.9 mmol/L 3.5-5.0 CL (test code = 5003846310) 100 mmol/L 98-108 CO2 TOTAL (test code = 1798364446) 27 mmol/L 23-31 AGAP (test code = 9848546918) 10 2-16 BUN (test code = 9455189537) 13 mg/dL 7-23 GLUCOSE (test code = 5152333408) 95 mg/dL 70-110 CREATININE (test code = 2160-0) 0.75 mg/dL 0.60-1.25 TOTAL BILI (test code = 1483202246) 0.9 mg/dL 0.1-1.1 CALCIUM (test code = 6322975405) 9.0 mg/dL 8.6-10.6 T PROTEIN (test code = 2774962854) 8.3 g/dL 6.3-8.2 H ALBUMIN (test code = 6919021937) 4.7 g/dL 3.5-5.0 ALK PHOS (test code = 8202926925) 65 U/L 34-122 ALTv (test code = 1742-6) 24 U/L 5-50 AST(SGOT) (test code = 6566852070) 27 U/L 13-40 eGFR (test code = 27899-7) 125.3 mL/min/1.73m2 CKD-EPI eGFR (2020). Assuming creatinine has been stable day-to-day for at least three months, the eGFR indicates Category G1 (>= 90 mL/min/1.73 m2) Lab Interpretation (test code = 78975-4) [facility]normal [facility] 23:10:05* Test Item Value Reference Range Interpretation Comme nts LIPASE (test code = 0116872604) 67 U/L 0-220 Lab Interpretation (test cod e = 49091-8) Normal [facility] WITH [id number] 22:53:21* Test Item Value Reference Range Interpretation [...] g/dL 31.2-35.0 H RDW-SD (test code = 69042-9) 39.5 fL 38.5-51.6 RDW-CV (test code = 788-0) 12.8 % 12.1-15.4 PLT (test code = 777-3) 252 150-328 MPV (test code = 12301-6) 10.2 fL 9.8-13.0 NRBC/100 WBC (test code = 6777751624) 0.0 0.0-10.0 NRBC x10^3 (test code = 3174055542) See_Comment [Automated messa ge] The system which generated this result transmitted reference range: 10*3/?L. The reference range was not used to interpret this result as normal/abnormal. GRAN MAT (NEUT) % (test code = 770-8) 62.9 % IMM GRAN % (test code = 3256940716) 0.40 % LYMPH % (test code = 736-9) 27.5 % MONO % (test code = 5905-5) 6.6 % EOS % (test code = 713-8) 2.1 % BASO % (test code = 706-2) 0.5 % GRAN MAT x10^3(ANC) (test code = 7147207084) 4.74 10*3/uL 1.99-6.95 IMM GRAN x10^3 (test code = 6725424219) 0.03 10*3/uL 0.00-0.06 LYMPH x10^3 (test code = 731-0) 2.08 10*3/uL 1.09-3.23 MONO x10^3 (test code = 742-7) 0.50 10*3/uL 0.36-1.02 EOS x10^3 (test code = 711-2) 0.16 10*3/uL 0.06-0.53 BASO x10^3 (test code = 704-7) 0.04 10*3/uL 0.01-0.09 Lab Interpretation (test code = 21795-5) Abnormal [facility] [id number] 08:11:40* Test Item Value Reference Range Interpretation Comme nts TROPONIN I (test code = 1888423611) 0.001 ng/mL <=0.034 BERTRAND (test code = [...] of biotin. Lab Interpretation (test code = 53817-6) Normal [facility] [id number] 08:08:59* Test Item Value Reference Range Interpretation Comme nts NT-proBNP (test code = 34785-9) 25 pg/mL <=125 Lab Interpretation (test cod e = 64237-3) Normal [facility] (77698)2023-11-08 08:00:01* Test Item Value Reference Range Interpretation Comme nts NA (test code = 7611603956) 138 mmol/L 135-145 K (test code = 1090920412) 3.6 mmol/L 3.5-5.0 CL (test code = 6202103508) 103 mmol/L 98-108 CO2 TOTAL (test code = 4122709487) 27 mmol/L 23-31 AGAP (test code = 4209011103) 8 2-16 BUN (test code = 4027257092) 20 mg/dL 7-23 GLUCOSE (test code = 4727600936) 107 mg/dL 70-110 CREATININE (test code = 2160-0) 0.76 mg/dL 0.60-1.25 TOTAL BILI (test code = 2592603833) 0.6 mg/dL 0.1-1.1 CALCIUM (test code = 9123401069) 9.2 mg/dL 8.6-10.6 T PROTEIN (test code = 4461783456) 8.0 g/dL 6.3-8.2 ALBUMIN (test code = 1782556197) 4.6 g/dL 3.5-5.0 ALK PHOS (test code = 3772336177) 86 U/L 34-122 ALTv (test code = 1742-6) 24 U/L 5-50 AST(SGOT) (test code = 7422964651) 25 U/L 13-40 eGFR (test code = 84418-3) 124.8 mL/min/1.73m2 CKD-EPI eGFR (20 21). Assuming creatinine has been stable day-to-day for at least three months, the eGFR indicates Category G1 (>= 90 mL/min/1.73 m2) [facility] WITH [id number] 07:47:18* Test Item Value Reference Range Interpretation [...] 34.8 g/dL 31.2-35.0 RDW-SD (test code = 96173-6) 39.2 fL 38.5-51.6 RDW-CV (test code = 788-0) 12.6 % 12.1-15.4 PLT (test code = 777-3) 256 150-328 MPV (test code = 44182-5) 9.9 fL 9.8-13.0 NRBC/100 WBC (test code = 1179078319) 0.0 0.0-10.0 NRBC x10^3 (test code = 1357662948) See_Comment [Automated messa ge] The system which generated this result transmitted reference range: 10*3/?L. The reference range was not used to interpret this result as normal/abnormal. GRAN MAT (NEUT) % (test code = 770-8) 61.6 % IMM GRAN % (test code = 1296977513) 0.70 % LYMPH % (test code = 736-9) 30.0 % MONO % (test code = 5905-5) 5.2 % EOS % (test code = 713-8) 2.1 % BASO % (test code = 706-2) 0.4 % GRAN MAT x10^3(ANC) (test code = 5298524939) 6.20 10*3/uL 1.99-6.95 IMM GRAN x10^3 (test code = 5748050076) 0.07 10*3/uL 0.00-0.06 H LYMPH x10^3 (test code = 731-0) 3.02 10*3/uL 1.09-3.23 MONO x10^3 (test code = 742-7) 0.52 10*3/uL 0.36-1.02 EOS x10^3 (test code = 711-2) 0.21 10*3/uL 0.06-0.53 BASO x10^3 (test code = 704-7) 0.04 10*3/uL 0.01-0.09 Lab Interpretation (test code = 30206-9) Abnormal [facility] [id number] 05:52:17* Test Item Value Reference Range Interpretation Comme nts NT-proBNP (test code = 22419-3) <=125 Lab Interpretation (test cod e = 61000-0) Normal [facility] [id number] 05:51:07* Test Item Value Reference Range Interpretation Comme nts TROPONIN I (test code = 6527366755) 0.003 ng/mL <=0.034 BERTRAND (test code = [...] of biotin. Lab Interpretation (test code = 56194-4) Normal [facility]OLIC PANEL (71972)2023-10-21 05:33:27* Test Item Value Reference Range Interpretation Comme nts NA (test code = 7303351531) 141 mmol/L 135-145 K (test code = 2561595208) 3.9 mmol/L 3.5-5.0 CL (test code = 8073956309) 105 mmol/L 98-108 CO2 TOTAL (test code = 2070756133) 26 mmol/L 23-31 AGAP (test code = 2680885021) 10 2-16 BUN (test code = 0090793137) 21 mg/dL 7-23 GLUCOSE (test code = 2652522579) 98 mg/dL 70-110 CREATININE (test code = 2160-0) 0.73 mg/dL 0.60-1.25 TOTAL BILI (test code = 1937713341) 0.6 mg/dL 0.1-1.1 CALCIUM (test code = 8852065022) 8.8 mg/dL 8.6-10.6 T PROTEIN (test code = 1037469149) 7.8 g/dL 6.3-8.2 ALBUMIN (test code = 2637735855) 4.3 g/dL 3.5-5.0 ALK PHOS (test code = 1797539370) 64 U/L 34-122 ALTv (test code = 1742-6) 24 U/L 5-50 AST(SGOT) (test code = 5307376906) 27 U/L 13-40 eGFR (test code = 20850-5) 126.3 mL/min/1.73m2 CKD-EPI eGFR (20 21). Assuming creatinine has been stable day-to-day for at least three months, the eGFR indicates Category G1 (>= 90 mL/min/1.73 m2) [facility] WITH [id number] 05:16:49* Test Item Value Reference Range Interpretation [...] 34.5 g/dL 31.2-35.0 RDW-SD (test code = 52125-9) 39.6 fL 38.5-51.6 RDW-CV (test code = 788-0) 12.7 % 12.1-15.4 PLT (test code = 777-3) 258 150-328 MPV (test code = 04619-2) 10.0 fL 9.8-13.0 NRBC/100 WBC (test code = 8387326812) 0.0 0.0-10.0 NRBC x10^3 (test code = 9757061696) See_Comment [Automated me ssage] The system which generated this result transmitted reference range: 10*3/?L. The reference range was not used to interpret this result as normal/abnormal. GRAN MAT (NEUT) % (test code = 770-8) 66.6 % IMM GRAN % (test code = 5708133624) 0.40 % LYMPH % (test code = 736-9) 25.0 % MONO % (test code = 5905-5) 5.5 % EOS % (test code = 713-8) 2.2 % BASO % (test code = 706-2) 0.3 % GRAN MAT x10^3(ANC) (test code = 2767984878) 6.12 10*3/uL 1.99-6.95 IMM GRAN x10^3 (test code = 3568463386) 0.04 10*3/uL 0.00-0.06 LYMPH x10^3 (test code = 731-0) 2.30 10*3/uL 1.09-3.23 MONO x10^3 (test code = 742-7) 0.51 10*3/uL 0.36-1.02 EOS x10^3 (test code = 711-2) 0.20 10*3/uL 0.06-0.53 BASO x10^3 (test code = 704-7) 0.03 10*3/uL 0.01-0.09 [facility] 1 [id number] 04:54:16Exam: Chest (1 View), 10/20/2023 11:00 PM. Ordering Physician: MICHEAL ALSTON. History: Chest pain. Technique: AP view of the chest. Technical Quality: Adequate. Comparison: None. Findings: Normal cardiac silhouette size and pulmonary vascularity. ?No airspaceconsolidation, pleural effusion, or pneumothorax. No acute osseous abnormality.[facility] Notes Date/Time Note Provider Source 2024-08-13 21:04:07 Patient given printed and verbal discharge instructions. Pt and/or family understanding of instructions, pt stable upon discharge, and encouraged to follow up with pcp and/or specialist. Advised to seek medical attention for new/prolonged/worsening of symptoms. Bennie Wood RN [facility] 2024-08-13 18:34:55 CC: patient presents to the ER with complaints of fever that began yesterday with a sore throat this morning. Patient has been taking tylenol for symptoms. Awake, alert, oriented, resp reg unlabored, skin warm and dry, color appropriate for race, moves all ext without difficulty, amb without assistance. Appears in no distress. Cristal Stoll RN [facility] 2024-07-02 00:00:36 Pt given printed and verbal [...] without assist, in no apparent distress, E TESTER Elmer Barahona RN [facility] 2024-07-01 21:26:43 Pt in wheelchair to triage for CC of dizziness and weakness. Pt states he was sitting on the couch 10-15 min [employer]ER and began to feel very dizzy, weak and had blurred vision. Pt states his heart rate jumped up to 135 bpm. Pt reports hx of panic attacks and anxiety. Pt denies any vision changes currently. E TESTER Mitchell Melo RN [facility] 2024-05-26 23:37:26 Pt given printed and [...] in no apparent distress, E Resendiz RN [facility] 2024-05-26 21:53:45 Pt arrives ambulatory to ED c/o epigastric and back pain, coughing, nausea, decreased appetite, pain with inspiration, and low grade fever, x2 days. E Gamboa RN [facility] 2024-05-04 12:53:30 Patient is awake and alert, oriented x4. Speech is clear and appropriate. Respirations even and unlabored, no distress. Ambulatory with a steady gait. Reviewed discharge instructions, follow-up care, and RX with patient, verbalizes understanding. [facility] Branden Guo RN [facility] 2024-05-04 10:06:54 Patient states that he woke up this morning and had a cough. Experience pain afterwards in the left side of the chest. Patient states that he had a cough recently. [facility] 2024-01-22 22:39:53 Pt given printed and [...] in no apparent distress. Keyana Virk RN [facility] 2024-01-22 22:38:23 . Franky Akbar RN [facility] 2024-01-22 19:56:11 Pt states this after around 1400 he felt like he was having palpations and than this afternoon he felt like his heart was skipping a beat T [facility] 2023-12-25 04:02:00 Pt given printed and [...] with steady gait, in no apparent distress. [facility] 2023-12-25 03:00:31 CC: Chest wall pain since last night. Pt states the pain went away, then a sharp pain began again and woke him up from his sleep. Pt reports recent cough. Pharmacy - [facility] in [place] Awake, alert, oriented, resp reg unlabored, skin intact, color appropriate for race, moves all ext without difficulty, amb without assistance AT Yazmin Manriquez RN [facility] 2023-12-25 02:56:00 Associated Order(s): EKG-12 Lead ROUTINE ONCE Pre-Procedure Diagnose(s): Chest pain, unspecified type Post-Procedure Diagnose(s): Chest pain, unspecified type [facility] Emergency Department Note Patient Name: Danny Ferreira Date of : 1995 28 year old male Treatment Room: Room/bed info not found Primary Care Physician: PATIENT DOES NOT HAVE A PCP Patient Escorted by: Self [9] Mode of Arrival: Personal means [1] EMS Treatment Prior to ED Arrival: [employer] treatment: None Travel and Exposure Screening: Symptoms [...] Medical Screening Begins KATELYN GAMBOA DO -- 12/25/238 First Provider Evaluation KATELYN GAMBOA DO -- ED COURSE Diagnosis/Impression as of 12/25/23 0403 Chest pain, unspecified type Procedures: EKG-12 Lead ROUTINE ONCE Date/Time: 12/25/2023 3:09 AM Performed by: Katelyn Gamboa DO Authorized by: Katelyn Gamboa DO ECG interpreted by ED Physician in the absence of a nursing department chairperson: yes Interpretation: Interpretation: normal Rate: ECG rate: [...] Follow-up: Electronically signed by: Katelyn Gamboa DO 12/25/23 0403 [facility] 2023-12-19 19:21:14 Pt given printed and [...] in no apparent distress. Keyana Virk RN [facility] 2023-12-19 16:00:00 Patient states: "I've been having burning sensation in my gut since 2-3 days now. I vomited yesterday but not today." NRS 4/10, no pain meds taken today. Selina Herrera RN [facility] 2023-11-08 03:28:26 Pt given printed and [...] in no apparent distress, Brenda Resendiz RN [facility] 2023-11-08 03:18:24 [facility] ED Transfer of Care Note. [...] N-TERMINAL PRO-BNP - Normal COMP. METABOLIC PANEL (17845) XR CHEST 2 VW Preliminary Result No [...] Disch - Home Condition Stable Comment -- [facility] 2023-11-08 01:53:28 Pt arrived with c/o chest pain, neck pain, and headache for 1 week. Pt states he was asleep, and the headache woke him up. Yazmin Manriquez RN [facility] 2023-10-21 01:29:00 Awake, alert oriented X4, [...] with steady gait AT Queenie Ramirez RN [facility] 2023-10-20 22:52:29 Pt arrived with c/o chest pain, palpitations and headache that began 10 ago. Denies SOB, drugs/alcohol use today Cardiac hx: PVC Yazmin Manriquez RN [facility] - Health 2023-10-20 22:42:00 Associated Order(s): EKG-12 Lead ROUTINE ONCE Pre-Procedure Diagnose(s): Chest pain, unspecified type Post-Procedure Diagnose(s): Chest pain, unspecified type [facility] Emergency Department Note Patient Name: Danny Ferreira Date of : 1995 28 year old male Treatment Room: [place] [address] Primary Care Physician: PATIENT DOES NOT HAVE [...] palpitations and headache that started 10 minutes [employer]ER. He rated his pain a 2 on [...] vomiting or diarrhea. History provided by: Patient spanish interpreter used: No Past Medical History/Immunizations: History reviewed. [...] Endocrine negative Physical Exam: ED Triage Vitals [10/20/234] Weight 122.1 kg (269 lb 1.6 oz) [...] DRUG SCREEN W/O REFLEX COMP. METABOLIC PANEL (23726) TROPONIN I N-TERMINAL PRO-BNP Orders Placed This Encounter Medications aspirin tablet 325 mg First Provider Eval: ED Events Date/Time Event User Comments 06/2246 Medical Screening Begins [employer], JUBRIL O -- 10/20/232246 First Provider Evaluation MICHEAL ALSTON NP -- ED COURSE Labs, chest x-ray, ECG, Aspirin ED Course as of 10/21/23 0102 SatOct 21, 2023 0006 Impression: No acute intrathoracic disease. [JA] ED Course User Index [JA] Micheal Alston NP Diagnosis/Impression as of 10/21/23101 Chest pain, unspecified type Acute nonintractable headache, unspecified headache type Procedures: EKG-12 Lead ROUTINE ONCE Date/Time: 10/21/2023 12:12 AM Performed by: Micheal Alston NP Authorized by: Micheal Alston NP ECG interpreted by ED Physician in the absence of a nursing department chairperson: yes Previous ECG: Previous ECG: Unavailable Interpretation: [...] palpitations and headache that started 10 minutes [employer]ER. He rated his pain a 2 on [...] palpitations and headache that started 10 minutes [employer]ER. He rated his pain a 2 on [...] this Patient evaluation/encounter by JULES Gamaliel " [facility] 2023-10-15 16:46:00 Pt given printed and [...] in no apparent distress, Marci Ortiz RN [facility] 2023-10-15 13:56:41 Patient arrived ambulatory with steady gait via private care c/o of dizziness, weakness, loss of appetite, nausea, and diarrhea starting Saturday. Melissa Scott RN [facility] 2023-10-15 13:39:00 [facility] Emergency Department Note Patient Name: Danny Ferreira Date of : 1995 28 year old male Treatment [facility] Primary Care Physician: PATIENT DOES NOT HAVE A PCP Patient Escorted by: Self [9] Mode of Arrival: Personal means [1] EMS Treatment Prior to ED Arrival: [employer]ER treatment: None Travel and Exposure Screening: Symptoms [...] 0.01 - 0.09 10*3/uL COMP. METABOLIC PANEL (82941) - Abnormal NA 144 135 - 145 [...] Procedures CBC WITH DIFF COMP. METABOLIC PANEL (94593) Magnesium URINALYSIS Orders Placed This Encounter Medications [...] signed by: Katelyn Gamboa DO 10/15/23 1641 [facility] 2023-08-15 21:24:32 Pt given printed and verbal [...] with steady gait, in no apparent distress, [facility] 2023-08-15 19:51:28 Pt arrived ambulatory with girlfriend (Ju) , okay to discuss medical care in front of girlfriend. Pt states " So my heart rate has been high like 115, I have been shaky, I feel like my ears and head are clogged up. I have jerzy been having diarrhea." Brenda Resendiz RN [facility] 2023-08-15 19:48:00 Associated Order(s): EKG-12 Lead ROUTINE ONCE Pre-Procedure Diagnose(s): Palpitations Post-Procedure Diagnose(s): Palpitations [facility] Emergency Department Note Patient Name: Danny Ferreira Date of : 1995 28 year old male Treatment Room: [place] [address] Primary Care Physician: PATIENT DOES NOT HAVE A PCP Patient Escorted by: Friend [6] Mode of Arrival: Personal means [1] EMS Treatment Prior to ED Arrival: [employer]ER treatment: None Travel and Exposure Screening: Symptoms [...] by: Patient, medical records and significant other spanish interpreter used: No Palpitations Palpitations quality: Regular Onset [...] ED Physician in the absence of a nursing department chairperson: yes Previous ECG: Previous ECG: Compared to [...] Electronically signed by: Krupa Grant MD 08/15/232120 [facility] [employer] 2023-08-15 02:20:50 Awake, alert oriented X4, respiratory [...] noted upon discharge Pt ambulated to [facility] with steady gait Queenie Ramirez RN [facility] 2023-08-15 00:10:25 Pt stated he woke up and his heart rate was in 140's. Didn't feel well when he went to sleep. Had a headache when he went to bed, denies pain at this time. Pearl Vazquez RN [facility]
--- NOTE | 2024-08-14 02:24 | ER ---
Nurse's Notes [facility] Name: Eliseo Odonnell Age: 29 yrs Sex: Male : 1995 Arrival Date: 08/14/2024 Time: 01:34 Bed 20 Private MD: Diagnosis: Abdominal pain Presentation: 08/14 02:09 Chief complaint: Patient states: had mri done on Saturday, states he started to spike a al5 fever at 1500 yesterday along with abdominal pain at 1900. Coronavirus screen: At this time, the client does not indicate any symptoms associated with coronavirus-19. Ebola Screen: No symptoms or risks identified at this time. Initial Sepsis Screen: Does the patient meet any 2 criteria? HR > 90 bpm. No. Patient's initial sepsis screen is negative. Does the patient have a suspected source of infection? No. Patient's initial sepsis screen is negative. Risk Assessment: Do you want to hurt yourself or someone else? Patient reports no desire to harm self or others. Onset of symptoms was August 13, 2024. 02:09 Method Of Arrival: Ambulatory al5 02:09 Acuity: SHARRON 3 al5 Triage Assessment: 02:11 General: Appears in no apparent distress. comfortable, Behavior is calm, cooperative. al5 Pain: Complains of pain in epigastric area. EENT: No signs and/or symptoms were reported regarding the EENT system. Neuro: Level of Consciousness is awake, alert, obeys commands, Oriented to person, place, time, situation. Cardiovascular: Capillary refill < 3 seconds Patient's skin is warm and dry. Respiratory: Airway is patent Respiratory effort is even, unlabored, Respiratory pattern is regular, symmetrical. GI: Abdomen is non-distended, Reports upper abdominal pain. : No signs and/or symptoms were reported regarding the genitourinary system. Derm: Skin is intact, is healthy with good turgor, Skin is pink, warm \T\ dry. normal. Musculoskeletal: No signs and/or symptoms reported regarding the musculoskeletal system. Historical: - Allergies: 02:11 No Known Allergies; al5 - PMHx: 02:11 Anxiety; Asthma; al5 - PSHx: 02:11 None; al5 - Immunization history:: Adult Immunizations up to date. - Infectious Disease History:: Denies. - Social history:: Smoking status: Patient denies any tobacco usage or history of. Screenin:13 [facility] ED Fall Risk Assessment (Adult) History of falling in the last 3 months, al5 including since admission No falls in past 3 months (0 pts) Confusion or Disorientation No (0 pts) Intoxicated or Sedated No (0 pts) Impaired Gait No (0 pts) Mobility Assist Device Used No (0 pt) Altered Elimination No (0 pt) Score/Fall Risk Level 0 - 2 = Low Risk Oriented to surroundings, Maintained a safe environment, Hourly rounding (assess needs \T\ fall precautionary measures) done. Abuse screen: Denies threats or abuse. Denies injuries from another. Nutritional screening: No deficits noted. Tuberculosis screening: No symptoms or risk factors identified. Assessment: 02:13 Reassessment: see triage assessment. al5 Vital Signs: 02:09 BP 136 / 79; Pulse 91; Resp 18; Temp 99.2; Pulse Ox 98% on R/A; Weight 109.77 kg; al5 Height 5 ft. 10 in. ; 02:09 Body Mass Index 34.72 (109.77 kg, 177.8 cm) al5 ED Course: 01:36 Patient arrived in ED. [email or web address] 02:03 Lesley Lay MD is Attending Physician. sp3 02:09 Julisa Goodwin, JOCELYN is Primary Nurse. al5 02:11 Triage completed. al5 02:13 Arm band placed on right wrist. Patient placed in the treatment room, in view of staff al5 members, on pulse oximetry. 02:13 Patient has correct armband on for positive identification. Bed in low position. Call al5 light in reach. Side rails up X2. Provided Education on: plan of care. 02:13 No provider procedures requiring assistance completed. al5 02:25 Patient did not have IV access during this emergency room visit. al5 Administered Medications: No medications were administered Medication: 02:13 VIS not applicable for this client. al5 Outcome: 02:26 Eloped from patient exam room, after seeing physician al5 02:26 Condition: stable 02:27 Patient left the ED. al5 Signatures: Lesley Lay MD MD sp3 Alison Blue j6 Julisa Goodwin RN RN al5
--- NOTE | 2024-08-14 02:24 | EDPHYS ---
Physician Documentation [facility] Name: Eliseo Odonnell Age: 29 yrs Sex: Male : 1995 Arrival Date: 08/14/2024 Time: 01:34 Bed 20 Private MD: ED Physician Lesley Lay HPI: 08/14 02:20 This 29 yrs old Male presents to ER via Ambulatory with complaints of PT c/o sp3 "headache, fever, abd pain post MRI". 02:20 29-year-old male with history of anxiety and asthma who had recent MRI of the brain sp3 presents to the ED with chief complaint abdominal pain off-and-on with subjective fever. Patient was seen multiple providers in recent past. He denies any objective measured fever, chest pain, shortness of breath, vomiting, diarrhea, syncope, rash, or any other signs or symptoms on ROS at this time. Does endorse nausea. Abdominal pain is generalized. . Historical: - Allergies: 02:11 No Known Allergies; al5 - PMHx: 02:11 Anxiety; Asthma; al5 - PSHx: 02:11 None; al5 - Immunization history:: Adult Immunizations up to date. - Infectious Disease History:: Denies. - Social history:: Smoking status: Patient denies any tobacco usage or history of. ROS: 02:21 Eyes: Negative for injury, pain, redness, and discharge, ENT: Negative for injury, sp3 pain, and discharge, Neck: Negative for injury, pain, and swelling, Cardiovascular: Negative for chest pain, palpitations, and edema, Respiratory: Negative for shortness of breath, cough, wheezing, and pleuritic chest pain, Back: Negative for injury and pain, MS/Extremity: Negative for injury and deformity, Skin: Negative for injury, rash, and discoloration, Neuro: Negative for headache, weakness, numbness, tingling, and seizure, Psych: Negative for depression, anxiety, suicide ideation, homicidal ideation, and hallucinations, Allergy/Immunology: Negative for hives, rash, and allergies, Endocrine: Negative for neck swelling, polydipsia, polyuria, polyphagia, and marked weight changes, 02:21 All other systems are negative, Exam: 02:21 Constitutional: This is a well developed, well nourished patient who is awake, alert, sp3 and in no acute distress. Head/Face: Normocephalic, atraumatic. Eyes: Pupils equal round and reactive to light, extra-ocular motions intact. Lids and lashes normal. Conjunctiva and sclera are non-icteric and not injected. Cornea within normal limits. Periorbital areas with no swelling, redness, or edema. Neck: Trachea midline, no thyromegaly or masses palpated, and no cervical lymphadenopathy. Supple, full range of motion without nuchal rigidity, or vertebral point tenderness. No Meningismus. Chest/axilla: Normal chest wall appearance and motion. Nontender with no deformity. No lesions are appreciated. Cardiovascular: Regular rate and rhythm with a normal S1 and S2. No gallops, murmurs, or rubs. Normal PMI, no JVD. No pulse deficits. Respiratory: Lungs have equal breath sounds bilaterally, clear to auscultation and percussion. No rales, rhonchi or wheezes noted. No increased work of breathing, no retractions or nasal flaring. Back: No spinal tenderness. No costovertebral tenderness. Full range of motion. Skin: Warm, dry with normal turgor. Normal color with no rashes, no lesions, and no evidence of cellulitis. MS/ Extremity: Pulses equal, no cyanosis. Neurovascular intact. Full, normal range of motion. Neuro: Awake and alert, GCS 15, oriented to person, place, time, and situation. Cranial nerves II-XII grossly intact. Motor strength 5/5 in all extremities. Sensory grossly intact. Cerebellar exam normal. Normal gait. Psych: Awake, alert, with orientation to person, place and time. Behavior, mood, and affect are within normal limits. 02:22 Abdomen/GI: Abdomen soft with no peritoneal signs, rebound or guarding. Nonsurgical sp3 abdomen. Mild generalized cramping noted on palpation., Vital Signs: 02:09 BP 136 / 79; Pulse 91; Resp 18; Temp 99.2; Pulse Ox 98% on R/A; Weight 109.77 kg; al5 Height 5 ft. 10 in. ; 02:09 Body Mass Index 34.72 (109.77 kg, 177.8 cm) al5 MDM: 02:09 Medical Screening Exam initiated sp3 02:21 Data reviewed: vital signs, nurses notes, old medical records. ED course: 29-year-old sp3 male with abdominal pain. Patient does need CT abdomen and workup. However due to our scanner being functional however none trends admitting in terms of images to the radiologist, we are unable to get results. Patient states that he will return tomorrow or potentially go to a different facility. He is hoping that his symptoms improved. I offered potential transfer however patient declined.. Administered Medications: No medications were administered Disposition Summary: 08/14/24 02:24 Eloped Notes: Disposition: after being seen by provider sp3 Reason: other sp3 Condition: Stable sp3 Diagnosis - Abdominal pain sp3 Followup: sp3 - With: Private Physician - When: Upon discharge from the Emergency Department - Reason: Recheck today's complaints Signatures: Lesley Lay MD MD sp3 Julisa Goodwin RN RN al5
[2024-08-14 03:19] VITALS: BP 136/79; TEMP 99.2; O2SAT 98
== END 2024-08-14 02:27 | disposition left against medical advice (07) ==
LOC: ER 01:34
DX: R10.9 Unspecified abdominal pain (principal)
CPT/HCPCS: 99282